=== PATIENT | female | born 1955 | race Caucasian/White ===

== ENCOUNTER 2016-10-22 23:03 | Emergency (ER) | payer MEDICAID ==
[2016-10-22 23:20] VITALS: BP 111/79
== END 2016-10-23 00:05 | disposition left against medical advice (07) ==
LOC: ER 23:03
DX: Z53.9 Procedure and treatment not carried out, unspecified reason (principal)

== ENCOUNTER 2016-10-28 09:38 | Emergency (ER) | payer MEDICAID ==
--- NOTE | 2016-10-28 09:54 | ER Document Report ---
ED General - General Stated Complaint: PSYCH EVALUATION Mode of Arrival: Ambulatory Information source: Patient Notes: 61-year-old female history of psychiatric issues who has been seen by our emergency department multiple times in the past was found in the waiting room noted to be waiting for her family members. Patient notes her brother is here with a stroke, and her son TRAVEL OUTSIDE OF THE [place] IN LAST 30 DAYS: No - HPI Onset: Just prior to arrival Onset/Duration: Sudden Quality of pain: No pain Severity: Mild Pain Level: Denies Associated symptoms: None Exacerbated by: Denies Relieved by: Denies Similar symptoms previously: Yes Recently seen / treated by doctor: Yes - Related Data Allergies/Adverse Reactions: No Known Allergies Allergy (Verified 08/25/16 03:08) Past Medical History - Social History Smoking Status: Never Smoker Cigarette use (# per day): No Chew tobacco use (# tins/day): No Smoking Education Provided: No Family History: Arthritis, CAD, DM, Hyperlipidemia, Hypertension, Thyroid Disfunction - Past Medical History Cardiac Medical History: Reports: Hx Hypertension - CONTROLLED/MEDICATED Denies: Hx Heart Attack Pulmonary Medical History: Denies: Hx Asthma Neurological Medical History: Denies: Hx Cerebrovascular Accident, Hx Seizures Endocrine Medical History: Reports: Hx Diabetes Mellitus Type 2 Renal/ Medical History: Denies: Hx Peritoneal Dialysis GI Medical History: Denies: Hx Hepatitis, Hx Hiatal Hernia, Hx Ulcer Psychiatric Medical History: Reports: Hx Anxiety, Hx Bipolar Disorder, Hx Depression, Hx Schizophrenia Infectious Medical History: Denies: Hx Hepatitis Past Surgical History: Reports: Hx Appendectomy, Hx Dilation and Curettage, Hx Gynecologic Surgery - D&C. Denies: Hx Mastectomy, Hx Open Heart Surgery, Hx Pacemaker - Immunizations Immunizations up to date: Yes Hx Diphtheria, Pertussis, Tetanus Vaccination: Yes Review of Systems - Review of Systems Notes: REVIEW OF SYSTEMS: CONSTITUTIONAL : Denies fever, chills, or sweats. Denies recent illness. EENT: Denies eye, ear, throat, or mouth pain or symptoms. Denies nasal or sinus congestion or discharge. Denies throat, tongue, or mouth swelling or difficulty swallowing. CARDIOVASCULAR: Denies chest pain. Denies palpitations or racing or irregular heart beat. Denies ankle edema. RESPIRATORY: Denies cough, cold, or chest congestion. Denies shortness of breath, difficulty breathing, or wheezing. GASTROINTESTINAL: Denies abdominal pain or distention. Denies nausea, vomiting , or diarrhea. Denies blood in vomitus, stools, or per rectum. Denies black, tarry stools. Denies constipation. GENITOURINARY: Denies difficulty urinating, painful urination, burning, frequency, blood in urine, or discharge. FEMALE GENITOURINARY: Denies vaginal bleeding, heavy or abnormal periods, irregular periods. Denies vaginal discharge or odor. MUSCULOSKELETAL: Denies back or neck pain or stiffness. Denies joint pain or swelling. SKIN: Denies rash, lesions or sores. HEMATOLOGIC : Denies easy bruising or bleeding. LYMPHATIC: Denies swollen, enlarged glands. NEUROLOGICAL: Denies confusion or altered mental status. Denies passing out or loss of consciousness. Denies dizziness or lightheadedness. Denies headache. Denies weakness or paralysis or loss of use of either side. Denies problems with gait or speech. Denies sensory loss, numbness, or tingling. Denies seizures. PSYCHIATRIC: Denies anxiety or stress. Denies depression, suicidal ideation, or homicidal ideation. ALL OTHER SYSTEMS REVIEWED AND NEGATIVE. Dictation was performed using [employer] voice recognition software PHYSICAL EXAMINATION: GENERAL: Well-appearing, well-nourished and in no acute distress. HEAD: Atraumatic, normocephalic. EYES: Pupils equal round and reactive to light, extraocular movements intact, conjunctiva are normal. ENT: Nares patent, oropharynx clear without exudates. Moist mucous membranes. NECK: Normal range of motion, supple without lymphadenopathy LUNGS: Breath sounds clear to auscultation bilaterally and equal. No wheezes rales or rhonchi. HEART: Regular rate and rhythm without murmurs ABDOMEN: Soft, nontender, nondistended abdomen. No guarding, no rebound. No masses appreciated. Female : deferred Musculoskeletal: Normal range of motion, no pitting or edema. No cyanosis. NEUROLOGICAL: Cranial nerves grossly intact. Normal speech, normal gait. Normal sensory, motor exams PSYCH: pt appears confused SKIN: Warm, Dry, normal turgor, no rashes or lesions noted. Physical Exam - Vital signs Vitals: Temp Pulse Resp BP Pulse Ox 97.7 F 96 18 106/70 98 10/28/16 10:05 10/28/16 10:05 10/28/16 10:05 10/28/16 10:05 10/28/16 10:05 Course - Re-evaluation Re-evalutation: 10/28/16 10:06 Given my concern for the patient's safety I will involuntarily hold her until family members are contacted to determine the validity of her story 10/28/16 10:08 10/28/16 13:13 Patient's lithium level is noted to be low, I believe this is the cause of her presentation today. She will be kept involuntarily Medically otherwise patient is stable - Vital Signs Vital signs: Temp Pulse Resp BP Pulse Ox 97.7 F 96 18 106/70 98 10/28/16 10:05 10/28/16 10:05 10/28/16 10:05 10/28/16 10:05 10/28/16 10:05 - Laboratory Result Diagrams: 10/28/16 10:20 10/28/16 10:20 Laboratory results interpreted by me: 10/28/16 10/28/16 10/28/16 10:20 10:20 10:20 RDW 14.9 H Sodium 145.9 H Glucose 147 H Calcium 10.6 H Urine Glucose (UA) Ur Leukocyte Esterase Salicylates < 1.0 L Acetaminophen < 10 L [place] < 0.2 L 10/28/16 10:50 RDW Sodium Glucose Calcium Urine Glucose (UA) >=500 H Ur Leukocyte Esterase SMALL H Salicylates Acetaminophen [place] - EKG Interpretation by Ks EKG shows normal: Sinus rhythm, [place], Intervals, QRS Complexes Discharge - Discharge Clinical Impression: History of medication noncompliance, Schizoaffective schizophrenia Condition: Stable Disposition: PSYCH HOSP/UNIT Additional Instructions: Please follow-up with the care plan provided to you by her mental health team or return immediately if there any other concerns
[2016-10-28 10:52] LABS: ABSOLUTE BASOPHILS # (AUTO) 0.1 10^3/uL (0.0-0.2); ABSOLUTE EOSINOPHILS # (AUTO) 0.1 10^3/uL (0.0-0.6); ABSOLUTE LYMPHOCYTES (AUTO) 1.8 10^3/uL (0.5-4.7); ABSOLUTE MONOCYTES (AUTO) 0.7 10^3/uL (0.1-1.4); ABSOLUTE NEUT (AUTO) 6.9 10^3/uL (1.7-8.2); BASOPHILS % (AUTO) 0.7 % (0-2); EOSINOPHILS % (AUTO) 0.9 % (0-6); HEMATOCRIT 41.7 % (36.0-47.0); HEMOGLOBIN 13.4 g/dL (12.0-15.5); HGB HCT DIFFERENCE -1.5; LYMPHOCYTES % (AUTO) 19.1 % (13-45); MEAN CORPUSCULAR HEMOGLOBIN 28.6 pg (27.0-33.4); MEAN CORPUSCULAR HGB CONC 32.2 g/dL (32.0-36.0); MEAN CORPUSCULAR VOLUME 89 fl (80-97); MONOCYTES % (AUTO) 6.9 % (3-13); RED BLOOD COUNT 4.69 10^6/uL (3.72-5.28); RED CELL DISTRIBUTION WIDTH 14.9 % (11.5-14.0); SEGMENTED NEUTROPHILS % (AUTO) 72.4 % (42-78); WHITE BLOOD COUNT 9.6 10^3/uL (4.0-10.5)
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
[2016-10-28 11:21] LABS: ALANINE AMINOTRANSFERASE 20 U/L (9-52); ALKALINE PHOSPHATASE 60 U/L (38-126); ANION GAP 16 (5-19); ASPARTATE AMINO TRANSFERASE 17 U/L (14-36); BILIRUBIN,TOTAL 0.8 mg/dL (0.2-1.3); BLOOD UREA NITROGEN 18 mg/dL (7-20); CALCIUM 10.6 mg/dL (8.4-10.2); CARBON DIOXIDE 23 mmol/L (22-30); CHLORIDE 107 mmol/L (98-107); CREATININE RESULT 0.63 mg/dL (0.52-1.25); GLUCOSE 147 mg/dL (75-110); POTASSIUM 4.5 mmol/L (3.6-5.0); SODIUM 145.9 mmol/L (137-145)
[2016-10-28 11:22] LABS: ALCOHOL < 10 mg/dL (NONE DETECTED)
[2016-10-28 11:33] LABS: APPEARANCE,URINE SLIGHTLY-CLOUDY; BILIRUBIN,URINE NEGATIVE (NEGATIVE); GLUCOSE, URINE >=500 mg/dL (NEGATIVE); KETONES,URINE NEGATIVE (NEGATIVE); LEUKOCYTE ESTERASE,URINE SMALL (NEGATIVE); NITRITE,URINE NEGATIVE (NEGATIVE); PROTEIN,URINE NEGATIVE (NEGATIVE); URINE SPECIFIC GRAVITY 1.025; UROBILINOGEN,URINE NEGATIVE mg/dL (<2.0)
[2016-10-28 11:48] LABS: URINE BARBITURATES SCREEN NEGATIVE; URINE METHADONE SCREEN NEGATIVE; URINE PHENCYCLIDINE SCREEN NEGATIVE
--- NOTE | 2016-10-28 19:03 | EKG REPORT ---
SEVERITY:- ABNORMAL ECG - SINUS TACHYCARDIA VENTRICULAR BIGEMINY LEFT ATRIAL ABNORMALITY LEFT ANTERIOR FASCICULAR BLOCK LEFT VENTRICULAR HYPERTROPHY : Confirmed by: Cricket Matthews MD 28-Oct-2016 19:02:19
[2016-10-29] MEDS ORDERED: QUETIAPINE FUMARATE 100 MG TABLET PO ONE (04:00)
[2016-10-29] MEDS ORDERED: LITHIUM CARBONATE 300 MG CAPSULE PO SCH (06:00)
[2016-10-29] MEDS: METFORMIN HCL 500 MG TABLET PO SCH ×2 (08:05→16:54)
--- NOTE | 2016-10-29 09:17 | ER Document Report ---
Doctor's Note Notes: 10/29/16 09:17 Patient seen this morning in mental health rounds. Has no complaints. Results and vital signs reviewed. Awaiting psychiatric disposition. 10/29/16 12:46 Rec'd recommendations from psychiatric team including medication changes and ordering of a CT head. Ordered and pending. 10/29/16 15:57 Per psychiatric team, f/u OP w [facility] and home w rx 5 days of meds. D/C home w daughter who is at bedside. Discharge - Discharge Clinical Impression: History of medication noncompliance, Schizo affective schizophrenia Condition: Good Disposition: HOME, SELF-CARE Additional Instructions: Please follow up with [facility]. You were provided with 5 days' worth of medication. Prescriptions: Benztropine Mesylate [Cogentin 1 mg Tablet] 1 tab PO QHS #5 tab Buspirone HCl [Buspar 10 mg Tablet] 10 mg PO QHS #5 tablet Divalproex Sodium [Depakote ER 500 mg Tab.sr] 500 mg PO Q12 #10 tab.sr.24h Risperidone [Risperdal 0.25 Mg Tablet] 0.25 mg PO BID #10 tablet Referrals: FELA WHALEY MD [Primary Care Provider] - Follow up as needed
[2016-10-29] MEDS ORDERED: CAPTOPRIL 25 MG TABLET PO SCH (10:00)
[2016-10-29] MEDS ORDERED: DIVALPROEX SODIUM 125 MG CAP.SPRINK PO SCH ×2 (10:00→12:42)
--- NOTE | 2016-10-29 11:10 | PSYCHOLOGICAL NOTE ---
Psych Note - Psych Note Psych Note: Clinician conducted check in with patient. Previous impression/plan from included recommendation for IVC; the patient is unable to ensure her safety because of poor insight judgment and impulse control. At this time, the patient 's psychosis does not put her or others in danger; however, the patient is in need of a caregiver because her insight, judgment, impulse control are historically poor. Additionally, the patient has a history of noncompliance with taking medications for both mental health and medical needs. The patient' s family has refused to assist in caring for the patient stating they're "fed up with it" and that they "can't watch her 24 hours a day." Clinician called APS and made report. Upon reevaluation patient states that she is "feeling well." Clinician notes patient still verbalizing delusions to staff. Patient also did not sleep the previous evening. Clinician spoke in person with assigned APS worker to discuss concerns reported in more depth. All patient is still demonstrating active delusions, these delusions do not put herself or others in danger. Patient does not meet IVC criteria in is recommended for rescind of IVC. Patient is psychiatrically cleared for discharge. Patient's family needs assistance in understanding proper care and assistance in enrolling in proper resources for patient; social service discharge planning is recommended. Dr. Lewis was consulted on this patient; Attending physician is in agreement with recommendations and disposition.
[2016-10-29] MEDS ORDERED: RISPERIDONE 0.25 MG TABLET PO SCH (15:00)
[2016-10-29 17:06] VITALS: BP 113/63
[2016-10-29] MEDS ORDERED: BENZTROPINE MESYLATE 1 MG TABLET PO SCH (22:00)
[2016-10-29] MEDS ORDERED: QUETIAPINE FUMARATE 100 MG TABLET PO SCH (22:00)
[2016-10-29] MEDS ORDERED: BUSPIRONE HCL 10 MG TABLET PO SCH (22:00)
[2016-10-30] MEDS ORDERED: RISPERIDONE 0.25 MG TABLET PO SCH (08:00)
== END 2016-10-29 16:45 | disposition home or self-care (01) ==
LOC: ER 09:38
DX: F20.9 Schizophrenia, unspecified (principal); F31.9 Bipolar disorder, unspecified
CPT/HCPCS: 93005; 99285; 36415; 80307 ×4; 80178; 85025; 80053; 81001; 70450; 93010; J3490 ×5

== ENCOUNTER → 2017-01-10 | Outpatient (CLI) | payer MEDICAID | LOC: RAD 13:41 | PROVIDERS: ATTEND Internal Medicine | DX: C50.411 Malignant neoplasm of upper-outer quadrant of right female breast (principal) | CPT/HCPCS: 78472; A9560; Q9969 ==

== ENCOUNTER → 2017-01-12 | Outpatient (CLI) | payer MEDICAID | LOC: RAD 07:27 | PROVIDERS: ATTEND Internal Medicine | DX: C50.411 Malignant neoplasm of upper-outer quadrant of right female breast (principal) | CPT/HCPCS: 71260; 74177; 82565 ==

== ENCOUNTER 2017-01-13 07:57 | Day surgery (SDC) | payer MEDICAID ==
[~2017-01-13 07:57] MED LIST: ACETAMINOPHEN 325 MG TABLET PO PRN; RINGERS SOLUTION,LACTATED 1,000 ML IV PRN
[2017-01-13 08:49] LABS: HEMATOCRIT 35.6 % (36.0-47.0); HGB HCT DIFFERENCE 0.4; MEAN CORPUSCULAR HEMOGLOBIN 28.9 pg (27.0-33.4); MEAN CORPUSCULAR HGB CONC 33.8 g/dL (32.0-36.0); MEAN CORPUSCULAR VOLUME 86 fl (80-97); RED BLOOD COUNT 4.16 10^6/uL (3.72-5.28); RED CELL DISTRIBUTION WIDTH 14.6 % (11.5-14.0)
[2017-01-13] MEDS ORDERED: BACITRACIN INJ 50,000 UNIT VIAL IR PRN (09:08)
[2017-01-13] MEDS ORDERED: MIDAZOLAM 2 MG/2 ML INJ ONE (09:21)
[2017-01-13] MEDS ORDERED: FENTANYL CITRATE INJ/PF 100 MCG/2 ML AMPUL ONE (09:21)
[2017-01-13] MEDS ORDERED: LIDOCAINE 0.5% INJ-PF (5 MG/ML) 50 ML SDV ONE (10:05)
[2017-01-13] MEDS ORDERED: CEFAZOLIN INJ 1 GM VIAL ONE (10:43)
[2017-01-13 13:22] VITALS: BP 162/82
--- NOTE | 2017-01-13 23:08 | OPERATIVE REPORT E ---
Operative Report NAME: RANDELL COURTNEY : 1955 AGE: 61Y DATE OF SURGERY: 01/13/2017 ROOM: PREOPERATIVE DIAGNOSIS: Locally advanced right breast carcinoma. POSTOPERATIVE DIAGNOSIS: Locally advanced right breast carcinoma. PROCEDURES PERFORMED: 1. Focused ultrasound of the left neck. 2. Ultrasound directed insertion of single-lumen Infusaport catheter with port in left subclavian position. 3. Interpretation of intraoperative fluoroscopy. 4. Interpretation of limited superior vena cavagram. SURGEON: KVNG LOWERY M.D. ANESTHESIA: Conscious sedation. COMPLICATIONS: None. ESTIMATED BLOOD LOSS: Scant. DRAINS: None. TISSUE REMOVED: None. SUMMARY OF PROCEDURE: The patient was taken from the ambulatory area to the cardiac catheterization lab where she was placed in the supine position. Arms tucked, left neck and chest prepped and draped in a sterile fashion. Surgical timeout were conducted. Ultrasound was used to scan the left neck. Left internal jugular vein patent. Skin was anesthetized with 1% lidocaine with epinephrine. Microneedle and wire threaded into the left internal jugular vein. Suitable site for placement of port established in the left subclavian position. Skin similarly anesthetized, a 2.5 cm incision was made with a #15 blade, and a subcutaneous pocket developed to accommodate the port. The catheter was trimmed to the appropriate length, tunneled between the 2 wounds, attached to the port chamber with a plastic retaining ring. The port was tucked into the pocket, then the Microwire switched over to a conventional wire using the Microintroducer catheter. The dilator introducer sheaths were then threaded over the conventional wire, wire and dilator removed, and catheter threaded into the left internal jugular vein and strip-away sheath removed, leaving catheter in good position. There was no kink of the catheter by fluoroscopic examination. There was excellent aspiration and blood flow through the lumen. We did shoot a quick venogram which suggested the catheter was in good position without leaking. Hemostasis was excellent. The wound was closed with 2-0 Vicryl, benzoin and Steri-Strips. The patient tolerated the procedure well and taken to recovery area in stable condition. DICTATING PHYSICIAN: KVNG LOWERY M.D. [id number] Y#: [id number] ID: [id number] JOB#: [id number] ACCT: [id number] cc:KVNG LOWERY M.D. >
== END 2017-01-13 13:15 | disposition home or self-care (01) ==
LOC: CCL 07:57
PROVIDERS: ATTEND Surgery
PROC: 05HN33Z Insertion of Infusion Device into Left Internal Jugular Vein, Percutaneous Approach (ICD-10-PCS; principal; 2017-01-13)
DX: C50.911 Malignant neoplasm of unspecified site of right female breast (principal); I10 Essential (primary) hypertension; E11.9 Type 2 diabetes mellitus without complications; E66.9 Obesity, unspecified; F32.9 Major depressive disorder, single episode, unspecified; Z79.899 Other long term (current) drug therapy; Z79.84 Long term (current) use of oral hypoglycemic drugs; Z68.33 Body mass index [BMI] 33.0-33.9, adult
CPT/HCPCS: 36415; 82962; 85027; 36561; 76937; 77001; C1788; C1752; Q9967; J2250; J3490 ×2; J0690; J3010; J1644

== ENCOUNTER → 2017-01-14 | Outpatient (CLI) | payer MEDICAID | LOC: RAD 08:35 | PROVIDERS: ATTEND Internal Medicine | DX: C50.411 Malignant neoplasm of upper-outer quadrant of right female breast (principal) | CPT/HCPCS: 78306; A9503; Q9969 ==

== ENCOUNTER 2017-01-23 12:50 | Emergency (ER) | payer MEDICAID ==
[2017-01-23] MEDS ORDERED: ONDANSETRON HCL INJ/PF 4 MG/2 ML SDV IV ONE (13:04)
[2017-01-23] MEDS ORDERED: LORAZEPAM INJ 2 MG/1 ML VIAL IV ONE (13:04)
--- NOTE | 2017-01-23 13:07 | ER Document Report ---
ED General - General Stated Complaint: WEAKNESS Mode of Arrival: Medic Information source: Patient Notes: 61-year-old female history of breast cancer who received chemotherapy on presents with complaints of one episode of vomiting after which she felt anxious and felt like she was gonna pass out and called EMS. Patient denies any fevers or chills TRAVEL OUTSIDE OF THE [place] IN LAST 30 DAYS: No - HPI Onset: Just prior to arrival Onset/Duration: Sudden Quality of pain: No pain Severity: Mild Pain Level: Denies Associated symptoms: Nausea, Vomiting Exacerbated by: Denies Relieved by: Denies Similar symptoms previously: No Recently seen / treated by doctor: No - Related Data Allergies/Adverse Reactions: No Known Allergies Allergy (Verified 01/13/17 08:49) Past Medical History - Social History Smoking Status: Never Smoker Cigarette use (# per day): No Chew tobacco use (# tins/day): No Smoking Education Provided: No Family History: Arthritis, CAD, DM, Hyperlipidemia, Hypertension, Thyroid Disfunction - Past Medical History Cardiac Medical History: Reports: Hx Hypertension - CONTROLLED/MEDICATED Denies: Hx Coronary Artery Disease, Hx Heart Attack Pulmonary Medical History: Reports: Hx Pneumonia - as child Denies: Hx Asthma, Hx Bronchitis, Hx COPD Neurological Medical History: Denies: Hx Cerebrovascular Accident, Hx Seizures Endocrine Medical History: Reports: Hx Diabetes Mellitus Type 2 Renal/ Medical History: Denies: Hx Peritoneal Dialysis GI Medical History: Denies: Hx Hepatitis, Hx Hiatal Hernia, Hx Ulcer Musculoskeltal Medical History: Reports Hx Arthritis Psychiatric Medical History: Reports: Hx Anxiety, Hx Bipolar Disorder, Hx Depression, Hx Schizophrenia Infectious Medical History: Denies: Hx Hepatitis Past Surgical History: Reports: Hx Appendectomy, Hx Dilation and Curettage, Hx Gynecologic Surgery - D&C. Denies: Hx Mastectomy, Hx Open Heart Surgery, Hx Pacemaker - Immunizations Immunizations up to date: Yes Hx Diphtheria, Pertussis, Tetanus Vaccination: Yes Review of Systems - Review of Systems Notes: REVIEW OF SYSTEMS: CONSTITUTIONAL : Denies fever, chills, or sweats. Denies recent illness. EENT: Denies eye, ear, throat, or mouth pain or symptoms. Denies nasal or sinus congestion or discharge. Denies throat, tongue, or mouth swelling or difficulty swallowing. CARDIOVASCULAR: Denies chest pain. Denies palpitations or racing or irregular heart beat. Denies ankle edema. RESPIRATORY: Denies cough, cold, or chest congestion. Denies shortness of breath, difficulty breathing, or wheezing. GASTROINTESTINAL: Vomited nauseous GENITOURINARY: Denies difficulty urinating, painful urination, burning, frequency, blood in urine, or discharge. FEMALE GENITOURINARY: Denies vaginal bleeding, heavy or abnormal periods, irregular periods. Denies vaginal discharge or odor. MUSCULOSKELETAL: Denies back or neck pain or stiffness. Denies joint pain or swelling. SKIN: Denies rash, lesions or sores. HEMATOLOGIC : Denies easy bruising or bleeding. LYMPHATIC: Denies swollen, enlarged glands. NEUROLOGICAL: Admits to feeling presyncopal PSYCHIATRIC: Admits to feeling anxious ALL OTHER SYSTEMS REVIEWED AND NEGATIVE. Dictation was performed using [employer] voice recognition software PHYSICAL EXAMINATION: GENERAL: Well-appearing, well-nourished and in no acute distress. HEAD: Atraumatic, normocephalic. EYES: Pupils equal round and reactive to light, extraocular movements intact, conjunctiva are normal. ENT: Nares patent, oropharynx clear without exudates. Moist mucous membranes. NECK: Normal range of motion, supple without lymphadenopathy LUNGS: Breath sounds clear to auscultation bilaterally and equal. No wheezes rales or rhonchi. HEART: Regular rate and rhythm without murmurs port noted ABDOMEN: Soft, nontender, nondistended abdomen. No guarding, no rebound. No masses appreciated. Female : deferred Musculoskeletal: Normal range of motion, no pitting or edema. No cyanosis. NEUROLOGICAL: Cranial nerves grossly intact. Normal speech, normal gait. Normal sensory, motor exams PSYCH: Normal mood, normal affect. SKIN: Warm, Dry, normal turgor, no rashes or lesions noted. Physical Exam - Vital signs Vitals: Pulse Ox 98 01/23/17 13:25 Course - Re-evaluation Re-evalutation: 01/23/17 13:07 Patient will be treated for her nausea vomiting, lab work are pending at this time 01/23/17 14:19 Laboratory does note elevated white count, however it appears she has a patch of Neulasta on her. I did speak with the patient's oncologist he agrees that patient looks well and is stable. I will discharge her home. I believe the majority of her issues are secondary to anxiety at this point patient will be given nausea control After performing a Medical Screening Examination, I estimate there is LOW risk for ACUTE CORONARY SYNDROME, RESPIRATORY FAILURE, SEPSIS OR MENINGITIS, thus I consider the discharge disposition reasonable. I have reevaluated this patient multiple times and no significant life threatening changes are noted. The patient and I have discussed the diagnosis and risks, and we agree with discharging home with close follow-up. We also discussed returning to the Emergency Department immediately if new or worsening symptoms occur. We have discussed the symptoms which are most concerning (e.g., changing or worsening pain, trouble swallowing or breathing, neck stiffness, fever) that necessitate immediate return. - Vital Signs Vital signs: Temp Pulse Resp BP Pulse Ox 98 01/23/17 13:25 - Laboratory Result Diagrams: 01/23/17 13:20 01/23/17 13:20 Laboratory results interpreted by me: 01/23/17 01/23/17 01/23/17 13:20 13:20 13:48 WBC 22.9 H Hgb 11.8 L Hct 34.4 L RDW 14.7 H Seg Neuts % (Manual) 87 H Band Neutrophils % 1 L Lymphocytes % (Manual) 10 L Monocytes % (Manual) 0 L Abs Neuts (Manual) 20.2 H Abs Monocytes (Manual) 0.0 L Glucose 232 H Urine Protein 30 H Urine Glucose (UA) >=500 H Urine Ketones TRACE H Ur Leukocyte Esterase TRACE H Discharge - Discharge Clinical Impression: Nausea & vomiting Qualifiers: Vomiting type: unspecified Vomiting Intractability: non-intractable Qualified Code(s): R11.2 - Nausea with vomiting, unspecified Condition: Stable Disposition: HOME, SELF-CARE Instructions: Vomiting ([facility]) Additional Instructions: Follow up with your physician tomorrow for further care or return to the ED IMMEDIATELY if symptoms worsen or new concerns occur. If you cannot afford to follow up with your primary care physician a list of low cost clinics have been provided at the end of your discharge papers as well. Prescriptions: Ondansetron [Zofran Odt 4 mg Tablet] 1 - 2 tab PO Q4H PRN #15 tab.rapdis PRN Reason: For Nausea/Vomiting Referrals: LALITO GUZMAN MD [ACTIVE STAFF] - Follow up tomorrow
[2017-01-23 13:35] LABS: HEMATOCRIT 34.4 % (36.0-47.0); HEMOGLOBIN 11.8 g/dL (12.0-15.5); MEAN CORPUSCULAR HEMOGLOBIN 29.5 pg (27.0-33.4); MEAN CORPUSCULAR HGB CONC 34.3 g/dL (32.0-36.0); MEAN CORPUSCULAR VOLUME 86 fl (80-97); RED BLOOD COUNT 3.99 10^6/uL (3.72-5.28); RED CELL DISTRIBUTION WIDTH 14.7 % (11.5-14.0); WHITE BLOOD COUNT 22.9 10^3/uL (4.0-10.5)
[2017-01-23 13:50] LABS: BAND NEUTROPHILS % (MANUAL) 1 % (3-5); BASOPHILS % (MANUAL) 0 % (0-2); EOSINOPHILS % (MANUAL) 2 % (0-6); LYMPHOCYTES % (MANUAL) 10 % (13-45); TOTAL CELLS COUNTED 100
[2017-01-23 13:51] LABS: RBC MORPHOLOGY COMMENT NORMO-CYTIC/CHROMIC
[2017-01-23 13:52] LABS: ALANINE AMINOTRANSFERASE 25 U/L (9-52); ALBUMIN 4.5 g/dL (3.5-5.0); ALKALINE PHOSPHATASE 126 U/L (38-126); ANION GAP 13 (5-19); ASPARTATE AMINO TRANSFERASE 16 U/L (14-36); BILIRUBIN,DIRECT 0.3 mg/dL (0.0-0.4); BILIRUBIN,TOTAL 0.9 mg/dL (0.2-1.3); BLOOD UREA NITROGEN 18 mg/dL (7-20); CALCIUM 10.1 mg/dL (8.4-10.2); CARBON DIOXIDE 27 mmol/L (22-30); CHLORIDE 100 mmol/L (98-107); CREATINE KINASE 40 U/L (30-135); CREATININE RESULT 0.54 mg/dL (0.52-1.25); GLUCOSE 232 mg/dL (75-110); POTASSIUM 4.6 mmol/L (3.6-5.0); SODIUM 140.2 mmol/L (137-145); TOTAL PROTEIN 7.2 g/dL (6.3-8.2)
[2017-01-23 14:02] LABS: CREATINE KINASE MB 0.54 ng/mL (<4.55)
[2017-01-23 14:04] LABS: APPEARANCE,URINE SLIGHTLY-CLOUDY; BILIRUBIN,URINE NEGATIVE (NEGATIVE); GLUCOSE, URINE >=500 mg/dL (NEGATIVE); KETONES,URINE TRACE mg/dL (NEGATIVE); LEUKOCYTE ESTERASE,URINE TRACE (NEGATIVE); NITRITE,URINE NEGATIVE (NEGATIVE); PROTEIN,URINE 30 mg/dL (NEGATIVE); URINE SPECIFIC GRAVITY 1.028; UROBILINOGEN,URINE NEGATIVE mg/dL (<2.0)
[2017-01-23 14:07] LABS: TROPONIN I < 0.012 ng/mL
[2017-01-23 16:34] VITALS: BP 146/87
--- NOTE | 2017-01-23 17:53 | EKG REPORT ---
SEVERITY:- ABNORMAL ECG - SINUS RHYTHM PROBABLE LEFT ATRIAL ABNORMALITY INCOMPLETE LEFT BUNDLE BRANCH BLOCK LEFT VENTRICULAR HYPERTROPHY : Confirmed by: Cricket Matthews MD 23-Jan-2017 17:53:13
== END 2017-01-23 16:29 | disposition home or self-care (01) ==
LOC: ER 12:50
DX: R11.2 Nausea with vomiting, unspecified (principal); F41.9 Anxiety disorder, unspecified; R55 Syncope and collapse; C50.919 Malignant neoplasm of unspecified site of unspecified female breast; I10 Essential (primary) hypertension; E11.9 Type 2 diabetes mellitus without complications; D72.829 Elevated white blood cell count, unspecified
CPT/HCPCS: 93005; 99285; 96374; 96375; 36415; 82553; 82550; 85025; 80053; 81001; 84484; 71010; 93010; J2060; J2405

== ENCOUNTER 2017-01-27 04:02 | Observation (INO) | payer MEDICAID ==
[2017-01-27 05:57] LABS: ALANINE AMINOTRANSFERASE 28 U/L (9-52); ALBUMIN 4.5 g/dL (3.5-5.0); ALKALINE PHOSPHATASE 102 U/L (38-126); ANION GAP 15 (5-19); ASPARTATE AMINO TRANSFERASE 20 U/L (14-36); BILIRUBIN,DIRECT 0.2 mg/dL (0.0-0.4); BILIRUBIN,TOTAL 0.6 mg/dL (0.2-1.3); BLOOD UREA NITROGEN 20 mg/dL (7-20); CALCIUM 9.7 mg/dL (8.4-10.2); CARBON DIOXIDE 23 mmol/L (22-30); CHLORIDE 102 mmol/L (98-107); CREATINE KINASE 34 U/L (30-135); CREATININE RESULT 0.63 mg/dL (0.52-1.25); GLUCOSE 161 mg/dL (75-110); LIPASE 93.9 U/L (23-300); POTASSIUM 4.4 mmol/L (3.6-5.0); SODIUM 139.8 mmol/L (137-145); TOTAL PROTEIN 7.2 g/dL (6.3-8.2)
[2017-01-27] MEDS ORDERED: ASPIRIN 325 MG TABLET PO ONE (06:08)
[2017-01-27 06:12] LABS: TROPONIN I < 0.012 ng/mL
[2017-01-27 06:19] LABS: HEMATOCRIT 32.8 % (36.0-47.0); HEMOGLOBIN 11.1 g/dL (12.0-15.5); HGB HCT DIFFERENCE 0.5; MEAN CORPUSCULAR HEMOGLOBIN 28.9 pg (27.0-33.4); MEAN CORPUSCULAR HGB CONC 33.7 g/dL (32.0-36.0); MEAN CORPUSCULAR VOLUME 86 fl (80-97); RED BLOOD COUNT 3.83 10^6/uL (3.72-5.28); RED CELL DISTRIBUTION WIDTH 14.8 % (11.5-14.0); WHITE BLOOD COUNT 7.7 10^3/uL (4.0-10.5)
[2017-01-27 06:23] LABS: BAND NEUTROPHILS % (MANUAL) 12 % (3-5); BASOPHILS % (MANUAL) 0 % (0-2); EOSINOPHILS % (MANUAL) 3 % (0-6); LYMPHOCYTES % (MANUAL) 31 % (13-45); TOTAL CELLS COUNTED 100
[2017-01-27 06:27] LABS: ANISOCYTOSIS SLIGHT; OVALOCYTES SLIGHT; TEAR DROP CELLS SLIGHT; TOXIC GRANULATION SLIGHT; TOXIC VACUOLATION PRESENT
[2017-01-27] MEDS ORDERED: NITROGLYCERIN 0.4 MG/TAB 25 TAB/BOTTLE SL PRN (06:53)
--- NOTE | 2017-01-27 06:56 | ER Document Report ---
ED General - General Chief Complaint: Chest Pain Stated Complaint: CHEST PAIN/BACK PAIN Mode of Arrival: Ambulatory Information source: Patient Notes: 61-year-old female history of hypertension hyperlipidemia diabetes presents with complaints of chest pressure sensation rating to her back. Patient denies any fevers or chills, denies any nausea vomiting, denies any shortness of breath. Patient denies any sharp pain, she denies any pain with inspiration or expiration. Patient notes pain resolved after being given one nitroglycerin by EMS She does not have a history of any stress test TRAVEL OUTSIDE OF THE [place] IN LAST 30 DAYS: No - HPI Onset: Yesterday Onset/Duration: Persistent Quality of pain: Pressure Severity: Mild Pain Level: 1 Associated symptoms: Chest pain Exacerbated by: Denies Relieved by: Other Similar symptoms previously: Yes - minor chest pain in the past never seen for Recently seen / treated by doctor: No - Related Data Allergies/Adverse Reactions: No Known Allergies Allergy (Verified 01/13/17 08:49) Past Medical History - Social History Smoking Status: Never Smoker Cigarette use (# per day): No Chew tobacco use (# tins/day): No Smoking Education Provided: No Frequency of alcohol use: None Drug Abuse: None Family History: Arthritis, CAD, DM, Hyperlipidemia, Hypertension, Thyroid Disfunction Patient has suicidal ideation: No Patient has homicidal ideation: No - Past Medical History Cardiac Medical History: Reports: Hx Hypertension - CONTROLLED/MEDICATED Denies: Hx Coronary Artery Disease, Hx Heart Attack Pulmonary Medical History: Reports: Hx Pneumonia - as child Denies: Hx Asthma, Hx Bronchitis, Hx COPD Neurological Medical History: Denies: Hx Cerebrovascular Accident, Hx Seizures Endocrine Medical History: Reports: Hx Diabetes Mellitus Type 2 Renal/ Medical History: Denies: Hx Peritoneal Dialysis GI Medical History: Denies: Hx Hepatitis, Hx Hiatal Hernia, Hx Ulcer Musculoskeltal Medical History: Reports Hx Arthritis Psychiatric Medical History: Reports: Hx Anxiety, Hx Bipolar Disorder, Hx Depression, Hx Schizophrenia Infectious Medical History: Denies: Hx Hepatitis Past Surgical History: Reports: Hx Appendectomy, Hx Dilation and Curettage, Hx Gynecologic Surgery - D&C. Denies: Hx Mastectomy, Hx Open Heart Surgery, Hx Pacemaker - Immunizations Immunizations up to date: Yes Hx Diphtheria, Pertussis, Tetanus Vaccination: Yes Review of Systems - Review of Systems Notes: REVIEW OF SYSTEMS: CONSTITUTIONAL : Denies fever, chills, or sweats. Denies recent illness. EENT: Denies eye, ear, throat, or mouth pain or symptoms. Denies nasal or sinus congestion or discharge. Denies throat, tongue, or mouth swelling or difficulty swallowing. CARDIOVASCULAR: Admits to chest pain RESPIRATORY: Denies cough, cold, or chest congestion. Denies shortness of breath, difficulty breathing, or wheezing. GASTROINTESTINAL: Denies abdominal pain or distention. Denies nausea, vomiting , or diarrhea. Denies blood in vomitus, stools, or per rectum. Denies black, tarry stools. Denies constipation. GENITOURINARY: Denies difficulty urinating, painful urination, burning, frequency, blood in urine, or discharge. FEMALE GENITOURINARY: Denies vaginal bleeding, heavy or abnormal periods, irregular periods. Denies vaginal discharge or odor. MUSCULOSKELETAL: Denies back or neck pain or stiffness. Denies joint pain or swelling. SKIN: Denies rash, lesions or sores. HEMATOLOGIC : Denies easy bruising or bleeding. LYMPHATIC: Denies swollen, enlarged glands. NEUROLOGICAL: Denies confusion or altered mental status. Denies passing out or loss of consciousness. Denies dizziness or lightheadedness. Denies headache. Denies weakness or paralysis or loss of use of either side. Denies problems with gait or speech. Denies sensory loss, numbness, or tingling. Denies seizures. PSYCHIATRIC: Denies anxiety or stress. Denies depression, suicidal ideation, or homicidal ideation. ALL OTHER SYSTEMS REVIEWED AND NEGATIVE. Dictation was performed using [employer] voice recognition software PHYSICAL EXAMINATION: GENERAL: Well-appearing, well-nourished and in no acute distress. HEAD: Atraumatic, normocephalic. EYES: Pupils equal round and reactive to light, extraocular movements intact, conjunctiva are normal. ENT: Nares patent, oropharynx clear without exudates. Moist mucous membranes. NECK: Normal range of motion, supple without lymphadenopathy LUNGS: Breath sounds clear to auscultation bilaterally and equal. No wheezes rales or rhonchi. HEART: Regular rate and rhythm without murmurs ABDOMEN: Soft, nontender, nondistended abdomen. No guarding, no rebound. No masses appreciated. Female : deferred Musculoskeletal: Normal range of motion, no pitting or edema. No cyanosis. NEUROLOGICAL: Cranial nerves grossly intact. Normal speech, normal gait. Normal sensory, motor exams PSYCH: Normal mood, normal affect. SKIN: Warm, Dry, normal turgor, no rashes or lesions noted. Physical Exam - Vital signs Vitals: BP 124/80 01/27/17 04:16 Course - Re-evaluation Re-evalutation: 01/27/17 06:55 Physical examination lab work and EKG noted no significant abnormality, given patient's risk factors and presentation I do believe a cardiac evaluation is appropriate. I will admit the patient to her primary care physician for ACS rule out - Vital Signs Vital signs: Temp Pulse Resp BP Pulse Ox 98.5 F 97 18 140/73 H 96 01/27/17 04:25 01/27/17 04:25 01/27/17 04:25 01/27/17 06:16 01/27/17 06:16 - Laboratory Result Diagrams: 01/27/17 05:30 01/27/17 05:30 Laboratory results interpreted by me: 01/27/17 01/27/17 05:30 05:30 Hgb 11.1 L Hct 32.8 L RDW 14.8 H Seg Neuts % (Manual) 38 L Band Neutrophils % 12 H Monocytes % (Manual) 16 H Glucose 161 H - Diagnostic Test Radiology reviewed: Image reviewed, Reports reviewed - EKG Interpretation by Me EKG shows normal: Sinus rhythm, [place], Intervals, QRS Complexes [place]/QRS: LAHB/LAFB Discharge - Discharge Clinical Impression: Chest pain Qualifiers: Chest pain type: unspecified Qualified Code(s): R07.9 - Chest pain, unspecified Condition: Stable Disposition: ADMITTED OBSERVATION Admitting Provider: [facility] Unit Admitted: Telemetry
[2017-01-27 09:45] LABS: PARTIAL THROMBOPLASTIN TIME 29.9 SEC (23.5-35.8); PROTHROMBIN TIME 12.9 SEC (11.4-15.4)
[2017-01-27 09:53] LABS: CREATINE KINASE MB 0.51 ng/mL (<4.55)
[2017-01-27 09:59] LABS: TROPONIN I < 0.012 ng/mL
[2017-01-27 15:31] LABS: CREATINE KINASE MB 0.56 ng/mL (<4.55)
[2017-01-27 15:37] LABS: TROPONIN I < 0.012 ng/mL
[2017-01-27 17:10] LABS: APPEARANCE,URINE SLIGHTLY-CLOUDY; BILIRUBIN,URINE NEGATIVE (NEGATIVE); GLUCOSE, URINE >=500 mg/dL (NEGATIVE); KETONES,URINE NEGATIVE (NEGATIVE); LEUKOCYTE ESTERASE,URINE NEGATIVE (NEGATIVE); NITRITE,URINE NEGATIVE (NEGATIVE); PROTEIN,URINE NEGATIVE (NEGATIVE); URINE SPECIFIC GRAVITY 1.016; UROBILINOGEN,URINE NEGATIVE mg/dL (<2.0)
[2017-01-27] MEDS: ASPIRIN 81 MG TABLET, ENT COATED PO SCH (18:34)
[2017-01-27] MEDS ORDERED: OXYCODONE-ACETAMINOPHEN 5-325 MG TABLET PO PRN (18:38)
[2017-01-27] MEDS ORDERED: NORMAL SALINE 1000 ML 1,000 ML IV PRN (18:39)
[2017-01-27] MEDS ORDERED: LISINOPRIL 10 MG TABLET PO ONE (19:00)
[2017-01-27] MEDS ORDERED: GLIPIZIDE XL 5 MG TAB.ER.24 PO ONE (19:30)
[2017-01-27] MEDS ORDERED: DIVALPROEX SODIUM 250 MG TAB.SR.24H PO ONE (20:00)
[2017-01-27 20:48] LABS: PATH REVIEW PATHOLOGIST REVIEWED
[2017-01-27 21:21] LABS: CREATINE KINASE MB 0.56 ng/mL (<4.55)
[2017-01-27 21:25] LABS: TROPONIN I < 0.012 ng/mL
[2017-01-27] MEDS ORDERED: (PENDING PHARMACY ID) (Quetiapine Fumarate [Seroquel Xr] 150 MG) PO SCH (22:00)
[2017-01-28 05:32] LABS: HEMATOCRIT 34.4 % (36.0-47.0); HEMOGLOBIN 11.6 g/dL (12.0-15.5); HGB HCT DIFFERENCE 0.4; MEAN CORPUSCULAR HEMOGLOBIN 28.8 pg (27.0-33.4); MEAN CORPUSCULAR HGB CONC 33.7 g/dL (32.0-36.0); MEAN CORPUSCULAR VOLUME 86 fl (80-97); RED BLOOD COUNT 4.03 10^6/uL (3.72-5.28); RED CELL DISTRIBUTION WIDTH 14.6 % (11.5-14.0); WHITE BLOOD COUNT 14.4 10^3/uL (4.0-10.5)
[2017-01-28 05:51] LABS: ANION GAP 18 (5-19); BLOOD UREA NITROGEN 17 mg/dL (7-20); CALCIUM 10.3 mg/dL (8.4-10.2); CARBON DIOXIDE 26 mmol/L (22-30); CHLORIDE 102 mmol/L (98-107); CHOLESTEROL 103.75 mg/dL (0-200); CREATININE RESULT 0.69 mg/dL (0.52-1.25); Direct HDL 47 mg/dL (>40); GLUCOSE 131 mg/dL (75-110); POTASSIUM 4.6 mmol/L (3.6-5.0); SODIUM 146.3 mmol/L (137-145); TRIGLYCERIDES 76 mg/dL (<150)
[2017-01-28 06:01] LABS: DIRECT LDL 37 mg/dL (<100)
[2017-01-28 06:09] LABS: BAND NEUTROPHILS % (MANUAL) 9 % (3-5); BASOPHILS % (MANUAL) 0 % (0-2); EOSINOPHILS % (MANUAL) 0 % (0-6); LYMPHOCYTES % (MANUAL) 22 % (13-45); TOTAL CELLS COUNTED 100
[2017-01-28 06:10] LABS: ANISOCYTOSIS SLIGHT; TOXIC VACUOLATION PRESENT
[2017-01-28] MEDS: DIVALPROEX SODIUM 250 MG TAB.SR.24H PO SCH ×2 (09:49→17:25)
[2017-01-28] MEDS: ASPIRIN 81 MG TABLET, ENT COATED PO SCH (09:50)
[2017-01-28] MEDS ORDERED: LISINOPRIL 10 MG TABLET PO SCH (10:00)
[2017-01-28] MEDS ORDERED: GLIPIZIDE XL 5 MG TAB.ER.24 PO SCH (10:00)
--- NOTE | 2017-01-28 18:29 | PDOC H&P ---
History of Present Illness Admission Date/PCP: 01/27/17 08:41 FELA WHALEY MD History of Present Illness: RANDELL COURTNEY is a 61 year old female, she recently diagnosed with right breast cancer, she came to emergency room with 3 days history of substernal chest pain, the chest pain is not provoked by activity or motion, she was seen in the emergency room and evaluated, a 12-lead E EKG was done, it was sinus rhythm there is no acute ST-T wave segment changes, because of her risk factors for ischemic heart disease which include diabetes mellitus, hospital admission was advised to rule out acute coronary syndrome.. 3 sets of cardiac enzymes were negative for acute CO, because of history of breast cancer and because she said the chest pain radiated to her back CTA chest was done and it was negative for pulmonary embolus. The chest pain is atypical in character it is probably GI related chest pain on further questioning it seems that the chest pain is mainly epigastric other than substernal chest pain. She denies any passage of black tarry stool, there is no hematochezia or vomiting blood. Past Medical History Cardiac Medical History: Reports: Hypertension - CONTROLLED/MEDICATED Pulmonary Medical History: Reports: Pneumonia - as child Endocrine Medical History: Reports: Diabetes Mellitus Type 2 Malignancy Medical History: Reports: Breast Cancer Musculoskeltal Medical History: Reports: Arthritis Psychiatric Medical History: Reports: Bipolar Disorder, Depression Hematology: Reports: Anemia Past Surgical History Past Surgical History: Reports: Appendectomy Social History Smoking Status: Never Smoker Drugs: None - Advance Directive Resuscitation Status: Full Code Family History Family History: Arthritis, CAD, DM, Hyperlipidemia, Hypertension, Thyroid Disfunction Parental Family History Reviewed: Yes Children Family History Reviewed: Yes Sibling(s) Family History Reviewed.: Yes Medication/Allergy Home Medications: Divalproex Sodium [Depakote ER 250 mg Tablet] 3 tab PO BID 01/27/17 Glipizide [Glipizide Xl] 10 mg PO DAILY 01/27/17 Lisinopril [Prinivil 10 mg Tablet] 10 mg PO DAILY 01/27/17 Metformin HCl [Glucophage] 1,000 mg PO BID 01/27/17 Ondansetron HCl [Zofran 8 mg Tablet] 8 mg PO Q8HP PRN 01/27/17 Oxycodone HCl/Acetaminophen [Percocet 5-325 mg Tablet] 1 tab PO Q6HP PRN Promethazine HCl [Phenergan 25 mg Tablet] 25 mg PO Q6HP PRN 01/27/17 Quetiapine Fumarate [Seroquel Xr] 150 mg PO QHS 01/27/17 Allergies/Adverse Reactions: No Known Allergies Allergy (Verified 01/13/17 08:49) Review of Systems Constitutional: ABSENT: chills, fever(s), headache(s), weight gain, weight loss Eyes: ABSENT: visual disturbances Ears: ABSENT: hearing changes Cardiovascular: PRESENT: chest pain Respiratory: ABSENT: cough, hemoptysis Gastrointestinal: ABSENT: abdominal pain, constipation, diarrhea, hematemesis, hematochezia, nausea, vomiting Genitourinary: ABSENT: dysuria, hematuria Musculoskeletal: ABSENT: joint swelling Integumentary: ABSENT: rash, wounds Neurological: ABSENT: abnormal gait, abnormal speech, confusion, dizziness, focal weakness, syncope Psychiatric: ABSENT: anxiety, depression, homidical ideation, suicidal ideation Endocrine: ABSENT: cold intolerance, heat intolerance, menstrual abnormalities, polydipsia, polyuria Hematologic/Lymphatic: ABSENT: easy bleeding, easy bruising, lymphadenopathy Physical Exam Vital Signs: Temp Pulse Resp BP Pulse Ox 97.6 F 87 18 124/64 99 01/28/17 15:14 01/28/17 15:14 01/28/17 15:14 01/28/17 15:14 01/28/17 15:14 Intake & Output 01/27/17 01/28/17 01/29/17 06:59 06:59 06:59 Intake Total 1025 450 Output Total 100 Balance 925 450 Weight 78.9 kg General appearance: PRESENT: no acute distress, well-developed, well-nourished Head exam: PRESENT: atraumatic, normocephalic Eye exam: PRESENT: conjunctiva pink, EOMI, PERRLA Ear exam: PRESENT: normal external ear exam Mouth exam: PRESENT: moist, tongue midline Neck exam: PRESENT: full ROM Respiratory exam: PRESENT: clear to auscultation [place] Cardiovascular exam: PRESENT: RRR, +S1, +S2 Pulses: PRESENT: normal dorsalis pedis pul, +2 pedal pulses bilateral Vascular exam: PRESENT: normal capillary refill GI/Abdominal exam: PRESENT: normal bowel sounds, soft Rectal exam: PRESENT: deferred Neurological exam: PRESENT: alert, awake, oriented to person, oriented to place , oriented to time, oriented to situation, CN II-XII grossly intact. ABSENT: motor sensory deficit Psychiatric exam: PRESENT: appropriate affect, normal mood Skin exam: PRESENT: dry, intact, warm Results Laboratory Results: 01/28/17 04:53 01/28/17 04:53 01/28/17 01/28/17 04:53 04:53 WBC 14.4 H RBC 4.03 Hgb 11.6 L Hct 34.4 L MCV 86 MCH 28.8 MCHC 33.7 RDW 14.6 H Plt Count 293 Seg Neutrophils % Not Reportable Lymphocytes % Not Reportable Monocytes % Not Reportable Eosinophils % Not Reportable Basophils % Not Reportable Absolute Neutrophils Not Reportable Absolute Lymphocytes Not Reportable Absolute Monocytes Not Reportable Absolute Eosinophils Not Reportable Absolute Basophils Not Reportable Sodium 146.3 H Potassium 4.6 Chloride 102 Carbon Dioxide 26 Anion Gap 18 BUN 17 Creatinine 0.69 Est GFR ( Amer) > 60 Est GFR (Non-Af Amer) > 60 Glucose 131 H Calcium 10.3 H Triglycerides 76 Cholesterol 103.75 LDL Cholesterol Direct 37 VLDL Cholesterol 15.0 HDL Cholesterol 47 01/27/17 01/27/17 01/27/17 09:03 14:45 20:45 CK-MB (CK-2) 0.51 0.56 0.56 Troponin I < 0.012 < 0.012 < 0.012 Impressions: Chest/Abdomen CTA 01/27/17 00:00 IMPRESSION: No acute findings. NO PULMONARY EMBOLI. Chest X-Ray 01/27/17 04:56 IMPRESSION: No acute cardiopulmonary findings. Assessment & Plan - Diagnosis (1) Chest pain Qualifiers: Chest pain type: unspecified Qualified Code(s): R07.9 - Chest pain, unspecified Is this a current diagnosis for this admission?: YesPlan: Patient is admitted to the hospital for observation and management of chest pain the chest pain is atypical in character it is not consistent with ischemic chest pain (2) Malignant neoplasm of right breast Qualifiers: Breast location: unspecified site of breast Patient sex: female Qualified Code(s): C50.911 - Malignant neoplasm of unspecified site of right female breast Is this a current diagnosis for this admission?: Yes (3) Type 2 diabetes mellitus Qualifiers: Diabetes mellitus complication status: with neurologic complications Diabetes mellitus complication detail: with polyneuropathy Diabetes mellitus nursing home insulin use: without rat 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 use Qualified Code(s): E11.42 - Type 2 diabetes mellitus with diabetic polyneuropathy Is this a current diagnosis for this admission?: Yes
--- NOTE | 2017-01-28 18:30 | PDOC DISCHARGE SUMMARY ---
General - Admit/Disc Date/PCP Admission Date/Primary Care Provider: 01/27/17 08:41 FELA WHALEY MD Discharge Date: 01/28/17 - Discharge Diagnosis (1) Chest pain Is this a current diagnosis for this admission?: Yes (2) Malignant neoplasm of right breast Is this a current diagnosis for this admission?: Yes (3) Type 2 diabetes mellitus Is this a current diagnosis for this admission?: Yes - Additional Information Resuscitation Status: Full Code Discharge Activity: Activity As Tolerated Home Medications: Divalproex Sodium [Depakote ER 250 mg Tablet] 3 tab PO BID 01/27/17 Glipizide [Glipizide Xl] 10 mg PO DAILY 01/27/17 Lisinopril [Prinivil 10 mg Tablet] 10 mg PO DAILY 01/27/17 Metformin HCl [Glucophage] 1,000 mg PO BID 01/27/17 Ondansetron HCl [Zofran 8 mg Tablet] 8 mg PO Q8HP PRN 01/27/17 Oxycodone HCl/Acetaminophen [Percocet 5-325 mg Tablet] 1 tab PO Q6HP PRN Promethazine HCl [Phenergan 25 mg Tablet] 25 mg PO Q6HP PRN 01/27/17 Quetiapine Fumarate [Seroquel Xr] 150 mg PO QHS 01/27/17 History of Present Illness History of Present Illness: RANDELL COURTNEY is a 61 year old female, she recently diagnosed with right breast cancer, she came to emergency room with 3 days history of substernal chest pain, the chest pain is not provoked by activity or motion, she was seen in the emergency room and evaluated, a 12-lead E EKG was done, it was sinus rhythm there is no acute ST-T wave segment changes, because of her risk factors for ischemic heart disease which include diabetes mellitus, hospital admission was advised to rule out acute coronary syndrome.. 3 sets of cardiac enzymes were negative for acute UT, because of history of breast cancer and because she said the chest pain radiated to her back CTA chest was done and it was negative for pulmonary embolus. The chest pain is atypical in character it is probably GI related chest pain on further questioning it seems that the chest pain is mainly epigastric other than substernal chest pain. She denies any passage of black tarry stool, there is no hematochezia or vomiting blood. Hospital Course Hospital Course: Patient was admitted for chest pain, acute coronary syndrome was ruled out, the chest pain is atypical in character, CTA chest was done because of concern for pulmonary embolism and this was negative for PE. Physical Exam Vital Signs: Temp Pulse Resp BP Pulse Ox 97.6 F 87 18 124/64 98 01/28/17 18:00 01/28/17 18:00 01/28/17 18:00 01/28/17 18:00 01/28/17 18:00 Intake & Output 01/27/17 01/28/17 01/29/17 06:59 06:59 06:59 Intake Total 1025 450 Output Total 100 Balance 925 450 Weight 78.9 kg General appearance: PRESENT: no acute distress, well-developed, well-nourished Head exam: PRESENT: atraumatic, normocephalic Eye exam: PRESENT: conjunctiva pink, EOMI, PERRLA. ABSENT: scleral icterus Ear exam: PRESENT: normal external ear exam Mouth exam: PRESENT: moist, tongue midline Neck exam: PRESENT: full ROM. ABSENT: carotid bruit, JVD, lymphadenopathy, thyromegaly Cardiovascular exam: PRESENT: RRR. ABSENT: diastolic murmur, rubs, systolic murmur Pulses: PRESENT: normal dorsalis pedis pul, +2 pedal pulses bilateral Vascular exam: PRESENT: normal capillary refill GI/Abdominal exam: PRESENT: normal bowel sounds, soft. ABSENT: distended, guarding, mass, organolmegaly, rebound, tenderness Rectal exam: PRESENT: deferred Neurological exam: PRESENT: alert, awake, oriented to person, oriented to place , oriented to time, oriented to situation, CN II-XII grossly intact. ABSENT: motor sensory deficit Psychiatric exam: PRESENT: appropriate affect, normal mood. ABSENT: homicidal ideation, suicidal ideation Skin exam: PRESENT: dry, intact, warm. ABSENT: cyanosis, rash Results Laboratory Results: 01/28/17 04:53 01/28/17 04:53 01/28/17 01/28/17 04:53 04:53 WBC 14.4 H RBC 4.03 Hgb 11.6 L Hct 34.4 L MCV 86 MCH 28.8 MCHC 33.7 RDW 14.6 H Plt Count 293 Seg Neutrophils % Not Reportable Lymphocytes % Not Reportable Monocytes % Not Reportable Eosinophils % Not Reportable Basophils % Not Reportable Absolute Neutrophils Not Reportable Absolute Lymphocytes Not Reportable Absolute Monocytes Not Reportable Absolute Eosinophils Not Reportable Absolute Basophils Not Reportable Sodium 146.3 H Potassium 4.6 Chloride 102 Carbon Dioxide 26 Anion Gap 18 BUN 17 Creatinine 0.69 Est GFR ( Amer) > 60 Est GFR (Non-Af Amer) > 60 Glucose 131 H Calcium 10.3 H Triglycerides 76 Cholesterol 103.75 LDL Cholesterol Direct 37 VLDL Cholesterol 15.0 HDL Cholesterol 47 01/27/17 01/27/17 01/27/17 09:03 14:45 20:45 CK-MB (CK-2) 0.51 0.56 0.56 Troponin I < 0.012 < 0.012 < 0.012 Impressions: Chest/Abdomen CTA 01/27/17 00:00 IMPRESSION: No acute findings. NO PULMONARY EMBOLI. Chest X-Ray 01/27/17 04:56 IMPRESSION: No acute cardiopulmonary findings.
[2017-01-28 19:09] VITALS: BP 115/58
== END 2017-01-28 20:30 | disposition home or self-care (01) ==
LOC: ER 04:02 → EH 07:18 → UNDOADMOB 07:18 → EH 08:41 → 4N 10:26
PROVIDERS: ADMIT Internal Medicine; ATTEND Internal Medicine
DX: R07.9 Chest pain, unspecified (principal); C50.911 Malignant neoplasm of unspecified site of right female breast; E11.42 Type 2 diabetes mellitus with diabetic polyneuropathy; I10 Essential (primary) hypertension; Z79.84 Long term (current) use of oral hypoglycemic drugs; Z79.899 Other long term (current) drug therapy; Z90.49 Acquired absence of other specified parts of digestive tract; Z82.49 Family history of ischemic heart disease and other diseases of the circulatory system
CPT/HCPCS: 99285; 36415 ×2; 82553; 82962 ×2; 82550; 83690; 84100; 85025 ×2; 85610; 85730; 80076; 80048 ×2; 81001; 84484; 80061; 83880; 71020; 71275; G0378 ×3; J3490 ×8; J7030

== ENCOUNTER 2017-04-20 09:39 | Emergency (ER) | payer MEDICAID, OTHER ==
--- NOTE | 2017-04-20 10:10 | ER Document Report ---
ED Medical Screen (RME) - General Chief Complaint: Psych Problem Stated Complaint: HALLUCINATIONS Time Seen by Provider: 04/20/17 09:55 Mode of Arrival: Ambulatory Information source: Patient, Friend, [facility] Records Cannot obtain history due to: Mentally challenged TRAVEL OUTSIDE OF THE [place] IN LAST 30 DAYS: No - HPI Patient complains to provider of: Schizophrenia Onset: Other Onset/Duration: Constant Quality of pain: No pain Associated Symptoms: None Exacerbated by: Denies Similar symptoms previously: Yes Notes: 04/20/17 10:07 Patient is a 61-year-old female who has history of schizophrenia. She is followed by [facility]. She has been noncompliant with her medications for some time. She is brought in this morning by her sister and mental health public service representative for worsening schizophrenia symptoms. She apparently was found on the front porch of another house actively hallucinating. Patient denies suicidal ideations. Patient is also been noncompliant with her medications for her diabetes. Patient also has history of breast cancer. - Related Data Allergies/Adverse Reactions: No Known Allergies Allergy (Verified 04/20/17 09:49) Past Medical History - General Information source: Patient, Relative, [facility] Records Cannot obtain history due to: Mentally challenged - Social History Frequency of alcohol use: None Drug Abuse: None - Past Medical History Cardiac Medical History: Reports: Hx Hypertension - CONTROLLED/MEDICATED Denies: Hx Coronary Artery Disease, Hx Heart Attack Pulmonary Medical History: Reports: Hx Pneumonia - as child Denies: Hx Asthma, Hx Bronchitis, Hx COPD Neurological Medical History: Denies: Hx Cerebrovascular Accident, Hx Seizures Endocrine Medical History: Reports: Hx Diabetes Mellitus Type 2 Renal/ Medical History: Denies: Hx Peritoneal Dialysis Malignancy Medical History: Reports: Hx Breast Cancer GI Medical History: Denies: Hx Hepatitis, Hx Hiatal Hernia, Hx Ulcer Musculoskeltal Medical History: Reports Hx Arthritis Psychiatric Medical History: Reports: Hx Anxiety, Hx Bipolar Disorder, Hx Depression, Hx Schizophrenia Infectious Medical History: Denies: Hx Hepatitis Past Surgical History: Reports: Hx Appendectomy, Hx Dilation and Curettage, Hx Gynecologic Surgery - D&C. Denies: Hx Mastectomy, Hx Open Heart Surgery, Hx Pacemaker - Immunizations Immunizations up to date: Yes Hx Diphtheria, Pertussis, Tetanus Vaccination: Yes Review of Systems - Review of Systems -: Yes ROS unobtainable due to patient's medical condition Physical Exam - Vital signs Vitals: Temp Pulse Resp BP Pulse Ox 98.3 F 110 H 24 H 135/75 H 96 04/20/17 09:50 04/20/17 09:50 04/20/17 09:50 04/20/17 09:50 04/20/17 09:50 Interpretation: Normal - General General appearance: Appears well, Alert - HEENT Head: Normocephalic, Atraumatic Eyes: Normal Pupils: PERRL - Respiratory Respiratory status: No respiratory distress Chest status: Nontender Breath sounds: Normal Chest palpation: Normal - Cardiovascular Rhythm: Regular Heart sounds: Normal auscultation Murmur: No - Abdominal Inspection: Normal Distension: No distension Bowel sounds: Normal Tenderness: Nontender Organomegaly: No organomegaly - Extremities General upper extremity: Normal inspection, Nontender, Normal color, Normal ROM , Normal temperature General lower extremity: Normal inspection, Nontender, Normal color, Normal ROM , Normal temperature, Normal weight bearing. No: Neftaly's sign - Neurological Neuro grossly intact: Yes Cognition: Normal Orientation: AAOx4 [place] Coma Scale Eye Opening: Spontaneous [place] Coma Scale Verbal: Oriented [place] Coma Scale Motor: Obeys Commands S[place]ha Coma Scale Total: 15 Speech: Normal Motor strength normal: LUE, RUE, LLE, RLE Sensory: Normal - Psychological Associated symptoms: Normal affect, Other - Patient is delusional regarding thinning of Prudencio is her father, patient is smiling and cooperative, she is rather confused however. Course - Re-evaluation Re-evalutation: 04/20/17 10:09 Patient will clearly need a mental health evaluation. Will get head CT to rule out any organic pathology due to history of breast cancer. Patient will be followed up by ED provider in the back treatment area. - Vital Signs Vital signs: Temp Pulse Resp BP Pulse Ox 98.3 F 110 H 24 H 135/75 H 96 04/20/17 09:50 04/20/17 09:50 04/20/17 09:50 04/20/17 09:50 04/20/17 09:50
[2017-04-20 10:46] LABS: ABSOLUTE BASOPHILS # (AUTO) 0.1 10^3/uL (0.0-0.2); ABSOLUTE EOSINOPHILS # (AUTO) 0.1 10^3/uL (0.0-0.6); ABSOLUTE LYMPHOCYTES (AUTO) 1.1 10^3/uL (0.5-4.7); ABSOLUTE MONOCYTES (AUTO) 0.6 10^3/uL (0.1-1.4); ABSOLUTE NEUT (AUTO) 5.8 10^3/uL (1.7-8.2); BASOPHILS % (AUTO) 0.7 % (0-2); EOSINOPHILS % (AUTO) 0.7 % (0-6); HEMATOCRIT 31.1 % (36.0-47.0); HEMOGLOBIN 10.4 g/dL (12.0-15.5); HGB HCT DIFFERENCE 0.1; LYMPHOCYTES % (AUTO) 14.5 % (13-45); MEAN CORPUSCULAR HEMOGLOBIN 31.3 pg (27.0-33.4); MEAN CORPUSCULAR HGB CONC 33.4 g/dL (32.0-36.0); MEAN CORPUSCULAR VOLUME 94 fl (80-97); MONOCYTES % (AUTO) 8.1 % (3-13); RED BLOOD COUNT 3.31 10^6/uL (3.72-5.28); RED CELL DISTRIBUTION WIDTH 16.6 % (11.5-14.0); WHITE BLOOD COUNT 7.7 10^3/uL (4.0-10.5)
--- NOTE | 2017-04-20 10:56 | ER Document Report ---
ED Psych Disorder / Suicide - General Chief Complaint: Psych Problem Stated Complaint: HALLUCINATIONS Time Seen by Provider: 04/20/17 09:55 Mode of Arrival: Ambulatory Notes: Patient with a known history of schizophrenia who is not acting normally this morning. She reportedly packed all of her bags and went to the next-door neighbor's porch and sat there with her bags and refused to move. She is here with her sister, who usually keeps her during the daytime hours, who says that she is confused and not answering questions appropriately. Sister called the authorities as well as a account service representative from [facility] where this patient receives mental health care. Patient has a large number of bottles of medicines, apparently enough for the last 4 months, that she has not consumed. She makes several references to the lowered into God when answering my questions. Patient says she is "happy" and has no complaints. Denies any pain anywhere, and the specific, patient has no chest pain, abdominal pain, headache, fever, etc. Her sister tells me that she is undergoing chemotherapy with IV medications every 3 weeks for breast cancer. TRAVEL OUTSIDE OF THE [place] IN LAST 30 DAYS: No - Related Data Allergies/Adverse Reactions: No Known Allergies Allergy (Verified 04/20/17 09:49) Past Medical History - General Information source: Patient, Relative, [facility] Records - Social History Smoking Status: Never Smoker Frequency of alcohol use: None Drug Abuse: None Family History: Arthritis, CAD, DM, Hyperlipidemia, Hypertension, Thyroid Disfunction Patient has suicidal ideation: No Patient has homicidal ideation: No - Past Medical History Cardiac Medical History: Reports: Hx Hypertension - CONTROLLED/MEDICATED Denies: Hx Coronary Artery Disease Pulmonary Medical History: Reports: Hx Pneumonia - as child Endocrine Medical History: Reports: Hx Diabetes Mellitus Type 2 Malignancy Medical History: Reports: Hx Breast Cancer Musculoskeltal Medical History: Reports Hx Arthritis Psychiatric Medical History: Reports: Hx Anxiety, Hx Bipolar Disorder, Hx Depression, Hx Schizophrenia Past Surgical History: Reports: Hx Appendectomy, Hx Dilation and Curettage, Hx Gynecologic Surgery - D&C - Immunizations Immunizations up to date: Yes Hx Diphtheria, Pertussis, Tetanus Vaccination: Yes Review of Systems - Review of Systems Notes: REVIEW OF SYSTEMS: CONSTITUTIONAL : Denies fever. Patient denies any complaints, in particular no pains. EENT: Denies eye, ear, nose or mouth or throat pain or other symptoms. CARDIOVASCULAR: Denies chest pain. RESPIRATORY: Denies cough, chest congestion, or shortness of breath. GASTROINTESTINAL: Denies abdominal pain or nausea, vomiting, or diarrhea. GENITOURINARY: Denies difficulty or painful urinating, urinary frequency, blood in urine. MUSCULOSKELETAL: Denies back or neck pain. Denies joint pain or swelling. SKIN: Denies rash or skin lesions. NEUROLOGICAL: Denies LOC or altered mental status. Denies headache. Denies sensory loss or motor deficits. Psychiatric: See HPI. ALL OTHER SYSTEMS REVIEWED AND NEGATIVE. Physical Exam - Vital signs Vitals: Temp Pulse Resp BP Pulse Ox 98.3 F 110 H 24 H 135/75 H 96 04/20/17 09:50 04/20/17 09:50 04/20/17 09:50 04/20/17 09:50 04/20/17 09:50 Interpretation: Normal, Tachycardic - , At bedside, heart rate 100 by my measuring apically. - Notes Notes: PHYSICAL EXAMINATION: GENERAL: Well-appearing, in no acute distress. Vital signs all essentially normal except for heart rate around 100, by me apically. HEAD: Atraumatic, normocephalic. EYES: Pupils equal round and reactive to light, extraocular movements intact. ENT: oropharynx clear without exudates. Moist mucous membranes. NECK: Normal range of motion, supple. LUNGS: Breath sounds clear and equal bilaterally. HEART: Regular rate and rhythm without murmurs. ABDOMEN: Soft, nontender. No guarding or rebound. BACK: No tenderness throughout entire back. EXTREMITIES: Normal range of motion without pain. NEUROLOGICAL: Normal speech, normal gait. Normal sensory, motor, and reflex exams. Awake, alert, and oriented x3. PSYCH: Confused, although she knows she is at [facility] emergency department. Answers most questions, but makes several references to the Lord and God. SKIN: Warm, dry, no rashes. Course - Re-evaluation Re-evalutation: 04/20/17 13:53 Patient was evaluated by mental health who believes that she needs to be an involuntary commitment. 04/20/17 19:41 Urinalysis looks like patient may have a UTI. She has been started on probenecid. Urine culture ordered. Patient was started on mental health medications at their recommendation. - Vital Signs Vital signs: Temp Pulse Resp BP Pulse Ox 98.5 F 102 H 12 136/88 H 98 04/20/17 16:44 04/20/17 16:44 04/20/17 16:44 04/20/17 16:44 04/20/17 16:44 - Laboratory Result Diagrams: 04/20/17 10:25 04/20/17 10:25 Laboratory results interpreted by me: 04/20/17 04/20/17 04/20/17 10:25 10:25 10:25 RBC 3.31 L Hgb 10.4 L Hct 31.1 L RDW 16.6 H Sodium 146.4 H Glucose 134 H Urine Protein Urine Glucose (UA) Urine Ketones Urine Blood Ur Leukocyte Esterase Salicylates < 1.0 L Acetaminophen < 10 L 04/20/17 10:25 RBC Hgb Hct RDW Sodium Glucose Urine Protein 30 H Urine Glucose (UA) >=500 H Urine Ketones 20 H Urine Blood SMALL H Ur Leukocyte Esterase LARGE H Salicylates Acetaminophen - EKG Interpretation by Me EKG shows normal: Sinus rhythm Rate: Normal Rhythm: NSR [place]/QRS: LAHB/LAFB - Plus LVH Discharge - Discharge Clinical Impression: Urinary tract infection Qualifiers: Urinary tract infection type: site unspecified Hematuria presence: without hematuria Qualified Code(s): N39.0 - Urinary tract infection, site not specified Schizophrenia Qualifiers: Schizophrenia type: unspecified Qualified Code(s): F20.9 - Schizophrenia, unspecified Condition: Stable Disposition: PSYCH HOSP/UNIT Referrals: FELA WHALEY MD [Primary Care Provider] - Follow up as needed
--- NOTE | 2017-04-20 10:57 | RADIOLOGY REPORT (SQ) ---
EXAM DESCRIPTION: CT HEAD WITHOUT COMPLETED DATE/TIME: 04/20/2017 10:42 am REASON FOR STUDY: Altered mental status, breast cancer hx COMPARISON: 10/29/2016 TECHNIQUE: Axial images acquired through the brain without intravenous contrast. Images reviewed wi th bone, brain and subdural windows. Images stored on PACS. All CT scanners at this facility use dose modulation, iterative reconstruction, and/or weight based d osing when appropriate to reduce radiation dose to as low as reasonably achievable (ALARA). [facility]: Dose Right [facility]: CareDose [facility]: Dose Right [facility]: Teradose 4D [facility]: [employer] RADIATION DOSE: Up-to-date CT equipment and radiation dose reduction techniques were employed. CTDIv ol: 64.6 mGy. DLP: 1292 mGy-cm. mGy. LIMITATIONS: None. FINDINGS: VENTRICLES: Normal size and contour. CEREBRUM: No masses. No hemorrhage. No midline shift. Normal cruz/white matter differentiation. N o evidence for acute infarction. CEREBELLUM: No masses. No hemorrhage. No alteration of density. No evidence for acute infarction. EXTRAAXIAL SPACES: No fluid collections. No masses. ORBITS AND GLOBE: No intra- or extraconal masses. Normal contour of globe without masses. CALVARIUM: No fracture. PARANASAL SINUSES: There appear to be some small mucous retention cysts versus polyps in the maxillar y sinuses. A couple of the ethmoid air cells are opacified. SOFT TISSUES: No mass or hematoma. OTHER: No other significant finding. IMPRESSION: Sinus disease as described. There is no acute intracranial pathology. TECHNICAL DOCUMENTATION: JOB ID: [id number] Quality ID # [id number]: Final reports with documentation of one or more dose reduction techniques (e.g., Au tomated exposure control, adjustment of the mA and/or kV according to patient size, use of iterative reconstruction technique) 2010 [employer]- All Rights Reserved
[2017-04-20 10:58] LABS: ALANINE AMINOTRANSFERASE 18 U/L (9-52); ALBUMIN 4.7 g/dL (3.5-5.0); ALKALINE PHOSPHATASE 73 U/L (38-126); ANION GAP 19 (5-19); ASPARTATE AMINO TRANSFERASE 15 U/L (14-36); BILIRUBIN,DIRECT 0.3 mg/dL (0.0-0.4); BILIRUBIN,TOTAL 0.9 mg/dL (0.2-1.3); BLOOD UREA NITROGEN 17 mg/dL (7-20); CALCIUM 9.8 mg/dL (8.4-10.2); CARBON DIOXIDE 22 mmol/L (22-30); CHLORIDE 105 mmol/L (98-107); CREATININE RESULT 0.75 mg/dL (0.52-1.25); GLUCOSE 134 mg/dL (75-110); POTASSIUM 4.4 mmol/L (3.6-5.0); SODIUM 146.4 mmol/L (137-145); TOTAL PROTEIN 7.8 g/dL (6.3-8.2)
[2017-04-20 11:07] LABS: VALPROIC ACID 73.5 ug/mL (50.0-120.0)
[2017-04-20 11:08] LABS: ALCOHOL < 10 mg/dL (NONE DETECTED)
[2017-04-20 11:17] LABS: APPEARANCE,URINE TURBID; BILIRUBIN,URINE NEGATIVE (NEGATIVE); GLUCOSE, URINE >=500 mg/dL (NEGATIVE); KETONES,URINE 20 mg/dL (NEGATIVE); LEUKOCYTE ESTERASE,URINE LARGE (NEGATIVE); NITRITE,URINE NEGATIVE (NEGATIVE); PROTEIN,URINE 30 mg/dL (NEGATIVE); URINE SPECIFIC GRAVITY 1.031; UROBILINOGEN,URINE NEGATIVE mg/dL (<2.0)
[2017-04-20 11:29] LABS: URINE BARBITURATES SCREEN NEGATIVE; URINE METHADONE SCREEN NEGATIVE; URINE OPIATES LOW NEGATIVE; URINE PHENCYCLIDINE SCREEN NEGATIVE
[2017-04-20] MEDS ORDERED: NITROFURANTOIN MONOHYD/M-CRYST 100 MG CAPSULE PO ONE (12:56)
--- NOTE | 2017-04-20 13:11 | EKG REPORT ---
SEVERITY:- ABNORMAL ECG - SINUS TACHYCARDIA PROBABLE LEFT ATRIAL ABNORMALITY LEFT ANTERIOR FASCICULAR BLOCK LEFT VENTRICULAR HYPERTROPHY : Confirmed by: Cricket Matthews MD 20-Apr-2017 13:11:10
[2017-04-20] MEDS ORDERED: HALOPERIDOL 5 MG TABLET PO PRN (15:58)
[2017-04-20] MEDS ORDERED: ZIPRASIDONE HCL 20 MG CAPSULE PO SCH (16:00)
[2017-04-20] MEDS: NITROFURANTOIN MONOHYD/M-CRYST 100 MG CAPSULE PO SCH (18:03)
[2017-04-20] MEDS: DIVALPROEX SODIUM 500 MG TAB.SR.24H PO SCH (18:04)
[2017-04-20] MEDS: BENZTROPINE MESYLATE 1 MG TABLET PO SCH (18:09)
[2017-04-20] MEDS ORDERED: BUSPIRONE HCL 10 MG TABLET PO SCH (22:00)
[2017-04-21] MEDS: NITROFURANTOIN MONOHYD/M-CRYST 100 MG CAPSULE PO SCH (10:00)
[2017-04-21] MEDS: BENZTROPINE MESYLATE 1 MG TABLET PO SCH (10:01)
[2017-04-21] MEDS: DIVALPROEX SODIUM 500 MG TAB.SR.24H PO SCH (10:01)
--- NOTE | 2017-04-21 11:00 | ER Document Report ---
Doctor's Note Notes: 04/21/17 10:58 Rounds: Chart reviewed and patient interviewed. I admitted this patient yesterday so I am very familiar with her history. Arrangements have been made for her to be transferred to [facility] for psychiatric admission. Vital signs have all been normal. Lab studies were all normal except for what looks like patient may have a UTI. A urine culture is pending. Patient has been treated with Macrobid 200 mg initially yesterday followed by 100 mg twice a day since then. Patient is medically stable for transfer or discharge. Bradley Camacho MD 04/21/17 12:18 Preliminary results for patient's urine culture shows mixed urogenital swapna so patient probably does not have a UTI due to a pathologic organism.
[2017-04-21 12:28] VITALS: BP 146/77
== END 2017-04-21 12:29 ==
LOC: ER 09:39
DX: F20.9 Schizophrenia, unspecified (principal); N39.0 Urinary tract infection, site not specified; E11.9 Type 2 diabetes mellitus without complications; I10 Essential (primary) hypertension; C50.919 Malignant neoplasm of unspecified site of unspecified female breast; Z79.899 Other long term (current) drug therapy
CPT/HCPCS: 93005; 99285; 36415; 87086; 80307 ×4; 85025; 80053; 81001; 80164; 70450; 93010; J3490 ×8; J8499

== ENCOUNTER 2017-07-19 00:31 | Inpatient (IN) | payer MEDICAID ==
[2017-07-19] MEDS ORDERED: NORMAL SALINE 1000 ML 1,000 ML IV ONE (00:51)
--- NOTE | 2017-07-19 00:52 | ER Document Report ---
ED Medical Screen (RME) - General Chief Complaint: Weakness Stated Complaint: WEAKNESS .CHEST PAIN Time Seen by Provider: 07/19/17 00:49 Notes: 61-year-old diabetic female with chief complaint of weakness, she states she feels like she cannot stand, she also reports pains in her back and accidentally urinating on herself. She denies headache, weakness on one side, she states she has been feeling worse for about 2 days. She did take Tylenol at home. She denies vomiting, she reports generalized pain in her abdomen. She states that when she gets up and tries to walk she feels pain in her chest. TRAVEL OUTSIDE OF THE [place] IN LAST 30 DAYS: No - Related Data Allergies/Adverse Reactions: No Known Allergies Allergy (Verified 07/19/17 00:41) Past Medical History - Past Medical History Cardiac Medical History: Reports: Hx Hypertension - CONTROLLED/MEDICATED Denies: Hx Coronary Artery Disease, Hx Heart Attack Pulmonary Medical History: Reports: Hx Pneumonia - as child Denies: Hx Asthma, Hx Bronchitis, Hx COPD Neurological Medical History: Denies: Hx Cerebrovascular Accident, Hx Seizures Endocrine Medical History: Reports: Hx Diabetes Mellitus Type 2 Renal/ Medical History: Denies: Hx Peritoneal Dialysis Malignancy Medical History: Reports: Hx Breast Cancer GI Medical History: Denies: Hx Hepatitis, Hx Hiatal Hernia, Hx Ulcer Musculoskeltal Medical History: Reports Hx Arthritis Psychiatric Medical History: Reports: Hx Anxiety, Hx Bipolar Disorder, Hx Depression, Hx Schizophrenia Infectious Medical History: Denies: Hx Hepatitis Past Surgical History: Reports: Hx Appendectomy, Hx Dilation and Curettage, Hx Gynecologic Surgery - D&C. Denies: Hx Mastectomy, Hx Open Heart Surgery, Hx Pacemaker - Immunizations Immunizations up to date: Yes Hx Diphtheria, Pertussis, Tetanus Vaccination: Yes Physical Exam - Vital signs Vitals: Temp Pulse Resp BP Pulse Ox 98.0 F 130 H 18 98/56 L 99 07/19/17 00:43 07/19/17 00:43 07/19/17 00:43 07/19/17 00:43 07/19/17 00:43 - Respiratory Respiratory status: No respiratory distress Breath sounds: Normal - Cardiovascular Rhythm: Regular, Tachycardia Heart sounds: Normal auscultation, S1 appreciated, S2 appreciated Course - Re-evaluation Re-evalutation: Patient with nonspecific complaints, she is pale, mildly hypotensive, she is tachycardic. Workup pending, upgraded to level 2, will place in room. - Vital Signs Vital signs: Temp Pulse Resp BP Pulse Ox 98.0 F 130 H 18 98/56 L 99 07/19/17 00:43 07/19/17 00:43 07/19/17 00:43 07/19/17 00:43 07/19/17 00:43
[2017-07-19 01:27] LABS: ABSOLUTE EOSINOPHILS # (AUTO) 0.2 10^3/uL (0.0-0.6); ABSOLUTE MONOCYTES (AUTO) 1.1 10^3/uL (0.1-1.4); BASOPHILS % (AUTO) 0.5 % (0-2); EOSINOPHILS % (AUTO) 1.8 % (0-6); HEMATOCRIT 29.7 % (36.0-47.0); HEMOGLOBIN 10.3 g/dL (12.0-15.5); HGB HCT DIFFERENCE 1.2; LYMPHOCYTES % (AUTO) 21.5 % (13-45); MEAN CORPUSCULAR HEMOGLOBIN 31.2 pg (27.0-33.4); MEAN CORPUSCULAR HGB CONC 34.8 g/dL (32.0-36.0); MEAN CORPUSCULAR VOLUME 90 fl (80-97); MONOCYTES % (AUTO) 11.9 % (3-13); RED CELL DISTRIBUTION WIDTH 15.1 % (11.5-14.0); SEGMENTED NEUTROPHILS % (AUTO) 64.3 % (42-78); VENOUS BLOOD BASE EXCESS -5.4 mmol/L; VENOUS BLOOD HCO3 19.2 mmol/L (20-32); VENOUS BLOOD PCO2 34.1 mmHg (35-63); VENOUS BLOOD PH 7.37 (7.30-7.42); WHITE BLOOD COUNT 9.3 10^3/uL (4.0-10.5)
[2017-07-19 01:35] LABS: PROTHROMBIN TIME 13.2 SEC (11.4-15.4)
[2017-07-19] MEDS ORDERED: NORMAL SALINE 1000 ML 1,000 ML IV PRN ×2 (01:38→18:30)
--- NOTE | 2017-07-19 01:38 | ER Document Report ---
ED General - General Chief Complaint: Weakness Stated Complaint: WEAKNESS .CHEST PAIN Time Seen by Provider: 07/19/17 00:49 Mode of Arrival: Wheelchair Information source: Patient Notes: This is a 61-year-old female with a history of diabetes, hypertension, breast CA (chemotherapy), schizophrenia with a recent hospitalization in [facility] for approximately 2 months (the patient has been home for 2 weeks). Patient presents to the emergency room because of increased weakness, incontinence of urine and stool because of the weakness. Patient denies any fever, chills, nausea or vomiting. She does report diarrhea. TRAVEL OUTSIDE OF THE [place] IN LAST 30 DAYS: No - HPI Onset: Last week Onset/Duration: Gradual Quality of pain: No pain Severity: None Pain Level: Denies Associated symptoms: Nausea, Weakness. denies: Chills, Fever, Shortness of breath Exacerbated by: Denies Relieved by: Denies Similar symptoms previously: Yes Recently seen / treated by doctor: Yes - Related Data Allergies/Adverse Reactions: No Known Allergies Allergy (Verified 07/19/17 00:41) Home Medications: Current Home Medications Benztropine Mesylate [Benztropine Mesylate 0.5 mg Tablet] 0.5 mg PO DAILY [History] Past Medical History - General Information source: Patient - Social History Smoking Status: Never Smoker Cigarette use (# per day): No Chew tobacco use (# tins/day): No Frequency of alcohol use: None Drug Abuse: None Lives with: Family Family History: Arthritis, CAD, DM, Hyperlipidemia, Hypertension, Thyroid Disfunction Patient has suicidal ideation: No Patient has homicidal ideation: No - Past Medical History Cardiac Medical History: Reports: Hx Hypertension - CONTROLLED/MEDICATED Denies: Hx Coronary Artery Disease, Hx Heart Attack Pulmonary Medical History: Reports: Hx Pneumonia - as child Denies: Hx Asthma, Hx Bronchitis, Hx COPD Neurological Medical History: Denies: Hx Cerebrovascular Accident, Hx Seizures Endocrine Medical History: Reports: Hx Diabetes Mellitus Type 2 Renal/ Medical History: Denies: Hx Peritoneal Dialysis Malignancy Medical History: Reports: Hx Breast Cancer GI Medical History: Denies: Hx Hepatitis, Hx Hiatal Hernia, Hx Ulcer Musculoskeltal Medical History: Reports Hx Arthritis Psychiatric Medical History: Reports: Hx Anxiety, Hx Bipolar Disorder, Hx Depression, Hx Schizophrenia Infectious Medical History: Denies: Hx Hepatitis Past Surgical History: Reports: Hx Appendectomy, Hx Dilation and Curettage, Hx Gynecologic Surgery - D&C. Denies: Hx Mastectomy, Hx Open Heart Surgery, Hx Pacemaker - Immunizations Immunizations up to date: Yes Hx Diphtheria, Pertussis, Tetanus Vaccination: Yes Review of Systems - Review of Systems Constitutional: Malaise, Weakness. denies: Chills, Fever EENT: No symptoms reported Cardiovascular: No symptoms reported Respiratory: No symptoms reported Gastrointestinal: No symptoms reported Genitourinary: See HPI Female Genitourinary: No symptoms reported Musculoskeletal: No symptoms reported Skin: No symptoms reported Hematologic/Lymphatic: No symptoms reported Neurological/Psychological: Weakness Physical Exam - Vital signs Vitals: Temp Pulse Resp BP Pulse Ox 98.0 F 130 H 18 98/56 L 99 07/19/17 00:43 07/19/17 00:43 07/19/17 00:43 07/19/17 00:43 07/19/17 00:43 Notes: Physical exam: GENERAL: This is a weak appearing 61-year-old female who is lethargic but answering questions appropriately and she is oriented. HEAD: Atraumatic, normocephalic. EYES: Pupils equal round and reactive to light, extraocular movements intact, sclera anicteric, conjunctiva are normal. ENT: TMs normal, nares patent, oropharynx clear without exudates. Moist mucous membranes. NECK: Normal range of motion, supple without obvious mass or JVD. LUNGS: Breath sounds clear to auscultation bilaterally and equal. No wheezes rales or rhonchi. HEART: Regular rate and rhythm without murmurs, rubs or gallops. ABDOMEN: Soft, normoactive bowel sounds. No tenderness to palpation. No guarding, no rebound. No masses appreciated. EXTREMITIES: Normal range of motion, no pitting or edema. No clubbing or cyanosis. NEUROLOGICAL: Cranial nerves II through XII grossly intact. Normal speech, moving all extremities. PSYCH: Normal mood, normal affect. SKIN: Warm, Dry, normal turgor, no rashes or lesions noted. Course - Vital Signs Vital signs: Temp Pulse Resp BP Pulse Ox 98.0 F 130 H 20 143/76 H 100 07/19/17 00:43 07/19/17 00:43 07/19/17 02:31 07/19/17 02:31 07/19/17 02:49 - Laboratory Result Diagrams: 07/19/17 00:58 07/19/17 00:58 Laboratory results interpreted by me: 07/19/17 07/19/17 07/19/17 00:58 00:58 00:58 RBC 3.30 L Hgb 10.3 L Hct 29.7 L RDW 15.1 H VBG pCO2 VBG HCO3 Carbon Dioxide 18 L Anion Gap 20 H BUN 22 H Glucose 252 H Lactic Acid 5.8 H AST 12 L Urine Protein Urine Glucose (UA) Urine Ketones Urine Blood Urine Urobilinogen Ur Leukocyte Esterase 07/19/17 07/19/17 00:58 01:54 RBC Hgb Hct RDW VBG pCO2 34.1 L VBG HCO3 19.2 L Carbon Dioxide Anion Gap BUN Glucose Lactic Acid AST Urine Protein 100 H Urine Glucose (UA) >=500 H Urine Ketones TRACE H Urine Blood SMALL H Urine Urobilinogen 2.0 H Ur Leukocyte Esterase LARGE H - Diagnostic Test Radiology reviewed: Image reviewed, Reports reviewed - CT of the head shows no acute stroke. Chest x-ray showed no infiltrates. - EKG Interpretation by Me Rate: Tachycardia Rhythm: NSR - EKG shows sinus tachycardia with a ventricular rate of 115, there are PACs. No acute ST-T wave changes, left anterior hemiblock. Critical Care Note - Critical Care Note Total time excluding time spent on procedures (mins): 60 Discharge - Discharge Clinical Impression: Dehydration, UTI, Lactic acidosis Clinical Impression: (Ruled Out): Lactic aci Condition: Stable Disposition: ADMITTED INPATIENT Admitting Provider: Noé Unit Admitted: Telemetry Referrals: FELA WHALEY MD [Primary Care Provider] - Follow up as needed
[2017-07-19 01:40] LABS: ALANINE AMINOTRANSFERASE 21 U/L (9-52); ALBUMIN 4.2 g/dL (3.5-5.0); ALKALINE PHOSPHATASE 73 U/L (38-126); ASPARTATE AMINO TRANSFERASE 12 U/L (14-36); BILIRUBIN,DIRECT 0.3 mg/dL (0.0-0.4); BILIRUBIN,TOTAL 0.4 mg/dL (0.2-1.3); BLOOD UREA NITROGEN 22 mg/dL (7-20); CALCIUM 9.5 mg/dL (8.4-10.2); CARBON DIOXIDE 18 mmol/L (22-30); CHLORIDE 106 mmol/L (98-107); CREATINE KINASE 49 U/L (30-135); CREATININE RESULT 0.91 mg/dL (0.52-1.25); GLUCOSE 252 mg/dL (75-110); POTASSIUM 4.1 mmol/L (3.6-5.0)
--- NOTE | 2017-07-19 01:45 | RADIOLOGY REPORT (SQ) ---
EXAM DESCRIPTION: CHEST SINGLE VIEW COMPLETED DATE/TIME: 07/19/2017 1:23 am REASON FOR STUDY: weakness, chest pain COMPARISON: 01/27/2017. EXAM PARAMETERS: NUMBER OF VIEWS: One view. TECHNIQUE: Single frontal radiographic view of the chest acquired. RADIATION DOSE: NA LIMITATIONS: None. FINDINGS: LUNGS AND PLEURA: No opacities, masses or pneumothorax. No pleural effusion. Prominent in terstitium. MEDIASTINUM AND HILAR STRUCTURES: No masses. Contour normal. HEART AND VASCULAR STRUCTURES: Heart normal in size. Normal vasculature. BONES: No acute findings. HARDWARE: Left mini port central line tip at the junction of the brachiocephalic vein and SVC. OTHER: No other significant finding. IMPRESSION: No acute cardiopulmonary findings. TECHNICAL DOCUMENTATION: JOB ID: [id number]
[2017-07-19 01:47] LABS: SODIUM 144.3 mmol/L (137-145)
[2017-07-19 01:51] LABS: ANION GAP 20 (5-19)
[2017-07-19 01:53] LABS: CREATINE KINASE MB 0.67 ng/mL (<4.55); TROPONIN I < 0.012 ng/mL
[2017-07-19 02:44] LABS: APPEARANCE,URINE TURBID; BILIRUBIN,URINE NEGATIVE (NEGATIVE); GLUCOSE, URINE >=500 mg/dL (NEGATIVE); KETONES,URINE TRACE mg/dL (NEGATIVE); LEUKOCYTE ESTERASE,URINE LARGE (NEGATIVE); NITRITE,URINE NEGATIVE (NEGATIVE); PROTEIN,URINE 100 mg/dL (NEGATIVE)
--- NOTE | 2017-07-19 03:09 | RADIOLOGY REPORT (SQ) ---
EXAM DESCRIPTION: CT HEAD WITHOUT COMPLETED DATE/TIME: 07/19/2017 2:50 am REASON FOR STUDY: altered mental status COMPARISON: None. TECHNIQUE: Axial images acquired through the brain without intravenous contrast. Images reviewed wi th bone, brain and subdural windows. Images stored on PACS. All CT scanners at this facility use dose modulation, iterative reconstruction, and/or weight based d osing when appropriate to reduce radiation dose to as low as reasonably achievable (ALARA). [facility]: Dose Right [facility]: CareDose [facility]: Dose Right [facility]: Teradose 4D [facility]: Smart [place] RADIATION DOSE: Up-to-date CT equipment and radiation dose reduction techniques were employed. CTDIv ol: 64.6 mGy. DLP: 1163 mGy-cm. mGy. LIMITATIONS: None. FINDINGS: VENTRICLES: Normal size and contour. CEREBRUM: No masses. No hemorrhage. No midline shift. No evidence for acute infarction. Normal gra y/white matter differentiation. No areas of low density in the white matter. CEREBELLUM: No masses. No hemorrhage. No alteration of density. No evidence for acute infarction. EXTRAAXIAL SPACES: No fluid collections. No masses. ORBITS AND GLOBE: No intra- or extraconal masses. Normal contour of globe without masses. CALVARIUM: No fracture. PARANASAL SINUSES: Small mucosal thickening measure up to 0.9 cm each, left more than right. Small m ucous -mucosal thickening of the ethmoid air cells and inferior left frontal sinus. SOFT TISSUES: No mass or hematoma. OTHER: No other significant finding. IMPRESSION: No acute findings. EVIDENCE OF ACUTE STROKE: NO. COMMENT: Quality ID # [id number]: Final reports with documentation of one or more dose reduction techniques (e.g., Automated exposure control, adjustment of the mA and/or kV according to patient size, use of iterative reconstruction technique) TECHNICAL DOCUMENTATION: JOB ID: [id number] [employer]- All Rights Reserved
[2017-07-19] MEDS ORDERED: CEFTRIAXONE 2 GM/D5W RTU 2 GM/50 ML RTUPB IV ONE (03:23)
[2017-07-19] MEDS: NORMAL SALINE 1000 ML 1,000 ML IV PRN ×3 (04:01→16:25)
--- NOTE | 2017-07-19 08:13 | EKG REPORT ---
SEVERITY:- ABNORMAL ECG - SINUS TACHYCARDIA MULTIPLE ATRIAL PREMATURE COMPLEXES LEFT ANTERIOR FASCICULAR BLOCK PROBABLE LVH WITH SECONDARY REPOL ABNRM : Confirmed by: Cricket Matthews MD 19-Jul-2017 08:13:12
[2017-07-19] MEDS ORDERED: (PENDING PHARMACY ID) (Quetiapine Fumarate [Seroquel Xr] 50 MG) PO SCH (08:45)
[2017-07-19] MEDS ORDERED: DIVALPROEX SODIUM 250 MG TAB.SR.24H PO SCH (10:00)
[2017-07-19] MEDS ORDERED: (PENDING PHARMACY ID) (Benztropine Mesylate [Benztropine Mesylate 0.5 Mg Tablet] 0.5 MG) PO SCH (10:00)
[2017-07-19] MEDS: CEFTRIAXONE 1 GM/D5W RTU 1 GM/50 ML RTUPB IV SCH (10:26)
[2017-07-19] MEDS: METFORMIN HCL 500 MG TABLET PO SCH ×2 (10:27→17:21)
[2017-07-19] MEDS: ENOXAPARIN SODIUM INJ 40 MG/0.4 ML DISP.SYRIN SUBCUT SCH (10:27)
[2017-07-19] MEDS: GLIPIZIDE XL 5 MG TAB.ER.24 PO SCH (10:27)
[2017-07-19] MEDS: BENZTROPINE MESYLATE 1 MG TABLET PO SCH ×2 (10:28→22:54)
[2017-07-19] MEDS: LISINOPRIL 10 MG TABLET PO SCH (10:28)
[2017-07-19] MEDS: DIVALPROEX SODIUM 500 MG TAB.SR.24H PO SCH ×2 (10:29→17:22)
[2017-07-19 10:56] LABS: PARTIAL THROMBOPLASTIN TIME 34.7 SEC (23.5-35.8); PROTHROMBIN TIME 13.5 SEC (11.4-15.4)
[2017-07-19 11:13] LABS: PHOSPHORUS 3.9 mg/dL (2.5-4.5)
[2017-07-19 11:20] LABS: MAGNESIUM 1.1 mg/dL (1.6-2.3)
[2017-07-19] MEDS ORDERED: INFLUENZA ADLT QUAD (36MOS+) 2017-18 VAC 0.5 ML SYR IM PRN (11:26)
[2017-07-19 11:27] LABS: TROPONIN I < 0.012 ng/mL
[2017-07-19 11:42] LABS: THYROID STIMULATING HORMONE 3.72 uIU/mL (0.47-4.68)
[2017-07-19 11:51] LABS: APPEARANCE,URINE CLOUDY; BILIRUBIN,URINE NEGATIVE (NEGATIVE); GLUCOSE, URINE 150 mg/dL (NEGATIVE); KETONES,URINE NEGATIVE (NEGATIVE); LEUKOCYTE ESTERASE,URINE LARGE (NEGATIVE); NITRITE,URINE NEGATIVE (NEGATIVE); PROTEIN,URINE 100 mg/dL (NEGATIVE); URINE SPECIFIC GRAVITY 1.006; UROBILINOGEN,URINE NEGATIVE mg/dL (<2.0)
[2017-07-19 11:56] LABS: URINE BARBITURATES SCREEN NEGATIVE; URINE METHADONE SCREEN NEGATIVE; URINE OPIATES LOW NEGATIVE; URINE PHENCYCLIDINE SCREEN NEGATIVE
[2017-07-19] MEDS: MAGNESIUM SULFATE 1 GM/D5W 100 ML IV SCH ×2 (14:22→16:25)
[2017-07-19 18:12] LABS: CREATINE KINASE MB 0.9 ng/mL (<4.55); TROPONIN I 0.016 ng/mL
[2017-07-19 18:12] LABS: ARTERIAL BLOOD BASE EXCESS -1.3 mmol/L; ARTERIAL BLOOD O2 SATURATION 97.1 % (94-98)
[2017-07-19] MEDS ORDERED: DEXTROSE 40% GEL 15 GM TUBE X 2 PO PRN (18:59)
[2017-07-19] MEDS ORDERED: DEXTROSE 50%-WATER SYRINGE 12.5 GM/25 ML DOSE IV PRN (18:59)
[2017-07-19] MEDS ORDERED: DEXTROSE 40% GEL 15 GM TUBE PO PRN (18:59)
[2017-07-19] MEDS ORDERED: DEXTROSE 50%-WATER SYRINGE 25 GM/50 ML DOSE IV PRN (18:59)
[2017-07-19] MEDS ORDERED: GLUCAGON,HUMAN RECOMB 1 MG INJ IM PRN (18:59)
[2017-07-19] MEDS ORDERED: LISINOPRIL 10 MG TABLET PO SCH (21:30)
[2017-07-19] MEDS ORDERED: QUETIAPINE FUMARATE 100 MG TABLET PO SCH (22:00)
[2017-07-19] MEDS ORDERED: GLIPIZIDE 10 MG TABLET PO ONE (22:00)
[2017-07-19] MEDS ORDERED: DIVALPROEX SODIUM 500 MG TAB.SR.24H PO SCH (22:00)
[2017-07-19] MEDS ORDERED: QUETIAPINE FUMARATE 150 MG PO SCH (22:00)
[2017-07-19 22:25] LABS: CREATINE KINASE MB 0.88 ng/mL (<4.55); TROPONIN I 0.016 ng/mL
[2017-07-19] MEDS: FLUCONAZOLE 100 MG TABLET PO SCH (22:54)
[2017-07-19] MEDS: METOPROLOL TARTRATE 25 MG TABLET PO SCH (22:54)
[2017-07-20 06:21] LABS: ABSOLUTE EOSINOPHILS # (AUTO) 0.2 10^3/uL (0.0-0.6); ABSOLUTE LYMPHOCYTES (AUTO) 1.7 10^3/uL (0.5-4.7); ABSOLUTE MONOCYTES (AUTO) 1.1 10^3/uL (0.1-1.4); ABSOLUTE NEUT (AUTO) 4.9 10^3/uL (1.7-8.2); BASOPHILS % (AUTO) 0.5 % (0-2); EOSINOPHILS % (AUTO) 2.5 % (0-6); HEMATOCRIT 25.2 % (36.0-47.0); HEMOGLOBIN 8.8 g/dL (12.0-15.5); HGB HCT DIFFERENCE 1.2; LYMPHOCYTES % (AUTO) 21.9 % (13-45); MEAN CORPUSCULAR HGB CONC 34.9 g/dL (32.0-36.0); MEAN CORPUSCULAR VOLUME 89 fl (80-97); MONOCYTES % (AUTO) 13.2 % (3-13); RED BLOOD COUNT 2.83 10^6/uL (3.72-5.28); RED CELL DISTRIBUTION WIDTH 14.7 % (11.5-14.0); SEGMENTED NEUTROPHILS % (AUTO) 61.9 % (42-78)
[2017-07-20 06:39] LABS: ALANINE AMINOTRANSFERASE 19 U/L (9-52); ALBUMIN 3.6 g/dL (3.5-5.0); ALKALINE PHOSPHATASE 61 U/L (38-126); ANION GAP 11 (5-19); ASPARTATE AMINO TRANSFERASE 9 U/L (14-36); BILIRUBIN,DIRECT 0.3 mg/dL (0.0-0.4); BILIRUBIN,TOTAL 0.4 mg/dL (0.2-1.3); BLOOD UREA NITROGEN 13 mg/dL (7-20); CALCIUM 9.3 mg/dL (8.4-10.2); CARBON DIOXIDE 27 mmol/L (22-30); CHLORIDE 105 mmol/L (98-107); CHOLESTEROL 169.96 mg/dL (0-200); CREATININE RESULT 0.58 mg/dL (0.52-1.25); Direct HDL 41 mg/dL (>40); GLUCOSE 141 mg/dL (75-110); POTASSIUM 3.9 mmol/L (3.6-5.0); SODIUM 143.2 mmol/L (137-145); TOTAL PROTEIN 6.3 g/dL (6.3-8.2); TRIGLYCERIDES 124 mg/dL (<150)
[2017-07-20 06:50] LABS: DIRECT LDL 108 mg/dL (<100)
[2017-07-20] MEDS ORDERED: METFORMIN HCL 500 MG TABLET PO SCH (08:00)
[2017-07-20] MEDS ORDERED: GLIPIZIDE 10 MG TABLET PO SCH (10:00)
[2017-07-20] MEDS: BENZTROPINE MESYLATE 1 MG TABLET PO SCH ×3 (10:18→22:16)
[2017-07-20] MEDS: DIVALPROEX SODIUM 500 MG TAB.SR.24H PO SCH ×2 (10:18→17:21)
[2017-07-20] MEDS: GLIPIZIDE XL 5 MG TAB.ER.24 PO SCH (10:19)
[2017-07-20] MEDS: LISINOPRIL 10 MG TABLET PO SCH (10:19)
[2017-07-20] MEDS: METOPROLOL TARTRATE 25 MG TABLET PO SCH ×2 (10:20→22:16)
[2017-07-20] MEDS: METFORMIN HCL 500 MG TABLET PO SCH ×2 (10:20→17:21)
[2017-07-20] MEDS: CEFTRIAXONE 1 GM/D5W RTU 1 GM/50 ML RTUPB IV SCH (10:22)
[2017-07-20] MEDS: ENOXAPARIN SODIUM INJ 40 MG/0.4 ML DISP.SYRIN SUBCUT SCH (10:24)
--- NOTE | 2017-07-20 15:47 | PDOC H&P ---
History of Present Illness Admission Date/PCP: 07/19/17 03:41 FELA WHALEY MD History of Present Illness: RANDELL COURTNEY is a 61 year old female, she has a history of schizophrenia recently hospitalized in a psychiatric hospital at [facility] for approximately 2 months. She came to the emergency room for evaluation of urinary incontinence, fatigue fever chills. In the emergency room she was evaluated the blood pressure recorded was 98/56, the pulse rate was 130 bpm, she has grossly abnormal urinalysis. She has breast cancer she was treated with chemotherapy ,she has missed many chemotherapy sessions. She also complained of diarrhea, she said the stool is loose but there is no blood or mucus in the stool. The arterial blood gas that was done, pH 7.4, PO2 88.4, PCO2 33.3 bicarbonate 22.2, FiO2 room air Past Medical History Cardiac Medical History: Reports: Hypertension - CONTROLLED/MEDICATED Pulmonary Medical History: Reports: Pneumonia - as child Endocrine Medical History: Reports: Diabetes Mellitus Type 2 Malignancy Medical History: Reports: Breast Cancer Musculoskeltal Medical History: Reports: Arthritis Psychiatric Medical History: Reports: Bipolar Disorder, Depression Hematology: Reports: Anemia Past Surgical History Past Surgical History: Reports: Appendectomy Social History Lives with: Family Smoking Status: Former Smoker Drugs: None Family History Family History: Arthritis, CAD, DM, Hyperlipidemia, Hypertension, Thyroid Disfunction Parental Family History Reviewed: Yes Children Family History Reviewed: Yes Sibling(s) Family History Reviewed.: Yes Medication/Allergy Home Medications: Benztropine Mesylate [Benztropine Mesylate 0.5 mg Tablet] 0.5 mg PO BID Divalproex Sodium [Divalproex Sodium ER] 500 mg PO BID 07/19/17 Fluconazole [Diflucan 100 mg Tablet] 100 mg PO DAILY 07/19/17 Glipizide [Glucotrol 10 mg Tablet] 10 mg PO DAILY 07/19/17 Haloperidol Decanoate [Haldol Decanoate 50] 50 mg IM [id number] 07/19/17 Lisinopril [Prinivil 10 mg Tablet] 10 mg PO DAILY 07/19/17 Metformin HCl [Glucophage] 1,000 mg PO BID 07/19/17 Quetiapine Fumarate [Seroquel] 150 mg PO QHS 07/19/17 Allergies/Adverse Reactions: No Known Allergies Allergy (Verified 07/19/17 00:41) Review of Systems Constitutional: PRESENT: chills, fatigue, weakness Eyes: ABSENT: visual disturbances Ears: ABSENT: hearing changes Cardiovascular: ABSENT: as per HPI, chest pain, dyspnea on exertion, edema, orthropnea, palpitations, other Respiratory: ABSENT: cough, hemoptysis Gastrointestinal: ABSENT: abdominal pain, constipation, diarrhea, hematemesis, hematochezia, nausea, vomiting Genitourinary: PRESENT: dysuria, nocturia, other - Polyuria Musculoskeletal: ABSENT: joint swelling Integumentary: ABSENT: rash, wounds Endocrine: PRESENT: polyuria. ABSENT: cold intolerance, heat intolerance, menstrual abnormalities, polydipsia Hematologic/Lymphatic: ABSENT: easy bleeding, easy bruising, lymphadenopathy Physical Exam Vital Signs: Temp Pulse Resp BP Pulse Ox 98.3 F 89 16 143/73 H 100 07/20/17 07:32 07/20/17 07:32 07/20/17 07:32 07/20/17 07:32 07/20/17 07:32 Intake & Output 07/19/17 07/20/17 07/21/17 06:59 06:59 06:59 Intake Total 3830 Output Total 1900 Balance 1930 Weight 88.4 kg General appearance: PRESENT: mild distress Head exam: PRESENT: normocephalic, other - Alopecia Eye exam: PRESENT: PERRLA Ear exam: PRESENT: normal external ear exam Mouth exam: PRESENT: dry mucosa Neck exam: PRESENT: full ROM Respiratory exam: PRESENT: clear to auscultation [place] Cardiovascular exam: PRESENT: +S1, +S2 Pulses: PRESENT: normal dorsalis pedis pul, +2 pedal pulses bilateral Vascular exam: PRESENT: normal capillary refill GI/Abdominal exam: PRESENT: soft Rectal exam: PRESENT: deferred Extremities exam: PRESENT: other - There is skin dryness Neurological exam: PRESENT: alert, awake, oriented to person, oriented to place , oriented to time, oriented to situation, CN II-XII grossly intact. ABSENT: motor sensory deficit Psychiatric exam: PRESENT: appropriate affect Skin exam: PRESENT: dry, intact, warm Results Laboratory Results: 07/20/17 06:00 07/20/17 06:00 07/19/17 07/20/17 07/20/17 17:55 06:00 06:00 WBC 8.0 RBC 2.83 L Hgb 8.8 L Hct 25.2 L MCV 89 MCH 31.0 MCHC 34.9 RDW 14.7 H Plt Count 222 Seg Neutrophils % 61.9 Lymphocytes % 21.9 Monocytes % 13.2 H Eosinophils % 2.5 Basophils % 0.5 Absolute Neutrophils 4.9 Absolute Lymphocytes 1.7 Absolute Monocytes 1.1 Absolute Eosinophils 0.2 Absolute Basophils 0.0 Carbonic Acid 1.00 L HCO3/H2CO3 Ratio 22:1 ABG pH 7.44 ABG pCO2 33.3 L ABG pO2 88.4 ABG HCO3 22.2 ABG O2 Saturation 97.1 ABG Base Excess -1.3 FiO2 ROOM AIR Sodium 143.2 Potassium 3.9 Chloride 105 Carbon Dioxide 27 Anion Gap 11 BUN 13 Creatinine 0.58 Est GFR ( Amer) > 60 Est GFR (Non-Af Amer) > 60 Glucose 141 H Calcium 9.3 Total Bilirubin 0.4 AST 9 L ALT 19 Alkaline Phosphatase 61 Total Protein 6.3 Albumin 3.6 Triglycerides 124 Cholesterol 169.96 LDL Cholesterol Direct 108 H VLDL Cholesterol 25.0 HDL Cholesterol 41 07/19/17 07/19/17 07/19/17 10:17 10:17 10:17 Creatine Kinase 46 CK-MB (CK-2) 1.00 Troponin I < 0.012 NT-Pro-B Natriuret Pep 235 07/19/17 07/19/17 07/19/17 17:36 17:36 21:50 Creatine Kinase 50 50 CK-MB (CK-2) 0.90 Troponin I 0.016 NT-Pro-B Natriuret Pep 07/19/17 21:50 Creatine Kinase CK-MB (CK-2) 0.88 Troponin I 0.016 NT-Pro-B Natriuret Pep Impressions: Chest X-Ray 07/19/17 00:50 IMPRESSION: No acute cardiopulmonary findings. Head CT 07/19/17 01:38 IMPRESSION: No acute findings. EVIDENCE OF ACUTE STROKE: NO. Assessment & Plan - Diagnosis (1) Hypotension Qualifiers: Hypotension type: unspecified hypotension type Qualified Code(s): I95.9 - Hypotension, unspecified Is this a current diagnosis for this admission?: Yes Plan: She is vigorously fluid resuscitated with normal saline (2) Urinary tract infection Qualifiers: Urinary tract infection type: site unspecified Hematuria presence: without hematuria Qualified Code(s): N39.0 - Urinary tract infection, site not specified Is this a current diagnosis for this admission?: Yes Plan: She is empirically started on IV antibiotic Rocephin for UTI, most likely gram- negative rods UTI (3) Sepsis Qualifiers: Sepsis type: sepsis due to unspecified organism Qualified Code(s): A41.9 - Sepsis, unspecified organism Is this a current diagnosis for this admission?: Yes Plan: She has lactic acidosis, hypotension, sinus tachycardia, or this suggest sepsis most likely UTI sepsis (4) Type 2 diabetes mellitus Qualifiers: Diabetes mellitus complication status: with neurologic complications Diabetes mellitus complication detail: with polyneuropathy Diabetes mellitus penitentiary insulin use: without marine oil terminal superintendent use Qualified Code(s): E11.42 - Type 2 diabetes mellitus with diabetic polyneuropathy Is this a current diagnosis for this admission?: Yes (5) Schizophrenia Qualifiers: Schizophrenia type: paranoid schizophrenia Qualified Code(s): F20.0 - Paranoid schizophrenia Is this a current diagnosis for this admission?: Yes (6) Malignant neoplasm of right breast Qualifiers: Breast location: unspecified site of breast Estrogen receptor status: unspecified Patient sex: female Qualified Code(s): C50.911 - Malignant neoplasm of unspecified site of right female breast Is this a current diagnosis for this admission?: Yes
[2017-07-20] MEDS: INSULIN LISPRO 100 UNIT/ML 3 ML VIAL SUBCUT PRN ×2 (16:58→22:16)
--- NOTE | 2017-07-20 17:59 | PDOC PROGRESS REPORT ---
Subjective Progress Note for:: 07/20/17 Subjective:: Patient was seen by the bedside the urine culture and blood culture is growing gram-negative rods, empirically on IV antibiotic. Blood pressure improved Physical Exam Vital Signs: Temp Pulse Resp BP Pulse Ox 98.3 F 89 16 143/73 H 100 07/20/17 07:32 07/20/17 07:32 07/20/17 07:32 07/20/17 07:32 07/20/17 07:32 General appearance: PRESENT: well-developed Head exam: PRESENT: atraumatic, normocephalic Eye exam: PRESENT: conjunctiva pink, EOMI, PERRLA Ear exam: PRESENT: normal external ear exam Mouth exam: PRESENT: moist, tongue midline Neck exam: PRESENT: full ROM Respiratory exam: PRESENT: clear to auscultation [place] Cardiovascular exam: PRESENT: RRR, +S1, +S2 GI/Abdominal exam: PRESENT: normal bowel sounds, soft Rectal exam: PRESENT: deferred Neurological exam: PRESENT: alert, CN II-XII grossly intact. ABSENT: motor sensory deficit Skin exam: PRESENT: dry, intact, warm. ABSENT: cyanosis, rash Results Impressions: Chest X-Ray 07/19/17 00:50 IMPRESSION: No acute cardiopulmonary findings. Head CT 07/19/17 01:38 IMPRESSION: No acute findings. EVIDENCE OF ACUTE STROKE: NO. Assessment & Plan - Diagnosis (1) Hypotension Qualifiers: Hypotension type: unspecified hypotension type Qualified Code(s): I95.9 - Hypotension, unspecified Is this a current diagnosis for this admission?: Yes (2) Urinary tract infection Qualifiers: Urinary tract infection type: site unspecified Hematuria presence: without hematuria Qualified Code(s): N39.0 - Urinary tract infection, site not specified Is this a current diagnosis for this admission?: Yes (3) Sepsis Qualifiers: Sepsis type: sepsis due to unspecified organism Qualified Code(s): A41.9 - Sepsis, unspecified organism Is this a current diagnosis for this admission?: Yes (4) Type 2 diabetes mellitus Qualifiers: Diabetes mellitus complication status: with neurologic complications Diabetes mellitus complication detail: with polyneuropathy Diabetes mellitus half-way insulin use: without half-way use Qualified Code(s): E11.42 - Type 2 diabetes mellitus with diabetic polyneuropathy Is this a current diagnosis for this admission?: Yes (5) Schizophrenia Qualifiers: Schizophrenia type: paranoid schizophrenia Qualified Code(s): F20.0 - Paranoid schizophrenia Is this a current diagnosis for this admission?: Yes (6) Malignant neoplasm of right breast Qualifiers: Breast location: unspecified site of breast Estrogen receptor status: unspecified Patient sex: female Qualified Code(s): C50.911 - Malignant neoplasm of unspecified site of right female breast Is this a current diagnosis for this admission?: Yes - Plan Summary Plan Summary: Continue IV antibiotic hydration with fluids and other treatment
[2017-07-20] MEDS: FLUCONAZOLE 100 MG TABLET PO SCH (22:16)
[2017-07-20] MEDS: QUETIAPINE FUMARATE 100 MG TABLET PO SCH (22:16)
[2017-07-21 06:27] LABS: ABSOLUTE EOSINOPHILS # (AUTO) 0.2 10^3/uL (0.0-0.6); ABSOLUTE LYMPHOCYTES (AUTO) 1.5 10^3/uL (0.5-4.7); ABSOLUTE MONOCYTES (AUTO) 1.2 10^3/uL (0.1-1.4); ABSOLUTE NEUT (AUTO) 4.4 10^3/uL (1.7-8.2); BASOPHILS % (AUTO) 0.6 % (0-2); EOSINOPHILS % (AUTO) 2.8 % (0-6); HEMATOCRIT 22.9 % (36.0-47.0); HEMOGLOBIN 8.1 g/dL (12.0-15.5); HGB HCT DIFFERENCE 1.4; LYMPHOCYTES % (AUTO) 20.9 % (13-45); MEAN CORPUSCULAR HEMOGLOBIN 30.9 pg (27.0-33.4); MEAN CORPUSCULAR HGB CONC 35.2 g/dL (32.0-36.0); MEAN CORPUSCULAR VOLUME 88 fl (80-97); MONOCYTES % (AUTO) 15.8 % (3-13); RED BLOOD COUNT 2.62 10^6/uL (3.72-5.28); RED CELL DISTRIBUTION WIDTH 14.5 % (11.5-14.0); SEGMENTED NEUTROPHILS % (AUTO) 59.9 % (42-78); WHITE BLOOD COUNT 7.3 10^3/uL (4.0-10.5)
[2017-07-21 06:39] LABS: ALANINE AMINOTRANSFERASE 16 U/L (9-52); ALBUMIN 3.3 g/dL (3.5-5.0); ALKALINE PHOSPHATASE 52 U/L (38-126); ANION GAP 11 (5-19); ASPARTATE AMINO TRANSFERASE 9 U/L (14-36); BILIRUBIN,DIRECT 0.3 mg/dL (0.0-0.4); BILIRUBIN,TOTAL 0.3 mg/dL (0.2-1.3); BLOOD UREA NITROGEN 13 mg/dL (7-20); CALCIUM 9.2 mg/dL (8.4-10.2); CARBON DIOXIDE 27 mmol/L (22-30); CHLORIDE 105 mmol/L (98-107); CREATININE RESULT 0.63 mg/dL (0.52-1.25); GLUCOSE 158 mg/dL (75-110); SODIUM 142.8 mmol/L (137-145); TOTAL PROTEIN 5.9 g/dL (6.3-8.2)
[2017-07-21] MEDS: ENOXAPARIN SODIUM INJ 40 MG/0.4 ML DISP.SYRIN SUBCUT SCH (10:35)
[2017-07-21] MEDS: CEFTRIAXONE 1 GM/D5W RTU 1 GM/50 ML RTUPB IV SCH (10:39)
[2017-07-21] MEDS: METFORMIN HCL 500 MG TABLET PO SCH ×2 (10:39→18:20)
[2017-07-21] MEDS: GLIPIZIDE XL 5 MG TAB.ER.24 PO SCH (10:40)
[2017-07-21] MEDS: BENZTROPINE MESYLATE 1 MG TABLET PO SCH ×2 (10:40→21:09)
[2017-07-21] MEDS: DIVALPROEX SODIUM 500 MG TAB.SR.24H PO SCH ×2 (10:41→18:20)
[2017-07-21] MEDS: LISINOPRIL 10 MG TABLET PO SCH (10:41)
[2017-07-21] MEDS: METOPROLOL TARTRATE 25 MG TABLET PO SCH ×2 (10:41→21:10)
[2017-07-21] MEDS: INSULIN LISPRO 100 UNIT/ML 3 ML VIAL SUBCUT PRN ×2 (11:37→21:10)
[2017-07-21] MEDS ORDERED: INFLUENZA ADLT QUAD (36MOS+) 2017-18 VAC 0.5 ML SYR IM PRN (13:30)
--- NOTE | 2017-07-21 15:51 | Physician Advisory Note ---
Physician Advisor ProgressNote .: Pursuant to the plan for Candace [facility], I have reviewed the medical record for this patient. Physician Advisor Statement: Really excellent documentation of sepsis on H&P with specification of supporting evidence - Dx also supported by a (+)BC, acute metabolic acidosis, & ED dr statement that pt "lethargic" in ED. Please consider: 1. "Acute metabolic acidosis, likely due to sepsis" 2. Please continue to document the likely source of the sepsis (UTI) in each note & DCSummary. Thanks so much! CK
--- NOTE | 2017-07-21 21:01 | PDOC PROGRESS REPORT ---
Subjective Progress Note for:: 07/21/17 Subjective:: Patient was admitted because of UTI and sepsis from UTI, the urine culture grew E. coli but the colonic count is only 30,000 suggesting not a true infection but colonization. The blood culture grew due to E. coli Acinetobacter specie. She is on IV Rocephin responding to treatment. Physical Exam Vital Signs: Temp Pulse Resp BP Pulse Ox 98.2 F 96 18 157/90 H 99 07/21/17 20:15 07/21/17 20:15 07/21/17 20:15 07/21/17 20:15 07/21/17 20:15 Intake & Output 07/20/17 07/21/17 07/22/17 06:59 06:59 06:59 Intake Total 4132 1010 Output Total 1200 2100 Balance 2932 -1090 Weight 89.2 kg General appearance: PRESENT: no acute distress Eye exam: PRESENT: PERRLA Respiratory exam: PRESENT: clear to auscultation [place] Cardiovascular exam: PRESENT: +S1, +S2 GI/Abdominal exam: PRESENT: soft Neurological exam: PRESENT: alert, CN II-XII grossly intact Results Laboratory Results: 07/21/17 05:55 07/21/17 05:55 07/21/17 07/21/17 05:55 05:55 WBC 7.3 RBC 2.62 L Hgb 8.1 L Hct 22.9 L MCV 88 MCH 30.9 MCHC 35.2 RDW 14.5 H Plt Count 223 Seg Neutrophils % 59.9 Lymphocytes % 20.9 Monocytes % 15.8 H Eosinophils % 2.8 Basophils % 0.6 Absolute Neutrophils 4.4 Absolute Lymphocytes 1.5 Absolute Monocytes 1.2 Absolute Eosinophils 0.2 Absolute Basophils 0.0 Sodium 142.8 Potassium 4.0 Chloride 105 Carbon Dioxide 27 Anion Gap 11 BUN 13 Creatinine 0.63 Est GFR ( Amer) > 60 Est GFR (Non-Af Amer) > 60 Glucose 158 H Calcium 9.2 Total Bilirubin 0.3 AST 9 L ALT 16 Alkaline Phosphatase 52 Total Protein 5.9 L Albumin 3.3 L Impressions: Chest X-Ray 07/19/17 00:50 IMPRESSION: No acute cardiopulmonary findings. Head CT 07/19/17 01:38 IMPRESSION: No acute findings. EVIDENCE OF ACUTE STROKE: NO. Assessment & Plan - Diagnosis (1) Hypotension Qualifiers: Hypotension type: unspecified hypotension type Qualified Code(s): I95.9 - Hypotension, unspecified Is this a current diagnosis for this admission?: Yes (2) Urinary tract infection Qualifiers: Urinary tract infection type: site unspecified Hematuria presence: without hematuria Qualified Code(s): N39.0 - Urinary tract infection, site not specified Is this a current diagnosis for this admission?: Yes (3) Sepsis Qualifiers: Sepsis type: sepsis due to unspecified organism Qualified Code(s): A41.9 - Sepsis, unspecified organism Is this a current diagnosis for this admission?: Yes (4) Type 2 diabetes mellitus Qualifiers: Diabetes mellitus complication status: with neurologic complications Diabetes mellitus complication detail: with polyneuropathy 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 insulin use: without detention use Qualified Code(s): E11.42 - Type 2 diabetes mellitus with diabetic polyneuropathy Is this a current diagnosis for this admission?: Yes (5) Schizophrenia Qualifiers: Schizophrenia type: paranoid schizophrenia Qualified Code(s): F20.0 - Paranoid schizophrenia Is this a current diagnosis for this admission?: Yes (6) Malignant neoplasm of right breast Qualifiers: Breast location: unspecified site of breast Estrogen receptor status: unspecified Patient sex: female Qualified Code(s): C50.911 - Malignant neoplasm of unspecified site of right female breast Is this a current diagnosis for this admission?: Yes (7) Septicemia due to Acinetobacter species Is this a current diagnosis for this admission?: Yes Plan: She will continue the IV Rocephin, the organism is pansensitive to all antibiotic.
[2017-07-21] MEDS: FLUCONAZOLE 100 MG TABLET PO SCH (21:10)
[2017-07-21] MEDS: QUETIAPINE FUMARATE 100 MG TABLET PO SCH (21:10)
[2017-07-22 06:45] LABS: ABSOLUTE BASOPHILS # (AUTO) 0.1 10^3/uL (0.0-0.2); ABSOLUTE EOSINOPHILS # (AUTO) 0.2 10^3/uL (0.0-0.6); ABSOLUTE LYMPHOCYTES (AUTO) 1.5 10^3/uL (0.5-4.7); ABSOLUTE MONOCYTES (AUTO) 0.8 10^3/uL (0.1-1.4); BASOPHILS % (AUTO) 1.1 % (0-2); EOSINOPHILS % (AUTO) 3.5 % (0-6); HEMATOCRIT 24.1 % (36.0-47.0); HEMOGLOBIN 8.5 g/dL (12.0-15.5); HGB HCT DIFFERENCE 1.4; LYMPHOCYTES % (AUTO) 26.8 % (13-45); MEAN CORPUSCULAR HEMOGLOBIN 31.3 pg (27.0-33.4); MEAN CORPUSCULAR HGB CONC 35.4 g/dL (32.0-36.0); MEAN CORPUSCULAR VOLUME 88 fl (80-97); MONOCYTES % (AUTO) 14.7 % (3-13); RED BLOOD COUNT 2.73 10^6/uL (3.72-5.28); RED CELL DISTRIBUTION WIDTH 14.6 % (11.5-14.0); SEGMENTED NEUTROPHILS % (AUTO) 53.9 % (42-78); WHITE BLOOD COUNT 5.7 10^3/uL (4.0-10.5)
[2017-07-22 07:00] LABS: ALANINE AMINOTRANSFERASE 24 U/L (9-52); ALBUMIN 3.6 g/dL (3.5-5.0); ALKALINE PHOSPHATASE 50 U/L (38-126); ANION GAP 15 (5-19); ASPARTATE AMINO TRANSFERASE 11 U/L (14-36); BILIRUBIN,DIRECT 0.3 mg/dL (0.0-0.4); BILIRUBIN,TOTAL 0.3 mg/dL (0.2-1.3); BLOOD UREA NITROGEN 21 mg/dL (7-20); CALCIUM 9.8 mg/dL (8.4-10.2); CARBON DIOXIDE 25 mmol/L (22-30); CHLORIDE 104 mmol/L (98-107); CREATININE RESULT 0.62 mg/dL (0.52-1.25); GLUCOSE 147 mg/dL (75-110); POTASSIUM 4.1 mmol/L (3.6-5.0); TOTAL PROTEIN 6.2 g/dL (6.3-8.2)
[2017-07-22] MEDS: INSULIN LISPRO 100 UNIT/ML 3 ML VIAL SUBCUT PRN ×2 (08:28→12:23)
[2017-07-22] MEDS: GLIPIZIDE XL 5 MG TAB.ER.24 PO SCH (09:37)
[2017-07-22] MEDS: ENOXAPARIN SODIUM INJ 40 MG/0.4 ML DISP.SYRIN SUBCUT SCH (09:37)
[2017-07-22] MEDS: DIVALPROEX SODIUM 500 MG TAB.SR.24H PO SCH ×2 (09:37→18:28)
[2017-07-22] MEDS: LISINOPRIL 10 MG TABLET PO SCH (09:38)
[2017-07-22] MEDS: BENZTROPINE MESYLATE 1 MG TABLET PO SCH ×2 (09:38→23:18)
[2017-07-22] MEDS: METFORMIN HCL 500 MG TABLET PO SCH ×2 (09:39→18:27)
[2017-07-22] MEDS: METOPROLOL TARTRATE 25 MG TABLET PO SCH ×2 (09:39→23:17)
[2017-07-22] MEDS: CEFTRIAXONE 1 GM/D5W RTU 1 GM/50 ML RTUPB IV SCH (09:40)
[2017-07-22] MEDS: QUETIAPINE FUMARATE 100 MG TABLET PO SCH (23:17)
[2017-07-22] MEDS: FLUCONAZOLE 100 MG TABLET PO SCH (23:17)
[2017-07-23] MEDS: METOPROLOL TARTRATE 25 MG TABLET PO SCH ×2 (09:36→21:11)
[2017-07-23] MEDS: GLIPIZIDE XL 5 MG TAB.ER.24 PO SCH (09:37)
[2017-07-23] MEDS: BENZTROPINE MESYLATE 1 MG TABLET PO SCH ×2 (09:37→21:11)
[2017-07-23] MEDS: LISINOPRIL 10 MG TABLET PO SCH (09:37)
[2017-07-23] MEDS: DIVALPROEX SODIUM 500 MG TAB.SR.24H PO SCH ×2 (09:37→17:29)
[2017-07-23] MEDS: METFORMIN HCL 500 MG TABLET PO SCH ×2 (09:38→17:29)
[2017-07-23] MEDS: CEFTRIAXONE 1 GM/D5W RTU 1 GM/50 ML RTUPB IV SCH (09:38)
[2017-07-23] MEDS: ENOXAPARIN SODIUM INJ 40 MG/0.4 ML DISP.SYRIN SUBCUT SCH (09:39)
--- NOTE | 2017-07-23 10:05 | PDOC PROGRESS REPORT ---
Subjective Progress Note for:: 07/22/17 Subjective:: Patient was admitted because of UTI and sepsis from UTI, the urine culture grew E. coli but the colonic count is only 30,000 suggesting not a true infection but colonization. The blood culture grew due to E. coli Acinetobacter specie. She is on IV Rocephin responding to treatment. Physical Exam Vital Signs: Temp Pulse Resp BP Pulse Ox 98.4 F 88 16 140/65 H 98 07/23/17 07:33 07/23/17 07:33 07/23/17 07:33 07/23/17 07:33 07/23/17 07:33 Intake & Output 07/22/17 07/23/17 07/24/17 06:59 06:59 06:59 Intake Total 1490 2540 Output Total 3600 1700 Balance -2110 840 Weight 90.2 kg 88.9 kg General appearance: PRESENT: no acute distress, well-developed, well-nourished Head exam: PRESENT: atraumatic, normocephalic Eye exam: PRESENT: conjunctiva pink, EOMI, PERRLA Ear exam: PRESENT: normal external ear exam Mouth exam: PRESENT: moist, tongue midline Neck exam: PRESENT: full ROM Cardiovascular exam: PRESENT: RRR, +S1, +S2 Vascular exam: PRESENT: normal capillary refill GI/Abdominal exam: PRESENT: normal bowel sounds, soft Rectal exam: PRESENT: deferred Neurological exam: PRESENT: alert, awake, oriented to person, oriented to place , oriented to time, oriented to situation, CN II-XII grossly intact Psychiatric exam: PRESENT: appropriate affect, normal mood Skin exam: PRESENT: dry, intact, warm Results Laboratory Results: 07/22/17 06:25 07/22/17 06:25 Impressions: Chest X-Ray 07/19/17 00:50 IMPRESSION: No acute cardiopulmonary findings. Head CT 07/19/17 01:38 IMPRESSION: No acute findings. EVIDENCE OF ACUTE STROKE: NO. Assessment & Plan - Diagnosis (1) Hypotension Qualifiers: Hypotension type: unspecified hypotension type Qualified Code(s): I95.9 - Hypotension, unspecified Is this a current diagnosis for this admission?: Yes (2) Urinary tract infection Qualifiers: Urinary tract infection type: site unspecified Hematuria presence: without hematuria Qualified Code(s): N39.0 - Urinary tract infection, site not specified Is this a current diagnosis for this admission?: Yes (3) Sepsis Qualifiers: Sepsis type: sepsis due to unspecified organism Qualified Code(s): A41.9 - Sepsis, unspecified organism Is this a current diagnosis for this admission?: Yes (4) Type 2 diabetes mellitus Qualifiers: Diabetes mellitus complication status: with neurologic complications Diabetes mellitus complication detail: with polyneuropathy Diabetes mellitus adobe ball mixer insulin use: without group home use Qualified Code(s): E11.42 - Type 2 diabetes mellitus with diabetic polyneuropathy Is this a current diagnosis for this admission?: Yes (5) Schizophrenia Qualifiers: Schizophrenia type: paranoid schizophrenia Qualified Code(s): F20.0 - Paranoid schizophrenia Is this a current diagnosis for this admission?: Yes (6) Malignant neoplasm of right breast Qualifiers: Breast location: unspecified site of breast Estrogen receptor status: unspecified Patient sex: female Qualified Code(s): C50.911 - Malignant neoplasm of unspecified site of right female breast Is this a current diagnosis for this admission?: Yes (7) Septicemia due to Acinetobacter species Is this a current diagnosis for this admission?: Yes Plan: She will continue the antibiotic
[2017-07-23] MEDS: INSULIN LISPRO 100 UNIT/ML 3 ML VIAL SUBCUT PRN ×3 (12:23→21:11)
--- NOTE | 2017-07-23 15:26 | PDOC PROGRESS REPORT ---
Subjective Progress Note for:: 07/23/17 Subjective:: She was seen by the bedside, the blood culture grew Acinetobacter, she is on IV antibiotic, the bacteria is pansensitive to all antibiotic. Physical Exam Vital Signs: Temp Pulse Resp BP Pulse Ox 98.3 F 98 16 134/72 H 99 07/23/17 11:41 07/23/17 14:00 07/23/17 11:41 07/23/17 11:41 07/23/17 11:41 Intake & Output 07/22/17 07/23/17 07/24/17 06:59 06:59 06:59 Intake Total 1490 2540 Output Total 3600 1700 Balance -2110 840 Weight 90.2 kg 88.9 kg General appearance: PRESENT: no acute distress, well-developed, well-nourished Head exam: PRESENT: atraumatic, normocephalic Eye exam: PRESENT: conjunctiva pink, EOMI, PERRLA Ear exam: PRESENT: normal external ear exam Mouth exam: PRESENT: moist, tongue midline Neck exam: PRESENT: full ROM Respiratory exam: PRESENT: clear to auscultation [place] Cardiovascular exam: PRESENT: RRR, +S1, +S2 Pulses: PRESENT: normal dorsalis pedis pul, +2 pedal pulses bilateral Vascular exam: PRESENT: normal capillary refill GI/Abdominal exam: PRESENT: normal bowel sounds, soft Rectal exam: PRESENT: deferred Neurological exam: PRESENT: alert, awake, oriented to person, oriented to place , oriented to time, oriented to situation, CN II-XII grossly intact Psychiatric exam: PRESENT: appropriate affect, normal mood Skin exam: PRESENT: dry, intact, warm Results Laboratory Results: 07/22/17 06:25 07/22/17 06:25 Impressions: Chest X-Ray 07/19/17 00:50 IMPRESSION: No acute cardiopulmonary findings. Head CT 07/19/17 01:38 IMPRESSION: No acute findings. EVIDENCE OF ACUTE STROKE: NO. Assessment & Plan - Diagnosis (1) Hypotension Qualifiers: Hypotension type: unspecified hypotension type Qualified Code(s): I95.9 - Hypotension, unspecified Is this a current diagnosis for this admission?: Yes (2) Urinary tract infection Qualifiers: Urinary tract infection type: site unspecified Hematuria presence: without hematuria Qualified Code(s): N39.0 - Urinary tract infection, site not specified Is this a current diagnosis for this admission?: Yes (3) Sepsis Qualifiers: Sepsis type: sepsis due to unspecified organism Qualified Code(s): A41.9 - Sepsis, unspecified organism Is this a current diagnosis for this admission?: Yes (4) Type 2 diabetes mellitus Qualifiers: Diabetes mellitus complication status: with neurologic complications Diabetes mellitus complication detail: with polyneuropathy Diabetes mellitus 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 insulin use: without long 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 use Qualified Code(s): E11.42 - Type 2 diabetes mellitus with diabetic polyneuropathy Is this a current diagnosis for this admission?: Yes (5) Schizophrenia Qualifiers: Schizophrenia type: paranoid schizophrenia Qualified Code(s): F20.0 - Paranoid schizophrenia Is this a current diagnosis for this admission?: Yes (6) Malignant neoplasm of right breast Qualifiers: Breast location: unspecified site of breast Estrogen receptor status: unspecified Patient sex: female Qualified Code(s): C50.911 - Malignant neoplasm of unspecified site of right female breast Is this a current diagnosis for this admission?: Yes (7) Septicemia due to Acinetobacter species Is this a current diagnosis for this admission?: Yes - Plan Summary Plan Summary: She has septicemia she will continue IV antibiotic for a total of 7 days after which she will be transitioned to p.o. antibiotic and discharge her home
[2017-07-23] MEDS: FLUCONAZOLE 100 MG TABLET PO SCH (21:11)
[2017-07-23] MEDS: QUETIAPINE FUMARATE 100 MG TABLET PO SCH (21:12)
[2017-07-24] MEDS: ENOXAPARIN SODIUM INJ 40 MG/0.4 ML DISP.SYRIN SUBCUT SCH (09:52)
[2017-07-24] MEDS: CEFTRIAXONE 1 GM/D5W RTU 1 GM/50 ML RTUPB IV SCH (09:52)
[2017-07-24] MEDS: METOPROLOL TARTRATE 25 MG TABLET PO SCH ×2 (09:53→21:46)
[2017-07-24] MEDS: GLIPIZIDE XL 5 MG TAB.ER.24 PO SCH (09:54)
[2017-07-24] MEDS: LISINOPRIL 10 MG TABLET PO SCH (09:54)
[2017-07-24] MEDS: DIVALPROEX SODIUM 500 MG TAB.SR.24H PO SCH ×2 (09:54→17:05)
[2017-07-24] MEDS: BENZTROPINE MESYLATE 1 MG TABLET PO SCH ×2 (09:54→21:46)
[2017-07-24] MEDS: METFORMIN HCL 500 MG TABLET PO SCH ×2 (09:54→17:05)
[2017-07-24] MEDS: INSULIN LISPRO 100 UNIT/ML 3 ML VIAL SUBCUT PRN ×3 (12:11→21:50)
[2017-07-24 18:05] LABS: HEMATOCRIT 27.2 % (36.0-47.0); HEMOGLOBIN 9.4 g/dL (12.0-15.5); MEAN CORPUSCULAR HEMOGLOBIN 30.9 pg (27.0-33.4); MEAN CORPUSCULAR HGB CONC 34.6 g/dL (32.0-36.0); MEAN CORPUSCULAR VOLUME 89 fl (80-97); RED BLOOD COUNT 3.05 10^6/uL (3.72-5.28); RED CELL DISTRIBUTION WIDTH 14.6 % (11.5-14.0); WHITE BLOOD COUNT 7.1 10^3/uL (4.0-10.5)
[2017-07-24 18:19] LABS: ALANINE AMINOTRANSFERASE 25 U/L (9-52); ALBUMIN 4.3 g/dL (3.5-5.0); ALKALINE PHOSPHATASE 62 U/L (38-126); ANION GAP 15 (5-19); ASPARTATE AMINO TRANSFERASE 15 U/L (14-36); BILIRUBIN,DIRECT 0.3 mg/dL (0.0-0.4); BILIRUBIN,TOTAL 0.3 mg/dL (0.2-1.3); BLOOD UREA NITROGEN 19 mg/dL (7-20); CARBON DIOXIDE 24 mmol/L (22-30); CHLORIDE 102 mmol/L (98-107); CREATININE RESULT 0.72 mg/dL (0.52-1.25); GLUCOSE 302 mg/dL (75-110); POTASSIUM 5.4 mmol/L (3.6-5.0); TOTAL PROTEIN 7.3 g/dL (6.3-8.2)
[2017-07-24 18:30] LABS: BAND NEUTROPHILS % (MANUAL) 4 % (3-5); BASOPHILS % (MANUAL) 1 % (0-2); EOSINOPHILS % (MANUAL) 3 % (0-6); LYMPHOCYTES % (MANUAL) 28 % (13-45); TOTAL CELLS COUNTED 100
[2017-07-24 18:31] LABS: RBC MORPHOLOGY COMMENT NORMO-CYTIC/CHROMIC
[2017-07-24] MEDS ORDERED: DIPHENHYDRAMINE HCL 25 MG CAPSULE PO ONE (21:00)
[2017-07-24] MEDS: FLUCONAZOLE 100 MG TABLET PO SCH (21:45)
[2017-07-24] MEDS: QUETIAPINE FUMARATE 100 MG TABLET PO SCH (21:46)
--- NOTE | 2017-07-24 22:11 | PDOC PROGRESS REPORT ---
Subjective Progress Note for:: 07/24/17 Subjective:: She was seen by the bedside, she was admitted for the management of UTI, blood sepsis, she is responded to antibiotic Physical Exam Vital Signs: Temp Pulse Resp BP Pulse Ox 97.9 F 101 H 16 158/81 H 97 07/24/17 20:00 07/24/17 20:00 07/24/17 20:00 07/24/17 20:00 07/24/17 20:00 Intake & Output 07/23/17 07/24/17 07/25/17 06:59 06:59 06:59 Intake Total 2540 855 1160 Output Total 1700 1300 900 Balance 840 -445 260 Weight 88.9 kg 88.9 kg General appearance: PRESENT: no acute distress Ear exam: PRESENT: normal external ear exam Mouth exam: PRESENT: moist, tongue midline Neck exam: PRESENT: full ROM Respiratory exam: PRESENT: clear to auscultation [place] Cardiovascular exam: PRESENT: RRR, +S1, +S2 Vascular exam: PRESENT: normal capillary refill GI/Abdominal exam: PRESENT: normal bowel sounds, soft Rectal exam: PRESENT: deferred Neurological exam: PRESENT: alert, CN II-XII grossly intact. ABSENT: motor sensory deficit Psychiatric exam: PRESENT: appropriate affect, normal mood Skin exam: PRESENT: dry, intact, warm. ABSENT: cyanosis, rash Results Laboratory Results: 07/24/17 17:44 07/24/17 17:44 07/24/17 07/24/17 17:44 17:44 WBC 7.1 RBC 3.05 L Hgb 9.4 L Hct 27.2 L MCV 89 MCH 30.9 MCHC 34.6 RDW 14.6 H Plt Count 343 Seg Neutrophils % Not Reportable Lymphocytes % Not Reportable Monocytes % Not Reportable Eosinophils % Not Reportable Basophils % Not Reportable Absolute Neutrophils Not Reportable Absolute Lymphocytes Not Reportable Absolute Monocytes Not Reportable Absolute Eosinophils Not Reportable Absolute Basophils Not Reportable Sodium 141.0 Potassium 5.4 H Chloride 102 Carbon Dioxide 24 Anion Gap 15 BUN 19 Creatinine 0.72 Est GFR ( Amer) > 60 Est GFR (Non-Af Amer) > 60 Glucose 302 H Calcium 10.0 Total Bilirubin 0.3 AST 15 ALT 25 Alkaline Phosphatase 62 Total Protein 7.3 Albumin 4.3 Impressions: Chest X-Ray 07/19/17 00:50 IMPRESSION: No acute cardiopulmonary findings. Head CT 07/19/17 01:38 IMPRESSION: No acute findings. EVIDENCE OF ACUTE STROKE: NO. Assessment & Plan - Diagnosis (1) Hypotension Qualifiers: Hypotension type: unspecified hypotension type Qualified Code(s): I95.9 - Hypotension, unspecified Is this a current diagnosis for this admission?: Yes (2) Urinary tract infection Qualifiers: Urinary tract infection type: site unspecified Hematuria presence: without hematuria Qualified Code(s): N39.0 - Urinary tract infection, site not specified Is this a current diagnosis for this admission?: Yes (3) Sepsis Qualifiers: Sepsis type: sepsis due to unspecified organism Qualified Code(s): A41.9 - Sepsis, unspecified organism Is this a current diagnosis for this admission?: Yes (4) Type 2 diabetes mellitus Qualifiers: Diabetes mellitus complication status: with neurologic complications Diabetes mellitus complication detail: with polyneuropathy Diabetes mellitus 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 helper insulin use: without 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 helper use Qualified Code(s): E11.42 - Type 2 diabetes mellitus with diabetic polyneuropathy Is this a current diagnosis for this admission?: Yes (5) Schizophrenia Qualifiers: Schizophrenia type: paranoid schizophrenia Qualified Code(s): F20.0 - Paranoid schizophrenia Is this a current diagnosis for this admission?: Yes (6) Malignant neoplasm of right breast Qualifiers: Breast location: unspecified site of breast Estrogen receptor status: unspecified Patient sex: female Qualified Code(s): C50.911 - Malignant neoplasm of unspecified site of right female breast Is this a current diagnosis for this admission?: Yes (7) Septicemia due to Acinetobacter species Is this a current diagnosis for this admission?: Yes
[2017-07-25] MEDS: ENOXAPARIN SODIUM INJ 40 MG/0.4 ML DISP.SYRIN SUBCUT SCH (10:17)
[2017-07-25] MEDS: LISINOPRIL 10 MG TABLET PO SCH (10:17)
[2017-07-25] MEDS: BENZTROPINE MESYLATE 1 MG TABLET PO SCH ×2 (10:17→22:18)
[2017-07-25] MEDS: METOPROLOL TARTRATE 25 MG TABLET PO SCH ×2 (10:17→22:18)
[2017-07-25] MEDS: GLIPIZIDE XL 5 MG TAB.ER.24 PO SCH (10:17)
[2017-07-25] MEDS: METFORMIN HCL 500 MG TABLET PO SCH ×2 (10:17→17:48)
[2017-07-25] MEDS: CEFTRIAXONE 1 GM/D5W RTU 1 GM/50 ML RTUPB IV SCH (10:17)
[2017-07-25] MEDS: DIVALPROEX SODIUM 500 MG TAB.SR.24H PO SCH ×2 (10:17→17:48)
[2017-07-25] MEDS: INSULIN LISPRO 100 UNIT/ML 3 ML VIAL SUBCUT PRN ×3 (12:46→22:18)
--- NOTE | 2017-07-25 21:30 | PDOC PROGRESS REPORT ---
Subjective Progress Note for:: 07/25/17 Subjective:: Patient was seen by the bedside, she complained of nausea Physical Exam Vital Signs: Temp Pulse Resp BP Pulse Ox 98.3 F 95 18 143/70 H 100 07/25/17 16:00 07/25/17 16:00 07/25/17 16:00 07/25/17 16:00 07/25/17 16:00 Intake & Output 07/24/17 07/25/17 07/26/17 06:59 06:59 06:59 Intake Total 855 1760 790 Output Total 1300 900 Balance -445 860 790 Weight 88.9 kg 90 kg Head exam: PRESENT: atraumatic, normocephalic Eye exam: PRESENT: conjunctiva pink, EOMI, PERRLA Ear exam: PRESENT: normal external ear exam Mouth exam: PRESENT: moist, tongue midline Neck exam: PRESENT: full ROM Respiratory exam: PRESENT: clear to auscultation [place] Cardiovascular exam: PRESENT: +S1, +S2 Pulses: PRESENT: normal dorsalis pedis pul, +2 pedal pulses bilateral Vascular exam: PRESENT: normal capillary refill GI/Abdominal exam: PRESENT: normal bowel sounds, soft. ABSENT: distended, guarding, mass, organolmegaly, rebound, tenderness Rectal exam: PRESENT: deferred Neurological exam: PRESENT: alert, awake, oriented to person, oriented to place , oriented to time, oriented to situation, CN II-XII grossly intact Psychiatric exam: PRESENT: appropriate affect, normal mood Skin exam: PRESENT: dry, intact, warm Results Laboratory Results: 07/24/17 17:44 07/24/17 17:44 Impressions: Chest X-Ray 07/19/17 00:50 IMPRESSION: No acute cardiopulmonary findings. Head CT 07/19/17 01:38 IMPRESSION: No acute findings. EVIDENCE OF ACUTE STROKE: NO. Assessment & Plan - Diagnosis (1) Hypotension Qualifiers: Hypotension type: unspecified hypotension type Qualified Code(s): I95.9 - Hypotension, unspecified Is this a current diagnosis for this admission?: Yes (2) Urinary tract infection Qualifiers: Urinary tract infection type: site unspecified Hematuria presence: without hematuria Qualified Code(s): N39.0 - Urinary tract infection, site not specified Is this a current diagnosis for this admission?: Yes (3) Sepsis Qualifiers: Sepsis type: sepsis due to unspecified organism Qualified Code(s): A41.9 - Sepsis, unspecified organism Is this a current diagnosis for this admission?: Yes (4) Type 2 diabetes mellitus Qualifiers: Diabetes mellitus complication status: with neurologic complications Diabetes mellitus complication detail: with polyneuropathy 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 use: without intermodal owner operator truck driver use Qualified Code(s): E11.42 - Type 2 diabetes mellitus with diabetic polyneuropathy Is this a current diagnosis for this admission?: Yes (5) Schizophrenia Qualifiers: Schizophrenia type: paranoid schizophrenia Qualified Code(s): F20.0 - Paranoid schizophrenia Is this a current diagnosis for this admission?: Yes (6) Malignant neoplasm of right breast Qualifiers: Breast location: unspecified site of breast Estrogen receptor status: unspecified Patient sex: female Qualified Code(s): C50.911 - Malignant neoplasm of unspecified site of right female breast Is this a current diagnosis for this admission?: Yes (7) Septicemia due to Acinetobacter species Is this a current diagnosis for this admission?: Yes
[2017-07-25] MEDS: QUETIAPINE FUMARATE 100 MG TABLET PO SCH (22:18)
[2017-07-25] MEDS: FLUCONAZOLE 100 MG TABLET PO SCH (22:18)
[2017-07-26] MEDS: DIVALPROEX SODIUM 500 MG TAB.SR.24H PO SCH ×2 (10:17→17:37)
[2017-07-26] MEDS: BENZTROPINE MESYLATE 1 MG TABLET PO SCH ×2 (10:17→22:06)
[2017-07-26] MEDS: LISINOPRIL 10 MG TABLET PO SCH (10:17)
[2017-07-26] MEDS: GLIPIZIDE XL 5 MG TAB.ER.24 PO SCH (10:17)
[2017-07-26] MEDS: ENOXAPARIN SODIUM INJ 40 MG/0.4 ML DISP.SYRIN SUBCUT SCH (10:17)
[2017-07-26] MEDS: METOPROLOL TARTRATE 25 MG TABLET PO SCH ×2 (10:18→22:06)
[2017-07-26] MEDS: METFORMIN HCL 500 MG TABLET PO SCH ×2 (10:18→17:37)
[2017-07-26] MEDS: INSULIN LISPRO 100 UNIT/ML 3 ML VIAL SUBCUT PRN ×2 (17:54→22:19)
[2017-07-26] MEDS ORDERED: CEFTRIAXONE 1 GM/D5W RTU 1 GM/50 ML RTUPB IV SCH (19:00)
[2017-07-26 19:21] LABS: HEMATOCRIT 27.5 % (36.0-47.0); HEMOGLOBIN 9.6 g/dL (12.0-15.5); HGB HCT DIFFERENCE 1.3; MEAN CORPUSCULAR HGB CONC 34.7 g/dL (32.0-36.0); MEAN CORPUSCULAR VOLUME 89 fl (80-97); RED BLOOD COUNT 3.09 10^6/uL (3.72-5.28); RED CELL DISTRIBUTION WIDTH 15.4 % (11.5-14.0); WHITE BLOOD COUNT 7.8 10^3/uL (4.0-10.5)
[2017-07-26 19:39] LABS: BAND NEUTROPHILS % (MANUAL) 2 % (3-5); BASOPHILS % (MANUAL) 0 % (0-2); EOSINOPHILS % (MANUAL) 2 % (0-6); LYMPHOCYTES % (MANUAL) 23 % (13-45); TOTAL CELLS COUNTED 100
[2017-07-26 19:42] LABS: ALANINE AMINOTRANSFERASE 30 U/L (9-52); ALBUMIN 4.4 g/dL (3.5-5.0); ALKALINE PHOSPHATASE 66 U/L (38-126); ANION GAP 15 (5-19); ANISOCYTOSIS SLIGHT; ASPARTATE AMINO TRANSFERASE 15 U/L (14-36); BILIRUBIN,DIRECT 0.3 mg/dL (0.0-0.4); BILIRUBIN,TOTAL 0.3 mg/dL (0.2-1.3); BLOOD UREA NITROGEN 23 mg/dL (7-20); CALCIUM 9.9 mg/dL (8.4-10.2); CARBON DIOXIDE 26 mmol/L (22-30); CHLORIDE 101 mmol/L (98-107); CREATININE RESULT 0.84 mg/dL (0.52-1.25); GLUCOSE 265 mg/dL (75-110); POIKILOCYTOSIS SLIGHT; POTASSIUM 5.1 mmol/L (3.6-5.0); SODIUM 141.5 mmol/L (137-145); TOTAL PROTEIN 7.2 g/dL (6.3-8.2); TOXIC GRANULATION SLIGHT
--- NOTE | 2017-07-26 21:13 | PDOC PROGRESS REPORT ---
Subjective Progress Note for:: 07/26/17 Subjective:: Patient was seen by the bedside, she is responding very well to treatment Physical Exam Vital Signs: Temp Pulse Resp BP Pulse Ox 97.7 F 89 16 134/81 H 100 07/26/17 12:21 07/26/17 14:00 07/26/17 12:21 07/26/17 12:21 07/26/17 12:21 Intake & Output 07/25/17 07/26/17 07/27/17 06:59 06:59 06:59 Intake Total 1760 1690 1640 Output Total 900 Balance 860 1690 1640 Weight 90 kg 89.6 kg General appearance: PRESENT: no acute distress, well-developed, well-nourished Head exam: PRESENT: atraumatic, normocephalic Eye exam: PRESENT: conjunctiva pink, EOMI, PERRLA Ear exam: PRESENT: normal external ear exam Mouth exam: PRESENT: moist, tongue midline Neck exam: PRESENT: full ROM Respiratory exam: PRESENT: clear to auscultation [place] Cardiovascular exam: PRESENT: RRR, +S1, +S2 Pulses: PRESENT: normal dorsalis pedis pul, +2 pedal pulses bilateral Vascular exam: PRESENT: normal capillary refill GI/Abdominal exam: PRESENT: normal bowel sounds, soft Rectal exam: PRESENT: deferred Neurological exam: PRESENT: alert, awake, oriented to person, oriented to place , oriented to time, oriented to situation, CN II-XII grossly intact Psychiatric exam: PRESENT: appropriate affect, normal mood Skin exam: PRESENT: dry, intact, warm Results Laboratory Results: 07/26/17 18:55 07/26/17 18:55 07/26/17 07/26/17 18:55 18:55 WBC 7.8 RBC 3.09 L Hgb 9.6 L Hct 27.5 L MCV 89 MCH 31.0 MCHC 34.7 RDW 15.4 H Plt Count 373 Seg Neutrophils % Not Reportable Lymphocytes % Not Reportable Monocytes % Not Reportable Eosinophils % Not Reportable Basophils % Not Reportable Absolute Neutrophils Not Reportable Absolute Lymphocytes Not Reportable Absolute Monocytes Not Reportable Absolute Eosinophils Not Reportable Absolute Basophils Not Reportable Sodium 141.5 Potassium 5.1 H Chloride 101 Carbon Dioxide 26 Anion Gap 15 BUN 23 H Creatinine 0.84 Est GFR ( Amer) > 60 Est GFR (Non-Af Amer) > 60 Glucose 265 H Calcium 9.9 Total Bilirubin 0.3 AST 15 ALT 30 Alkaline Phosphatase 66 Total Protein 7.2 Albumin 4.4 Impressions: Chest X-Ray 07/19/17 00:50 IMPRESSION: No acute cardiopulmonary findings. Head CT 07/19/17 01:38 IMPRESSION: No acute findings. EVIDENCE OF ACUTE STROKE: NO. Assessment & Plan - Diagnosis (1) Hypotension Qualifiers: Hypotension type: unspecified hypotension type Qualified Code(s): I95.9 - Hypotension, unspecified Is this a current diagnosis for this admission?: Yes (2) Urinary tract infection Qualifiers: Urinary tract infection type: site unspecified Hematuria presence: without hematuria Qualified Code(s): N39.0 - Urinary tract infection, site not specified Is this a current diagnosis for this admission?: Yes (3) Sepsis Qualifiers: Sepsis type: sepsis due to unspecified organism Qualified Code(s): A41.9 - Sepsis, unspecified organism Is this a current diagnosis for this admission?: Yes (4) Type 2 diabetes mellitus Qualifiers: Diabetes mellitus complication status: with neurologic complications Diabetes mellitus complication detail: with polyneuropathy 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 insulin use: without termite technician use Qualified Code(s): E11.42 - Type 2 diabetes mellitus with diabetic polyneuropathy Is this a current diagnosis for this admission?: Yes (5) Schizophrenia Qualifiers: Schizophrenia type: paranoid schizophrenia Qualified Code(s): F20.0 - Paranoid schizophrenia Is this a current diagnosis for this admission?: Yes (6) Malignant neoplasm of right breast Qualifiers: Breast location: unspecified site of breast Estrogen receptor status: unspecified Patient sex: female Qualified Code(s): C50.911 - Malignant neoplasm of unspecified site of right female breast Is this a current diagnosis for this admission?: Yes (7) Septicemia due to Acinetobacter species Is this a current diagnosis for this admission?: Yes
[2017-07-26] MEDS: QUETIAPINE FUMARATE 100 MG TABLET PO SCH (22:06)
[2017-07-27] MEDS: DIVALPROEX SODIUM 500 MG TAB.SR.24H PO SCH (10:39)
[2017-07-27] MEDS: LISINOPRIL 10 MG TABLET PO SCH (10:40)
[2017-07-27] MEDS: METOPROLOL TARTRATE 25 MG TABLET PO SCH (10:40)
[2017-07-27] MEDS: METFORMIN HCL 500 MG TABLET PO SCH (10:40)
[2017-07-27] MEDS: GLIPIZIDE XL 5 MG TAB.ER.24 PO SCH (10:40)
[2017-07-27] MEDS: BENZTROPINE MESYLATE 1 MG TABLET PO SCH (10:41)
[2017-07-27] MEDS: ENOXAPARIN SODIUM INJ 40 MG/0.4 ML DISP.SYRIN SUBCUT SCH (10:41)
[2017-07-27 14:37] VITALS: BP 160/91
--- NOTE | 2017-07-27 14:58 | PDOC DISCHARGE SUMMARY ---
General - Admit/Disc Date/PCP Admission Date/Primary Care Provider: 07/20/17 15:50 FELA WHALEY MD Discharge Date: 07/27/17 - Discharge Diagnosis (1) Hypotension Is this a current diagnosis for this admission?: Yes (2) Urinary tract infection Is this a current diagnosis for this admission?: Yes (3) Sepsis Is this a current diagnosis for this admission?: Yes (4) Type 2 diabetes mellitus Is this a current diagnosis for this admission?: Yes (5) Schizophrenia Is this a current diagnosis for this admission?: Yes (6) Malignant neoplasm of right breast Is this a current diagnosis for this admission?: Yes (7) Septicemia due to Acinetobacter species Is this a current diagnosis for this admission?: Yes - Additional Information Discharge Diet: Diabetic Discharge Activity: Activity As Tolerated Home Medications: Benztropine Mesylate [Benztropine Mesylate 0.5 mg Tablet] 0.5 mg PO BID Divalproex Sodium [Divalproex Sodium ER] 500 mg PO BID 07/19/17 Glipizide [Glucotrol 10 mg Tablet] 10 mg PO DAILY 07/19/17 Haloperidol Decanoate [Haldol Decanoate 50] 50 mg IM [id number] 07/19/17 Lisinopril [Prinivil 10 mg Tablet] 10 mg PO DAILY 07/19/17 Metformin HCl [Glucophage] 1,000 mg PO BID 07/19/17 Quetiapine Fumarate [Seroquel] 150 mg PO QHS 07/19/17 History of Present Illness History of Present Illness: RANDELL COURTNEY is a 61 year old female, she has a history of schizophrenia recently hospitalized in a psychiatric hospital at [facility] for approximately 2 months. She came to the emergency room for evaluation of urinary incontinence, fatigue fever chills. In the emergency room she was evaluated the blood pressure recorded was 98/56, the pulse rate was 130 bpm, she has grossly abnormal urinalysis. She has breast cancer she was treated with chemotherapy ,she has missed many chemotherapy sessions. She also complained of diarrhea, she said the stool is loose but there is no blood or mucus in the stool. The arterial blood gas that was done, pH 7.4, PO2 88.4, PCO2 33.3 bicarbonate 22.2, FiO2 room air Hospital Course Hospital Course: She was admitted for sepsis, urinary tract infection, she was treated with IV antibiotic, Rocephin, the blood culture grew Acinetobacter sensitive to Rocephin. The urine culture grew E. coli, there was associated low blood pressure that was responsive to fluid therapy. She has a history of breast cancer, type 2 diabetes mellitus and schizoaffective disorder. She was continued on a regular diabetes., IV fluid Physical Exam Vital Signs: Temp Pulse Resp BP Pulse Ox 97.5 F 87 18 160/91 H 99 07/27/17 14:36 07/27/17 14:36 07/27/17 14:36 07/27/17 14:36 07/27/17 14:36 Intake & Output 07/26/17 07/27/17 07/28/17 06:59 06:59 06:59 Intake Total 1690 2900 Balance 1690 2900 Weight 89.6 kg 90.2 kg General appearance: PRESENT: no acute distress, well-developed, well-nourished Head exam: PRESENT: atraumatic, normocephalic Eye exam: PRESENT: conjunctiva pink, EOMI, PERRLA Ear exam: PRESENT: normal external ear exam Mouth exam: PRESENT: moist, tongue midline Neck exam: PRESENT: full ROM Respiratory exam: PRESENT: clear to auscultation [place] Cardiovascular exam: PRESENT: RRR, +S1, +S2 Vascular exam: PRESENT: normal capillary refill GI/Abdominal exam: PRESENT: normal bowel sounds, soft Rectal exam: PRESENT: deferred Neurological exam: PRESENT: alert, CN II-XII grossly intact Psychiatric exam: PRESENT: appropriate affect, normal mood Skin exam: PRESENT: dry, intact, warm Results Laboratory Results: 07/26/17 18:55 07/26/17 18:55 07/26/17 07/26/17 18:55 18:55 WBC 7.8 RBC 3.09 L Hgb 9.6 L Hct 27.5 L MCV 89 MCH 31.0 MCHC 34.7 RDW 15.4 H Plt Count 373 Seg Neutrophils % Not Reportable Lymphocytes % Not Reportable Monocytes % Not Reportable Eosinophils % Not Reportable Basophils % Not Reportable Absolute Neutrophils Not Reportable Absolute Lymphocytes Not Reportable Absolute Monocytes Not Reportable Absolute Eosinophils Not Reportable Absolute Basophils Not Reportable Sodium 141.5 Potassium 5.1 H Chloride 101 Carbon Dioxide 26 Anion Gap 15 BUN 23 H Creatinine 0.84 Est GFR ( Amer) > 60 Est GFR (Non-Af Amer) > 60 Glucose 265 H Calcium 9.9 Total Bilirubin 0.3 AST 15 ALT 30 Alkaline Phosphatase 66 Total Protein 7.2 Albumin 4.4 Impressions: Chest X-Ray 07/19/17 00:50 IMPRESSION: No acute cardiopulmonary findings. Head CT 07/19/17 01:38 IMPRESSION: No acute findings. EVIDENCE OF ACUTE STROKE: NO.
[2017-07-28] MEDS ORDERED: HALOPERIDOL DECANOATE INJ 100 MG/1 ML VIAL IM SCH (10:00)
== END 2017-07-27 15:15 | disposition home or self-care (01) | DRG 872 ==
LOC: ER 00:31 → EH 03:41 → INTOOBSV 03:41 → 4W 08:50 → OBSVTOIN 07-20 15:50 → 4N 07-24 18:28
PROVIDERS: ADMIT Internal Medicine; ATTEND Internal Medicine
PROC: 3E0234Z Introduction of Serum, Toxoid and Vaccine into Muscle, Percutaneous Approach (ICD-10-PCS; principal; 2017-07-27)
DX: A41.89 Other specified sepsis (principal); N39.0 Urinary tract infection, site not specified; F20.0 Paranoid schizophrenia; C50.911 Malignant neoplasm of unspecified site of right female breast; B96.20 Unspecified Escherichia coli [E. coli] as the cause of diseases classified elsewhere; I10 Essential (primary) hypertension; E11.42 Type 2 diabetes mellitus with diabetic polyneuropathy; Z92.21 Personal history of antineoplastic chemotherapy; Z23 Encounter for immunization
CPT/HCPCS: 36415; 36600; 70450; 71010; 80048; 80053; 80061; 80076; 80307; 81001; 82140; 82150; 82550; 82553; 82803; 82962; 83036; 83605; 83690; 83735; 83880; 84100; 84439; 84443; 84484; 85025; 85610; 85730; 87040; 87077; 87086; 87088; 87186; 90686; 93005; 93010; 99291; G0378; J0696; J1650; J1815; J3475; J7030

== ENCOUNTER → 2017-08-01 | Outpatient (CLI) | payer MEDICAID ==
--- NOTE | 2017-08-01 09:47 | RADIOLOGY REPORT (SQ) ---
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 Images reviewed with lung, soft tissue and bone windows. Reconstructed coronal a nd sagittal MPR images reviewed. All images stored on PACS. CT scan of the abdomen and pelvis performed with intravenous and without oral contrastusing helical s garry technique with dynamic intravenous contrast injection. Images reviewed with lung, soft tissu e and bone windows. Reconstructed coronal and sagittal MPR images reviewed. Delayed images for eval uation of the urinary system also acquired and evaluated. All images stored on PACS. All CT scanners at this facility use dose modulation, iterative reconstruction, and/or weight based d osing when appropriate to reduce radiation dose to as low as reasonably achievable (ALARA). [facility]: Dose Right [facility]: CareDose [facility]: Dose Right [facility]: Teradose 4D [facility]: [employer] Technologies RADIATION DOSE: Up-to-date CT equipment and radiation dose reduction techniques were employed. CTDIv ol: 14.4 - 17.8 mGy. DLP: 2448 mGy-cm. . LIMITATIONS: None. FINDINGS: CHEST: LUNGS AND PLEURA: No opacities, nodules, masses. No pneumothorax. No effusions. HILAR AND MEDIASTINAL STRUCTURES: No identified masses or abnormal nodes. HEART AND VASCULAR STRUCTURES: No aneurysm or dissection. No central pulmonary emboli. No pericardi al effusion. HARDWARE: Left-sided permanent central line tip superior vena cava. THYROID AND OTHER SOFT TISSUES: Thyroid unremarkable. 3.2 cm mass right lateral breast axial image 5 . BONES: There is a new subcentimeter focus of sclerosis in the T10 vertebral body, question metastatic disease. OTHER: No other significant finding. ABDOMEN AND PELVIS: LIVER: Normal size. No masses. No dilated ducts. SPLEEN: Normal size. No focal lesions. PANCREAS: No masses. No significant calcifications. No adjacent inflammation or peripancreatic fluid collections. Pancreatic duct not dilated. GALLBLADDER: No identified stones by CT criteria. No inflammatory changes to suggest cholecystitis. ADRENAL GLANDS: No significant masses or asymmetry. RIGHT KIDNEY AND URETER: No solid masses. No significant calcification. No hydronephrosis or hydroure ter. LEFT KIDNEY AND URETER: No solid masses. No significant calcification. No hydronephrosis or hydrouret er. AORTA AND VESSELS: No aneurysm. No dissection. Renal arteries, SMA, celiac without stenosis. RETROPERITONEUM: No retroperitoneal adenopathy, hemorrhage or masses. BOWEL AND PERITONEAL CAVITY: No masses or inflammatory changes. No free fluid or peritoneal masses. APPENDIX: Surgically absent ABDOMINAL WALL: No masses. No hernias. BONES: There are new tiny sclerotic lesions in the bilateral innominate bones worrisome for metastati c disease PELVIS: Normal size female pelvic organs. No adenopathy. No free fluid. IMPRESSION: New sclerotic bony lesions in T9 and the bilateral innominate bones worrisome for metast atic disease Persistent 3.2 cm mass right lateral breast TECHNICAL DOCUMENTATION: JOB ID: [id number] Quality ID # 436: Final reports with documentation of one or more dose reduction techniques (e.g., Au tomated exposure control, adjustment of the mA and/or kV according to patient size, use of iterative reconstruction technique) 2010 [employer]- All Rights Reserved
--- NOTE | 2017-08-01 13:31 | RADIOLOGY REPORT (SQ) ---
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 The route of agent administration: Intravenous. ADDITIONAL DRUGS AND DOSES: None. TECHNIQUE: Routine delayed images at 3 hours post radionuclide injection acquired of the bony skelet on including anterior and posterior whole-body projections and additional focused images as needed. LIMITATIONS: None. FINDINGS: BONES: Evidence of trauma to the chest, with a transverse fracture paralleling the vertebr al body upper endplate on the right side at T10. Patient has thoracic ankylosis elsewhere on the CT. There are also healing right posterior 3rd and 4th rib fractures which have mild uptake at bone sca n today. There are anterior left 6th 7th and 8th healing rib fractures with mild increased uptake on today's study. Today's CT exam demonstrates new small sclerotic lesions in the bilateral innominate bones near the S I joints. These are evident S faint foci of increased uptake over the SI joints bilaterally right gr eater than left. KIDNEYS: Symmetric excretion without obstruction. OTHER: No other significant finding. IMPRESSION: Evidence of a fall with trauma, with a nondisplaced transverse fracture paralleling the vertebral body upper endplate at T10, and bilateral healing rib fractures. Findings worrisome for metastatic disease in the innominate bones on CT correlate with subtle increas ed uptake on bone scan today. COMMENT: Quality measure 147: Current bone scan is compared with any available plain radiographs, p rior bone scans, and CT/MRI. TECHNICAL DOCUMENTATION: JOB ID: [id number]- All Rights Reserved
== END ==
LOC: RAD 07:19
PROVIDERS: ATTEND Internal Medicine
DX: C50.411 Malignant neoplasm of upper-outer quadrant of right female breast (principal); C79.51 Secondary malignant neoplasm of bone
CPT/HCPCS: 78306; 71260; 74177; A9561; Q9969

== ENCOUNTER → 2017-11-28 | Outpatient (CLI) | payer MEDICAID ==
--- NOTE | 2017-11-28 10:51 | RADIOLOGY REPORT (SQ) ---
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 Images reviewed with lung, soft tissue and bone windows. Reconstructed coronal a nd sagittal MPR images reviewed. All images stored on PACS. CT scan of the abdomen and pelvis performed with intravenous and without oral contrastusing helical s garry technique with dynamic intravenous contrast injection. Images reviewed with lung, soft tissu e and bone windows. Reconstructed coronal and sagittal MPR images reviewed. Delayed images for eval uation of the urinary system also acquired and evaluated. All images stored on PACS. All CT scanners at this facility use dose modulation, iterative reconstruction, and/or weight based d osing when appropriate to reduce radiation dose to as low as reasonably achievable (ALARA). [facility]: Dose Right [facility]: CareDose [facility]: Dose Right [facility]: Teradose 4D [facility]: [employer] RADIATION DOSE: CT Rad equipment meets quality standard of care and radiation dose reduction techniq ues were employed. CTDIvol: 8.5 - 13.2 mGy. DLP: 2432 mGy-cm. . LIMITATIONS: None. FINDINGS: CHEST: LUNGS AND PLEURA: No opacities, nodules, masses. No pneumothorax. No effusions. HILAR AND MEDIASTINAL STRUCTURES: No identified masses or abnormal nodes. HEART AND VASCULAR STRUCTURES: No aneurysm or dissection. No central pulmonary emboli. No pericardi al effusion. HARDWARE: None. THYROID AND OTHER SOFT TISSUES: Thyroid is unremarkable. Stable previously biopsied right lateral br east mass with biopsy clip, 3 x 2 cm on axial image 28. BONES: Multiple small bony metastatic lesions are present in the thoracic spine, stable. OTHER: No other significant finding. ABDOMEN AND PELVIS: LIVER: Normal size. No masses. No dilated ducts. SPLEEN: Normal size. No focal lesions. PANCREAS: No masses. No significant calcifications. No adjacent inflammation or peripancreatic fluid collections. Pancreatic duct not dilated. GALLBLADDER: No identified stones by CT criteria. No inflammatory changes to suggest cholecystitis. ADRENAL GLANDS: No significant masses or asymmetry. RIGHT KIDNEY AND URETER: No solid masses. No significant calcification. No hydronephrosis or hydroure ter. LEFT KIDNEY AND URETER: No solid masses. No significant calcification. No hydronephrosis or hydrouret er. AORTA AND VESSELS: No aneurysm. No dissection. Renal arteries, SMA, celiac without stenosis. RETROPERITONEUM: No retroperitoneal adenopathy, hemorrhage or masses. BOWEL AND PERITONEAL CAVITY: No masses or inflammatory changes. No free fluid or peritoneal masses. APPENDIX: Surgically absent ABDOMINAL WALL: No masses. No hernias. PELVIS: No mass or free fluid. Normal bladder. BONES: Multiple sclerotic small metastatic lesions in the lumbar vertebral body, bony pelvis and sacr um, stable. OTHER: No other significant finding. IMPRESSION: Bony metastatic disease, stable Stable right lateral breast nodule previously biopsied Post appendectomy. TECHNICAL DOCUMENTATION: JOB ID: [id number] Quality ID # 436: Final reports with documentation of one or more dose reduction techniques (e.g., Au tomated exposure control, adjustment of the mA and/or kV according to patient size, use of iterative reconstruction technique) 2010 [employer]- All Rights Reserved
--- NOTE | 2017-11-28 16:38 | RADIOLOGY REPORT (SQ) ---
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 The route of agent administration: Intravenous. ADDITIONAL DRUGS AND DOSES: None. TECHNIQUE: Routine delayed images at 3 hours post radionuclide injection acquired of the bony skelet on including anterior and posterior whole-body projections and additional focused images as needed. LIMITATIONS: None. FINDINGS: BONES: CT exam today 11/28/2017 demonstrates multiple small sclerotic foci worrisome for br east cancer metastatic lesions in the thoracic and lumbar spine and bony pelvis. These are not appar ent by bone scan. There is increased uptake along the anterior left 6th 7th and 8th ribs along healing fractures. Incr eased uptake at the greater trochanters bilaterally from hyperostosis and bone spurring. Increased uptake left patella likely from osteoarthritis. Increased uptake both shoulders from osteo arthritis. KIDNEYS: Symmetric excretion without obstruction. OTHER: No other significant finding. IMPRESSION: Multiple tiny vertebral body sclerotic metastatic lesions are evident by CT, and not by bone scan. COMMENT: Quality measure 147: Current bone scan is compared with any available plain radiographs, p rior bone scans, and CT/MRI. TECHNICAL DOCUMENTATION: JOB ID: [id number] [employer]- All Rights Reserved
== END ==
LOC: RAD 08:05
PROVIDERS: ATTEND Internal Medicine
DX: C50.411 Malignant neoplasm of upper-outer quadrant of right female breast (principal)
CPT/HCPCS: 78306; 71260; 74177; A9561; Q9969

== ENCOUNTER 2018-02-10 12:11 | Emergency (ER) | payer MEDICAID ==
[2018-02-10] MEDS ORDERED: ACETAMINOPHEN 325 MG TABLET PO ONE (12:41)
[2018-02-10 12:52] LABS: ABSOLUTE LYMPHOCYTES (AUTO) 0.9 10^3/uL (0.5-4.7); ABSOLUTE MONOCYTES (AUTO) 0.3 10^3/uL (0.1-1.4); ABSOLUTE NEUT (AUTO) 2.5 10^3/uL (1.7-8.2); BASOPHILS % (AUTO) 1.3 % (0-2); EOSINOPHILS % (AUTO) 0.5 % (0-6); HEMATOCRIT 29.3 % (36.0-47.0); HEMOGLOBIN 10.4 g/dL (12.0-15.5); LYMPHOCYTES % (AUTO) 23.2 % (13-45); MEAN CORPUSCULAR HEMOGLOBIN 35.1 pg (27.0-33.4); MEAN CORPUSCULAR HGB CONC 35.4 g/dL (32.0-36.0); MEAN CORPUSCULAR VOLUME 99 fl (80-97); MONOCYTES % (AUTO) 9.1 % (3-13); PLATELET COUNT 215 10^3/uL (150-450); RED BLOOD COUNT 2.95 10^6/uL (3.72-5.28); RED CELL DISTRIBUTION WIDTH 16.8 % (11.5-14.0); SEGMENTED NEUTROPHILS % (AUTO) 65.9 % (42-78); TOTAL CELLS COUNTED % (AUTO) 100 %; WHITE BLOOD COUNT 3.7 10^3/uL (4.0-10.5)
[2018-02-10 13:13] LABS: ALANINE AMINOTRANSFERASE 11 U/L (9-52); ALBUMIN 4.7 g/dL (3.5-5.0); ALKALINE PHOSPHATASE 46 U/L (38-126); ASPARTATE AMINO TRANSFERASE 22 U/L (14-36); BILIRUBIN,DIRECT 0.3 mg/dL (0.0-0.4); BILIRUBIN,TOTAL 0.4 mg/dL (0.2-1.3); BLOOD UREA NITROGEN 21 mg/dL (7-20); CALCIUM 10.2 mg/dL (8.4-10.2); CARBON DIOXIDE 23 mmol/L (22-30); CHLORIDE 103 mmol/L (98-107); GLUCOSE 226 mg/dL (75-110); POTASSIUM 3.8 mmol/L (3.6-5.0); TOTAL PROTEIN 7.7 g/dL (6.3-8.2)
[2018-02-10 13:14] LABS: ACETAMINOPHEN < 10 ug/mL (10-30); ALCOHOL < 10 mg/dL (NONE DETECTED); SALICYLATE < 1.0 mg/dL (2.0-20.0)
[2018-02-10 13:18] LABS: ANION GAP 22 (5-19); SODIUM 147.6 mmol/L (137-145)
[2018-02-10 13:19] LABS: APPEARANCE,URINE CLEAR; BILIRUBIN,URINE NEGATIVE (NEGATIVE); COLOR,URINE YELLOW; GLUCOSE, URINE >=500 mg/dL (NEGATIVE); KETONES,URINE TRACE mg/dL (NEGATIVE); LEUKOCYTE ESTERASE,URINE NEGATIVE (NEGATIVE); NITRITE,URINE NEGATIVE (NEGATIVE); PROTEIN,URINE 30 mg/dL (NEGATIVE); URINE SPECIFIC GRAVITY 1.023; UROBILINOGEN,URINE NEGATIVE mg/dL (<2.0)
--- NOTE | 2018-02-10 13:27 | ER Document Report ---
ED General - General Chief Complaint: Psych Problem Stated Complaint: PSYCH EVAL Time Seen by Provider: 02/10/18 12:21 Mode of Arrival: Wheelchair Information source: Patient Notes: Patient presents emergency department with reports of change in behavior and demeanor per administrator social welfare. Apparently patient lives at the [facility] with his her son and his girlfriend. 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 Patient is answering all questions appropriately alert and oriented. Reports she is just really tired. Nurse reports patient recently had a change of medications Seroquel and Haldol increased. Patient denies symptoms such as fever vomiting, but reports diarrhea three days ago, none since. Denies pain with void but does complain of right flank pain. Patient is very calm smiles easily no distress. Patient did arrive via EMS and her accucheck at that time was 238. No obvious neuro deficits. TRAVEL OUTSIDE OF THE [place] IN LAST 30 DAYS: No - HPI Onset: This morning Onset/Duration: Sudden Quality of pain: No pain Pain Level: Denies Associated symptoms: None Exacerbated by: Denies Relieved by: Denies Similar symptoms previously: No Recently seen / treated by doctor: No - Related Data Allergies/Adverse Reactions: No Known Allergies Allergy (Verified 07/19/17 00:41) Past Medical History - General Information source: Patient - Social History Smoking Status: Never Smoker Chew tobacco use (# tins/day): No Frequency of alcohol use: None Drug Abuse: None Lives with: Family Family History: Arthritis, CAD, DM, Hyperlipidemia, Hypertension, Thyroid Disfunction Patient has suicidal ideation: No Patient has homicidal ideation: No - Past Medical History Cardiac Medical History: Reports: Hx Hypertension - CONTROLLED/MEDICATED Denies: Hx Coronary Artery Disease, Hx Heart Attack Pulmonary Medical History: Reports: Hx Pneumonia - as child Denies: Hx Asthma, Hx Bronchitis, Hx COPD Neurological Medical History: Denies: Hx Cerebrovascular Accident, Hx Seizures Endocrine Medical History: Reports: Hx Diabetes Mellitus Type 2 Renal/ Medical History: Denies: Hx Peritoneal Dialysis Malignancy Medical History: Reports: Hx Breast Cancer GI Medical History: Denies: Hx Hepatitis, Hx Hiatal Hernia, Hx Ulcer Musculoskeltal Medical History: Reports Hx Arthritis Psychiatric Medical History: Reports: Hx Anxiety, Hx Bipolar Disorder, Hx Depression, Hx Schizophrenia Infectious Medical History: Denies: Hx Hepatitis Past Surgical History: Reports: Hx Appendectomy, Hx Dilation and Curettage, Hx Gynecologic Surgery - D&C. Denies: Hx Mastectomy, Hx Open Heart Surgery, Hx Pacemaker - Immunizations Immunizations up to date: Yes Hx Diphtheria, Pertussis, Tetanus Vaccination: Yes Review of Systems - Review of Systems Notes: Review HPI for review of systems., All other systems negative Physical Exam - Vital signs Vitals: Temp Pulse Resp BP Pulse Ox 98.4 F 104 H 20 112/64 96 02/10/18 12:58 02/10/18 12:58 02/10/18 12:58 02/10/18 12:58 02/10/18 12:58 - Notes Notes: PHYSICAL EXAMINATION: GENERAL: Well-appearing and in no acute distress HEAD: Atraumatic, normocephalic. EYES: Pupils equal round and reactive to light, extraocular movements intact, sclera anicteric, conjunctiva are normal. ENT: nares patent, oropharynx clear without exudates. Moist mucous membranes. NECK: Normal range of motion, supple without lymphadenopathy LUNGS: CTAB and equal. No wheezes rales or rhonchi. HEART: Regular rate and rhythm without murmurs ABDOMEN: Soft, no tenderness. No guarding, no rebound BACK: RIGHT CVA ttp EXTREMITIES: Normal range of motion, no pitting edema. No cyanosis. NEUROLOGICAL: Cranial nerves grossly intact. Normal sensory/motor exams. PSYCH: Normal mood, normal affect. 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 Patient seems to be alert and oriented answers all questions appropriately will evaluate for possible UTI due to right CVA tenderness. 02/10/18 15:29 anion gap 22, fluids ordered, sq insulin, pt calm, responds appropriately, a&o, DR yoder consulted regarding plan of care , fluids repeat labs, discharge if anion gap WNL 02/10/18 anion gap 16, patient drinking po fluids, alert/oriented. Pt is answering questions appropriately, reviewed results with dr yoder, he agrees with plan to discharge home. Son contacted by RN Cat. He will come clam picker mother. - Vital Signs Vital signs: Temp Pulse Resp BP Pulse Ox 98.7 F 95 18 124/71 96 02/10/18 16:30 02/10/18 16:30 02/10/18 16:30 02/10/18 16:30 02/10/18 16:30 - Laboratory Result Diagrams: 02/10/18 12:30 02/10/18 15:40 Laboratory results interpreted by me: 02/10/18 02/10/18 02/10/18 12:30 12:30 12:50 WBC 3.7 L RBC 2.95 L Hgb 10.4 L Hct 29.3 L MCV 99 H MCH 35.1 H RDW 16.8 H VBG pH Sodium 147.6 H Anion Gap 22 H BUN 21 H Est GFR (Non-Af Amer) 51 L Glucose 226 H POC Glucose Urine Protein 30 H Urine Glucose (UA) >=500 H Urine Ketones TRACE H Salicylates < 1.0 L Acetaminophen < 10 L 02/10/18 02/10/18 02/10/18 14:40 15:37 15:40 WBC RBC Hgb Hct MCV MCH RDW VBG pH 7.45 H Sodium 148.5 H Anion Gap BUN 22 H Est GFR (Non-Af Amer) 54 L Glucose 114 H POC Glucose 113 H Urine Protein Urine Glucose (UA) Urine Ketones Salicylates Acetaminophen Discharge - Discharge Clinical Impression: Dehydration Type 2 diabetes mellitus Qualifiers: Diabetes mellitus terminal operator insulin use: without terminal operator use Diabetes mellitus complication status: without complication Qualified Code(s): E11.9 - Type 2 diabetes mellitus without complications Altered mental state Qualifiers: Altered mental status type: unspecified Qualified Code(s): R41.82 - Altered mental status, unspecified Condition: Stable Disposition: HOME, SELF-CARE Instructions: Dehydration ([facility]) Additional Instructions: *You have been evaluated for altered mental status, dehydration, history of diabetes *Take your medication as prescribed, monitor your glucose *Increase your fluids to keep you well hydrated. *Follow up with a primary care provider within one week *Return to ED for worsening condition, changes, needs *Return to ED if not better in 24 hours Referrals: FELA WHALEY MD [Primary Care Provider] - Follow up in 3-5 days
[2018-02-10 13:35] LABS: URINE AMPHETAMINES SCREEN NEGATIVE; URINE BARBITURATES SCREEN NEGATIVE; URINE BENZODIAZEPINES SCREEN NEGATIVE; URINE COCAINE SCREEN NEGATIVE; URINE MARIJUANA (THC) SCREEN NEGATIVE; URINE METHADONE SCREEN NEGATIVE; URINE PHENCYCLIDINE SCREEN NEGATIVE
[2018-02-10] MEDS ORDERED: NORMAL SALINE 1000 ML 1,000 ML IV ONE (14:20)
[2018-02-10] MEDS ORDERED: INSULIN REG, HUMAN 100 UNIT/ML 3 ML VIAL (PYX) SUBCUT ONE (14:21)
[2018-02-10 15:01] LABS: VENOUS BLOOD BASE EXCESS 1.7 mmol/L; VENOUS BLOOD HCO3 25.7 mmol/L (20-32); VENOUS BLOOD PCO2 38.2 mmHg (35-63); VENOUS BLOOD PH 7.45 (7.30-7.42)
[2018-02-10 16:13] LABS: ANION GAP 16 (5-19); BLOOD UREA NITROGEN 22 mg/dL (7-20); CALCIUM 9.1 mg/dL (8.4-10.2); CARBON DIOXIDE 26 mmol/L (22-30); CHLORIDE 107 mmol/L (98-107); GLUCOSE 114 mg/dL (75-110); POTASSIUM 3.7 mmol/L (3.6-5.0); SODIUM 148.5 mmol/L (137-145)
[2018-02-10 17:08] VITALS: BP 124/71
--- NOTE | 2018-02-10 21:38 | EKG REPORT ---
SEVERITY:- ABNORMAL ECG - SINUS TACHYCARDIA PROBABLE LEFT ATRIAL ABNORMALITY LVH WITH IVCD, LAD AND SECONDARY REPOL ABNRM : Confirmed by: Jonathan Hedrick 10-Feb-2018 21:37:54
--- NOTE | 2018-02-11 15:44 | PSYCHOLOGICAL NOTE ---
Psych Note - Psych Note Psych Note: Reason for consult: confusion Pt presents to the ED via EMS. Pt was reported to reside at the [facility] and was brought to the ED by request of her rn social services. Pt was reported to have her Seroquel increased in the last week and had an appointment with her psychiatrist and PCP. Pt claims to be tired and has pain to her right lower back. Pt denies any injury and or any other complication. Pt was ambulatory at the scene but claims to have weakness with movement. Behavioral health team contacted [facility] to identify the rn social services that was with the patient and requested her to come to [facility] ED. Clinician attempted to contact Kisha Quiles with [employer]; left message Patient disclosed she came to [facility] ED because the rn social services wanted her to come. She reports that she still needs to product picker her Seroquel because it was just increased from 200-300. She continued disclosed that she now gets a Haldol shot monthly and takes Haldol twice a day in addition to blood pressure and diabetes medication. She disclosed no concerns for suicidal or homicidal ideation. She reports that she still lives with her son and his fiance. She discloses that she has been doing really well and [place] Patient is alert and orientated to person, place, time and circumstance. Mood is euthymic with congruent affect. Patient's physical presentation is greatly improved, patient has gained some weight and color to her face. Patient denies suicidal homicidal ideation. Delusions are absent and behaviors congruent with an intact reality based presentation i.e. organized and linear thought processes. Conversational speech was within normal rate, tone and prosody. Clinician notes patient's attention and concentration were poor which required the patient to apologize and asked for questions to be repeated. Eye contact was well-maintained. Intellectual abilities appear to be within the average range. Attention and concentration are poor. Insight, judgment, impulse control are currently good. No medication recommendations at this time 296.44 (F31.2) Bipolar I Disorder with psychotic features Impression/plan: Patient is cleared from acute psychiatric services. This patient is known to this clinician and department. Patient is currently presenting greatly improved from previous visits. Patient is organized and linear in her thought processes and is able to have meaningful conversations. Patient was able to disclosed the type of medication she is currently taking, in addition to a recent increase of her medication Seroquel from 200 mg to 300 mg. Patient does display some difficulties in concentration; however, she is aware of these laps of attention and will apologized and asked clinician to repeat a question. Patient is not demonstrating any behaviours indicating psychosis. It is currently unclear why the patient's rn social services Kisha comer requested the patient to come to [facility] ED as her presentation is greatly improved from any other previous visit however clinician notes that patient was indicating some pain in her right lower back. Patient's rn social services did not return phone calls to behavioral health team. Dr. Lewis was consulted and the care and management of this patient; attending physician is in agreement with recommendations and disposition.
== END 2018-02-10 18:06 | disposition home or self-care (01) ==
LOC: ER 12:11
DX: R41.82 Altered mental status, unspecified (principal); E86.0 Dehydration; F20.9 Schizophrenia, unspecified; F31.9 Bipolar disorder, unspecified; Z79.899 Other long term (current) drug therapy; R53.83 Other fatigue; R10.9 Unspecified abdominal pain; I10 Essential (primary) hypertension; E11.9 Type 2 diabetes mellitus without complications; Z85.3 Personal history of malignant neoplasm of breast; Z90.49 Acquired absence of other specified parts of digestive tract
CPT/HCPCS: 93005; 99285; 96360; 36415; 82962; 80307 ×4; 85025; 80048; 80053; 81001; 82803; 93010; J3490; J1815; J7030

== ENCOUNTER → 2018-02-22 | Outpatient (CLI) | payer MEDICAID ==
--- NOTE | 2018-02-22 09:58 | RADIOLOGY REPORT (SQ) ---
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 RENAL FUNCTION: Creatinine 1.0 TECHNIQUE: CT scan of the chest performed using helical scanning technique with dynamic intravenous contrast injection. Images reviewed with lung, soft tissue and bone windows. Reconstructed coronal a nd sagittal MPR images reviewed. All images stored on PACS. CT scan of the abdomen and pelvis performed with intravenous and without oral contrastusing helical s garry technique with dynamic intravenous contrast injection. Images reviewed with lung, soft tissu e and bone windows. Reconstructed coronal and sagittal MPR images reviewed. Delayed images for eval uation of the urinary system also acquired and evaluated. All images stored on PACS. All CT scanners at this facility use dose modulation, iterative reconstruction, and/or weight based d osing when appropriate to reduce radiation dose to as low as reasonably achievable (ALARA). [facility]: Dose Right [facility]: CareDose [facility]: Dose Right [facility]: Teradose 4D [facility]: [employer] RADIATION DOSE: 30 mGy . LIMITATIONS: None. FINDINGS: CHEST: LUNGS AND PLEURA: No opacities, nodules, masses. No pneumothorax. No effusions. HILAR AND MEDIASTINAL STRUCTURES: No identified masses or abnormal nodes. HEART AND VASCULAR STRUCTURES: No aneurysm or dissection. No central pulmonary emboli. No pericardi al effusion. HARDWARE: None. THYROID AND OTHER SOFT TISSUES: Previously biopsied right breast mass measures about 2 x 2 cm on toda y's study, slightly smaller than in November 2017. BONES: Stable sclerotic metastatic lesions in the thoracic spine and ribs. No pathologic fracture in the thoracic spine OTHER: No other significant finding. ABDOMEN AND PELVIS: LIVER: Normal size. No masses. No dilated ducts. SPLEEN: Normal size. No focal lesions. PANCREAS: No masses. No significant calcifications. No adjacent inflammation or peripancreatic fluid collections. Pancreatic duct not dilated. GALLBLADDER: No identified stones by CT criteria. No inflammatory changes to suggest cholecystitis. ADRENAL GLANDS: No significant masses or asymmetry. RIGHT KIDNEY AND URETER: No solid masses. No significant calcification. No hydronephrosis or hydroure ter. LEFT KIDNEY AND URETER: No solid masses. No significant calcification. No hydronephrosis or hydrouret er. AORTA AND VESSELS: No aneurysm. No dissection. Renal arteries, SMA, celiac without stenosis. RETROPERITONEUM: No retroperitoneal adenopathy, hemorrhage or masses. BOWEL AND PERITONEAL CAVITY: No masses or inflammatory changes. No free fluid or peritoneal masses. APPENDIX: Not visualized. No right lower quadrant inflammatory change ABDOMINAL WALL: No masses. No hernias. PELVIS: No mass or free fluid. Normal bladder. BONES: Stable sclerotic bony metastatic lesions throughout the lumbar spine and bony pelvis. No path ologic compression fracture of the lumbar spine OTHER: No other significant finding. IMPRESSION: Stable bony metastatic disease over the chest abdomen and pelvis Slight decrease in size of right breast mass compared to CT from November TECHNICAL DOCUMENTATION: JOB ID: [id number] Quality ID # 436: Final reports with documentation of one or more dose reduction techniques (e.g., Au tomated exposure control, adjustment of the mA and/or kV according to patient size, use of iterative reconstruction technique) 2010 [employer]- All Rights Reserved Reading location - IP/workstation name: [email or web address]
--- NOTE | 2018-02-22 13:29 | RADIOLOGY REPORT (SQ) ---
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 CT chest, abdomen and pelvis from today. RADIONUCLIDE AND DOSE: 20 millicuries Tc99m MDP. The route of agent administration: Intravenous. ADDITIONAL DRUGS AND DOSES: None. TECHNIQUE: Routine delayed images at 3 hour post radionuclide injection acquired of the bony skeleto n including anterior and posterior whole-body projections and additional focused images as needed. LIMITATIONS: None. FINDINGS: BONES: Normal visualization without areas of photopenia or increased bony uptake of radiop harmaceutical. KIDNEYS: Symmetric excretion without obstruction. OTHER: No other significant finding. IMPRESSION: No abnormal bone scan uptake. Stable exam. Please see CT studies performed today which show persistent sclerotic lesions. COMMENT: Quality measure 147: Current bone scan is compared with any available plain radiographs, p rior bone scans, and CT/MRI. TECHNICAL DOCUMENTATION: JOB ID: [id number] [employer]- All Rights Reserved Reading location - IP/workstation name: [email or web address]
== END ==
LOC: RAD 07:54
PROVIDERS: ATTEND Physician Assistant Medical
DX: C50.411 Malignant neoplasm of upper-outer quadrant of right female breast (principal); C79.51 Secondary malignant neoplasm of bone
CPT/HCPCS: 78306; 71260; 74177; A9561; Q9969

== ENCOUNTER → 2018-03-09 | Outpatient (CLI) | payer MEDICAID ==
--- NOTE | 2018-03-09 17:21 | RADIOLOGY REPORT (SQ) ---
EXAM DESCRIPTION: MRI THORACIC SPINE COMBO COMPLETED DATE/TIME: 03/09/2018 10:58 am REASON FOR STUDY: MAL JORDY OF UPPER OUTER QUADRANT OF R FEMALE BREAST C50.411 MALIG NEOPLM OF UPPER- OUTER QUADRANT OF RIGHT FEMALE COMPARISON: None. TECHNIQUE: Sagittal and Axial imaging includes T1, T2, STIR and gradient echo sequences. T1 post ga dolinium sequences. CONTRAST TYPE AND DOSE: 15 mL Multihance. RENAL FUNCTION: GFR > 60. LIMITATIONS: None. FINDINGS: LOCALIZER: No worrisome findings. ALIGNMENT: Normal. VERTEBRAE: No evidence of acute osteoporotic or pathologic fracture. BONE MARROW: Low T1 and low T2 signal lesions in multiple vertebral bodies consistent with sclerotic metastasis. HARDWARE: None in the spine. CORD: Normal in size and signal intensity. SOFT TISSUES: No soft tissue masses. THORACIC DISCS T1-T12: No significant spinal stenosis or exit foraminal stenosis. LOWER CERVICAL: Incompletely imaged. No significant spinal stenosis or exit foraminal stenosis. UPPER LUMBAR: Incompletely imaged. No significant spinal stenosis or exit foraminal stenosis. ENHANCEMENT: No abnormal enhancement. OTHER: No other significant finding. IMPRESSION: Sclerotic bone metastasis. No evidence of spinal cord or paraspinal soft tissue metasta sis. TECHNICAL DOCUMENTATION: JOB ID: [id number] [employer]- All Rights Reserved Reading location - IP/workstation name: [email or web address]
== END ==
LOC: RAD 09:51
PROVIDERS: ATTEND Internal Medicine
DX: C50.411 Malignant neoplasm of upper-outer quadrant of right female breast (principal); C79.51 Secondary malignant neoplasm of bone
CPT/HCPCS: 72157; A9577

== ENCOUNTER 2018-04-13 11:30 | Emergency (ER) | payer MEDICAID ==
[2018-04-13] MEDS ORDERED: NORMAL SALINE 1000 ML 1,000 ML IV ONE (12:38)
[2018-04-13 12:58] LABS: ABSOLUTE LYMPHOCYTES (AUTO) 0.9 10^3/uL (0.5-4.7); ABSOLUTE MONOCYTES (AUTO) 0.3 10^3/uL (0.1-1.4); ABSOLUTE NEUT (AUTO) 2.2 10^3/uL (1.7-8.2); BASOPHILS % (AUTO) 0.9 % (0-2); EOSINOPHILS % (AUTO) 0.5 % (0-6); HEMOGLOBIN 9.9 g/dL (12.0-15.5); LYMPHOCYTES % (AUTO) 26.5 % (13-45); MEAN CORPUSCULAR HEMOGLOBIN 36.1 pg (27.0-33.4); MEAN CORPUSCULAR HGB CONC 35.4 g/dL (32.0-36.0); MEAN CORPUSCULAR VOLUME 102 fl (80-97); MONOCYTES % (AUTO) 8.7 % (3-13); PLATELET COUNT 141 10^3/uL (150-450); RED BLOOD COUNT 2.75 10^6/uL (3.72-5.28); RED CELL DISTRIBUTION WIDTH 15.7 % (11.5-14.0); SEGMENTED NEUTROPHILS % (AUTO) 63.4 % (42-78); TOTAL CELLS COUNTED % (AUTO) 100 %; WHITE BLOOD COUNT 3.4 10^3/uL (4.0-10.5)
[2018-04-13 13:12] LABS: ALANINE AMINOTRANSFERASE 20 U/L (9-52); ALBUMIN 4.5 g/dL (3.5-5.0); ALKALINE PHOSPHATASE 50 U/L (38-126); ANION GAP 17 (5-19); ASPARTATE AMINO TRANSFERASE 22 U/L (14-36); BILIRUBIN,DIRECT 0.4 mg/dL (0.0-0.4); BILIRUBIN,TOTAL 0.4 mg/dL (0.2-1.3); BLOOD UREA NITROGEN 21 mg/dL (7-20); CALCIUM 8.9 mg/dL (8.4-10.2); CARBON DIOXIDE 25 mmol/L (22-30); CHLORIDE 104 mmol/L (98-107); GLUCOSE 246 mg/dL (75-110); SODIUM 146.1 mmol/L (137-145); TOTAL PROTEIN 7.3 g/dL (6.3-8.2)
--- NOTE | 2018-04-13 13:29 | ER Document Report ---
ED GI/ - General Chief Complaint: Diarrhea Stated Complaint: DIARRHEA Time Seen by Provider: 04/13/18 13:12 Mode of Arrival: Ambulatory Information source: Patient Notes: Patient is a 62-year-old female with a history of breast cancer on a new "pill for it" who presents to the ER today for diarrhea 2 days. Patient admits to some nausea but denies any abdominal pain or vomiting, fevers or chills. Patient states that she did call her oncologist who stated that the new pill could be causing her diarrhea. Patient states that she just "wanted to get checked out." She denies any lightheadedness, dizziness, syncope, foul smell to the diarrhea that is out of the ordinary, recent antibiotics. TRAVEL OUTSIDE OF THE [place] IN LAST 30 DAYS: No - Related Data Allergies/Adverse Reactions: No Known Allergies Allergy (Verified 07/19/17 00:41) Past Medical History - General Information source: Patient - Social History Smoking Status: Never Smoker Chew tobacco use (# tins/day): No Frequency of alcohol use: None Drug Abuse: None Family History: Arthritis, CAD, DM, Hyperlipidemia, Hypertension, Thyroid Disfunction Patient has suicidal ideation: No Patient has homicidal ideation: No - Past Medical History Cardiac Medical History: Reports: Hx Hypercholesterolemia, Hx Hypertension - CONTROLLED/MEDICATED Denies: Hx Coronary Artery Disease, Hx Heart Attack Pulmonary Medical History: Reports: Hx Pneumonia - as child Denies: Hx Asthma, Hx Bronchitis, Hx COPD Neurological Medical History: Denies: Hx Cerebrovascular Accident, Hx Seizures Endocrine Medical History: Reports: Hx Diabetes Mellitus Type 2 Renal/ Medical History: Denies: Hx Peritoneal Dialysis Malignancy Medical History: Reports: Hx Breast Cancer GI Medical History: Denies: Hx Hepatitis, Hx Hiatal Hernia, Hx Ulcer Musculoskeltal Medical History: Reports Hx Arthritis Psychiatric Medical History: Reports: Hx Anxiety, Hx Bipolar Disorder, Hx Depression, Hx Schizophrenia Infectious Medical History: Denies: Hx Hepatitis Past Surgical History: Reports: Hx Appendectomy, Hx Dilation and Curettage, Hx Gynecologic Surgery - D&C. Denies: Hx Mastectomy, Hx Open Heart Surgery, Hx Pacemaker - Immunizations Immunizations up to date: Yes Hx Diphtheria, Pertussis, Tetanus Vaccination: Yes Review of Systems - Review of Systems Constitutional: No symptoms reported EENT: No symptoms reported Cardiovascular: No symptoms reported Respiratory: No symptoms reported Gastrointestinal: See HPI Genitourinary: No symptoms reported Female Genitourinary: No symptoms reported Musculoskeletal: No symptoms reported Skin: No symptoms reported Hematologic/Lymphatic: No symptoms reported Neurological/Psychological: No symptoms reported Physical Exam - Vital signs Vitals: Temp Pulse Resp BP Pulse Ox 97.4 F 92 16 140/64 H 100 04/13/18 11:45 04/13/18 11:45 04/13/18 11:45 04/13/18 11:45 04/13/18 11:45 - Notes Notes: PHYSICAL EXAMINATION: GENERAL: Chronically ill-appearing, but in no acute distress. HEAD: Atraumatic, normocephalic. EYES: Pupils equal round and reactive to light, extraocular movements intact, sclera anicteric, conjunctiva are normal. NECK: Normal range of motion, supple without lymphadenopathy LUNGS: CTAB and equal. No wheezes rales or rhonchi. HEART: Regular rate and rhythm without murmurs ABDOMEN: Soft, no tenderness. No guarding, no rebound BACK: no vertebral tenderness, normal ROM GI/: no CVA tenderness EXTREMITIES: Normal range of motion, no pitting edema. No cyanosis. NEUROLOGICAL: Cranial nerves grossly intact. Normal sensory/motor exams. PSYCH: Normal mood, normal affect. SKIN: Warm, Dry, normal turgor, no rashes or lesions noted Course - Re-evaluation Re-evalutation: 04/13/18 15:58 Lab work reveals a urinary tract infection on urinalysis today, elevated glucose at 246, patient has not had her metformin yet today. Patient could not give us a stool sample the entire time here in the emergency department which spanned over 4 hours. Patient was given IV fluids and did feel better. Patient started on antibiotics for a urinary tract infection. Patient given nausea medication but had no vomiting today. Normal vital signs. - Vital Signs Vital signs: Temp Pulse Resp BP Pulse Ox 97.3 F 92 15 187/101 H 100 04/13/18 16:55 04/13/18 11:45 04/13/18 16:01 04/13/18 16:01 04/13/18 16:01 - Laboratory Result Diagrams: 04/13/18 12:34 04/13/18 12:34 Laboratory results interpreted by me: 04/13/18 04/13/18 04/13/18 12:34 12:34 12:48 WBC 3.4 L RBC 2.75 L Hgb 9.9 L Hct 28.0 L MCV 102 H MCH 36.1 H RDW 15.7 H Plt Count 141 L Sodium 146.1 H BUN 21 H Glucose 246 H Urine Glucose (UA) >=500 H Ur Leukocyte Esterase TRACE H Discharge - Discharge Clinical Impression: Urinary tract infection Qualifiers: Urinary tract infection type: site unspecified Hematuria presence: without hematuria Qualified Code(s): N39.0 - Urinary tract infection, site not specified Diarrhea Qualifiers: Diarrhea type: unspecified type Qualified Code(s): R19.7 - Diarrhea, unspecified Condition: Stable Disposition: HOME, SELF-CARE Instructions: Cephalexin ([facility]), Urinary Tract Infection ([facility]) Additional Instructions: Return immediately for any new or worsening symptoms. Follow up with primary care provider, call tomorrow to make followup appointment. Drink plenty of fluids. Prescriptions: Cephalexin Monohydrate [Keflex 500 mg Capsule] 500 mg PO BID 7 Days #14 capsule Ondansetron [Zofran Odt 4 mg Tablet] 1 - 2 tab PO Q4H PRN #15 tab.rapdis PRN Reason: For Nausea/Vomiting Referrals: LALITO GUZMAN MD [Primary Care Provider] - Follow up as needed
[2018-04-13 13:33] LABS: APPEARANCE,URINE CLEAR; BILIRUBIN,URINE NEGATIVE (NEGATIVE); COLOR,URINE YELLOW; GLUCOSE, URINE >=500 mg/dL (NEGATIVE); KETONES,URINE NEGATIVE (NEGATIVE); LEUKOCYTE ESTERASE,URINE TRACE (NEGATIVE); NITRITE,URINE NEGATIVE (NEGATIVE); PROTEIN,URINE NEGATIVE (NEGATIVE); URINE SPECIFIC GRAVITY 1.031; UROBILINOGEN,URINE NEGATIVE mg/dL (<2.0)
[2018-04-13] MEDS ORDERED: METOCLOPRAMIDE HCL INJ/PF 10 MG/2 ML SDV IV ONE (13:39)
[2018-04-13] MEDS ORDERED: CEFTRIAXONE INJ 1000 MG VIAL IV ONE (15:03)
[2018-04-13 16:51] VITALS: BP 187/101
== END 2018-04-13 16:55 | disposition home or self-care (01) ==
LOC: ER 11:30
DX: N39.0 Urinary tract infection, site not specified (principal); R19.7 Diarrhea, unspecified; Z85.3 Personal history of malignant neoplasm of breast; I10 Essential (primary) hypertension; E11.65 Type 2 diabetes mellitus with hyperglycemia
CPT/HCPCS: 99284; 96361; 96375; 96365; 36415; 87086; 85025; 80053; 81001; J2765; J0696; J7030

== ENCOUNTER → 2018-05-24 | Outpatient (CLI) | payer MEDICAID ==
--- NOTE | 2018-05-24 09:17 | RADIOLOGY REPORT (SQ) ---
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 11/28/2017. CONTRAST TYPE AND DOSE: contrast/concentration: Isovue 300.00 mg/ml; Total Contrast Delivered: 50.0 ml; Total Saline Delivered: 70.0 ml RENAL FUNCTION: Creatinine 1.8 TECHNIQUE: CT scan of the chest performed using helical scanning technique with dynamic intravenous contrast injection. Images reviewed with lung, soft tissue and bone windows. Reconstructed coronal a nd sagittal MPR images reviewed. All images stored on PACS. CT scan of the abdomen and pelvis performed with intravenous and with oral contrastusing helical scan walter technique with dynamic intravenous contrast injection. Images reviewed with lung, soft tissue a nd bone windows. Reconstructed coronal and sagittal MPR images reviewed. Delayed images for evaluat ion of the urinary system also acquired and evaluated. All images stored on PACS. All CT scanners at this facility use dose modulation, iterative reconstruction, and/or weight based d osing when appropriate to reduce radiation dose to as low as reasonably achievable (ALARA). [facility]: Dose Right [facility]: CareDose [facility]: Dose Right [facility]: Teradose 4D [facility]: [employer] RADIATION DOSE: CT Rad equipment meets quality standard of care and radiation dose reduction techniq ues were employed. CTDIvol: 10.5 - 12.7 mGy. DLP: 2512 mGy-cm. . LIMITATIONS: None. FINDINGS: CHEST: LUNGS AND PLEURA: Motion artifact, areas of subsegmental atelectasis and bilateral trace pleural effu sions. No nodules or masses. No areas of consolidating pneumonia. HILAR AND MEDIASTINAL STRUCTURES: No identified masses or abnormal nodes. HEART AND VASCULAR STRUCTURES: Cardiomegaly. No pericardial effusion. No aortic aneurysm or dissect ion or gross central pulmonary embolus. HARDWARE: Left port. THYROID AND OTHER SOFT TISSUES: Thyroid unremarkable. No adenopathy. Heterogeneous breast tissue wi th a mass on the right which is probably unchanged. BONES: Several vertebral sclerotic foci, stable. OTHER: No other significant finding. ABDOMEN AND PELVIS: LIVER: Normal size. No masses. No dilated ducts. SPLEEN: Normal size. No focal lesions. PANCREAS: No masses. No significant calcifications. No adjacent inflammation or peripancreatic fluid collections. Pancreatic duct not dilated. GALLBLADDER: No identified stones by CT criteria. No inflammatory changes to suggest cholecystitis. ADRENAL GLANDS: No significant masses or asymmetry. RIGHT KIDNEY AND URETER: No solid masses. No significant calcification. No hydronephrosis or hydroure ter. LEFT KIDNEY AND URETER: No solid masses. No significant calcification. No hydronephrosis or hydrouret er. AORTA AND VESSELS: No aneurysm. No dissection. Renal arteries, SMA, celiac without stenosis. RETROPERITONEUM: No retroperitoneal adenopathy, hemorrhage or masses. BOWEL AND PERITONEAL CAVITY: No masses or inflammatory changes. No free fluid or peritoneal masses. APPENDIX: Surgically absent. ABDOMINAL WALL: No masses. No hernias. PELVIS: No mass or free fluid. Normal bladder. BONES: Scattered sclerotic foci in the spine and pelvis, relatively similar. OTHER: No other significant finding. IMPRESSION: 1. Osseous metastatic disease. Similar appearance to prior. 2. Trace pleural effusion s have developed but no pulmonary nodules or masses. 3. Otherwise unremarkable CT chest, abdomen an d pelvis. NORMAL CT OF THE ABDOMEN AND PELVIS WITH ORAL AND INTRAVENOUS CONTRAST. TECHNICAL DOCUMENTATION: JOB ID: [id number] Quality ID # [id number]: Final reports with documentation of one or more dose reduction techniques (e.g., Au tomated exposure control, adjustment of the mA and/or kV according to patient size, use of iterative reconstruction technique) 2010 [employer]- All Rights Reserved Reading location - IP/workstation name: [email or web address]
--- NOTE | 2018-05-24 13:15 | RADIOLOGY REPORT (SQ) ---
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 The route of agent administration: Intravenous. ADDITIONAL DRUGS AND DOSES: None. TECHNIQUE: Routine delayed images at 3 hour post radionuclide injection acquired of the bony skeleto n including anterior and posterior whole-body projections and additional focused images as needed. LIMITATIONS: None. FINDINGS: BONES: The small metastatic lesions in the bony pelvis lumbar spine and thoracic spine see n on CT exam 05/24/2018 are difficult to identify by bone scan. This is likely due to a combination o f small signs of the lesions and patient large body habitus with scatter artifact. There are areas of increased uptake in characteristic locations of osteoarthritis along the shoulders , spine, knees, and ankles. KIDNEYS: Symmetric excretion without obstruction. OTHER: No other significant finding. IMPRESSION: Small sclerotic bony metastatic lesions seen in the spine and bony pelvis 05/24/2018 CT e xam are difficult to identify by bone scan COMMENT: Quality measure 147: Current bone scan is compared with any available plain radiographs, p rior bone scans, and CT/MRI. TECHNICAL DOCUMENTATION: JOB ID: [id number] [employer]- All Rights Reserved Reading location - IP/workstation name: [email or web address]
== END ==
LOC: RAD 07:49
PROVIDERS: ATTEND Physician Assistant Medical
DX: C50.411 Malignant neoplasm of upper-outer quadrant of right female breast (principal)
CPT/HCPCS: 82565; 78306; 71260; 74177; A9561; Q9969

== ENCOUNTER → 2018-05-25 | Outpatient (CLI) | payer MEDICAID ==
--- NOTE | 2018-05-25 17:08 | RADIOLOGY REPORT (SQ) ---
EXAM DESCRIPTION: RIBS LEFT W/PA CHEST COMPLETED DATE/TIME: 05/25/2018 4:42 pm REASON FOR STUDY: INTERCOSTAL PAIN R07.82 INTERCOSTAL PAIN COMPARISON: None. TECHNIQUE: Frontal view of the chest and additional views of the left ribs acquired. NUMBER OF VIEWS: Three views LIMITATIONS: None. FINDINGS: FRONTAL CXR: No pneumothorax. No pleural effusion. No atelectasis or infiltrates. RIBS: There are fractures of the anterior left 4th and 5th ribs. Cannot exclude fracture of the 3rd rib. OTHER: No other significant finding. IMPRESSION: Fractures of the left anterior 4th and 5th ribs. Possible 3rd rib fracture. These are best seen on the oblique images. COMMENT: SITE OF TRAUMA/COMPLAINT MARKED/STAMP COMPLETED: Yes TECHNICAL DOCUMENTATION: JOB ID: [id number] [employer]- All Rights Reserved Reading location - IP/workstation name: [email or web address]
== END ==
LOC: RAD 16:13
PROVIDERS: ATTEND Internal Medicine
DX: R07.82 Intercostal pain (principal)

== ENCOUNTER → 2018-09-04 | Outpatient (CLI) | payer MEDICAID ==
--- NOTE | 2018-09-04 09:40 | RADIOLOGY REPORT (SQ) ---
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 Images reviewed with lung, soft tissue and bone windows. Reconstructed coronal a nd sagittal MPR images reviewed. All images stored on PACS. All CT scanners at this facility use dose modulation, iterative reconstruction, and/or weight based d osing when appropriate to reduce radiation dose to as low as reasonably achievable (ALARA). [facility]: Dose Right [facility]: CareDose [facility]: Dose Right [facility]: Teradose 4D [facility]: [employer] RADIATION DOSE: CT Rad equipment meets quality standard of care and radiation dose reduction techniq ues were employed. CTDIvol: 10.4 - 11.6 mGy. DLP: 1587 mGy-cm.. LIMITATIONS: None. FINDINGS: AXILLAE: No adenopathy. CHEST WALL: Previously biopsied 2 cm right breast nodule with clip in lateral right breast. This is similar compared to previous studies LUNGS: No nodules or masses. No pneumothorax. No infiltrates. PLEURA: No effusions. No calcifications. THYROID: No masses or significant asymmetry. HILAR AND MEDIASTINAL STRUCTURES: No identified masses or abnormal nodes. AORTA AND GREAT VESSELS: No aneurysm. No dissection. PULMONARY ARTERIES: No identified pulmonary emboli. Study not optimized for the pulmonary arteries. HEART: No pericardial effusion. HARDWARE AND LIFELINES: Left-sided permanent central line tip superior vena cava BONES: Multiple small sclerotic bony lesions in the thoracic spine, stable. Old healed left anterior 2nd 3rd and 4th rib fractures. OTHER: No other significant finding. IMPRESSION: NORMAL CT OF THE CHEST WITH IV CONTRAST. COMPARISON: None. RADIATION DOSE: CT Rad equipment meets quality standard of care and radiation dose reduction techniq ues were employed. CTDIvol: 10.4 - 11.6 mGy. DLP: 1587 mGy-cm.mGy. TECHNIQUE: CT scan of the abdomen and pelvis performed with intravenous and oral contrast using noe cris scanning technique with dynamic intravenous contrast injection. Images reviewed with lung, soft tissue and bone windows. Reconstructed coronal and sagittal MPR images reviewed. Delayed images for evaluation of the urinary system also acquired and evaluated. All images stored on PACS. All CT scanners at this facility use dose modulation, iterative reconstruction, and/or weight based d osing when appropriate to reduce radiation dose to as low as reasonably achievable (ALARA). [facility]: Dose Right [facility]: [employer] [facility]: Dose Right [facility]: Teradose 4D [facility]: [employer] FINDINGS: LIVER: Normal size. No masses. No dilated ducts. SPLEEN: Normal size. No focal lesions. PANCREAS: No masses. No significant calcifications. No adjacent inflammation or peripancreatic flui d collections. Pancreatic duct not dilated. GALLBLADDER: No identified stones by CT criteria. No inflammatory changes to suggest cholecystitis. ADRENAL GLANDS: No significant masses or asymmetry. RIGHT KIDNEY AND URETER: No solid masses. No significant calcification. No hydronephrosis or hydroure ter. LEFT KIDNEY AND URETER: No solid masses. No significant calcification. No hydronephrosis or hydrouret er. AORTA AND VESSELS: No aneurysm. No dissection. Renal arteries, SMA, celiac without stenosis. RETROPERITONEUM: No retroperitoneal adenopathy, hemorrhage or masses. LARGE AND SMALL BOWEL: No dilatation. No masses. No wall thickening. APPENDIX: Normal. ABDOMINAL WALL: No hernia or masses. PERITONEAL CAVITY: No free air. No free fluid. No peritoneal implants or masses. PELVIS: No mass or free fluid. Normal bladder. Normal size female pelvic organs BONES: Spotty sclerotic metastatic lesions over the lumbar spine bony pelvis and bilateral proximal f emurs, stable compared to previous exams. OTHER: No other significant finding. IMPRESSION: Stable right breast nodule with biopsy clip, stable bony metastatic disease over the rib s, spine, and pelvis TECHNICAL DOCUMENTATION: JOB ID: [id number] Quality ID # 436: Final reports with documentation of one or more dose reduction techniques (e.g., Au tomated exposure control, adjustment of the mA and/or kV according to patient size, use of iterative reconstruction technique) 2010 [employer]- All Rights Reserved Reading location - IP/workstation name: [email or web address]
--- NOTE | 2018-09-04 09:40 | RADIOLOGY REPORT (SQ) ---
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 Images reviewed with lung, soft tissue and bone windows. Reconstructed coronal a nd sagittal MPR images reviewed. All images stored on PACS. All CT scanners at this facility use dose modulation, iterative reconstruction, and/or weight based d osing when appropriate to reduce radiation dose to as low as reasonably achievable (ALARA). [facility]: Dose Right [facility]: CareDose [facility]: Dose Right [facility]: Teradose 4D [facility]: Needbox AS RADIATION DOSE: CT Rad equipment meets quality standard of care and radiation dose reduction techniq ues were employed. CTDIvol: 10.4 - 11.6 mGy. DLP: 1587 mGy-cm.. LIMITATIONS: None. FINDINGS: AXILLAE: No adenopathy. CHEST WALL: Previously biopsied 2 cm right breast nodule with clip in lateral right breast. This is similar compared to previous studies LUNGS: No nodules or masses. No pneumothorax. No infiltrates. PLEURA: No effusions. No calcifications. THYROID: No masses or significant asymmetry. HILAR AND MEDIASTINAL STRUCTURES: No identified masses or abnormal nodes. AORTA AND GREAT VESSELS: No aneurysm. No dissection. PULMONARY ARTERIES: No identified pulmonary emboli. Study not optimized for the pulmonary arteries. HEART: No pericardial effusion. HARDWARE AND LIFELINES: Left-sided permanent central line tip superior vena cava BONES: Multiple small sclerotic bony lesions in the thoracic spine, stable. Old healed left anterior 2nd 3rd and 4th rib fractures. OTHER: No other significant finding. IMPRESSION: NORMAL CT OF THE CHEST WITH IV CONTRAST. COMPARISON: None. RADIATION DOSE: CT Rad equipment meets quality standard of care and radiation dose reduction techniq ues were employed. CTDIvol: 10.4 - 11.6 mGy. DLP: 1587 mGy-cm.mGy. TECHNIQUE: CT scan of the abdomen and pelvis performed with intravenous and oral contrast using noe cris scanning technique with dynamic intravenous contrast injection. Images reviewed with lung, soft tissue and bone windows. Reconstructed coronal and sagittal MPR images reviewed. Delayed images for evaluation of the urinary system also acquired and evaluated. All images stored on PACS. All CT scanners at this facility use dose modulation, iterative reconstruction, and/or weight based d osing when appropriate to reduce radiation dose to as low as reasonably achievable (ALARA). [facility]: Dose Right [facility]: SureCare [facility]: Dose Right [facility]: Teradose 4D [facility]: Needbox AS FINDINGS: LIVER: Normal size. No masses. No dilated ducts. SPLEEN: Normal size. No focal lesions. PANCREAS: No masses. No significant calcifications. No adjacent inflammation or peripancreatic flui d collections. Pancreatic duct not dilated. GALLBLADDER: No identified stones by CT criteria. No inflammatory changes to suggest cholecystitis. ADRENAL GLANDS: No significant masses or asymmetry. RIGHT KIDNEY AND URETER: No solid masses. No significant calcification. No hydronephrosis or hydroure ter. LEFT KIDNEY AND URETER: No solid masses. No significant calcification. No hydronephrosis or hydrouret er. AORTA AND VESSELS: No aneurysm. No dissection. Renal arteries, SMA, celiac without stenosis. RETROPERITONEUM: No retroperitoneal adenopathy, hemorrhage or masses. LARGE AND SMALL BOWEL: No dilatation. No masses. No wall thickening. APPENDIX: Normal. ABDOMINAL WALL: No hernia or masses. PERITONEAL CAVITY: No free air. No free fluid. No peritoneal implants or masses. PELVIS: No mass or free fluid. Normal bladder. Normal size female pelvic organs BONES: Spotty sclerotic metastatic lesions over the lumbar spine bony pelvis and bilateral proximal f emurs, stable compared to previous exams. OTHER: No other significant finding. IMPRESSION: Stable right breast nodule with biopsy clip, stable bony metastatic disease over the rib s, spine, and pelvis TECHNICAL DOCUMENTATION: JOB ID: [id number] Quality ID # [id number]: Final reports with documentation of one or more dose reduction techniques (e.g., Au tomated exposure control, adjustment of the mA and/or kV according to patient size, use of iterative reconstruction technique) 2010 [employer]- All Rights Reserved Reading location - IP/workstation name: [email or web address]
--- NOTE | 2018-09-04 12:47 | RADIOLOGY REPORT (SQ) ---
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 Rib x-rays dated 05/25/2018. CT chest, abdomen, and pelvis d ated 09/04/2018. RADIONUCLIDE AND DOSE: 20.5 millicuries Tc99m HDP. The route of agent administration: Intravenous. ADDITIONAL DRUGS AND DOSES: None. TECHNIQUE: Routine delayed images at 3 hour post radionuclide injection acquired of the bony skeleto n including anterior and posterior whole-body projections and additional focused images as needed. LIMITATIONS: None. FINDINGS: BONES: Focal areas of increased activity in the anterior left upper ribs. Focally increas ed activity in the mid sacrum on the right. KIDNEYS: Symmetric excretion without obstruction. OTHER: No other significant finding. IMPRESSION: 1. INCREASED ACTIVITY IN THE ANTERIOR LEFT UPPER RIBS SECONDARY TO RECENT RIB FRACTURES DEMONSTRATED ON X-RAY FROM 05/25/2018. 2. FOCAL AREA OF INCREASED ACTIVITY IN THE MID SACRUM ON THE RIGHT CORRESPONDING TO A SCLEROTIC LESIO N SEEN ON CT DONE EARLIER IN THE DAY. OTHER SCLEROTIC LESIONS SEEN ON THE CT ARE NOT CLEARLY IDENTIF IED ON BONE SCAN. COMMENT: Quality measure 147: Current bone scan is compared with any available plain radiographs, p rior bone scans, and CT/MRI. TECHNICAL DOCUMENTATION: JOB ID: [id number] [employer]- All Rights Reserved Reading location - IP/workstation name: [email or web address]
== END ==
LOC: RAD 08:07
PROVIDERS: ATTEND Internal Medicine
DX: C50.411 Malignant neoplasm of upper-outer quadrant of right female breast (principal); C79.51 Secondary malignant neoplasm of bone
CPT/HCPCS: 78306; 71260; 74177; A9561; Q9969

== ENCOUNTER 2018-11-18 14:36 | Emergency (ER) | payer MEDICAID ==
[2018-11-18 15:26] LABS: ABSOLUTE LYMPHOCYTES (AUTO) 0.7 10^3/uL (0.5-4.7); ABSOLUTE MONOCYTES (AUTO) 0.6 10^3/uL (0.1-1.4); ABSOLUTE NEUT (AUTO) 2.8 10^3/uL (1.7-8.2); EOSINOPHILS % (AUTO) 0.5 % (0-6); HEMATOCRIT 30.5 % (36.0-47.0); HEMOGLOBIN 10.7 g/dL (12.0-15.5); LYMPHOCYTES % (AUTO) 16.4 % (13-45); MEAN CORPUSCULAR HEMOGLOBIN 35.1 pg (27.0-33.4); MEAN CORPUSCULAR VOLUME 100 fl (80-97); MONOCYTES % (AUTO) 13.5 % (3-13); PLATELET COUNT 259 10^3/uL (150-450); RED BLOOD COUNT 3.04 10^6/uL (3.72-5.28); RED CELL DISTRIBUTION WIDTH 17.4 % (11.5-14.0); SEGMENTED NEUTROPHILS % (AUTO) 68.6 % (42-78); TOTAL CELLS COUNTED % (AUTO) 100 %; WHITE BLOOD COUNT 4.1 10^3/uL (4.0-10.5)
[2018-11-18 15:36] VITALS: BP 169/97
[2018-11-18 15:49] LABS: ALANINE AMINOTRANSFERASE 26 U/L (9-52); ALBUMIN 4.7 g/dL (3.5-5.0); ALKALINE PHOSPHATASE 62 U/L (38-126); ANION GAP 13 (5-19); ASPARTATE AMINO TRANSFERASE 18 U/L (14-36); BILIRUBIN,DIRECT 0.3 mg/dL (0.0-0.4); BILIRUBIN,TOTAL 0.6 mg/dL (0.2-1.3); BLOOD UREA NITROGEN 16 mg/dL (7-20); CALCIUM 9.8 mg/dL (8.4-10.2); CARBON DIOXIDE 28 mmol/L (22-30); CHLORIDE 102 mmol/L (98-107); GLUCOSE 130 mg/dL (75-110); POTASSIUM 4.6 mmol/L (3.6-5.0); SODIUM 142.9 mmol/L (137-145); TOTAL PROTEIN 7.5 g/dL (6.3-8.2)
[2018-11-18 15:50] LABS: ACETAMINOPHEN < 10 ug/mL (10-30); ALCOHOL < 10 mg/dL (NONE DETECTED); SALICYLATE < 1.0 mg/dL (2.0-20.0)
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
[2018-11-18 16:27] LABS: APPEARANCE,URINE CLEAR; BILIRUBIN,URINE NEGATIVE (NEGATIVE); COLOR,URINE STRAW; GLUCOSE, URINE >=500 mg/dL (NEGATIVE); KETONES,URINE 20 mg/dL (NEGATIVE); LEUKOCYTE ESTERASE,URINE NEGATIVE (NEGATIVE); NITRITE,URINE NEGATIVE (NEGATIVE); PROTEIN,URINE NEGATIVE (NEGATIVE); URINE SPECIFIC GRAVITY 1.018; UROBILINOGEN,URINE NEGATIVE mg/dL (<2.0)
[2018-11-18 16:42] LABS: URINE AMPHETAMINES SCREEN NEGATIVE; URINE BARBITURATES SCREEN NEGATIVE; URINE BENZODIAZEPINES SCREEN NEGATIVE; URINE COCAINE SCREEN NEGATIVE; URINE MARIJUANA (THC) SCREEN NEGATIVE; URINE METHADONE SCREEN NEGATIVE; URINE PHENCYCLIDINE SCREEN NEGATIVE
--- NOTE | 2018-11-18 20:11 | EKG REPORT ---
SEVERITY:- ABNORMAL ECG - SINUS TACHYCARDIA LAD, CONSIDER LEFT ANTERIOR FASCICULAR BLOCK LEFT VENTRICULAR HYPERTROPHY : Confirmed by: Jonathan Hedrick 18-Nov-2018 20:10:48
== END 2018-11-18 16:27 | disposition home or self-care (01) ==
LOC: ER 14:36
DX: F20.9 Schizophrenia, unspecified (principal); F22 Delusional disorders; I10 Essential (primary) hypertension; E11.9 Type 2 diabetes mellitus without complications
CPT/HCPCS: 36415; 80053; 80307; 81001; 85025; 93005; 93010; 99285

== ENCOUNTER → 2018-11-27 | Outpatient (CLI) | payer MEDICAID ==
--- NOTE | 2018-11-27 13:04 | RADIOLOGY REPORT (SQ) ---
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 Images reviewed with lung, soft tissue and bone windows. Reconstructed coronal and sagittal MPR and MIP images reviewed. All images stored on PACS. All CT scanners at this facility use dose modulation, iterative reconstruction, and/or weight based d osing when appropriate to reduce radiation dose to as low as reasonably achievable (ALARA). [facility]: Dose Right [facility]: CareDose [facility]: Dose Right [facility]: Teradose 4D [facility]: inDplay CONTRAST TYPE AND DOSE: 89 mL Omnipaque 350- low osmolar. RENAL FUNCTION: BUN 16 creatinine 0.6 RADIATION DOSE: . LIMITATIONS: None. FINDINGS: LUNGS AND PLEURA: No opacities, nodules, masses. No pneumothorax. No effusions. HILAR AND MEDIASTINAL STRUCTURES: No identified masses or abnormal nodes. HEART AND VASCULAR STRUCTURES: No aneurysm or dissection. No central pulmonary emboli. No pericardi al effusion. HARDWARE: None in the chest. UPPER ABDOMEN: See separate report of the CT of the abdomen. THYROID AND OTHER SOFT TISSUES: No masses. No adenopathy. BONES: There are some small stable sclerotic lesions in the thoracic spine. OTHER: No other significant finding. IMPRESSION: There is no evidence of thoracic metastases. There are some small stable sclerotic lesi ons in the spine. TECHNICAL DOCUMENTATION: JOB ID: [id number] Quality ID # 436: Final reports with documentation of one or more dose reduction techniques (e.g., Au tomated exposure control, adjustment of the mA and/or kV according to patient size, use of iterative reconstruction technique) 2010 [employer]- All Rights Reserved Reading location - IP/workstation name: [email or web address]
--- NOTE | 2018-11-27 13:13 | RADIOLOGY REPORT (SQ) ---
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 No oral contrast. Images reviewed with lung, soft tissue, and bone windows. Reconstructed coronal and sagittal MPR images reviewed. Delayed images for evaluation of the urinary system also acquired. All images stored on PACS. All CT scanners at this facility use dose modulation, iterative reconstruction, and/or weight based d osing when appropriate to reduce radiation dose to as low as reasonably achievable (ALARA). [facility]: Dose Right [facility]: CareDose [facility]: Dose Right [facility]: Teradose 4D [facility]: [employer] CONTRAST TYPE AND DOSE: contrast/concentration: Isovue 350.00 mg/ml; Total Contrast Delivered: 89.0 ml; Total Saline Delivered: 70.0 ml RENAL FUNCTION: BUN 16 creatinine 0.6 RADIATION DOSE: CT Rad equipment meets quality standard of care and radiation dose reduction techniq ues were employed. CTDIvol: 12.3 - 17.6 mGy. DLP: 3371 mGy-cm.. LIMITATIONS: None. FINDINGS: LOWER CHEST: See separate report of the CT of the chest. LIVER: Normal size. No masses. No dilated ducts. SPLEEN: Normal size. No focal lesions. PANCREAS: No masses. No significant calcifications. No adjacent inflammation or peripancreatic fluid collections. Pancreatic duct not dilated. GALLBLADDER: No identified stones by CT criteria. No inflammatory changes to suggest cholecystitis. ADRENAL GLANDS: No significant masses or asymmetry. RIGHT KIDNEY AND URETER: No solid masses. No significant calcifications. No hydronephrosis or hyd roureter. LEFT KIDNEY AND URETER: No solid masses. No significant calcifications. No hydronephrosis or hydr oureter. AORTA AND VESSELS: No aneurysm. No dissection. Renal arteries, SMA, celiac without stenosis. RETROPERITONEUM: No retroperitoneal adenopathy, hemorrhage or masses. BOWEL AND PERITONEAL CAVITY: No masses or inflammatory changes. No free fluid or peritoneal masses. APPENDIX: Surgically absent. PELVIS: No mass. No free fluid. Normal bladder. ABDOMINAL WALL: No masses. No hernias. BONES: There are some small sclerotic lesions in the spine and pelvis. These appear stable. OTHER: No other significant finding. IMPRESSION: Stable small sclerotic lesions in the spine and pelvis. No acute findings in the abdome n or pelvis. No evidence of abdominal or pelvic metastases. TECHNICAL DOCUMENTATION: JOB ID: [id number] Quality ID # 436: Final reports with documentation of one or more dose reduction techniques (e.g., Au tomated exposure control, adjustment of the mA and/or kV according to patient size, use of iterative reconstruction technique) 2010 [employer]- All Rights Reserved Reading location - IP/workstation name: [email or web address]
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
== END ==
LOC: RAD 09:06
PROVIDERS: ATTEND Internal Medicine
DX: C50.411 Malignant neoplasm of upper-outer quadrant of right female breast (principal)
CPT/HCPCS: 78306; 71260; 74177; A9561; Q9969

== ENCOUNTER 2019-03-04 21:43 | Emergency (ER) | payer MEDICARE, MEDICAID ==
[2019-03-04] MEDS ORDERED: CLINDAMYCIN HCL 150 MG CAPSULE PO ONE (23:15)
--- NOTE | 2019-03-04 23:17 | ER Document Report ---
ED General - General Chief Complaint: Facial Swelling Stated Complaint: FACIAL SWELLING Time Seen by Provider: 03/04/19 23:02 Primary Care Provider: LALITO GUZMAN MD [ACTIVE STAFF] - 03/06/19 Notes: Patient is 63-year-old female presents with complaint of some swelling to the left side of face that started today. No facial droop. No weakness into her extremities that would be new. She has chronic pain into her extremities that she says is from cancer that is in her bones that I think is primarily from the breasts. She denies any fevers. No difficulty breathing or swallowing. She does have what she believes is infected tooth in the left upper jaw that she thinks could be contributing. Her cancer doctor is Dr. Guzman. She has no other complaints at this time. She denies ever having the swelling in her face before. TRAVEL OUTSIDE OF THE [place] IN LAST 30 DAYS: No - Related Data Allergies/Adverse Reactions: No Known Allergies Allergy (Verified 07/19/17 00:41) Past Medical History - Social History Smoking Status: Unknown if Ever Smoked Frequency of alcohol use: None Drug Abuse: None Family History: Arthritis, CAD, DM, Hyperlipidemia, Hypertension, Thyroid Disfunction - Past Medical History Cardiac Medical History: Reports: Hx Hypercholesterolemia, Hx Hypertension - CONTROLLED/MEDICATED Denies: Hx Coronary Artery Disease, Hx Heart Attack Pulmonary Medical History: Reports: Hx Pneumonia - as child Denies: Hx Asthma, Hx Bronchitis, Hx COPD Neurological Medical History: Denies: Hx Cerebrovascular Accident, Hx Seizures Endocrine Medical History: Reports: Hx Diabetes Mellitus Type 2 Renal/ Medical History: Denies: Hx Peritoneal Dialysis Malignancy Medical History: Reports: Hx Breast Cancer GI Medical History: Denies: Hx Hepatitis, Hx Hiatal Hernia, Hx Ulcer Musculoskeletal Medical History: Reports Hx Arthritis Psychiatric Medical History: Reports: Hx Anxiety, Hx Bipolar Disorder, Hx Depression, Hx Schizophrenia Infectious Medical History: Denies: Hx Hepatitis Past Surgical History: Reports: Hx Appendectomy, Hx Dilation and Curettage, Hx Gynecologic Surgery - D&C. Denies: Hx Mastectomy, Hx Open Heart Surgery, Hx Pacemaker - Immunizations Immunizations up to date: Yes Hx Diphtheria, Pertussis, Tetanus Vaccination: Yes Review of Systems - Review of Systems Notes: My Normal Review Basic REVIEW OF SYSTEMS: CONSTITUTIONAL : Denies fever, chills, or sweats. Denies recent illness. EENT: Facial swelling. Dental pain CARDIOVASCULAR: Denies chest pain. RESPIRATORY: Denies cough, cold, or chest congestion. Denies shortness of breath, difficulty breathing, or wheezing. GASTROINTESTINAL: Denies abdominal pain. Denies nausea, vomiting, or diarrhea. SKIN: Denies rash or skin lesions. NEUROLOGICAL: Denies altered mental status or loss of consciousness. Denies headache. Denies weakness or paralysis or loss of use of either side. Denies problems with gait or speech. Denies sensory or motor loss. ALL OTHER SYSTEMS REVIEWED AND NEGATIVE. Physical Exam - Vital signs Vitals: Temp Pulse Resp BP Pulse Ox 98.2 F 101 H 20 90/64 L 96 03/04/19 22:12 03/04/19 22:12 03/04/19 22:12 03/04/19 22:12 03/04/19 22:12 - Notes Notes: General Appearance: Well nourished, alert, cooperative, no acute distress, no obvious discomfort. Well-appearing. Vitals: reviewed, See vital signs table. Head: Very mild swelling from just inferior to the left maxillary arch to just below the left eye. There is just faint redness. No pain to palpation over her face. Symmetric movement of facial muscles. Good sensation to palpation of the face. Eyes: PERRL, EOMI, Conjuctiva clear Mouth: Multiple dental caries and fractured teeth. No gingival inflammation. Throat: No tonsillar inflammation, No airway obstruction, No lymphadenopathy Neck: Supple, no neck tenderness, No thyromegaly Lungs: No wheezing, No rales, No rhonci, No accessory muscle use, good air exchange bilaterally. Heart: Normal rate, Regular rythm, No murmur, no rub Extremities: strength 5/5 in all extremities, good pulses in all extremities, no swelling or tenderness in the extremities, no edema. Skin: warm, dry, appropriate color, no rash Neuro: speech clear, oriented x 3, normal affect, responds appropriately to questions. Cranial nerves II through XII are intact. Good strength in all extremities. Patient is able to stand her under her own power. Course - Re-evaluation Re-evalutation: 03/04/19 23:46 Patient has very faint swelling and redness to left side of face. She does have multiple dental caries over her left upper jaw. This could indicate that the swelling is from a dental infection. She may also does have early signs of a facial cellulitis. I do not suspect stroke as patient has true swelling and she does not have any paralysis of the facial muscles or weakness of the facial muscles. I will place her on clindamycin. I encouraged her follow-up closely with her doctor this week. I encouraged her return to ER if she has worsening swelling, spreading redness, fevers, or if she feels unwell. Patient agrees with plan will be discharged home. Dictation of this chart was performed using voice recognition software; therefore, there may be some unintended grammatical errors. - Vital Signs Vital signs: Temp Pulse Resp BP Pulse Ox 98.3 F 101 H 18 122/79 97 03/04/19 23:30 03/04/19 22:12 03/04/19 23:37 03/04/19 23:38 03/04/19 23:37 Discharge - Discharge Clinical Impression: Facial swelling Condition: Good Disposition: HOME, SELF-CARE Additional Instructions: I suspect the swelling to the left side your face is either related to a infection in the skin of the face or related to infection of your teeth. Treatment for both of these is with antibiotics. I will start you on an antibiotic called clindamycin. Please follow-up with Dr. Guzman on Tuesday for reevaluation. Please have a low threshold to return to the ER if you have worsening swelling, fevers, difficulty breathing or swallowing, or if you feel unwell in any way. Prescriptions: Clindamycin HCl [Cleocin 150 mg Capsule] 300 mg PO Q6 #56 capsule Referrals: LALITO GUZMAN MD [ACTIVE STAFF] - 03/06/19
[2019-03-04 23:42] VITALS: BP 122/79
== END 2019-03-04 23:42 | disposition home or self-care (01) ==
LOC: ER 21:43
DX: R22.0 Localized swelling, mass and lump, head (principal); E78.00 Pure hypercholesterolemia, unspecified; I10 Essential (primary) hypertension; E11.9 Type 2 diabetes mellitus without complications
CPT/HCPCS: 99283; A9270

== ENCOUNTER → 2019-04-03 | Outpatient (CLI) | payer MEDICARE, MEDICAID ==
[2019-04-03 09:08] LABS: ABSOLUTE LYMPHOCYTES (AUTO) 1.6 10^3/uL (0.5-4.7); ABSOLUTE MONOCYTES (AUTO) 0.3 10^3/uL (0.1-1.4); ABSOLUTE NEUT (AUTO) 1.5 10^3/uL (1.7-8.2); BASOPHILS % (AUTO) 1.3 % (0-2); EOSINOPHILS % (AUTO) 1.1 % (0-6); HEMATOCRIT 28.6 % (36.0-47.0); HEMOGLOBIN 10.2 g/dL (12.0-15.5); LYMPHOCYTES % (AUTO) 44.2 % (13-45); MEAN CORPUSCULAR HEMOGLOBIN 37.2 pg (27.0-33.4); MEAN CORPUSCULAR HGB CONC 35.5 g/dL (32.0-36.0); MEAN CORPUSCULAR VOLUME 105 fl (80-97); MONOCYTES % (AUTO) 9.5 % (3-13); PLATELET COUNT 163 10^3/uL (150-450); RED BLOOD COUNT 2.73 10^6/uL (3.72-5.28); SEGMENTED NEUTROPHILS % (AUTO) 43.9 % (42-78); TOTAL CELLS COUNTED % (AUTO) 100 %; WHITE BLOOD COUNT 3.5 10^3/uL (4.0-10.5)
[2019-04-03 09:30] LABS: ALANINE AMINOTRANSFERASE 18 U/L (9-52); ALKALINE PHOSPHATASE 43 U/L (38-126); ANION GAP 10 (5-19); ASPARTATE AMINO TRANSFERASE 17 U/L (14-36); BILIRUBIN,DIRECT 0.3 mg/dL (0.0-0.4); BILIRUBIN,TOTAL 0.4 mg/dL (0.2-1.3); BLOOD UREA NITROGEN 25 mg/dL (7-20); CALCIUM 9.1 mg/dL (8.4-10.2); CARBON DIOXIDE 27 mmol/L (22-30); CHLORIDE 103 mmol/L (98-107); CHOLESTEROL 91.74 mg/dL (0-200); GLUCOSE 107 mg/dL (75-110); POTASSIUM 3.9 mmol/L (3.6-5.0); SODIUM 140.2 mmol/L (137-145); TOTAL PROTEIN 6.7 g/dL (6.3-8.2); TRIGLYCERIDES 122 mg/dL (<150)
[2019-04-03 09:41] LABS: DIRECT LDL 41 mg/dL (<100)
--- NOTE | 2019-04-03 10:08 | RADIOLOGY REPORT (SQ) ---
EXAM DESCRIPTION: CT CHEST WITH; CT ABD/PELVIS WITH IV ONLY COMPLETED DATE/TIME: 04/03/2019 8:55 am REASON FOR STUDY: BREAST CA (C50.411) C50.411 MALIG NEOPLM OF UPPER-OUTER QUADRANT OF RIGHT FEMALE COMPARISON: PET-CT 08/14/2017 CT chest abdomen pelvis 11/27/2018, 09/04/2018, 05/24/2018, 11/28/2017 CONTRAST TYPE AND DOSE: contrast/concentration: Isovue 350.00 mg/ml; Total Contrast Delivered: 88.0 ml; Total Saline Delivered: 70.0 ml RENAL FUNCTION: Creatinine 0.8 TECHNIQUE: CT scan of the chest performed using helical scanning technique with dynamic intravenous contrast injection. Images reviewed with lung, soft tissue and bone windows. Reconstructed coronal a nd sagittal MPR images reviewed. All images stored on PACS. CT scan of the abdomen and pelvis performed with intravenous and without oral contrastusing helical s garry technique with dynamic intravenous contrast injection. Images reviewed with lung, soft tissu e and bone windows. Reconstructed coronal and sagittal MPR images reviewed. Delayed images for eval uation of the urinary system also acquired and evaluated. All images stored on PACS. All CT scanners at this facility use dose modulation, iterative reconstruction, and/or weight based d osing when appropriate to reduce radiation dose to as low as reasonably achievable (ALARA). [facility]: Dose Right [facility]: CareDose [facility]: Dose Right [facility]: Teradose 4D [facility]: [employer] RADIATION DOSE: CT Rad equipment meets quality standard of care and radiation dose reduction techniq ues were employed. CTDIvol: 7.4 - 8.2 mGy. DLP: 1212 mGy-cm. . LIMITATIONS: None. FINDINGS: CHEST: LUNGS AND PLEURA: No opacities, nodules, masses. No pneumothorax. No effusions. HILAR AND MEDIASTINAL STRUCTURES: No identified masses or abnormal nodes. HEART AND VASCULAR STRUCTURES: No aneurysm or dissection. No central pulmonary emboli. No pericardi al effusion. HARDWARE: Unchanged left-sided permanent central line. UPPER ABDOMEN: No significant findings. Limited exam. THYROID AND OTHER SOFT TISSUES: No masses. No adenopathy. BONES: Stable scattered sclerotic bony metastatic lesions in the thoracic spine and ribs. Old healed bilateral rib fractures ABDOMEN AND PELVIS: LIVER: Normal size. No masses. No dilated ducts. SPLEEN: Normal size. No focal lesions. PANCREAS: No masses. No significant calcifications. No adjacent inflammation or peripancreatic fluid collections. Pancreatic duct not dilated. GALLBLADDER: No identified stones by CT criteria. No inflammatory changes to suggest cholecystitis. ADRENAL GLANDS: No significant masses or asymmetry. RIGHT KIDNEY AND URETER: No solid masses. No significant calcification. No hydronephrosis or hydroure ter. LEFT KIDNEY AND URETER: No solid masses. No significant calcification. No hydronephrosis or hydrouret er. AORTA AND VESSELS: No aneurysm. No dissection. Renal arteries, SMA, celiac without stenosis. RETROPERITONEUM: No retroperitoneal adenopathy, hemorrhage or masses. BOWEL AND PERITONEAL CAVITY: No masses or inflammatory changes. No free fluid or peritoneal masses. APPENDIX: Normal. ABDOMINAL WALL: No masses. No hernias. PELVIS: No mass or free fluid. Normal bladder. BONES: Stable small sclerotic bony metastatic lesions over the lumbar spine and bony pelvis OTHER: No other significant finding. IMPRESSION: Stable sclerotic bony metastatic lesions over the spine, ribs, and pelvis Otherwise unremarkable CT scan of the chest abdomen pelvis TECHNICAL DOCUMENTATION: JOB ID: [id number] Quality ID # [id number]: Final reports with documentation of one or more dose reduction techniques (e.g., Au tomated exposure control, adjustment of the mA and/or kV according to patient size, use of iterative reconstruction technique) 2010 [employer]- All Rights Reserved Reading location - IP/workstation name: [email or web address]
--- NOTE | 2019-04-03 12:16 | RADIOLOGY REPORT (SQ) ---
EXAM DESCRIPTION: NM WHOLE BODY BONE SCAN COMPLETED DATE/TIME: 04/03/2019 11:50 am REASON FOR STUDY: BREAST CA (C50.411) C50.411 MALIG NEOPLM OF UPPER-OUTER QUADRANT OF RIGHT FEMALE F25.0 SCHIZOAFFECTIVE DISORDER, BIPOLAR TYPE Z79.899 OTHER [employer] (CURRENT) DRUG THERAPY COMPARISON: CT chest abdomen pelvis same date Bone scan 11/27/2018, 09/04/2018, 08/01/2017 RADIONUCLIDE AND DOSE: 21 millicuries Tc99m MDP. The route of agent administration: Intravenous. ADDITIONAL DRUGS AND DOSES: None. TECHNIQUE: Routine delayed images at 3 hours post radionuclide injection acquired of the bony skelet on including anterior and posterior whole-body projections and additional focused images as needed. LIMITATIONS: None. FINDINGS: BONES: The tiny sclerotic metastatic lesions seen over the spine pelvis and ribs on CT are not apparent by bone scan. Today's bone scan demonstrates healing fractures of the posterior bilateral 10th ribs. There is mild soft tissue uptake around the left greater trochanter region, question trochanteric bur sitis. KIDNEYS: Symmetric excretion without obstruction. OTHER: No other significant finding. IMPRESSION: Tiny sclerotic metastatic lesions seen over the spine pelvis and ribs on CT today are no t apparent by bone scan. Bilateral healing 10th rib fractures posteriorly. COMMENT: Quality measure 147: Current bone scan is compared with any available plain radiographs, p rior bone scans, and CT/MRI. TECHNICAL DOCUMENTATION: JOB ID: [id number] [employer]- All Rights Reserved Reading location - IP/workstation name: [email or web address]
== END ==
LOC: RAD 08:15
PROVIDERS: ATTEND Internal Medicine
DX: C50.411 Malignant neoplasm of upper-outer quadrant of right female breast (principal); F25.0 Schizoaffective disorder, bipolar type; Z79.899 Other long term (current) drug therapy; S22.31XD Fracture of one rib, right side, subsequent encounter for fracture with routine healing; X58.XXXD Exposure to other specified factors, subsequent encounter
CPT/HCPCS: 36415; 85025; 80053; 80164; 83036; 82565; 80061; 78306; 71260; 74177; A9561; Q9969

== ENCOUNTER 2019-06-13 13:06 | Emergency (ER) | payer MEDICARE, MEDICAID ==
[2019-06-13] MEDS ORDERED: RINGERS SOLUTION,LACTATED 1,000 ML IV ONE (13:51)
[2019-06-13] MEDS ORDERED: ACETAMINOPHEN 325 MG TABLET PO ONE (13:51)
--- NOTE | 2019-06-13 13:55 | ER Document Report ---
ED Medical Screen (RME) - General Chief Complaint: Fall Injury Stated Complaint: FALL/HEADACHE Time Seen by Provider: 06/13/19 13:46 Primary Care Provider: FELA WHALEY MD [Primary Care Provider] - Follow up as needed Mode of Arrival: Medic Information source: Patient Notes: 63-year-old female presented to ED for complaint of fall on the way [place]. She states she was getting out of the car she stepped out of the car and then tried to step over the curb and fell. She states she hit her head on the cement and her right back and side is painful. Call was made from Dr. García oncology requesting she be evaluated for infection that she had a smelly urine he requested CT of the head and look for any type of infection. He he stated she had stated she has been vomiting. She is being treated for stage IV breast cancer with bone mets. I spoke with Dr. stern and who stated that yes she needed the CT abdomen pelvis with IV contrast. I have greeted and performed a rapid initial assessment of this patient. A comprehensive ED assessment and evaluation of the patient, analysis of test results and completion of medical decision making process will be conducted by an additional ED providers. TRAVEL OUTSIDE OF THE [place] IN LAST 30 DAYS: No - Related Data Allergies/Adverse Reactions: No Known Allergies Allergy (Verified 07/19/17 00:41) Past Medical History - Social History Chew tobacco use (# tins/day): No Frequency of alcohol use: None Drug Abuse: None - Past Medical History Cardiac Medical History: Reports: Hx Hypercholesterolemia, Hx Hypertension - CONTROLLED/MEDICATED Denies: Hx Coronary Artery Disease, Hx Heart Attack Pulmonary Medical History: Reports: Hx Pneumonia - as child Denies: Hx Asthma, Hx Bronchitis, Hx COPD Neurological Medical History: Denies: Hx Cerebrovascular Accident, Hx Seizures Endocrine Medical History: Reports: Hx Diabetes Mellitus Type 2 Renal/ Medical History: Denies: Hx Peritoneal Dialysis Malignancy Medical History: Reports: Hx Breast Cancer GI Medical History: Denies: Hx Hepatitis, Hx Hiatal Hernia, Hx Ulcer Musculoskeltal Medical History: Reports Hx Arthritis Psychiatric Medical History: Reports: Hx Anxiety, Hx Bipolar Disorder, Hx Depression, Hx Schizophrenia Infectious Medical History: Denies: Hx Hepatitis Past Surgical History: Reports: Hx Appendectomy, Hx Dilation and Curettage, Hx Gynecologic Surgery - D&C. Denies: Hx Mastectomy, Hx Open Heart Surgery, Hx Pacemaker - Immunizations Immunizations up to date: Yes Hx Diphtheria, Pertussis, Tetanus Vaccination: Yes History of Influenza Vaccine for 07/2017 - 12/2017 Season: No Physical Exam - Vital signs Vitals: Temp Pulse Resp BP Pulse Ox 97.4 F 102 H 15 137/78 H 96 06/13/19 13:13 06/13/19 13:13 06/13/19 13:13 06/13/19 13:13 06/13/19 13:13 Course - Vital Signs Vital signs: Temp Pulse Resp BP Pulse Ox 97.4 F 102 H 15 137/78 H 96 06/13/19 13:13 06/13/19 13:13 06/13/19 13:13 06/13/19 13:13 06/13/19 13:13 Doctor's Discharge - Discharge Referrals: FELA WHALEY MD [Primary Care Provider] - Follow up as needed
--- NOTE | 2019-06-13 14:02 | ER Document Report ---
Entered by RAJAT MCDANIEL SCRIBE 06/13/19 1357 Acting as scribe for:VIPUL CATES MD ED Fall - General Chief Complaint: Fall Injury Stated Complaint: FALL/HEADACHE Time Seen by Provider: 06/13/19 13:46 Primary Care Provider: FELA WHALEY MD [Primary Care Provider] - Follow up as needed Mode of Arrival: Medic Information source: Patient Notes: Patient is a 63-year-old female who presents to the emergency department today after a fall that occurred just prior to arrival. Patient states she was at the bank and trying to step up onto the curb and she fell. Patient states she fell on her right side and her back. Patient complains of right upper extremity pain and back pain. Patient states she hit her head but denies any neck pain or head pain. History I got from Dr. García is that the patient was brought to the office in a wheelchair by the daughter. The patient fell yesterday. She has reportedly suffered several falls in the past few weeks. She has been a no-show in the office for the past 2 months. She had some nausea and vomiting in the office. She is also had some weight loss. Her port was accessed, she got her chemo, and was sent to the emergency room for further evaluation. She does have a history of breast cancer with bone metastases. She does suffer from bipolar and schizoaffective disorder, so she is an unreliable historian. TRAVEL OUTSIDE OF THE [place] IN LAST 30 DAYS: No - Related data Allergies/Adverse Reactions: No Known Allergies Allergy (Verified 07/19/17 00:41) Past Medical History - General Information source: Patient, [facility] Records - Social History Smoking Status: Never Smoker Cigarette use (# per day): No Chew tobacco use (# tins/day): No Smoking Education Provided: No Frequency of alcohol use: None Drug Abuse: None Lives with: Family Family History: Arthritis, CAD, DM, Hyperlipidemia, Hypertension, Thyroid Disfunction Patient has suicidal ideation: No Patient has homicidal ideation: No - Past Medical History Cardiac Medical History: Reports: Hx Hypercholesterolemia, Hx Hypertension - CONTROLLED/MEDICATED Pulmonary Medical History: Reports: Hx Pneumonia - as child Endocrine Medical History: Reports: Hx Diabetes Mellitus Type 2 Malignancy Medical History: Reports: Hx Breast Cancer - With bone metastases Musculoskeletal Medical History: Reports Hx Arthritis Psychiatric Medical History: Reports: Hx Anxiety, Hx Bipolar Disorder, Hx Depression, Hx Schizoaffective Disorder Past Surgical History: Reports: Hx Appendectomy, Hx Dilation and Curettage - Immunizations Immunizations up to date: Yes Hx Diphtheria, Pertussis, Tetanus Vaccination: Yes Review of Systems - Review of Systems Constitutional: See HPI, Other - fall EENT: No symptoms reported Cardiovascular: No symptoms reported Respiratory: No symptoms reported Gastrointestinal: No symptoms reported Genitourinary: No symptoms reported Female Genitourinary: No symptoms reported Musculoskeletal: See HPI Skin: No symptoms reported Hematologic/Lymphatic: No symptoms reported Neurological/Psychological: Other - Frequent falls -: Yes All other systems reviewed and negative Physical Exam - Vital signs Vitals: Temp Pulse Resp BP Pulse Ox 97.4 F 102 H 15 137/78 H 96 06/13/19 13:13 06/13/19 13:13 06/13/19 13:13 06/13/19 13:13 06/13/19 13:13 - Notes Notes: Physical Exam: General: Alert, at baseline. HEENT: Normocephalic. Atraumatic. PERRL. Extraocular movements intact. Orophary nx clear. Neck: Supple. Non-tender. Respiratory: No respiratory distress. Clear and equal breath sounds bilaterally. Cardiovascular: Regular rate and rhythm. Abdominal: Normal Inspection. Non-tender. No distension. Normal Bowel Sounds. Back: Mid to lower thoracic spinous processes are tender with palpation. Extremities: Moves all four extremities. Upper extremities: Normal inspection. Normal ROM. No RUE tenderness with palpation. Lower extremities: Normal inspection. No edema. Normal ROM. Neurological: Normal cognition. AAOx4. Normal speech. Psychological: Flat affect consistent with mental health diagnosis. Skin: Warm. Dry. Normal color. Course - Vital Signs Vital signs: Temp Pulse Resp BP Pulse Ox 97.4 F 102 H 14 159/94 H 97 06/13/19 13:13 06/13/19 13:13 06/13/19 15:06 06/13/19 15:06 06/13/19 15:06 - Laboratory Laboratory results interpreted by me: 06/13/19 06/13/19 14:48 15:00 POC Glucose 190 H Urine Glucose (UA) >=500 H Urine Ketones 20 H - Diagnostic Test Radiology reviewed: Image reviewed, Reports reviewed - CT scan of the head shows sinus disease without acute changes. Thoracic spine shows stable scattered sclerotic metastases. Lumbar spine shows multiple osseous metastases in the spine and pelvis. - EKG Interpretation by Me EKG shows normal: Sinus rhythm, [place], QRS Complexes, ST-T Waves. abnormal: Intervals - Line prolonged QT interval Rate: Normal - 98 Rhythm: NSR [place]/QRS: LAHB/LAFB Voltage: Consistant with LVH When compared to previous EKG there are: No significant change Discharge - Discharge Clinical Impression: Frequent falls, Hyperglycemia Fall Qualifiers: Encounter type: initial encounter Qualified Code(s): W19.XXXA - Unspecified fall, initial encounter Breast cancer metastasized to bone Qualifiers: Laterality: unspecified laterality Qualified Code(s): C50.919 - Malignant neoplasm of unspecified site of unspecified female breast Condition: Stable Disposition: HOME, SELF-CARE Additional Instructions: Hyperglycemia (High Blood Sugar): You have an abnormally high blood sugar. Not all high blood sugar requires long-term treatment. High blood sugar can be due to medications, , or the stress of illness. (These cases are "borderline diabetes.") If the doctor feels your high blood sugar might resolve with time, you may not require treatment now. You will be scheduled for further evaluation. It's very important that you follow through, to see if the blood sugar returns to normal levels. Uncontrolled high blood sugar leads to early heart disease, strokes, nerve damage, eye damage, and kidney damage. Call the physician if there is faintness, excess sleepiness, or very rapid breathing. Follow-up with Dr. Whaley in the office next week to recheck your blood sugars and to evaluate your falling spells. Follow-up with Dr. García as scheduled. RETURN TO THE EMERGENCY ROOM IF ANY NEW OR WORSENING SYMPTOMS. Referrals: FELA WHALEY MD [Primary Care Provider] - Follow up in 1 week Scribe Attestation: 06/13/19 14:50 I personally performed the services described in the documentation, reviewed and edited the documentation which was dictated to the scribe in my presence, and it accurately records my words and actions. I personally performed the services described in the documentation, reviewed and edited the documentation which was dictated to the scribe in my presence, and it accurately records my words and actions.
--- NOTE | 2019-06-13 15:04 | RADIOLOGY REPORT (SQ) ---
EXAM DESCRIPTION: CT LUMBAR SPINE WITHOUT COMPLETED DATE/TIME: 06/13/2019 2:50 pm REASON FOR STUDY: Fall, thoracolumbar spinous process pain breast cancer. COMPARISON: None. TECHNIQUE: Axial images acquired through the lumbar spine without intravenous contrast. Images revi ewed with lung, soft tissue and bone windows. Reconstructed coronal and sagittal MPR images reviewed . All images stored on PACS. All CT scanners at this facility use dose modulation, iterative reconstruction, and/or weight based d osing when appropriate to reduce radiation dose to as low as reasonably achievable (ALARA). [facility]: Dose Right [facility]: CareDose [facility]: Dose Right [facility]: Teradose 4D [facility]: [employer] RADIATION DOSE: mGy. LIMITATIONS: None. FINDINGS: SEGMENTATION: Normal. No transitional anatomy. ALIGNMENT: Normal. VERTEBRAL BODIES: There are multiple sclerotic lesions in the vertebral bodies and in the sacrum and abbey. DISCS: There is concentric disc bulging at L2-3, L3-4, L4-5, and L5-S1. There is no significant cent ral canal or foraminal stenoses. PEDICLES, TRANSVERSE PROCESSES: No fractures. No dislocation. No acute findings. FACETS, POSTERIOR ELEMENTS: No fractures. No dislocation. No spinal stenosis. HARDWARE: None in the spine. VISUALIZED RIBS: No fractures. SOFT TISSUES: No significant or acute finding in adjacent soft tissues. OTHER: No other significant finding. IMPRESSION: Osseous metastases. Multilevel degenerative disc disease and spondylosis. TECHNICAL DOCUMENTATION: JOB ID: [id number] Quality ID # [id number]: Final reports with documentation of one or more dose reduction techniques (e.g., Au tomated exposure control, adjustment of the mA and/or kV according to patient size, use of iterative reconstruction technique) 2010 [employer]- All Rights Reserved Reading location - IP/workstation name: [email or web address]
--- NOTE | 2019-06-13 15:05 | RADIOLOGY REPORT (SQ) ---
EXAM DESCRIPTION: CT HEAD WITHOUT COMPLETED DATE/TIME: 06/13/2019 2:50 pm REASON FOR STUDY: fall oncology patient on chemo COMPARISON: None. TECHNIQUE: Axial images acquired through the brain without intravenous contrast. Images reviewed wi th bone, brain and subdural windows. Additional sagittal and coronal reconstructions were generated. Images stored on PACS. All CT scanners at this facility use dose modulation, iterative reconstruction, and/or weight based d osing when appropriate to reduce radiation dose to as low as reasonably achievable (ALARA). [facility]: Dose Right [facility]: CareDose [facility]: Dose Right [facility]: Teradose 4D [facility]: [employer] RADIATION DOSE: CT Rad equipment meets quality standard of care and radiation dose reduction techniq ues were employed. CTDIvol: 53.2 mGy. DLP: 1017 mGy-cm. mGy. LIMITATIONS: None. FINDINGS: VENTRICLES: Normal size and contour. CEREBRUM: No masses. No hemorrhage. No midline shift. No evidence for acute infarction. Normal gra y/white matter differentiation. No areas of low density in the white matter. CEREBELLUM: No masses. No hemorrhage. No alteration of density. No evidence for acute infarction. EXTRAAXIAL SPACES: No fluid collections. No masses. ORBITS AND GLOBE: No intra- or extraconal masses. Normal contour of globe without masses. CALVARIUM: No fracture. PARANASAL SINUSES: There is left frontal and ethmoid sinusitis. There are small retention cyst or po lyps in the maxillary sinuses. SOFT TISSUES: No mass or hematoma. OTHER: No other significant finding. IMPRESSION: No acute intracranial event. Sinus disease. EVIDENCE OF ACUTE STROKE: NO. COMMENT: Quality ID # 436: Final reports with documentation of one or more dose reduction techniques (e.g., Automated exposure control, adjustment of the mA and/or kV according to patient size, use of iterative reconstruction technique) TECHNICAL DOCUMENTATION: JOB ID: [id number] [employer]- All Rights Reserved Reading location - IP/workstation name: [email or web address]
--- NOTE | 2019-06-13 15:08 | RADIOLOGY REPORT (SQ) ---
EXAM DESCRIPTION: CT THORACIC SPINE WITHOUT COMPLETED DATE/TIME: 06/13/2019 2:50 pm REASON FOR STUDY: Fall, thoracolumbar spinous process pain COMPARISON: CT chest abdomen pelvis dated 04/03/2019 TECHNIQUE: Axial images acquired through the thoracic spine without intravenous contrast. Images re viewed with lung, soft tissue and bone windows. Reconstructed coronal and sagittal MPR images review ed. Images stored on PACS. All CT scanners at this facility use dose modulation, iterative reconstruction, and/or weight based d osing when appropriate to reduce radiation dose to as low as reasonably achievable (ALARA). [facility]: Dose Right [facility]: CareDose [facility]: Dose Right [facility]: Teradose 4D [facility]: [employer] RADIATION DOSE: CT Rad equipment meets quality standard of care and radiation dose reduction techniq ues were employed. CTDIvol: 93.2 mGy. DLP: 4635 mGy-cm. mGy. LIMITATIONS: None. FINDINGS: VISUALIZED LUNGS: No acute opacities. No pneumothorax. SOFT TISSUES: No soft tissue swelling. No masses. VERTEBRAL BODIES: Multiple sclerotic lesions consistent with known metastases. No fractures. DISCS: Mild multilevel spondylosis. Prominent anterior and lateral osteophytes throughout the dorsal spine. ALIGNMENT: Normal. TRANSVERSE PROCESSES, POSTERIOR ELEMENTS: No fractures. No dislocation. No acute findings. HARDWARE: None in the spine. VISUALIZED RIBS: No fractures. OTHER: No other significant finding. IMPRESSION: Scattered sclerotic metastases grossly stable from March of this year. No acute fracture or dislocation. No focal spinous process lesions. TECHNICAL DOCUMENTATION: JOB ID: [id number] Quality ID # 436: Final reports with documentation of one or more dose reduction techniques (e.g., Au tomated exposure control, adjustment of the mA and/or kV according to patient size, use of iterative reconstruction technique) 2010 [employer]- All Rights Reserved Reading location - IP/workstation name: [email or web address]
[2019-06-13 15:16] LABS: APPEARANCE,URINE CLEAR; BILIRUBIN,URINE NEGATIVE (NEGATIVE); COLOR,URINE YELLOW; GLUCOSE, URINE >=500 mg/dL (NEGATIVE); KETONES,URINE 20 mg/dL (NEGATIVE); LEUKOCYTE ESTERASE,URINE NEGATIVE (NEGATIVE); NITRITE,URINE NEGATIVE (NEGATIVE); PROTEIN,URINE NEGATIVE (NEGATIVE); URINE SPECIFIC GRAVITY 1.029; UROBILINOGEN,URINE NEGATIVE mg/dL (<2.0)
[2019-06-13 16:04] VITALS: BP 158/90
--- NOTE | 2019-06-14 14:23 | EKG REPORT ---
SEVERITY:- ABNORMAL ECG - SINUS RHYTHM LEFT ANTERIOR FASCICULAR BLOCK PROBABLE LEFT VENTRICULAR HYPERTROPHY BORDERLINE PROLONGED QT INTERVAL : Confirmed by: Jonathan Hedrick 14-Jun-2019 14:21:36
== END 2019-06-13 17:28 | disposition home or self-care (01) ==
LOC: ER 13:06
DX: M79.601 Pain in right arm (principal); M54.9 Dorsalgia, unspecified; W10.1XXA Fall (on)(from) sidewalk curb, initial encounter; Y93.89 Activity, other specified; Y92.510 Bank as the place of occurrence of the external cause; C50.919 Malignant neoplasm of unspecified site of unspecified female breast; C79.51 Secondary malignant neoplasm of bone; Z79.899 Other long term (current) drug therapy; E11.65 Type 2 diabetes mellitus with hyperglycemia; R29.6 Repeated falls; J32.9 Chronic sinusitis, unspecified; F31.9 Bipolar disorder, unspecified; F25.9 Schizoaffective disorder, unspecified; I10 Essential (primary) hypertension; I44.4 Left anterior fascicular block
CPT/HCPCS: 93005; 36591; 99284; 36415; 82962; 85025; 80053; 81001; 80164; 83036; 70450; 72128; 72131; 93010; J1642

== ENCOUNTER → 2019-06-13 | Outpatient (CLI) | payer MEDICARE, MEDICAID ==
[2019-06-13 11:35] LABS: ABSOLUTE BASOPHILS # (AUTO) 0.1 10^3/uL (0.0-0.2); ABSOLUTE LYMPHOCYTES (AUTO) 1.2 10^3/uL (0.5-4.7); ABSOLUTE MONOCYTES (AUTO) 0.6 10^3/uL (0.1-1.4); ABSOLUTE NEUT (AUTO) 2.5 10^3/uL (1.7-8.2); BASOPHILS % (AUTO) 1.2 % (0-2); EOSINOPHILS % (AUTO) 0.6 % (0-6); HEMATOCRIT 30.4 % (36.0-47.0); HEMOGLOBIN 10.7 g/dL (12.0-15.5); LYMPHOCYTES % (AUTO) 27.3 % (13-45); MEAN CORPUSCULAR HEMOGLOBIN 36.8 pg (27.0-33.4); MEAN CORPUSCULAR HGB CONC 35.2 g/dL (32.0-36.0); MEAN CORPUSCULAR VOLUME 105 fl (80-97); MONOCYTES % (AUTO) 13.4 % (3-13); PLATELET COUNT 207 10^3/uL (150-450); RED BLOOD COUNT 2.91 10^6/uL (3.72-5.28); RED CELL DISTRIBUTION WIDTH 15.6 % (11.5-14.0); SEGMENTED NEUTROPHILS % (AUTO) 57.5 % (42-78); TOTAL CELLS COUNTED % (AUTO) 100 %; WHITE BLOOD COUNT 4.4 10^3/uL (4.0-10.5)
[2019-06-13 12:03] LABS: ALBUMIN 4.4 g/dL (3.5-5.0); ALKALINE PHOSPHATASE 55 U/L (38-126); ANION GAP 15 (5-19); ASPARTATE AMINO TRANSFERASE 18 U/L (14-36); BILIRUBIN,DIRECT 0.3 mg/dL (0.0-0.4); BILIRUBIN,TOTAL 0.4 mg/dL (0.2-1.3); BLOOD UREA NITROGEN 15 mg/dL (7-20); CALCIUM 9.2 mg/dL (8.4-10.2); CARBON DIOXIDE 25 mmol/L (22-30); CHLORIDE 103 mmol/L (98-107); GLUCOSE 150 mg/dL (75-110); TOTAL PROTEIN 7.5 g/dL (6.3-8.2)
== END ==
LOC: OD 11:02
PROVIDERS: ATTEND Physician Assistant
DX: F25.0 Schizoaffective disorder, bipolar type (principal)
CPT/HCPCS: 36415; 80053; 80164; 85025

== ENCOUNTER → 2019-08-29 | Outpatient (CLI) | payer MEDICARE, MEDICAID ==
--- NOTE | 2019-08-29 12:26 | RADIOLOGY REPORT (SQ) ---
EXAM DESCRIPTION: CT ABD/PELVIS WITH IV ONLY COMPLETED DATE/TIME: 08/29/2019 8:28 am REASON FOR STUDY: BREAST CA (C50.411) C50.411 MALIG NEOPLM OF UPPER-OUTER QUADRANT OF RIGHT FEMALE COMPARISON: 04/03/2019 TECHNIQUE: CT scan of the abdomen and pelvis performed using helical scanning technique with dynamic intravenous contrast injection. No oral contrast. Images reviewed with lung, soft tissue, and bone windows. Reconstructed coronal and sagittal MPR images reviewed. Delayed images for evaluation of the urinary system also acquired. All images stored on PACS. All CT scanners at this facility use dose modulation, iterative reconstruction, and/or weight based d osing when appropriate to reduce radiation dose to as low as reasonably achievable (ALARA). [facility]: Dose Right [facility]: CareDose [facility]: Dose Right [facility]: Teradose 4D [facility]: [employer] CONTRAST TYPE AND DOSE: contrast/concentration: Isovue 350.00 mg/ml; Total Contrast Delivered: 81.0 ml; Total Saline Delivered: 68.0 ml RENAL FUNCTION: BUN 17 creatinine 0.7 RADIATION DOSE: . LIMITATIONS: None. FINDINGS: LOWER CHEST: See separate report of the CT of the chest. LIVER: Normal size. No masses. No dilated ducts. SPLEEN: Normal size. No focal lesions. PANCREAS: No masses. No significant calcifications. No adjacent inflammation or peripancreatic fluid collections. Pancreatic duct not dilated. GALLBLADDER: Contracted. No stones. ADRENAL GLANDS: No significant masses or asymmetry. RIGHT KIDNEY AND URETER: No solid masses. No significant calcifications. No hydronephrosis or hyd roureter. LEFT KIDNEY AND URETER: No solid masses. No significant calcifications. No hydronephrosis or hydr oureter. AORTA AND VESSELS: No aneurysm. No dissection. Renal arteries, SMA, celiac without stenosis. RETROPERITONEUM: No retroperitoneal adenopathy, hemorrhage or masses. BOWEL AND PERITONEAL CAVITY: Retained stool. No obvious bowel mass. No inflammation. APPENDIX: Surgically absent. PELVIS: No mass. No free fluid. Normal bladder. ABDOMINAL WALL: No masses. No hernias. BONES: Sclerotic metastatic lesions are present. These appear to be relatively stable. OTHER: No other significant finding. IMPRESSION: Stable osseous metastases. No acute finding in the abdomen or pelvis. TECHNICAL DOCUMENTATION: JOB ID: [id number] Quality ID # 436: Final reports with documentation of one or more dose reduction techniques (e.g., Au tomated exposure control, adjustment of the mA and/or kV according to patient size, use of iterative reconstruction technique) 2010 [employer]- All Rights Reserved Reading location - IP/workstation name: [email or web address]
--- NOTE | 2019-08-29 12:27 | RADIOLOGY REPORT (SQ) ---
EXAM DESCRIPTION: CT CHEST WITH COMPLETED DATE/TIME: 08/29/2019 8:26 am REASON FOR STUDY: BREAST CA (C50.411) C50.411 MALIG NEOPLM OF UPPER-OUTER QUADRANT OF RIGHT FEMALE COMPARISON: CT of the chest from 04/03/2019. TECHNIQUE: CT scan of the chest performed using helical scanning technique with dynamic intravenous contrast injection. Images reviewed with lung, soft tissue and bone windows. Reconstructed coronal and sagittal MPR and MIP images reviewed. All images stored on PACS. All CT scanners at this facility use dose modulation, iterative reconstruction, and/or weight based d osing when appropriate to reduce radiation dose to as low as reasonably achievable (ALARA). [facility]: Dose Right [facility]: CareDose [facility]: Dose Right [facility]: Teradose 4D [facility]: [employer] CONTRAST TYPE AND DOSE: 81 mL Omnipaque 350- low osmolar. RENAL FUNCTION: GFR > 60. RADIATION DOSE: CT Rad equipment meets quality standard of care and radiation dose reduction techniq ues were employed. CTDIvol: 7.0 - 9.3 mGy. DLP: 1618 mGy-cm. . LIMITATIONS: None. FINDINGS: LUNGS AND PLEURA: The trachea and main bronchi are patent. There is no bronchiectasis. T here are atelectatic opacities in the left lower lobe. There is no consolidation, pleural effusion o r nodule/mass. HILAR AND MEDIASTINAL STRUCTURES: No mediastinal or hilar adenopathy. HEART AND VASCULAR STRUCTURES: No cardiomegaly or pericardial effusion. HARDWARE: The tip of the left IJ single-lumen port terminates within the SVC. UPPER ABDOMEN: See separate report of the CT of the abdomen. THYROID AND OTHER SOFT TISSUES: The left lobe of the thyroid gland is heterogeneous. There is no enl arged supraclavicular or axillary adenopathy. BONES: Unchanged sclerotic osseous metastases and chronic bilateral rib fractures. There are no acut e osseous findings. OTHER: No other finding. IMPRESSION: Stable sclerotic thoracic metastases. No acute cardiopulmonary process. TECHNICAL DOCUMENTATION: JOB ID: [id number] Quality ID # 436: Final reports with documentation of one or more dose reduction techniques (e.g., Au tomated exposure control, adjustment of the mA and/or kV according to patient size, use of iterative reconstruction technique) 2010 [employer]- All Rights Reserved Reading location - IP/workstation name: [email or web address]
--- NOTE | 2019-08-29 16:08 | RADIOLOGY REPORT (SQ) ---
EXAM DESCRIPTION: NM WHOLE BODY BONE SCAN COMPLETED DATE/TIME: 08/29/2019 1:44 pm REASON FOR STUDY: BREAST CA (C50.411) C50.411 MALIG NEOPLM OF UPPER-OUTER QUADRANT OF RIGHT FEMALE COMPARISON: Bone scan 04/03/2019, 11/27/2018 CT chest 09/06/2019 RADIONUCLIDE AND DOSE: 21.3 millicuries Tc99m MDP. The route of agent administration: Intravenous. ADDITIONAL DRUGS AND DOSES: None. TECHNIQUE: Routine delayed images at 3 hours post radionuclide injection acquired of the bony skelet on including anterior and posterior whole-body projections and additional focused images as needed. LIMITATIONS: None. FINDINGS: BONES: Since the prior exams, patient has developed a punctate focus of increased uptake a t the left 10th costovertebral joint. This correlates with bony sclerosis on CT chest 08/29/2019 and probably represents a healing fracture. There are multiple other old stable bilateral rib fractures with mild increased uptake, similar over the series of exams. No other abnormal increased uptake over the skeleton is identified. KIDNEYS: Symmetric excretion without obstruction. OTHER: No other significant finding. IMPRESSION: Multiple old rib fractures. COMMENT: Quality measure 147: Current bone scan is compared with any available plain radiographs, p rior bone scans, and CT/MRI. TECHNICAL DOCUMENTATION: JOB ID: [id number] [employer]- All Rights Reserved Reading location - IP/workstation name: [email or web address]
== END ==
LOC: RAD 07:47
PROVIDERS: ATTEND Physician Assistant Medical
DX: C50.411 Malignant neoplasm of upper-outer quadrant of right female breast (principal)
CPT/HCPCS: 78306; 71260; 74177; A9561; Q9969

== ENCOUNTER → 2020-01-21 | Outpatient (CLI) | payer MEDICARE, MEDICAID ==
--- NOTE | 2020-01-21 09:49 | RADIOLOGY REPORT (SQ) ---
EXAM DESCRIPTION: CT CHEST WITH; CT ABD/PELVIS WITH IV ONLY IMAGES COMPLETED DATE/TIME: 01/21/2020 9:20 am; 01/21/2020 9:18 am REASON FOR STUDY: BREAST CA (C50.411) C50.411 MALIG NEOPLM OF UPPER-OUTER QUADRANT OF RIGHT FEMALE COMPARISON: 08/29/2019. Bone scan 08/29/2019. CONTRAST TYPE AND DOSE: contrast/concentration: Isovue 350.00 mg/ml; Total Contrast Delivered: 78.0 ml; Total Saline Delivered: 67.0 ml RENAL FUNCTION: GFR > 60. TECHNIQUE: CT scan of the chest performed using helical scanning technique with dynamic intravenous contrast injection. Images reviewed with lung, soft tissue and bone windows. Reconstructed coronal a nd sagittal MPR images reviewed. All images stored on PACS. CT scan of the abdomen and pelvis performed with intravenous and with oral contrastusing helical scan walter technique with dynamic intravenous contrast injection. Images reviewed with lung, soft tissue a nd bone windows. Reconstructed coronal and sagittal MPR images reviewed. Delayed images for evaluat ion of the urinary system also acquired and evaluated. All images stored on PACS. All CT scanners at this facility use dose modulation, iterative reconstruction, and/or weight based d osing when appropriate to reduce radiation dose to as low as reasonably achievable (ALARA). [facility]: Dose Right [facility]: CareDose [facility]: Dose Right [facility]: Teradose 4D [facility]: [employer] RADIATION DOSE: CT Rad equipment meets quality standard of care and radiation dose reduction techniq ues were employed. CTDIvol: 6.6 - 9.2 mGy. DLP: 1271 mGy-cm. . LIMITATIONS: None. FINDINGS: CHEST: LUNGS AND PLEURA: Motion artifact. Mild areas of subsegmental atelectasis and scarring. No developi ng infiltrates or nodules suggested. No significant pleural fluid. HILAR AND MEDIASTINAL STRUCTURES: No identified masses or abnormal nodes. HEART AND VASCULAR STRUCTURES: Minimally progressive pericardial thickening. Relatively low density, suggestive of small simple pericardial effusion. No aortic aneurysm or dissection or gross central pulmonary embolus. Mild coronary calcification. HARDWARE: Left port. THYROID AND OTHER SOFT TISSUES: No masses. No adenopathy. BONES: No suggestion of progressive disease. Mild sclerosis in the left scapula. Lower thoracic genny tebral body sclerotic lesions and healing multiple rib fractures. OTHER: No other significant finding. ABDOMEN AND PELVIS: LIVER: Normal size. No masses. No dilated ducts. SPLEEN: Normal size. No focal lesions. PANCREAS: No masses. No significant calcifications. No adjacent inflammation or peripancreatic fluid collections. Pancreatic duct not dilated. GALLBLADDER: No identified stones by CT criteria. No inflammatory changes to suggest cholecystitis. ADRENAL GLANDS: No significant masses or asymmetry. RIGHT KIDNEY AND URETER: No solid masses. No significant calcification. No hydronephrosis or hydroure ter. LEFT KIDNEY AND URETER: No solid masses. No significant calcification. No hydronephrosis or hydrouret er. AORTA AND VESSELS: Atherosclerotic aorta without aneurysm or dissection. Patent major arterial branc hes. No venous clot detected. RETROPERITONEUM: No retroperitoneal adenopathy, hemorrhage or masses. BOWEL AND PERITONEAL CAVITY: Moderate stool. No developing bowel obstruction. No active inflammator y changes. APPENDIX: Not seen, likely absent. ABDOMINAL WALL: No masses. No hernias. PELVIS: Bladder distended. No pelvic mass or fluid. BONES: Multiple scattered sclerotic spine and pelvic lesions. Similar to prior. OTHER: No other significant finding. IMPRESSION: 1. No developing lung lesions. 2. Small pericardial effusion has developed. 3. Grossly stable sclerotic bone lesions without progression since last year. Correlate with bone sc an which is scheduled to be performed subsequent to this CT study. TECHNICAL DOCUMENTATION: JOB ID: [id number] Quality ID # 436: Final reports with documentation of one or more dose reduction techniques (e.g., Au tomated exposure control, adjustment of the mA and/or kV according to patient size, use of iterative reconstruction technique) 2010 [employer]- All Rights Reserved Reading location - IP/workstation name: [email or web address]
--- NOTE | 2020-01-21 14:25 | RADIOLOGY REPORT (SQ) ---
EXAM DESCRIPTION: NM WHOLE BODY BONE SCAN IMAGES COMPLETED DATE/TIME: 01/21/2020 1:22 pm REASON FOR STUDY: BREAST CA (C50.411) C50.411 MALIG NEOPLM OF UPPER-OUTER QUADRANT OF RIGHT FEMALE COMPARISON: 08/29/2019. CT chest, abdomen and pelvis from today. RADIONUCLIDE AND DOSE: 21.8 millicuries Tc99m HDP. The route of agent administration: Intravenous. ADDITIONAL DRUGS AND DOSES: None. TECHNIQUE: Routine delayed images at 3 hour post radionuclide injection acquired of the bony skeleto n including anterior and posterior whole-body projections and additional focused images as needed. LIMITATIONS: Bladder is relatively full. This obscures a portion of the pelvis. FINDINGS: BONES: Bilateral T10 posterior rib fractures, slightly less conspicuous compared to prior. Bilateral anterior rib fractures. Left look chronic. Right are multiple and look new. No develop ing or abnormal spine, pelvis or lower extremity activity. KIDNEYS: Symmetric excretion without obstruction. OTHER: No other significant finding. IMPRESSION: 1. Allowing for new multiple anterior right rib fractures, stable exam. No developing spine or visua lized pelvic lesions. COMMENT: Quality measure 147: Current bone scan is compared with any available plain radiographs, p rior bone scans, and CT/MRI. TECHNICAL DOCUMENTATION: JOB ID: [id number] 2010 [employer]- All Rights Reserved Reading location - IP/workstation name: [email or web address]
== END ==
LOC: RAD 08:42
PROVIDERS: ATTEND Internal Medicine
DX: C50.411 Malignant neoplasm of upper-outer quadrant of right female breast (principal); I31.3 Pericardial effusion (noninflammatory); S22.43XD Multiple fractures of ribs, bilateral, subsequent encounter for fracture with routine healing; X58.XXXD Exposure to other specified factors, subsequent encounter
CPT/HCPCS: 82565; 78306; 71260; 74177; A9561; Q9969

== ENCOUNTER 2020-07-26 01:44 | Inpatient (IN) | payer MEDICARE, MEDICAID ==
[2020-07-26] MEDS ORDERED: DEXTROSE 50%-WATER 25 GM/50 ML DISP.SYRIN IV ONE ×2 (01:57→02:00)
[2020-07-26 02:15] LABS: ABSOLUTE LYMPHOCYTES (AUTO) 0.7 10^3/uL (0.5-4.7); ABSOLUTE MONOCYTES (AUTO) 0.3 10^3/uL (0.1-1.4); ABSOLUTE NEUT (AUTO) 3.2 10^3/uL (1.7-8.2); BASOPHILS % (AUTO) 0.2 % (0-2); EOSINOPHILS % (AUTO) 0.5 % (0-6); HEMATOCRIT 28.4 % (36.0-47.0); HEMOGLOBIN 9.9 g/dL (12.0-15.5); LYMPHOCYTES % (AUTO) 16.8 % (13-45); MEAN CORPUSCULAR HEMOGLOBIN 36.5 pg (27.0-33.4); MEAN CORPUSCULAR HGB CONC 34.8 g/dL (32.0-36.0); MEAN CORPUSCULAR VOLUME 105 fl (80-97); PLATELET COUNT 139 10^3/uL (150-450); RED BLOOD COUNT 2.71 10^6/uL (3.72-5.28); RED CELL DISTRIBUTION WIDTH 17.5 % (11.5-14.0); SEGMENTED NEUTROPHILS % (AUTO) 74.5 % (42-78); TOTAL CELLS COUNTED % (AUTO) 100 %; WHITE BLOOD COUNT 4.3 10^3/uL (4.0-10.5)
[2020-07-26] MEDS ORDERED: NALOXONE HCL INJ/PF 0.4 MG/1 ML SDV IV ONE (02:16)
[2020-07-26 02:27] LABS: INTERNATIONAL RATION (INR) 1.07; PROTHROMBIN TIME 14.1 SEC (11.4-15.4)
[2020-07-26 02:31] LABS: ALBUMIN 3.2 g/dL (3.5-5.0); ALKALINE PHOSPHATASE 49 U/L (38-126); ANION GAP 13 (5-19); ASPARTATE AMINO TRANSFERASE 30 U/L (14-36); BILIRUBIN,DIRECT 0.5 mg/dL (0.0-0.4); BILIRUBIN,TOTAL 0.5 mg/dL (0.2-1.3); BLOOD UREA NITROGEN 40 mg/dL (7-20); CALCIUM 9.1 mg/dL (8.4-10.2); CARBON DIOXIDE 25 mmol/L (22-30); CHLORIDE 99 mmol/L (98-107); POTASSIUM 4.3 mmol/L (3.6-5.0)
[2020-07-26 02:32] LABS: GLUCOSE 60 mg/dL (75-110)
--- NOTE | 2020-07-26 02:47 | RADIOLOGY REPORT (SQ) ---
CT CERVICAL SPINE: 07/26/2020 1:44 AM CDT TECHNIQUE: Axial contiguous images were obtained through the cervical spine without intravenous contrast. Sagittal and coronal reconstructions were also reviewed. This exam was performed according to our departmental dose-optimization program, which includes automated exposure control, adjustment of the mA and/or KV according to the patient's size and/or use of iterative reconstruction technique. COMPARISON: None available INDICATION: 64-year old patient with neck pain, trauma. FINDINGS: Multilevel anterior osteophytes are seen at the cervical spine. The vertebral bodies appear well aligned. The vertebral body heights appear well maintained. No significant pre-vertebral soft tissue swelling is noted. No definite fracture or subluxation is noted. Moderate multilevel intervertebral disc space narrowing is seen. Multilevel disc ossify to also present. The visualized brain parenchyma appears unremarkable. The craniocervical junction is unremarkable. Multilevel facet hypertrophy is seen. Carotid calcifications are seen. IMPRESSION: There are no findings to suggest an acute fracture or subluxation within the cervical spine.
--- NOTE | 2020-07-26 02:50 | RADIOLOGY REPORT (SQ) ---
CT of the head: 07/26/2020 1:47 AM CDT HISTORY: 64-year-old patient with head injury. COMPARISON: CT the head from 06/13/2019 TECHNIQUE: Multiple axial contiguous images were obtained through the head without intravenous contrast administered. This exam was performed according to our departmental dose-optimization program, which includes automated exposure control, adjustment of the mA and/or KV according to the patient's size and/or use of iterative reconstruction technique. FINDINGS: The ventricles and cerebral sulci demonstrate mild prominence, consistent with cerebral atrophy. There are mild periventricular hypodensities, suggestive of periventricular white matter changes. The cruz-white matter differentiation is within normal limits. Both orbits appear unremarkable. The mastoid air cells appear clear. There is mild mucoperiosteal thickening of the ethmoid and maxillary sinuses. The calvarium is intact. No extra-axial fluid collection is seen. No midline shift or mass effect is apparent. There are no findings to suggest acute intracranial hemorrhage. IMPRESSION: 1. No acute intracranial hemorrhage is seen. 2. Mild cerebral atrophy and periventricular white matter changes are seen.
[2020-07-26 02:51] LABS: APPEARANCE,URINE CLEAR; BILIRUBIN,URINE NEGATIVE (NEGATIVE); COLOR,URINE YELLOW; GLUCOSE, URINE >=500 mg/dL (NEGATIVE); KETONES,URINE 20 mg/dL (NEGATIVE); LEUKOCYTE ESTERASE,URINE NEGATIVE (NEGATIVE); NITRITE,URINE NEGATIVE (NEGATIVE); PROTEIN,URINE NEGATIVE (NEGATIVE); URINE SPECIFIC GRAVITY 1.023; UROBILINOGEN,URINE NEGATIVE mg/dL (<2.0)
--- NOTE | 2020-07-26 02:52 | RADIOLOGY REPORT (SQ) ---
AP Portable chest: 07/26/2020 1:50 AM CDT History: 64-year old patient with altered mental status, concern for head injury. Comparison: CT the chest from 08/29/2019; chest radiograph from 06/13/2019 Findings: The cardiomediastinal silhouette is enlarged. No pneumothorax is seen. No acute airspace opacities are seen. No discrete pleural effusion is apparent. A left internal jugular [id number] catheter tip projects at the mid SVC. There is elevation of the right hemidiaphragm. Multilevel degenerative changes are seen within the thoracic spine. There is a density over the left upper chest which may represent a costochondral calcification. Impression: No acute airspace opacities are seen. The cardiomediastinal silhouette is enlarged.
[2020-07-26 03:02] LABS: URINE AMPHETAMINES SCREEN NEGATIVE; URINE BARBITURATES SCREEN NEGATIVE; URINE BENZODIAZEPINES SCREEN NEGATIVE; URINE COCAINE SCREEN NEGATIVE; URINE MARIJUANA (THC) SCREEN UNCONFIRMED POSITIVE; URINE METHADONE SCREEN NEGATIVE; URINE PHENCYCLIDINE SCREEN NEGATIVE
--- NOTE | 2020-07-26 03:20 | ER Document Report ---
ED General - General Chief Complaint: Altered Mental Status Stated Complaint: ALTERED MENTAL STATUS Time Seen by Provider: 07/26/20 02:15 Primary Care Provider: MORIAH MADISON PA-C [Primary Care Provider] - Follow up as needed TRAVEL OUTSIDE OF THE [place] IN LAST 30 DAYS: No - HPI Context: This is a 64-year-old female who presents to the emergency department for evaluation of altered mental status. Patient has a past medical history significant for diabetes, sulfonylurea use and breast cancer with bony metastases. Patient lives with her son and her son's girlfriend. He relates the patient's history. Son states that the patient has basically laid in her bed for the past 2 days which is unusual for her. Usually the patient gets up and does her usual ADLs. However the patient is not been eating or drinking or getting out of bed. Son denies knowledge of the patient complaining of fever, chills, chest pain, shortness of breath, abdominal pain, nausea, vomiting. Son denies patient having history of COVID-19, or known exposure to Covid 19+ persons or persons under investigation for COVID-19. Patient son denies any exacerbating factors or alleviating factors. Patient was noted to be responsive to painful stimuli applied by EMS and her initial vitals first as follows: Heart rate 110 O2 sats 90% on 2 L by nasal cannula, blood pressure 107/73 and rectal temp is 98. Patient's fingerstick was noted to be 68 patient was given 12.5 mg of glucose here in the ED a temp Sigala was placed and patient went for CT. Recheck of the patient's blood sugar revealed a level of 140. According to the son and the patient takes Percocet, however there does not appear to be any prescription bottles of Percocet in the patient's belonging bag or medication bag. Associated symptoms: Other - See HPI Exacerbated by: Other - See HPI Relieved by: Other - See HPI - Related Data Allergies/Adverse Reactions: No Known Allergies Allergy (Verified 07/19/17 00:41) Past Medical History - General Information source: Patient, Relative, Emergency Med Personnel - Social History Smoking Status: Never Smoker Frequency of alcohol use: None Drug Abuse: None Family History: Reviewed & Not Pertinent, Arthritis, CAD, DM, Hyperlipidemia, Hypertension, Thyroid Disfunction - Past Medical History Cardiac Medical History: Reports: Hx Hypercholesterolemia, Hx Hypertension - CONTROLLED/MEDICATED Denies: Hx Coronary Artery Disease, Hx Heart Attack Pulmonary Medical History: Reports: Hx Pneumonia - as child Denies: Hx Asthma, Hx Bronchitis, Hx COPD Neurological Medical History: Denies: Hx Cerebrovascular Accident, Hx Seizures Endocrine Medical History: Reports: Hx Diabetes Mellitus Type 2 Renal/ Medical History: Denies: Hx Peritoneal Dialysis Malignancy Medical History: Reports: Hx Breast Cancer - With bone metastases GI Medical History: Denies: Hx Hepatitis, Hx Hiatal Hernia, Hx Ulcer Musculoskeletal Medical History: Reports Hx Arthritis Psychiatric Medical History: Reports: Hx Anxiety, Hx Bipolar Disorder, Hx Depression, Hx Schizoaffective Disorder, Hx Schizophrenia Infectious Medical History: Denies: Hx Hepatitis Past Surgical History: Reports: Hx Appendectomy, Hx Dilation and Curettage, Hx Gynecologic Surgery - D&C. Denies: Hx Mastectomy, Hx Open Heart Surgery, Hx Pac emaker - Immunizations Immunizations up to date: Yes Hx Diphtheria, Pertussis, Tetanus Vaccination: Yes Review of Systems - Review of Systems Constitutional: Weakness EENT: No symptoms reported Cardiovascular: No symptoms reported Respiratory: No symptoms reported Gastrointestinal: No symptoms reported Genitourinary: No symptoms reported Female Genitourinary: No symptoms reported Musculoskeletal: No symptoms reported Skin: No symptoms reported Hematologic/Lymphatic: No symptoms reported Neurological/Psychological: Other - Somnolence -: Yes All other systems reviewed and negative Physical Exam - Vital signs Vitals: Temp 98 F 07/26/20 01:46 - Notes Notes: CONSTITUTIONAL Patient is somnolent. She does respond to verbal commands and will open her eyes. Patient's speech is nonsensical and she does not know where she is at this time. HEAD [Atraumatic, Normocephalic.] EYES [Eyes are normal to inspection, No discharge from eyes, Extraocular muscles intact, Sclera are normal, Conjunctiva are normal.] NECK [Normal ROM, No jugular venous distention, No meningeal signs, no carotid bruit.] RESPIRATORY CHEST [Chest is nontender, Breath sounds normal, No respiratory distress.] CARDIOVASCULAR [RRR, No murmurs, Normal S1 S2, No rub, No gallop.] ABDOMEN [Abdomen is nontender, No pulsatile masses, No other masses, Bowel sounds normal, No distension, No peritoneal signs, No hernias.] BACK [There is no CVA Tenderness, There is no tenderness to palpation, Normal inspection.] UPPER EXTREMITY [Inspection normal, No cyanosis, No clubbing, No edema, 2+ radial pulses.] LOWER EXTREMITY [Inspection normal, No cyanosis, No clubbing, No edema, No calf tenderness, 2+ femoral pulses.] NEURO There is no facial droop or unilateral weakness noted. Speech is garbled SKIN [Skin is warm, Skin is dry, Skin is normal color.] LYMPHATIC [No adenopathy in neck.] PSYCHIATRIC [Normal affect. ] Course - Vital Signs Vital signs: Temp Pulse Resp BP Pulse Ox 98 F 95 10 L 122/72 100 07/26/20 01:50 07/26/20 04:50 07/26/20 04:50 07/26/20 04:50 07/26/20 04:50 - Laboratory Result Diagrams: 07/26/20 01:55 07/26/20 01:55 Laboratory results interpreted by me: 07/26/20 07/26/20 07/26/20 01:53 01:55 01:55 RBC 2.71 L Hgb 9.9 L Hct 28.4 L MCV 105 H MCH 36.5 H RDW 17.5 H Plt Count 139 L BUN 40 H Creatinine 1.29 H Est GFR ( Amer) 50 L Est GFR (MDRD) Non-Af 42 L Glucose 60 L POC Glucose 66 L Direct Bilirubin 0.5 H Total Protein 6.0 L Albumin 3.2 L Urine Glucose (UA) Urine Ketones 07/26/20 07/26/20 02:17 02:18 RBC Hgb Hct MCV MCH RDW Plt Count BUN Creatinine Est GFR ( Amer) Est GFR (MDRD) Non-Af Glucose POC Glucose 140 H Direct Bilirubin Total Protein Albumin Urine Glucose (UA) >=500 H Urine Ketones 20 H - Consults Dr. Benavides Time consulted: 04:24 - Dr. Benavides accepted patient for admission on behalf of Dr. Umanzor Reason for consultation: 07/26/20 04:24 Patient is diabetic, on a sulfonylurea and has persistent repeated drops and her blood glucose and altered mental status Critical Care Note - Critical Care Note Total time excluding time spent on procedures (mins): 90 - persistent hypoglycemia, on sulfonylurea Discharge - Discharge Clinical Impression: Hypoglycemia Altered mental status Qualifiers: Altered mental status type: unspecified Qualified Code(s): R41.82 - Altered mental status, unspecified Hypoglycemia secondary to sulfonylurea Qualifiers: Encounter type: initial encounter Injury intent: accidental or unintentional Qualified Code(s): T38.3X1A - Poisoning by insulin and oral hypoglycemic [an tidiabetic] drugs, accidental (unintentional), initial encounter Condition: Stable Disposition: ADMITTED OBSERVATION Admitting Provider[facility] Unit Admitted: [facility] Referrals: MORIAH MADISON PA-C [Primary Care Provider] - Follow up as needed
[2020-07-26] MEDS ORDERED: NALOXONE HCL INJ 2 MG/2 ML DISP.SYRIN ONE (03:36)
[2020-07-26] MEDS ORDERED: DEXTROSE 5%-1/2 NORMAL SALINE 1,000 ML IV ONE (04:13)
[2020-07-26] MEDS ORDERED: DEXTROSE 5%-1/2 NORMAL SALINE 1,000 ML IV PRN (05:07)
[2020-07-26] MEDS ORDERED: ONDANSETRON HCL INJ/PF 4 MG/2 ML SDV IV PRN (05:07)
[2020-07-26] MEDS ORDERED: DEXTROSE 40% GEL 15 GM TUBE PO PRN ×2 (05:11)
[2020-07-26] MEDS ORDERED: GLUCAGON,HUMAN RECOMB 1 MG INJ IM PRN (05:11)
[2020-07-26] MEDS ORDERED: DEXTROSE 50%-WATER 25 GM/50 ML DISP.SYRIN IV PRN ×2 (05:11)
[2020-07-26 08:07] LABS: ANION GAP 10 (5-19); BLOOD UREA NITROGEN 43 mg/dL (7-20); CARBON DIOXIDE 28 mmol/L (22-30); CHLORIDE 97 mmol/L (98-107); GLUCOSE 85 mg/dL (75-110)
[2020-07-26] MEDS: FAMOTIDINE INJ/PF 20 MG/2 ML SDV IV SCH ×2 (09:17→21:00)
--- NOTE | 2020-07-26 09:56 | EKG REPORT ---
SEVERITY:- ABNORMAL ECG - SINUS TACHYCARDIA INCOMPLETE LEFT BUNDLE BRANCH BLOCK LEFT VENTRICULAR HYPERTROPHY : Confirmed by: Jonathan Hedrick 26-Jul-2020 09:54:54
[2020-07-26] MEDS ORDERED: CEFTRIAXONE 1 GM/D5W RTU 1 GM/50 ML RTUPB IV SCH (10:00)
[2020-07-26] MEDS ORDERED: DIVALPROEX SODIUM 250 MG TAB.SR.24H PO SCH (10:00)
[2020-07-26] MEDS ORDERED: BENZTROPINE MESYLATE 1 MG TABLET PO SCH (10:00)
[2020-07-26 10:24] LABS: ARTERIAL BLOOD BASE EXCESS 2.3 mmol/L; ARTERIAL BLOOD FIO2 2L; ARTERIAL BLOOD H2CO3 1.34 mmol/L (1.05-1.35); ARTERIAL BLOOD HCO3 27.3 mmol/L (20-24); ARTERIAL BLOOD O2 SATURATION 98.8 % (94-98); ARTERIAL BLOOD PCO2 44.6 mmHg (35-45); ARTERIAL BLOOD PH 7.41 (7.35-7.45); ARTERIAL BLOOD PO2 138.5 mmHg (80-100); ARTERIAL BLOOD TOTAL CO2 28.7 mmol/L (21-25)
[2020-07-26 11:32] LABS: ABSOLUTE LYMPHOCYTES (AUTO) 0.6 10^3/uL (0.5-4.7); ABSOLUTE MONOCYTES (AUTO) 0.2 10^3/uL (0.1-1.4); ABSOLUTE NEUT (AUTO) 2.9 10^3/uL (1.7-8.2); BASOPHILS % (AUTO) 0.3 % (0-2); EOSINOPHILS % (AUTO) 0.9 % (0-6); HEMATOCRIT 26.1 % (36.0-47.0); HEMOGLOBIN 9.1 g/dL (12.0-15.5); LYMPHOCYTES % (AUTO) 15.1 % (13-45); MEAN CORPUSCULAR HEMOGLOBIN 36.3 pg (27.0-33.4); MEAN CORPUSCULAR HGB CONC 34.9 g/dL (32.0-36.0); MEAN CORPUSCULAR VOLUME 104 fl (80-97); MONOCYTES % (AUTO) 5.8 % (3-13); PLATELET COUNT 131 10^3/uL (150-450); RED BLOOD COUNT 2.51 10^6/uL (3.72-5.28); RED CELL DISTRIBUTION WIDTH 17.5 % (11.5-14.0); SEGMENTED NEUTROPHILS % (AUTO) 77.9 % (42-78); TOTAL CELLS COUNTED % (AUTO) 100 %; WHITE BLOOD COUNT 3.7 10^3/uL (4.0-10.5)
--- NOTE | 2020-07-26 11:32 | PDOC H&P ---
History of Present Illness Admission Date/PCP: 07/26/20 05:10 MORIAH BYRNE PA-C Patient complains of: Altered mental status and hypoglycemia History of Present Illness: RANDELL COURTNEY is a 64 year old female This is a 64-year-old female is with a history of the stage IV breast cancer with bone mets with a history of the schizophrenia and a history of the chronic pain in the type 2 diabetes on oral sulfonylurea brought to the emergency department by the son because patient altered mental status patient's blood sugar was in the 60 range patient is received the D5 in the ER Patient initial CT of the head and a CT of the C-spine was negative Also found dehydrated ER physicians call for the admissions for the hypoglycemia and altered mental status When I saw the patient's patients was not responding very well only responds to painful stimuli His blood sugars on the bedside was 92 Patient is also giving the D50 1 ampoule As per discussed with the patient's oncology was also on the bedside order the MRI of the brain with contrast to rule out any brain mets According to the oncology patients have progression of the disease and the try some different chemotherapy Patient is also urine drug screen is negative for any opioid Review the medications patient is taking the several psych medications and also pain medications At this point try to contact the patient's family member including the son and the daughter several times unable to contact We will order the MRI MRA of the brain Also order the Depakote level urine culture blood culture and start the patient on IV antibiotic Patient is currently not responding very well Past Medical History Cardiac Medical History: Reports: Hyperlipidema, Hypertension - CONTROLLED/MEDICATED Denies: Coronary Artery Disease, Myocardial Infarction Pulmonary Medical History: Reports: Pneumonia - as child Denies: Asthma, Bronchitis, Chronic Obstructive Pulmonary Disease (COPD) Neurological Medical History: Denies: Seizures Endocrine Medical History: Reports: Diabetes Mellitus Type 2 Malignancy Medical History: Reports: Breast Cancer - With bone metastases GI Medical History: Denies: Hepatitis, Hiatal Hernia Musculoskeltal Medical History: Reports: Arthritis Psychiatric Medical History: Reports: Bipolar Disorder, Depression, Schizoaffective Disorder Hematology: Reports: Anemia Past Surgical History Past Surgical History: Reports: Appendectomy Denies: Mastectomy, Pacemaker Social History Information Source: [facility] Records Smoking Status: Unknown if Ever Smoked Electronic Cigarette use?: No Drugs: None Family History Family History: Reviewed & Not Pertinent, Arthritis, CAD, DM, Hyperlipidemia, Hypertension, Thyroid Disfunction Parental Family History Reviewed: Yes Children Family History Reviewed: Unknown Sibling(s) Family History Reviewed.: Unknown Medication/Allergy Home Medications: Aripiprazole [Abilify 5 mg Tablet] 5 mg PO QHS 07/26/20 Aspirin [Aspirin 81 mg Chewable Tablet] 81 mg PO DAILY 07/26/20 Atorvastatin Calcium [Lipitor 80 mg Tablet] 80 mg PO QHS 07/26/20 Benztropine Mesylate [Cogentin 1 mg Tablet] 0.5 mg PO Q12 07/26/20 Dapagliflozin Propanediol [Farxiga] 10 mg PO DAILY 07/26/20 Divalproex Sodium [Depakote ER 500 mg Tab.sr] 500 mg PO Q12 07/26/20 Divalproex Sodium [Depakote Er 250 Mg Tablet] 250 mg PO Q12 07/26/20 Doxepin HCl [Silenor] 3 mg PO QHS 07/26/20 Glipizide [Glipizide Xl] 10 mg PO [id number] 07/26/20 Haloperidol Decanoate [Haldol Decanoate Inj 100 Mg/Ml Vial] 100 mg IM .QMONTHLY 07/26/20 Lisinopril [Prinivil 10 mg Tablet] 10 mg PO DAILY 07/26/20 Metformin HCl [Glucophage 500 mg Tablet] 1,000 mg PO BIDBS 07/26/20 Oxycodone HCl 20 mg PO Q6 07/26/20 Quetiapine Fumarate [Quetiapine Fumarate ER] 600 mg PO QHS 07/26/20 Allergies/Adverse Reactions: No Known Allergies Allergy (Verified 07/19/17 00:41) Review of Systems ROS unobtainable: Due to mental status All systems: reviewed and no additional remarkable complaints except as stated Physical Exam Vital Signs: Temp Pulse Resp BP Pulse Ox 97.5 F 97 20 139/79 H 100 07/26/20 08:00 07/26/20 08:00 07/26/20 08:00 07/26/20 08:00 07/26/20 08:00 Intake & Output 07/25/20 07/26/20 07/27/20 06:59 06:59 06:59 Intake Total 233 Output Total 1100 Balance -867 Weight 66 kg Physical Exam: Only responsive to painful stimuli General appearance: PRESENT: no acute distress Eye exam: PRESENT: PERRLA Mouth exam: PRESENT: neck supple Respiratory exam: PRESENT: clear to auscultation [place] Cardiovascular exam: PRESENT: +S1, +S2, tachycardia GI/Abdominal exam: PRESENT: normal bowel sounds, soft Neurological exam: PRESENT: altered Skin exam: PRESENT: dry Results Laboratory Results: 07/26/20 07/26/20 07/26/20 01:55 01:55 02:18 WBC 4.3 RBC 2.71 L Hgb 9.9 L Hct 28.4 L MCV 105 H MCH 36.5 H MCHC 34.8 RDW 17.5 H Plt Count 139 L Seg Neutrophils % 74.5 Carbonic Acid HCO3/H2CO3 Ratio ABG pH ABG pCO2 ABG pO2 ABG HCO3 ABG O2 Saturation ABG Base Excess FiO2 Sodium 137.1 Potassium 4.3 Chloride 99 Carbon Dioxide 25 Anion Gap 13 BUN 40 H Creatinine 1.29 H Est GFR ( Amer) 50 L Glucose 60 L Calcium 9.1 Total Bilirubin 0.5 AST 30 Alkaline Phosphatase 49 Total Protein 6.0 L Albumin 3.2 L Urine Color YELLOW Urine Appearance CLEAR Urine pH 5.0 Ur Specific [place] 1.023 Urine Protein NEGATIVE Urine Glucose (UA) >=500 H Urine Ketones 20 H Urine Blood NEGATIVE Urine Nitrite NEGATIVE Ur Leukocyte Esterase NEGATIVE Urine WBC (Auto) 0 Urine RBC (Auto) 0 07/26/20 07/26/20 06:49 09:50 WBC RBC Hgb Hct MCV MCH MCHC RDW Plt Count Seg Neutrophils % Carbonic Acid 1.34 HCO3/H2CO3 Ratio 20:1 ABG pH 7.41 ABG pCO2 44.6 ABG pO2 138.5 H ABG HCO3 27.3 H ABG O2 Saturation 98.8 H ABG Base Excess 2.3 FiO2 2L Sodium 134.9 L Potassium 4.0 Chloride 97 L Carbon Dioxide 28 Anion Gap 10 BUN 43 H Creatinine 1.14 Est GFR ( Amer) 58 L Glucose 85 Calcium 9.0 Total Bilirubin AST Alkaline Phosphatase Total Protein Albumin Urine Color Urine Appearance Urine pH Ur Specific [place] Urine Protein Urine Glucose (UA) Urine Ketones Urine Blood Urine Nitrite Ur Leukocyte Esterase Urine WBC (Auto) Urine RBC (Auto) 07/26/20 01:55 Troponin I 0.012 Impressions: Cervical Spine CT 07/26/20 00:00 IMPRESSION: There are no findings to suggest an acute fracture or subluxation within the cervical spine. Head CT 07/26/20 00:00 IMPRESSION: 1. No acute intracranial hemorrhage is seen. 2. Mild cerebral atrophy and periventricular white matter changes are seen. Assessment & Plan - Diagnosis (1) Acute encephalopathy Is this a current diagnosis for this admission?: Yes Plan: Multiple etiology including the metabolic encephalopathy and hypoglycemia possible sepsis due to the recent chemotherapy possible brain mets We will start the patient on IV antibiotic IV fluid Consult the oncology Order the MRI of the head Order the Depakote level and ammonia level (2) Altered mental status Qualifiers: Altered mental status type: unspecified Qualified Code(s): R41.82 - Altered mental status, unspecified Is this a current diagnosis for this admission?: Yes Plan: Due to the above conditions with the multiple etiology (3) Hypoglycemia Is this a current diagnosis for this admission?: Yes Plan: We will start the patient on a D10 Continues to monitor (4) Malignant neoplasm of right breast Qualifiers: Estrogen receptor status: unspecified Patient sex: female Is this a current diagnosis for this admission?: Yes Plan: Order the MRI of the brain to rule out any brain mets Follow-up with oncology (5) Schizophrenia Qualifiers: Schizophrenia type: unspecified Qualified Code(s): F20.9 - Schizophrenia, unspecified Is this a current diagnosis for this admission?: Yes Plan: Currently hold all the medications due to the altered mental status (6) Sepsis Qualifiers: Sepsis type: sepsis due to unspecified organism Severe sepsis shock status: without septic shock Is this a current diagnosis for this admission?: Yes Plan: We will get the blood culture urine culture CT of the chest Patient have a no sign of any Covid exposure Continues to monitor Continues to IV fluid IV antibiotic - Time Time Spent: 50 to 70 Minutes Critical Time spent with patient: 25-34 minutes Medications reviewed and adjusted accordingly: Yes Anticipated Discharge Disposition: Home with Home Health Anticipated Discharge Timeframe: within 72 hours - Inpatient Certification Based on my medical assessment, after consideration of the patient's comorbidities, presenting symptoms, or acuity I expect that the services needed warrant INPATIENT care.: Yes I certify that my determination is in accordance with my understanding of Medicare's requirements for reasonable and necessary INPATIENT services [42 CFR 412.3e].: Yes Medical Necessity: Failure to Improve With Outpatient Therapy, Significant Comorbidiites Make Outpatient Treatment Too Risky, Need Close Monitoring Due to Risk of Patient Decompensation, Need For IV Fluids, Need For Continuous Telemetry Monitoring, Need for IV Antibiotics Post Hospital Care: D/C [employer] Documentation - Plan Summary Plan Summary: See the MD orders as above Overall prognosis is very poor due to the multiple comorbidity including the stage IV breast cancers with possible mets Follow with oncology Try to contact the family member unable to reach it
[2020-07-26 11:50] LABS: ANION GAP 8 (5-19); BLOOD UREA NITROGEN 39 mg/dL (7-20); CALCIUM 8.8 mg/dL (8.4-10.2); CARBON DIOXIDE 28 mmol/L (22-30); CHLORIDE 99 mmol/L (98-107); GLUCOSE 167 mg/dL (75-110); POTASSIUM 3.9 mmol/L (3.6-5.0)
--- NOTE | 2020-07-26 12:11 | PDOC CONSULTATION ---
Consultation Consult Date: 07/26/20 Provider Consulted: SORAYA HUNT Consult reason:: Hematology/Oncology consultation was requested for patient with known metastatic ER+ breast cancer on systemic therapy. She was admitted for mental status changes and hypoglycemia. History of Present Illness Admission Date/PCP: 07/26/20 05:10 MORIAH BYRNE PA-C History of Present Illness: RANDELL COURTNEY is a 64 year old female who was diagnosed with metastatic cancer (to the bones) several years ago. Most recently, she has been treated with Xgeva (for bone mets), Ibrance (oral chemo) and Faslodex (antiestrogen). The faslodex was just started earlier this month instead of Femara, due to progre ssion of disease. She was also evaluated at an outside hospital in Jun for a fall. She also has a history of psychosis and has been on depakote and abilify for this. She was brought to the ED difficult to arouse. Her urine drug screen was negatvie for opiods. She was found to have hypoglycemia and given IV Glu. She also has a bruise over her right eye and CT brain was negative for pathologi c cause of her symptoms. Currently, she is still responsive only to pain. Past Medical History Cardiac Medical History: Reports: Hyperlipidema, Hypertension - CONTROLLED/MEDICATED Denies: Coronary Artery Disease, Myocardial Infarction Pulmonary Medical History: Reports: Pneumonia - as child Denies: Asthma, Bronchitis, Chronic Obstructive Pulmonary Disease (COPD) Neurological Medical History: Denies: Seizures Endocrine Medical History: Reports: Diabetes Mellitus Type 2 Malignancy Medical History: Reports: Breast Cancer - With bone metastases GI Medical History: Denies: Hepatitis, Hiatal Hernia Musculoskeltal Medical History: Reports: Arthritis Psychiatric Medical History: Reports: Bipolar Disorder, Depression, Schizoaffective Disorder Hematology: Reports: Anemia Past Surgical History Past Surgical History: Reports: Appendectomy Denies: Mastectomy, Pacemaker Social History Smoking Status: Unknown if Ever Smoked Electronic Cigarette use?: No Drugs: None Family History Family History: Reviewed & Not Pertinent, Arthritis, CAD, DM, Hyperlipidemia, Hypertension, Thyroid Disfunction Family History: I was not able to confirm her family history, but this was per records. Parental Family History Reviewed: No Children Family History Reviewed: No Sibling(s) Family History Reviewed.: No Medication/Allergy Home Medications: Aripiprazole [Abilify 5 mg Tablet] 5 mg PO QHS 07/26/20 Atorvastatin Calcium [Lipitor 80 mg Tablet] 80 mg PO QHS 07/26/20 Benztropine Mesylate [Cogentin 1 mg Tablet] 0.5 mg PO Q12 07/26/20 Calcium Carbonate [Calcium] 600 mg PO DAILY 07/26/20 Dapagliflozin Propanediol [Farxiga] 10 mg PO DAILY 07/26/20 Divalproex Sodium [Depakote ER 500 mg Tab.sr] 500 mg PO Q12 07/26/20 Divalproex Sodium [Depakote Er 250 Mg Tablet] 250 mg PO Q12 07/26/20 Doxepin HCl [Silenor] 3 mg PO QHS 07/26/20 Glipizide [Glipizide Xl] 10 mg PO [id number] 07/26/20 Lisinopril [Prinivil 10 mg Tablet] 10 mg PO DAILY 07/26/20 Metformin HCl [Glucophage 500 mg Tablet] 1,000 mg PO BIDBS 07/26/20 Oxycodone HCl 20 mg PO Q6HP PRN 07/26/20 Palbociclib [Ibrance] 125 mg PO ASDIR PRN 07/26/20 Quetiapine Fumarate [Quetiapine Fumarate ER] 600 mg PO QHS 07/26/20 Allergies/Adverse Reactions: No Known Allergies Allergy (Verified 07/19/17 00:41) Review of Systems ROS unobtainable: Due to mental status Physical Exam Vital Signs: Temp Pulse Resp BP Pulse Ox 97.5 F 97 20 139/79 H 100 07/26/20 08:00 07/26/20 08:00 07/26/20 08:00 07/26/20 08:00 07/26/20 08:00 Intake & Output 07/25/20 07/26/20 07/27/20 06:59 06:59 06:59 Intake Total 233 Output Total 1100 Balance -867 Weight 66 kg General appearance: PRESENT: no acute distress, well-developed, well-nourished Exam: 64 year old female. Head exam: PRESENT: other - echymoses right upper eyelid Eye exam: PRESENT: periorbital swelling Mouth exam: PRESENT: dry mucosa Neck exam: ABSENT: lymphadenopathy Respiratory exam: PRESENT: unlabored, other - Upper airway noise throughout. Cardiovascular exam: PRESENT: RRR GI/Abdominal exam: PRESENT: normal bowel sounds, soft Extremities exam: ABSENT: pedal edema Neurological exam: PRESENT: altered, other - plantar reflexes normal. Only responds to painful stimuli. Skin exam: PRESENT: normal color Results Laboratory Results: 07/26/20 10:55 07/26/20 10:55 07/26/20 07/26/20 07/26/20 01:55 01:55 02:18 WBC 4.3 RBC 2.71 L Hgb 9.9 L Hct 28.4 L MCV 105 H MCH 36.5 H MCHC 34.8 RDW 17.5 H Plt Count 139 L Seg Neutrophils % 74.5 Carbonic Acid HCO3/H2CO3 Ratio ABG pH ABG pCO2 ABG pO2 ABG HCO3 ABG O2 Saturation ABG Base Excess FiO2 Sodium 137.1 Potassium 4.3 Chloride 99 Carbon Dioxide 25 Anion Gap 13 BUN 40 H Creatinine 1.29 H Est GFR ( Amer) 50 L Glucose 60 L Lactic Acid Calcium 9.1 Total Bilirubin 0.5 AST 30 Alkaline Phosphatase 49 Ammonia Total Protein 6.0 L Albumin 3.2 L Urine Color YELLOW Urine Appearance CLEAR Urine pH 5.0 Ur Specific [place] 1.023 Urine Protein NEGATIVE Urine Glucose (UA) >=500 H Urine Ketones 20 H Urine Blood NEGATIVE Urine Nitrite NEGATIVE Ur Leukocyte Esterase NEGATIVE Urine WBC (Auto) 0 Urine RBC (Auto) 0 07/26/20 07/26/20 07/26/20 06:49 09:50 10:55 WBC RBC Hgb Hct MCV MCH MCHC RDW Plt Count Seg Neutrophils % Carbonic Acid 1.34 HCO3/H2CO3 Ratio 20:1 ABG pH 7.41 ABG pCO2 44.6 ABG pO2 138.5 H ABG HCO3 27.3 H ABG O2 Saturation 98.8 H ABG Base Excess 2.3 FiO2 2L Sodium 134.9 L Potassium 4.0 Chloride 97 L Carbon Dioxide 28 Anion Gap 10 BUN 43 H Creatinine 1.14 Est GFR ( Amer) 58 L Glucose 85 Lactic Acid 1.1 Calcium 9.0 Total Bilirubin AST Alkaline Phosphatase Ammonia Total Protein Albumin Urine Color Urine Appearance Urine pH Ur Specific [place] Urine Protein Urine Glucose (UA) Urine Ketones Urine Blood Urine Nitrite Ur Leukocyte Esterase Urine WBC (Auto) Urine RBC (Auto) 07/26/20 07/26/20 07/26/20 10:55 10:55 10:55 WBC 3.7 L RBC 2.51 L Hgb 9.1 L Hct 26.1 L MCV 104 H MCH 36.3 H MCHC 34.9 RDW 17.5 H Plt Count 131 L Seg Neutrophils % 77.9 Carbonic Acid HCO3/H2CO3 Ratio ABG pH ABG pCO2 ABG pO2 ABG HCO3 ABG O2 Saturation ABG Base Excess FiO2 Sodium 135.0 L Potassium 3.9 Chloride 99 Carbon Dioxide 28 Anion Gap 8 BUN 39 H Creatinine 1.02 Est GFR ( Amer) > 60 Glucose 167 H Lactic Acid Calcium 8.8 Total Bilirubin AST Alkaline Phosphatase Ammonia < 8.7 L Total Protein Albumin Urine Color Urine Appearance Urine pH Ur Specific [place] Urine Protein Urine Glucose (UA) Urine Ketones Urine Blood Urine Nitrite Ur Leukocyte Esterase Urine WBC (Auto) Urine RBC (Auto) 07/26/20 01:55 Troponin I 0.012 Impressions: Cervical Spine CT 07/26/20 00:00 IMPRESSION: There are no findings to suggest an acute fracture or subluxation within the cervical spine. Head CT 07/26/20 00:00 IMPRESSION: 1. No acute intracranial hemorrhage is seen. 2. Mild cerebral atrophy and periventricular white matter changes are seen. Status: Image reviewed by me Assessment & Plan - Diagnosis (1) Acute encephalopathy Is this a current diagnosis for this admission?: Yes Plan: MRI brain with contrast would be best test for possible mets to the brain which are highly possible with her current diagnosis. This was discussed with Dr. Benavides and has been ordered. I agree with checking ammonia, etc. (2) Malignant neoplasm of right breast Qualifiers: Estrogen receptor status: unspecified Patient sex: female Is this a current diagnosis for this admission?: Yes Plan: HOLD all treatment for now. Calcium is normal. Watch Na level. (3) Schizophrenia Qualifiers: Schizophrenia type: unspecified Qualified Code(s): F20.9 - Schizophrenia, unspecified Is this a current diagnosis for this admission?: Yes Plan: unsure if Depakote levels may explain her currently condition. Otherwise, continue current meds. - Plan Summary Plan Summary: Patient was discussed at length with Dr. Benavides. Will continue to follow with you.
[2020-07-26] MEDS: CEFEPIME 1 GM/D5W RTU 1 GM/50 ML RTUPB IV SCH ×2 (12:15→21:00)
[2020-07-26] MEDS: DEXTROSE 10%-WATER 1,000 ML with SODIUM CHLORIDE 77 MEQ IV PRN ×4 (15:06→23:15)
--- NOTE | 2020-07-26 15:49 | RADIOLOGY REPORT (SQ) ---
EXAM DESCRIPTION: MRI HEAD COMBO; MRA HEAD WITHOUT IMAGES COMPLETED DATE/TIME: 07/26/2020 1:59 pm REASON FOR STUDY: ams; ams/breast cancer COMPARISON: CT brain 07/26/2020 TECHNIQUE: Multiplanar imaging includes noncontrasted T1, T2, FLAIR, diffusion with ADC map and post gadolinium contrast T1 sequences. MRA exam [place] was performed with 3D [id number] acquisition. Source data maximum inte nsity projected images were reviewed. Images stored on PACS. CONTRAST TYPE AND DOSE: 10 mL Prohance. RENAL FUNCTION: Not indicated. ACR Type II contrast agent associated with few, if any, unconfounded cases of NSF LIMITATIONS: None. FINDINGS: ANATOMY: No anomalies. Normal vascular flow voids. Pituitary fossa normal. CSF SPACES: Normal in size and contour. No hemorrhage. There is hyperostosis along the inner table o f the calvarium, as well as along dura along the tentorial reflections near the internal auditory can als bilaterally. This is seen as spotty dural increased T1 signal on precontrast images 7 through 11 . CEREBRUM: Sulci and gyri normal in size and contour. Normal white matter signal on FLAIR imaging. No evidence of hemorrhage, mass, or extraaxial fluid collection. No abnormal enhancement post contrast. POSTERIOR FOSSA: No signal alteration. No hemorrhage. No edema, masses, or mass effect. Internal shi tory canals, cerebellopontine angles, mastoids normal. No enhancing lesions. No abnormal enhancement post contrast. DIFFUSION IMAGING: Negative for acute or subacute infarction. ORBITS: No masses. Globes normal. PARANASAL SINUSES: Mucous membrane thickening bilateral ethmoid air cells and maxillary sinuses. Flu id left frontal sinus. [place] MRA: No [place] stenosis, vascular malformation, or aneurysm. IMPRESSION: No MR evidence of acute infarct. No MR findings worrisome for intracranial metastatic Left frontal and bilateral ethmoid sinusitis Unremarkable [place] MRA EVIDENCE OF ACUTE STROKE: NO. TECHNICAL DOCUMENTATION: JOB ID: [id number] [employer]- All Rights Reserved Reading location - IP/workstation name: [id number]
--- NOTE | 2020-07-26 15:49 | RADIOLOGY REPORT (SQ) ---
EXAM DESCRIPTION: MRI HEAD COMBO; MRA HEAD WITHOUT IMAGES COMPLETED DATE/TIME: 07/26/2020 1:59 pm REASON FOR STUDY: ams; ams/breast cancer COMPARISON: CT brain 07/26/2020 TECHNIQUE: Multiplanar imaging includes noncontrasted T1, T2, FLAIR, diffusion with ADC map and post gadolinium contrast T1 sequences. MRA exam [place] was performed with 3D [id number] acquisition. Source data maximum inte nsity projected images were reviewed. Images stored on PACS. CONTRAST TYPE AND DOSE: 10 mL Prohance. RENAL FUNCTION: Not indicated. ACR Type II contrast agent associated with few, if any, unconfounded cases of NSF LIMITATIONS: None. FINDINGS: ANATOMY: No anomalies. Normal vascular flow voids. Pituitary fossa normal. CSF SPACES: Normal in size and contour. No hemorrhage. There is hyperostosis along the inner table o f the calvarium, as well as along dura along the tentorial reflections near the internal auditory can als bilaterally. This is seen as spotty dural increased T1 signal on precontrast images 7 through 11 . CEREBRUM: Sulci and gyri normal in size and contour. Normal white matter signal on FLAIR imaging. No evidence of hemorrhage, mass, or extraaxial fluid collection. No abnormal enhancement post contrast. POSTERIOR FOSSA: No signal alteration. No hemorrhage. No edema, masses, or mass effect. Internal shi tory canals, cerebellopontine angles, mastoids normal. No enhancing lesions. No abnormal enhancement post contrast. DIFFUSION IMAGING: Negative for acute or subacute infarction. ORBITS: No masses. Globes normal. PARANASAL SINUSES: Mucous membrane thickening bilateral ethmoid air cells and maxillary sinuses. Flu id left frontal sinus. [place] MRA: No [place] stenosis, vascular malformation, or aneurysm. IMPRESSION: No MR evidence of acute infarct. No MR findings worrisome for intracranial metastatic Left frontal and bilateral ethmoid sinusitis Unremarkable [place] MRA EVIDENCE OF ACUTE STROKE: NO. TECHNICAL DOCUMENTATION: JOB ID: [id number] [employer]- All Rights Reserved Reading location - IP/workstation name: [email or web address]
[2020-07-26] MEDS: ATORVASTATIN CALCIUM 80 MG TABLET PO SCH (21:01)
[2020-07-26] MEDS ORDERED: ARIPIPRAZOLE 5 MG TABLET PO SCH (22:00)
--- NOTE | 2020-07-26 23:25 | RADIOLOGY REPORT (SQ) ---
CT CHEST WITHOUT INTRAVENOUS CONTRAST: 07/26/2020 10:19 PM CDT HISTORY: 64-year old patient with concern for pulmonary nodule. COMPARISON: CT the chest from 09/04/2018 TECHNIQUE: Serial 3 mm axial images were obtained from above the thoracic inlet to the upper abdomen without intravenous contrast administered. Sagittal and coronal reconstructions were also obtained and reviewed. This exam was performed according to our departmental dose-optimization program, which includes automated exposure control, adjustment of the mA and/or KV according to the patient's size and/or use of iterative reconstruction technique. FINDINGS: Both lobes of the thyroid appear homogenous with no suspicious nodules identified. The thoracic aorta is normal in size. The main pulmonary artery is within normal limits. The heart is enlarged. There is no evidence of a pericardial effusion. Coronary artery calcifications are seen. A left internal jugular Neojrf-n-Fcei catheter tip projects near the mid SVC. There are bibasilar airspace opacities, right greater than left. There are trace bilateral pleural effusions present. There is no evidence of a pneumothorax. The central tracheobronchial tree is patent. No suspicious lung nodules are identified. No significant supraclavicular, axillary, or mediastinal lymphadenopathy is identified. Evaluation of the upper abdomen is limited by the lack of intravenous contrast. No gross abnormality seen at the upper abdomen. There are several remote left-sided rib fractures. There are several remote left-sided rib fractures present anteriorly and laterally. There are also several remote right-sided rib fractures present. Degenerative changes are seen at the shoulder joint and the thoracic spine. There acute posterior lateral right fourth through sixth rib fractures present. There are sclerotic and lytic changes within the visualized ribs. There are sclerotic areas level the vertebral bodies including the seventh through 12th ribs. IMPRESSION: There are trace pleural effusions with overlying airspace opacities which may reflect edema or contusion. There are several sclerotic/lucent areas within the ribs and vertebral bodies. This can be seen with malignancy. There several bilateral remote and recent right-sided rib fractures present.
[2020-07-27 05:51] LABS: ABSOLUTE LYMPHOCYTES (AUTO) 0.5 10^3/uL (0.5-4.7); ABSOLUTE MONOCYTES (AUTO) 0.3 10^3/uL (0.1-1.4); ABSOLUTE NEUT (AUTO) 3.2 10^3/uL (1.7-8.2); BASOPHILS % (AUTO) 0.3 % (0-2); HEMATOCRIT 25.9 % (36.0-47.0); LYMPHOCYTES % (AUTO) 13.2 % (13-45); MEAN CORPUSCULAR HEMOGLOBIN 36.1 pg (27.0-33.4); MEAN CORPUSCULAR VOLUME 103 fl (80-97); MONOCYTES % (AUTO) 7.4 % (3-13); PLATELET COUNT 127 10^3/uL (150-450); RED CELL DISTRIBUTION WIDTH 17.9 % (11.5-14.0); SEGMENTED NEUTROPHILS % (AUTO) 78.1 % (42-78); TOTAL CELLS COUNTED % (AUTO) 100 %; WHITE BLOOD COUNT 4.1 10^3/uL (4.0-10.5)
[2020-07-27 06:53] LABS: ANION GAP 7 (5-19); BLOOD UREA NITROGEN 23 mg/dL (7-20); CALCIUM 8.3 mg/dL (8.4-10.2); CARBON DIOXIDE 27 mmol/L (22-30); CHLORIDE 101 mmol/L (98-107); GLUCOSE 191 mg/dL (75-110); POTASSIUM 3.8 mmol/L (3.6-5.0)
[2020-07-27] MEDS ORDERED: INFLUENZA QUAD (6MOS+) 2020-21 VAC 0.5 ML SYR IM ONE (08:00)
[2020-07-27] MEDS: FAMOTIDINE INJ/PF 20 MG/2 ML SDV IV SCH ×2 (09:33→21:03)
[2020-07-27] MEDS: CEFEPIME 1 GM/D5W RTU 1 GM/50 ML RTUPB IV SCH ×2 (09:33→21:03)
--- NOTE | 2020-07-27 10:17 | PDOC PROGRESS REPORT ---
Subjective Progress Note for:: 07/27/20 Subjective:: Patient is feeling much better Patient is alert awake oriented x3 today Patient's blood sugar is much better Patient MRI and MRA of the head was negative for any acute finding Patient blood culture is positive Patient is currently on IV cefepime Denied any chest pain no short of breath Reason For Visit: HYPOGLYCEMIA Physical Exam Vital Signs: Temp Pulse Resp BP Pulse Ox 98.4 F 108 H 12 146/89 H 97 07/27/20 08:00 07/27/20 07:07 07/27/20 07:07 07/27/20 07:07 07/27/20 07:07 Intake & Output 07/26/20 07/27/20 07/28/20 06:59 06:59 06:59 Intake Total 233 1640 Output Total 1100 2950 Balance -867 -1310 Weight 66 kg 71.6 kg General appearance: PRESENT: no acute distress, well-developed, well-nourished Head exam: PRESENT: atraumatic, normocephalic Eye exam: PRESENT: conjunctiva pink, EOMI, PERRLA. ABSENT: scleral icterus Ear exam: PRESENT: normal external ear exam Mouth exam: PRESENT: moist, tongue midline Neck exam: PRESENT: full ROM. ABSENT: carotid bruit, JVD, lymphadenopathy, thyromegaly Respiratory exam: PRESENT: clear to auscultation [place] Cardiovascular exam: PRESENT: RRR. ABSENT: diastolic murmur, rubs, systolic murmur Vascular exam: PRESENT: normal capillary refill GI/Abdominal exam: PRESENT: normal bowel sounds, soft. ABSENT: distended, guarding, mass, organolmegaly, rebound, tenderness Rectal exam: PRESENT: deferred Neurological exam: PRESENT: alert, awake, oriented to person, oriented to place, oriented to time, oriented to situation, CN II-XII grossly intact. ABSENT: motor sensory deficit Psychiatric exam: PRESENT: appropriate affect, normal mood. ABSENT: homicidal ideation, suicidal ideation Skin exam: PRESENT: dry, intact, warm. ABSENT: cyanosis, rash Results Laboratory Results: 07/27/20 05:05 07/27/20 05:05 07/26/20 07/26/20 07/26/20 09:50 10:55 10:55 WBC 3.7 L RBC 2.51 L Hgb 9.1 L Hct 26.1 L MCV 104 H MCH 36.3 H MCHC 34.9 RDW 17.5 H Plt Count 131 L Seg Neutrophils % 77.9 Carbonic Acid 1.34 HCO3/H2CO3 Ratio 20:1 ABG pH 7.41 ABG pCO2 44.6 ABG pO2 138.5 H ABG HCO3 27.3 H ABG O2 Saturation 98.8 H ABG Base Excess 2.3 FiO2 2L Sodium Potassium Chloride Carbon Dioxide Anion Gap BUN Creatinine Est GFR ( Amer) Glucose Lactic Acid 1.1 Calcium Ammonia 07/26/20 07/26/20 07/27/20 10:55 10:55 05:05 WBC 4.1 RBC 2.50 L Hgb 9.0 L Hct 25.9 L MCV 103 H MCH 36.1 H MCHC 35.0 RDW 17.9 H Plt Count 127 L Seg Neutrophils % 78.1 H Carbonic Acid HCO3/H2CO3 Ratio ABG pH ABG pCO2 ABG pO2 ABG HCO3 ABG O2 Saturation ABG Base Excess FiO2 Sodium 135.0 L Potassium 3.9 Chloride 99 Carbon Dioxide 28 Anion Gap 8 BUN 39 H Creatinine 1.02 Est GFR ( Amer) > 60 Glucose 167 H Lactic Acid Calcium 8.8 Ammonia < 8.7 L 07/27/20 05:05 WBC RBC Hgb Hct MCV MCH MCHC RDW Plt Count Seg Neutrophils % Carbonic Acid HCO3/H2CO3 Ratio ABG pH ABG pCO2 ABG pO2 ABG HCO3 ABG O2 Saturation ABG Base Excess FiO2 Sodium 134.5 L Potassium 3.8 Chloride 101 Carbon Dioxide 27 Anion Gap 7 BUN 23 H Creatinine 0.71 Est GFR ( Amer) > 60 Glucose 191 H Lactic Acid Calcium 8.3 L Ammonia 07/26/20 05:23 Blood Blood Culture (PCR) - Final Staphylococcus Species 07/26/20 01:55 Troponin I 0.012 Impressions: Brain MRI with MRA 07/26/20 00:00 IMPRESSION: No MR evidence of acute infarct. No MR findings worrisome for intracranial metastatic Left frontal and bilateral ethmoid sinusitis Unremarkable [place] MRA EVIDENCE OF ACUTE STROKE: NO. Cervical Spine CT 07/26/20 00:00 IMPRESSION: There are no findings to suggest an acute fracture or subluxation within the cervical spine. Chest CT 07/26/20 00:00 IMPRESSION: There are trace pleural effusions with overlying airspace opacities which may reflect edema or contusion. There are several sclerotic/lucent areas within the ribs and vertebral bodies. This can be seen with malignancy. There several bilateral remote and recent right-sided rib fractures present. Head CT 07/26/20 00:00 IMPRESSION: 1. No acute intracranial hemorrhage is seen. 2. Mild cerebral atrophy and periventricular white matter changes are seen. Head MRI 07/26/20 00:00 IMPRESSION: No MR evidence of acute infarct. No MR findings worrisome for intracranial metastatic Left frontal and bilateral ethmoid sinusitis Unremarkable [place] MRA EVIDENCE OF ACUTE STROKE: NO. Assessment & Plan - Diagnosis (1) Acute encephalopathy Is this a current diagnosis for this admission?: Yes (2) Altered mental status Qualifiers: Altered mental status type: unspecified Qualified Code(s): R41.82 - Altered mental status, unspecified Is this a current diagnosis for this admission?: Yes (3) Hypoglycemia Is this a current diagnosis for this admission?: Yes (4) Malignant neoplasm of right breast Qualifiers: Estrogen receptor status: unspecified Patient sex: female Is this a current diagnosis for this admission?: Yes (5) Schizophrenia Qualifiers: Schizophrenia type: unspecified Qualified Code(s): F20.9 - Schizophrenia, unspecified Is this a current diagnosis for this admission?: Yes (6) Sepsis Qualifiers: Sepsis type: sepsis due to unspecified organism Severe sepsis shock status: without septic shock Is this a current diagnosis for this admission?: Yes (7) Pneumonia Qualifiers: Pneumonia type: due to unspecified organism Lung location: unspecified part of lung Is this a current diagnosis for this admission?: Yes - Time Time Spent with patient: 25-34 minutes Level of Care: IMCU Medications reviewed and adjusted accordingly: Yes Anticipated discharge: Home with Homehealth Anticipated DC Timeframe: within 48 hours - Plan Summary Plan Summary: Continues to IV antibiotic Continues to D5 one half normal saline Continues to monitor The patient is to remain alert awake oriented x3 like this resume the psych medications from tomorrow
[2020-07-27] MEDS: DEXTROSE 5%-1/2 NORMAL SALINE 1,000 ML IV PRN ×2 (10:34→20:42)
[2020-07-27] MEDS: DOCUSATE SODIUM 100 MG CAPSULE PO SCH (14:10)
[2020-07-27] MEDS: ATORVASTATIN CALCIUM 80 MG TABLET PO SCH (21:03)
[2020-07-28 06:04] LABS: ABSOLUTE LYMPHOCYTES (AUTO) 0.6 10^3/uL (0.5-4.7); ABSOLUTE MONOCYTES (AUTO) 0.3 10^3/uL (0.1-1.4); ABSOLUTE NEUT (AUTO) 2.2 10^3/uL (1.7-8.2); BASOPHILS % (AUTO) 0.8 % (0-2); EOSINOPHILS % (AUTO) 1.3 % (0-6); HEMATOCRIT 25.1 % (36.0-47.0); HEMOGLOBIN 8.8 g/dL (12.0-15.5); LYMPHOCYTES % (AUTO) 18.3 % (13-45); MEAN CORPUSCULAR HEMOGLOBIN 36.3 pg (27.0-33.4); MEAN CORPUSCULAR HGB CONC 35.1 g/dL (32.0-36.0); MEAN CORPUSCULAR VOLUME 103 fl (80-97); MONOCYTES % (AUTO) 10.5 % (3-13); PLATELET COUNT 118 10^3/uL (150-450); RED BLOOD COUNT 2.43 10^6/uL (3.72-5.28); RED CELL DISTRIBUTION WIDTH 17.3 % (11.5-14.0); SEGMENTED NEUTROPHILS % (AUTO) 69.1 % (42-78); TOTAL CELLS COUNTED % (AUTO) 100 %; WHITE BLOOD COUNT 3.1 10^3/uL (4.0-10.5)
[2020-07-28] MEDS: DEXTROSE 5%-1/2 NORMAL SALINE 1,000 ML IV PRN ×2 (06:14→21:25)
[2020-07-28 06:35] LABS: ANION GAP 7 (5-19); BLOOD UREA NITROGEN 11 mg/dL (7-20); CARBON DIOXIDE 29 mmol/L (22-30); CHLORIDE 102 mmol/L (98-107); GLUCOSE 140 mg/dL (75-110); POTASSIUM 3.5 mmol/L (3.6-5.0)
--- NOTE | 2020-07-28 07:57 | PDOC PROGRESS REPORT ---
Subjective Progress Note for:: 07/28/20 Subjective:: Patient now awake. She will answer Y/N questions appropriately, but does not have much more to say. Nurses report psychosis and hallucinations last night. They are also concerned about her care at home. It appears she is at home alone most of the time while son is working. She was still taking Glucophage for several days without eating. She also has staph bacteremia and antibiotics have been continued. Unclear at this time if this is a contaminant or not. Reason For Visit: HYPOGLYCEMIA Physical Exam Vital Signs: Temp Pulse Resp BP Pulse Ox 97.5 F 91 18 156/70 H 99 07/28/20 03:49 07/28/20 03:49 07/28/20 03:49 07/28/20 03:49 07/28/20 00:12 Intake & Output 07/27/20 07/28/20 07/29/20 06:59 06:59 06:59 Intake Total 1640 2673 Output Total 2950 3950 Balance -1310 -1277 Weight 71.6 kg 72.7 kg General appearance: PRESENT: no acute distress Head exam: PRESENT: normocephalic Eye exam: PRESENT: EOMI Mouth exam: PRESENT: moist Respiratory exam: PRESENT: unlabored Extremities exam: ABSENT: pedal edema Neurological exam: PRESENT: alert, awake. ABSENT: oriented to person, oriented to place, oriented to time, oriented to situation Psychiatric exam: PRESENT: flat affect Skin exam: PRESENT: normal color Results Laboratory Results: 07/28/20 05:05 07/28/20 05:05 07/28/20 07/28/20 05:05 05:05 WBC 3.1 L RBC 2.43 L Hgb 8.8 L Hct 25.1 L MCV 103 H MCH 36.3 H MCHC 35.1 RDW 17.3 H Plt Count 118 L Seg Neutrophils % 69.1 Sodium 137.5 Potassium 3.5 L Chloride 102 Carbon Dioxide 29 Anion Gap 7 BUN 11 Creatinine 0.61 Est GFR ( Amer) > 60 Glucose 140 H Calcium 8.0 L 07/26/20 05:23 Blood Blood Culture (PCR) - Final Staphylococcus Species 07/26/20 01:55 Troponin I 0.012 Impressions: Brain MRI with MRA 07/26/20 00:00 IMPRESSION: No MR evidence of acute infarct. No MR findings worrisome for intracranial metastatic Left frontal and bilateral ethmoid sinusitis Unremarkable [place] MRA EVIDENCE OF ACUTE STROKE: NO. Cervical Spine CT 07/26/20 00:00 IMPRESSION: There are no findings to suggest an acute fracture or subluxation within the cervical spine. Chest CT 07/26/20 00:00 IMPRESSION: There are trace pleural effusions with overlying airspace opacities which may reflect edema or contusion. There are several sclerotic/lucent areas within the ribs and vertebral bodies. This can be seen with malignancy. There several bilateral remote and recent right-sided rib fractures present. Head CT 07/26/20 00:00 IMPRESSION: 1. No acute intracranial hemorrhage is seen. 2. Mild cerebral atrophy and periventricular white matter changes are seen. Head MRI 07/26/20 00:00 IMPRESSION: No MR evidence of acute infarct. No MR findings worrisome for intracranial metastatic Left frontal and bilateral ethmoid sinusitis Unremarkable [place] MRA EVIDENCE OF ACUTE STROKE: NO. Assessment & Plan - Diagnosis (1) Acute encephalopathy Is this a current diagnosis for this admission?: Yes Plan: Now resolving. May be medication related. Hypoglycemia on admission. (2) Malignant neoplasm of right breast Qualifiers: Estrogen receptor status: unspecified Patient sex: female Is this a current diagnosis for this admission?: Yes Plan: Progressive, but MRI brain was negative for mets. All treatment for the breast cancer is currently on hold. Further discussions with Dr. García as outpatient as to if these should be resumed. (3) Schizophrenia Qualifiers: Schizophrenia type: unspecified Qualified Code(s): F20.9 - Schizophrenia, unspecified Is this a current diagnosis for this admission?: Yes Plan: On medications. - Time Time Spent with patient: 15-24 minutes
[2020-07-28] MEDS: CEFEPIME 1 GM/D5W RTU 1 GM/50 ML RTUPB IV SCH ×2 (09:14→21:23)
[2020-07-28] MEDS: FAMOTIDINE INJ/PF 20 MG/2 ML SDV IV SCH ×2 (09:14→21:23)
[2020-07-28] MEDS: DOCUSATE SODIUM 100 MG CAPSULE PO SCH (09:14)
[2020-07-28] MEDS: ATORVASTATIN CALCIUM 80 MG TABLET PO SCH (21:23)
[2020-07-28] MEDS ORDERED: DEXTROSE 40% GEL 15 GM TUBE PO PRN ×2 (21:42)
[2020-07-28] MEDS ORDERED: GLUCAGON,HUMAN RECOMB 1 MG INJ IM PRN (21:42)
[2020-07-28] MEDS ORDERED: DEXTROSE 50%-WATER 25 GM/50 ML DISP.SYRIN IV PRN ×2 (21:42)
--- NOTE | 2020-07-28 21:50 | PDOC PROGRESS REPORT ---
Subjective Progress Note for:: 07/28/20 Subjective:: Patient seen by bedside, she was admitted about a week and when she presented with altered mental status, metabolic encephalopathy, due to combination of hypoglycemia and marijuana use. MRI brain was obtained which was negative for any acute pathology. Patient seen by the bedside she is alert engaging, she is presently on IV antibiotic, 5% dextrose, this to be discontinued, there is no evidence of infection Reason For Visit: HYPOGLYCEMIA Physical Exam Vital Signs: Temp Pulse Resp BP Pulse Ox 98.4 F 100 20 172/89 H 100 07/28/20 19:44 07/28/20 19:44 07/28/20 19:44 07/28/20 19:44 07/28/20 18:13 Intake & Output 07/27/20 07/28/20 07/29/20 06:59 06:59 06:59 Intake Total 1640 2673 1750 Output Total 2950 3950 1200 Balance -1310 -1277 550 Weight 71.6 kg 72.7 kg General appearance: PRESENT: no acute distress Eye exam: PRESENT: PERRLA Respiratory exam: PRESENT: clear to auscultation [place] Cardiovascular exam: PRESENT: +S1, +S2 GI/Abdominal exam: PRESENT: soft Neurological exam: PRESENT: alert Results Laboratory Results: 07/28/20 05:05 07/28/20 05:05 07/28/20 07/28/20 05:05 05:05 WBC 3.1 L RBC 2.43 L Hgb 8.8 L Hct 25.1 L MCV 103 H MCH 36.3 H MCHC 35.1 RDW 17.3 H Plt Count 118 L Seg Neutrophils % 69.1 Sodium 137.5 Potassium 3.5 L Chloride 102 Carbon Dioxide 29 Anion Gap 7 BUN 11 Creatinine 0.61 Est GFR ( Amer) > 60 Glucose 140 H Calcium 8.0 L 07/26/20 05:23 Blood Blood Culture (PCR) - Final Staphylococcus Species 07/26/20 02:18 Sigala Catheter Urine Culture - Final NO GROWTH 2 DAYS 07/26/20 01:55 Troponin I 0.012 Impressions: Brain MRI with MRA 07/26/20 00:00 IMPRESSION: No MR evidence of acute infarct. No MR findings worrisome for intracranial metastatic Left frontal and bilateral ethmoid sinusitis Unremarkable [place] MRA EVIDENCE OF ACUTE STROKE: NO. Cervical Spine CT 07/26/20 00:00 IMPRESSION: There are no findings to suggest an acute fracture or subluxation within the cervical spine. Chest CT 07/26/20 00:00 IMPRESSION: There are trace pleural effusions with overlying airspace opacities which may reflect edema or contusion. There are several sclerotic/lucent areas within the ribs and vertebral bodies. This can be seen with malignancy. There several bilateral remote and recent right-sided rib fractures present. Head CT 07/26/20 00:00 IMPRESSION: 1. No acute intracranial hemorrhage is seen. 2. Mild cerebral atrophy and periventricular white matter changes are seen. Head MRI 07/26/20 00:00 IMPRESSION: No MR evidence of acute infarct. No MR findings worrisome for intracranial metastatic Left frontal and bilateral ethmoid sinusitis Unremarkable [place] MRA EVIDENCE OF ACUTE STROKE: NO. Assessment & Plan - Diagnosis (1) Metabolic encephalopathy Is this a current diagnosis for this admission?: Yes Plan: This most likely from the combination of hypoglycemia, marijuana use and medication (2) Hypoglycemic encephalopathy Is this a current diagnosis for this admission?: Yes Plan: Patient was on glipizide, the potential cause of hypoglycemia, patient no longer hypoglycemic, discontinue IV dextrose (3) Malignant neoplasm of right breast Qualifiers: Estrogen receptor status: unspecified Patient sex: female Is this a current diagnosis for this admission?: Yes Plan: Per Oncology (4) Schizophrenia Qualifiers: Schizophrenia type: unspecified Qualified Code(s): F20.9 - Schizophrenia, unspecified Is this a current diagnosis for this admission?: Yes - Time Time Spent with patient: 25-34 minutes Level of Care: IMCU Medications reviewed and adjusted accordingly: Yes Anticipated discharge: Home Anticipated DC Timeframe: within 72 hours
[2020-07-28] MEDS: INSULIN LISPRO 100 UNIT/ML 3 ML VIAL SUBCUT SCH (22:17)
[2020-07-29 06:06] LABS: ABSOLUTE LYMPHOCYTES (AUTO) 0.6 10^3/uL (0.5-4.7); ABSOLUTE MONOCYTES (AUTO) 0.4 10^3/uL (0.1-1.4); BASOPHILS % (AUTO) 0.9 % (0-2); EOSINOPHILS % (AUTO) 0.6 % (0-6); HEMATOCRIT 27.1 % (36.0-47.0); HEMOGLOBIN 9.5 g/dL (12.0-15.5); LYMPHOCYTES % (AUTO) 19.3 % (13-45); MEAN CORPUSCULAR HEMOGLOBIN 35.9 pg (27.0-33.4); MEAN CORPUSCULAR HGB CONC 35.2 g/dL (32.0-36.0); MEAN CORPUSCULAR VOLUME 102 fl (80-97); MONOCYTES % (AUTO) 14.3 % (3-13); PLATELET COUNT 115 10^3/uL (150-450); RED BLOOD COUNT 2.65 10^6/uL (3.72-5.28); RED CELL DISTRIBUTION WIDTH 16.9 % (11.5-14.0); SEGMENTED NEUTROPHILS % (AUTO) 64.9 % (42-78); TOTAL CELLS COUNTED % (AUTO) 100 %; WHITE BLOOD COUNT 3.1 10^3/uL (4.0-10.5)
[2020-07-29 06:21] LABS: ANION GAP 7 (5-19); BLOOD UREA NITROGEN 10 mg/dL (7-20); CALCIUM 7.9 mg/dL (8.4-10.2); CARBON DIOXIDE 28 mmol/L (22-30); CHLORIDE 101 mmol/L (98-107); GLUCOSE 142 mg/dL (75-110); POTASSIUM 3.6 mmol/L (3.6-5.0)
--- NOTE | 2020-07-29 08:07 | PDOC PROGRESS REPORT ---
Subjective Progress Note for:: 07/29/20 Subjective:: She seems still confused this morning, not very responsive to me but does open her eyes and follow some minimal commands. I spoke with her [id number] who has been her primary caregiver, she spoke with her last night and felt like she was doing better. It seems that primary team is considering placement in a rehab facility, this may be best for her but daughter feels that patient may be able to come home. I have asked lavjyenj-[id number] to sit with the patient this afternoon and have nursing get her up to see if she could appropriately at least toilet herself. Reason For Visit: HYPOGLYCEMIA Physical Exam Vital Signs: Temp Pulse Resp BP Pulse Ox 98.6 F 89 18 151/90 H 97 07/29/20 04:59 07/29/20 07:00 07/29/20 04:59 07/29/20 04:59 07/29/20 04:59 Intake & Output 07/28/20 07/29/20 07/30/20 06:59 06:59 06:59 Intake Total 2673 1930 Output Total 3950 2300 Balance -1277 -370 Weight 72.7 kg 69 kg General appearance: PRESENT: no acute distress, well-developed, well-nourished Head exam: PRESENT: atraumatic, normocephalic Eye exam: PRESENT: conjunctiva pink, EOMI, PERRLA. ABSENT: scleral icterus Ear exam: PRESENT: normal external ear exam Mouth exam: PRESENT: moist, tongue midline Neck exam: ABSENT: carotid bruit, JVD, lymphadenopathy, thyromegaly Respiratory exam: PRESENT: clear to auscultation [place]. ABSENT: rales, rhonchi, wheezes Cardiovascular exam: PRESENT: RRR. ABSENT: diastolic murmur, rubs, systolic [place] Pulses: PRESENT: normal dorsalis pedis pul Vascular exam: PRESENT: normal capillary refill GI/Abdominal exam: PRESENT: normal bowel sounds, soft. ABSENT: distended, guarding, mass, organolmegaly, rebound, tenderness Rectal exam: PRESENT: deferred Extremities exam: PRESENT: full ROM. ABSENT: calf tenderness, clubbing, pedal edema Neurological exam: PRESENT: alert, awake, oriented to person, oriented to place, oriented to time, oriented to situation, CN II-XII grossly intact. ABSENT: motor sensory deficit Psychiatric exam: PRESENT: appropriate affect, normal mood. ABSENT: homicidal ideation, suicidal ideation Skin exam: PRESENT: dry, intact, warm. ABSENT: cyanosis, rash Results Laboratory Results: 07/29/20 05:34 07/29/20 05:34 07/29/20 07/29/20 05:34 05:34 WBC 3.1 L RBC 2.65 L Hgb 9.5 L Hct 27.1 L MCV 102 H MCH 35.9 H MCHC 35.2 RDW 16.9 H Plt Count 115 L Seg Neutrophils % 64.9 Sodium 136.1 L Potassium 3.6 Chloride 101 Carbon Dioxide 28 Anion Gap 7 BUN 10 Creatinine 0.52 Est GFR ( Amer) > 60 Glucose 142 H Calcium 7.9 L 07/26/20 05:23 Blood Blood Culture (PCR) - Final Staphylococcus Species 07/26/20 02:18 Sigala Catheter Urine Culture - Final NO GROWTH 2 DAYS 07/26/20 01:55 Troponin I 0.012 Impressions: Brain MRI with MRA 07/26/20 00:00 IMPRESSION: No MR evidence of acute infarct. No MR findings worrisome for intracranial metastatic Left frontal and bilateral ethmoid sinusitis Unremarkable [place] of [place] MRA EVIDENCE OF ACUTE STROKE: NO. Cervical Spine CT 07/26/20 00:00 IMPRESSION: There are no findings to suggest an acute fracture or subluxation within the cervical spine. Chest CT 07/26/20 00:00 IMPRESSION: There are trace pleural effusions with overlying airspace opacities which may reflect edema or contusion. There are several sclerotic/lucent areas within the ribs and vertebral bodies. This can be seen with malignancy. There several bilateral remote and recent right-sided rib fractures present. Head CT 07/26/20 00:00 IMPRESSION: 1. No acute intracranial hemorrhage is seen. 2. Mild cerebral atrophy and periventricular white matter changes are seen. Head MRI 07/26/20 00:00 IMPRESSION: No MR evidence of acute infarct. No MR findings worrisome for intracranial metastatic Left frontal and bilateral ethmoid sinusitis Unremarkable [place] of [place] MRA EVIDENCE OF ACUTE STROKE: NO. Assessment & Plan - Diagnosis (1) Altered mental status Qualifiers: Altered mental status type: delirium Qualified Code(s): R41.0 - Disorientation, unspecified Is this a current diagnosis for this admission?: Yes Plan: Probably multifactorial, patient does have level of dementia. Some part is poor p.o. intake and hypoglycemia. Continue current management per primary team. (2) Malignant neoplasm of right breast Qualifiers: Breast location: upper outer quadrant of breast Estrogen receptor status: positive Patient sex: female Qualified Code(s): C50.411 - Malignant neoplasm of upper-outer quadrant of right female breast; Z17.0 - Estrogen receptor positive status [ER+] Is this a current diagnosis for this admission?: Yes Plan: Stage IV breast cancer with recent progressive disease with new bone metastasis. We recently started her on Faslodex and she received that shot last week. Unsure if that had anything to do with the presentation but unlikely. - Time Time Spent with patient: 35 or more minutes - Inpatient Certification Based on my medical assessment, after consideration of the patient's comorbidities, presenting symptoms, or acuity I expect that the services needed warrant INPATIENT care.: Yes I certify that my determination is in accordance with my understanding of Medicare's requirements for reasonable and necessary INPATIENT services [42 CFR 412.3e].: Yes Medical Necessity: Risk of Complication if Not Cared For in Hospital
[2020-07-29] MEDS: INSULIN LISPRO 100 UNIT/ML 3 ML VIAL SUBCUT SCH ×4 (08:58→21:33)
[2020-07-29] MEDS: FAMOTIDINE INJ/PF 20 MG/2 ML SDV IV SCH ×2 (09:00→21:34)
[2020-07-29] MEDS: DOCUSATE SODIUM 100 MG CAPSULE PO SCH (09:03)
[2020-07-29] MEDS: ACETAMINOPHEN 325 MG TABLET PO PRN ×3 (12:17→22:24)
[2020-07-29] MEDS: DIVALPROEX SODIUM 500 MG TAB.SR.24H PO SCH (17:31)
[2020-07-29] MEDS: DIVALPROEX SODIUM 250 MG TAB.SR.24H PO SCH (17:32)
--- NOTE | 2020-07-29 20:25 | PDOC PROGRESS REPORT ---
Subjective Progress Note for:: 07/29/20 Subjective:: Patient is alert somewhat confused, discharge planning making arrangement for placement Reason For Visit: HYPOGLYCEMIA Physical Exam Vital Signs: Temp Pulse Resp BP Pulse Ox 98.1 F 102 H 18 162/79 H 98 07/29/20 15:25 07/29/20 19:00 07/29/20 15:25 07/29/20 15:25 07/29/20 15:25 Intake & Output 07/28/20 07/29/20 07/30/20 06:59 06:59 06:59 Intake Total 2673 1930 594 Output Total 3950 2300 069 Balance -1821 -370 -277 Weight 72.7 kg 69 kg General appearance: PRESENT: no acute distress Eye exam: PRESENT: PERRLA Respiratory exam: PRESENT: clear to auscultation [place] Cardiovascular exam: PRESENT: +S1, +S2 GI/Abdominal exam: PRESENT: soft Neurological exam: PRESENT: alert Results Laboratory Results: 07/29/20 05:34 07/29/20 05:34 07/29/20 07/29/20 05:34 05:34 WBC 3.1 L RBC 2.65 L Hgb 9.5 L Hct 27.1 L MCV 102 H MCH 35.9 H MCHC 35.2 RDW 16.9 H Plt Count 115 L Seg Neutrophils % 64.9 Sodium 136.1 L Potassium 3.6 Chloride 101 Carbon Dioxide 28 Anion Gap 7 BUN 10 Creatinine 0.52 Est GFR ( Amer) > 60 Glucose 142 H Calcium 7.9 L 07/26/20 05:23 Blood Blood Culture (PCR) - Final Staphylococcus Species 07/26/20 05:23 Blood Blood Culture - Final Staphylococcus Hominis 07/26/20 01:55 Troponin I 0.012 Impressions: Brain MRI with MRA 07/26/20 00:00 IMPRESSION: No MR evidence of acute infarct. No MR findings worrisome for intracranial metastatic Left frontal and bilateral ethmoid sinusitis Unremarkable [place] of [place] MRA EVIDENCE OF ACUTE STROKE: NO. Cervical Spine CT 07/26/20 00:00 IMPRESSION: There are no findings to suggest an acute fracture or subluxation within the cervical spine. Chest CT 07/26/20 00:00 IMPRESSION: There are trace pleural effusions with overlying airspace opacities which may reflect edema or contusion. There are several sclerotic/lucent areas within the ribs and vertebral bodies. This can be seen with malignancy. There several bilateral remote and recent right-sided rib fractures present. Head CT 07/26/20 00:00 IMPRESSION: 1. No acute intracranial hemorrhage is seen. 2. Mild cerebral atrophy and periventricular white matter changes are seen. Head MRI 07/26/20 00:00 IMPRESSION: No MR evidence of acute infarct. No MR findings worrisome for intracranial metastatic Left frontal and bilateral ethmoid sinusitis Unremarkable [place] MRA EVIDENCE OF ACUTE STROKE: NO. Assessment & Plan - Diagnosis (1) Metabolic encephalopathy Is this a current diagnosis for this admission?: Yes (2) Hypoglycemic encephalopathy Is this a current diagnosis for this admission?: Yes (3) Malignant neoplasm of right breast Qualifiers: Breast location: upper outer quadrant of breast Estrogen receptor status: positive Patient sex: female Qualified Code(s): C50.411 - Malignant neoplasm of upper-outer quadrant of right female breast; Z17.0 - Estrogen receptor positive status [ER+] Is this a current diagnosis for this admission?: Yes (4) Schizophrenia Qualifiers: Schizophrenia type: unspecified Qualified Code(s): F20.9 - Schizophrenia, unspecified Is this a current diagnosis for this admission?: Yes - Time Time Spent with patient: 25-34 minutes Level of Care: IMCU Medications reviewed and adjusted accordingly: Yes Anticipated discharge: SNF Anticipated DC Timeframe: when bed available
[2020-07-29] MEDS: ATORVASTATIN CALCIUM 80 MG TABLET PO SCH (21:33)
[2020-07-29] MEDS: BENZTROPINE MESYLATE 1 MG TABLET PO SCH (21:33)
[2020-07-29] MEDS: ARIPIPRAZOLE 5 MG TABLET PO SCH (21:33)
--- NOTE | 2020-07-30 08:08 | PDOC PROGRESS REPORT ---
Subjective Progress Note for:: 07/30/20 Subjective:: Had a long discussion with nurse. Patient is more awake/alert this morning. She does not feel comfortable going home, feels like a rehab stay would be better for her. The patient's biologic daughter spoke with nursing and was concerned about her home arrangement. I have been talking with her son's girlfriend who has been her primary airdox fitter. Interestingly, her urine drug screen only showed marijuana, I have asked nursing to check with our office to see if we had placed her on Marinol in the past, to explain this. But of greater concern, is that it did not show the presence of opiates, we have been prescribing opiates now for her for about the last 3 years. And she has been regularly taking them as her son's girlfriend has been picking up the medication that we have been electronically prescribed. We have not allowed early fills on it. So I will need to talk to the son's girlfriend about that. But I do agree that rehab placement would be best for her. Reason For Visit: HYPOGLYCEMIA Physical Exam Vital Signs: Temp Pulse Resp BP Pulse Ox 98.1 F 93 17 152/91 H 98 07/30/20 07:54 07/30/20 07:00 07/30/20 03:15 07/30/20 03:15 07/30/20 03:15 Intake & Output 07/29/20 07/30/20 07/31/20 06:59 06:59 06:59 Intake Total 1930 1114 Output Total 2300 2050 Balance -370 -936 Weight 69 kg 67.3 kg General appearance: PRESENT: no acute distress, well-developed, well-nourished Head exam: PRESENT: atraumatic, normocephalic Eye exam: PRESENT: conjunctiva pink, EOMI, PERRLA. ABSENT: scleral icterus Ear exam: PRESENT: normal external ear exam Mouth exam: PRESENT: moist, tongue midline Neck exam: ABSENT: carotid bruit, JVD, lymphadenopathy, thyromegaly Respiratory exam: PRESENT: clear to auscultation [place]. ABSENT: rales, rhonchi, wheezes Cardiovascular exam: PRESENT: RRR. ABSENT: diastolic murmur, rubs, systolic murmur Pulses: PRESENT: normal dorsalis pedis pul Vascular exam: PRESENT: normal capillary refill GI/Abdominal exam: PRESENT: normal bowel sounds, soft. ABSENT: distended, guarding, mass, organolmegaly, rebound, tenderness Rectal exam: PRESENT: deferred Extremities exam: PRESENT: full ROM. ABSENT: calf tenderness, clubbing, pedal edema Neurological exam: PRESENT: alert, awake, oriented to person, oriented to place, oriented to time, oriented to situation, CN II-XII grossly intact. ABSENT: motor sensory deficit Psychiatric exam: PRESENT: appropriate affect, normal mood. ABSENT: homicidal ideation, suicidal ideation Skin exam: PRESENT: dry, intact, warm. ABSENT: cyanosis, rash Results Laboratory Results: 07/29/20 05:34 07/29/20 05:34 07/26/20 05:23 Blood Blood Culture (PCR) - Final Staphylococcus Species 07/26/20 05:23 Blood Blood Culture - Final Staphylococcus Hominis 07/26/20 01:55 Troponin I 0.012 Impressions: Brain MRI with MRA 07/26/20 00:00 IMPRESSION: No MR evidence of acute infarct. No MR findings worrisome for intracranial metastatic Left frontal and bilateral ethmoid sinusitis Unremarkable [place] of [place] MRA EVIDENCE OF ACUTE STROKE: NO. Cervical Spine CT 07/26/20 00:00 IMPRESSION: There are no findings to suggest an acute fracture or subluxation within the cervical spine. Chest CT 07/26/20 00:00 IMPRESSION: There are trace pleural effusions with overlying airspace opacities which may reflect edema or contusion. There are several sclerotic/lucent areas within the ribs and vertebral bodies. This can be seen with malignancy. There several bilateral remote and recent right-sided rib fractures present. Head CT 07/26/20 00:00 IMPRESSION: 1. No acute intracranial hemorrhage is seen. 2. Mild cerebral atrophy and periventricular white matter changes are seen. Head MRI 07/26/20 00:00 IMPRESSION: No MR evidence of acute infarct. No MR findings worrisome for intracranial metastatic Left frontal and bilateral ethmoid sinusitis Unremarkable [place] of [place] MRA EVIDENCE OF ACUTE STROKE: NO. Assessment & Plan - Diagnosis (1) Altered mental status Qualifiers: Altered mental status type: delirium Qualified Code(s): R41.0 - Disorientation, unspecified Is this a current diagnosis for this admission?: Yes Plan: Improved, combination of multiple issues, patient does have some element of dementia (2) Malignant neoplasm of right breast Qualifiers: Breast location: upper outer quadrant of breast Estrogen receptor status: positive Patient sex: female Qualified Code(s): C50.411 - Malignant neoplasm of upper-outer quadrant of right female breast; Z17.0 - Estrogen receptor positive status [ER+] Is this a current diagnosis for this admission?: Yes Plan: Currently on therapy but if patient does go to rehab, it would be safe to hold therapy, until patient is strong enough for discharge from rehab facility. - Time Time Spent with patient: 35 or more minutes
[2020-07-30] MEDS: BENZTROPINE MESYLATE 1 MG TABLET PO SCH ×2 (09:14→21:44)
[2020-07-30] MEDS: DOCUSATE SODIUM 100 MG CAPSULE PO SCH (09:15)
[2020-07-30] MEDS: DIVALPROEX SODIUM 500 MG TAB.SR.24H PO SCH ×2 (09:15→17:06)
[2020-07-30] MEDS: FAMOTIDINE INJ/PF 20 MG/2 ML SDV IV SCH ×2 (09:15→21:43)
[2020-07-30] MEDS: DIVALPROEX SODIUM 250 MG TAB.SR.24H PO SCH ×2 (09:15→17:06)
[2020-07-30] MEDS: INSULIN LISPRO 100 UNIT/ML 3 ML VIAL SUBCUT SCH ×4 (09:26→21:44)
[2020-07-30] MEDS: ACETAMINOPHEN 325 MG TABLET PO PRN (11:59)
--- NOTE | 2020-07-30 16:48 | PDOC PROGRESS REPORT ---
Subjective Progress Note for:: 07/30/20 Subjective:: Patient seen by the bedside, she is more coherent today, discharge planning working on placement Reason For Visit: HYPOGLYCEMIA Physical Exam Vital Signs: Temp Pulse Resp BP Pulse Ox 98.0 F 97 16 196/109 H 99 07/30/20 12:23 07/30/20 14:00 07/30/20 12:23 07/30/20 12:23 07/30/20 12:23 Intake & Output 07/29/20 07/30/20 07/31/20 06:59 06:59 06:59 Intake Total 1930 1114 1222 Output Total 2300 2050 620 Balance -370 -936 602 Weight 69 kg 67.3 kg General appearance: PRESENT: no acute distress Eye exam: PRESENT: PERRLA Respiratory exam: PRESENT: clear to auscultation [place] Cardiovascular exam: PRESENT: +S1, +S2 GI/Abdominal exam: PRESENT: soft Neurological exam: PRESENT: alert, CN II-XII grossly intact Results Laboratory Results: 07/29/20 05:34 07/29/20 05:34 07/26/20 01:55 Troponin I 0.012 Impressions: Brain MRI with MRA 07/26/20 00:00 IMPRESSION: No MR evidence of acute infarct. No MR findings worrisome for intracranial metastatic Left frontal and bilateral ethmoid sinusitis Unremarkable [place] of [place] MRA EVIDENCE OF ACUTE STROKE: NO. Cervical Spine CT 07/26/20 00:00 IMPRESSION: There are no findings to suggest an acute fracture or subluxation within the cervical spine. Chest CT 07/26/20 00:00 IMPRESSION: There are trace pleural effusions with overlying airspace opacities which may reflect edema or contusion. There are several sclerotic/lucent areas within the ribs and vertebral bodies. This can be seen with malignancy. There several bilateral remote and recent right-sided rib fractures present. Head CT 07/26/20 00:00 IMPRESSION: 1. No acute intracranial hemorrhage is seen. 2. Mild cerebral atrophy and periventricular white matter changes are seen. Head MRI 07/26/20 00:00 IMPRESSION: No MR evidence of acute infarct. No MR findings worrisome for intracranial metastatic Left frontal and bilateral ethmoid sinusitis Unremarkable [place] of [place] MRA EVIDENCE OF ACUTE STROKE: NO. Assessment & Plan - Diagnosis (1) Metabolic encephalopathy Is this a current diagnosis for this admission?: Yes Plan: Resolved (2) Hypoglycemic encephalopathy Is this a current diagnosis for this admission?: Yes Plan: Improved (3) Malignant neoplasm of right breast Qualifiers: Breast location: upper outer quadrant of breast Estrogen receptor status: positive Patient sex: female Qualified Code(s): C50.411 - Malignant neoplasm of upper-outer quadrant of right female breast; Z17.0 - Estrogen receptor positive status [ER+] Is this a current diagnosis for this admission?: Yes Plan: Currently on therapy but if patient does go to rehab, it would be safe to hold therapy, until patient is strong enough for discharge from rehab facility. (4) Schizophrenia Qualifiers: Schizophrenia type: unspecified Qualified Code(s): F20.9 - Schizophrenia, unspecified Is this a current diagnosis for this admission?: Yes - Time Time Spent with patient: 25-34 minutes Level of Care: IMCU Medications reviewed and adjusted accordingly: Yes Anticipated discharge: Home Anticipated DC Timeframe: within 48 hours
[2020-07-30] MEDS: ATORVASTATIN CALCIUM 80 MG TABLET PO SCH (21:43)
[2020-07-30] MEDS: ARIPIPRAZOLE 5 MG TABLET PO SCH (21:44)
--- NOTE | 2020-07-31 07:41 | PDOC PROGRESS REPORT ---
Subjective Progress Note for:: 07/31/20 Subjective:: No acute events overnight. Had long conversation w/ son's girlfriend who is primary caregiver. Told her that placement is best course. Until she is d/c'd from rehab, she will not receive any medication for her cancer as they maybe contributing to her issues. In addition, Dr. Alexander will be prescribing any needed pain meds while in rehab/NH setting. We will see her next as outpt once d'c'd from rehab/NH setting. Family and Dr. Swain will let need to let us know when she comes home. Reason For Visit: HYPOGLYCEMIA Physical Exam Vital Signs: Temp Pulse Resp BP Pulse Ox 97.9 F 93 16 184/96 H 98 07/31/20 04:02 07/31/20 04:02 07/31/20 04:02 07/31/20 04:02 07/31/20 04:02 Intake & Output 07/30/20 07/31/20 08/01/20 06:59 06:59 06:59 Intake Total 1114 1777 Output Total 2050 2220 Balance -936 -443 Weight 67.3 kg 68.4 kg General appearance: PRESENT: no acute distress, well-developed, well-nourished Head exam: PRESENT: atraumatic, normocephalic Eye exam: PRESENT: conjunctiva pink, EOMI, PERRLA. ABSENT: scleral icterus Ear exam: PRESENT: normal external ear exam Mouth exam: PRESENT: moist, tongue midline Neck exam: ABSENT: carotid bruit, JVD, lymphadenopathy, thyromegaly Respiratory exam: PRESENT: clear to auscultation [place]. ABSENT: rales, rhonchi, wheezes Cardiovascular exam: PRESENT: RRR. ABSENT: diastolic murmur, rubs, systolic murmur Pulses: PRESENT: normal dorsalis pedis pul Vascular exam: PRESENT: normal capillary refill GI/Abdominal exam: PRESENT: normal bowel sounds, soft. ABSENT: distended, guarding, mass, organolmegaly, rebound, tenderness Rectal exam: PRESENT: deferred Extremities exam: PRESENT: full ROM. ABSENT: calf tenderness, clubbing, pedal edema Neurological exam: PRESENT: alert, awake, oriented to person, oriented to place, oriented to time, oriented to situation, CN II-XII grossly intact. ABSENT: motor sensory deficit Psychiatric exam: PRESENT: appropriate affect, normal mood. ABSENT: homicidal ideation, suicidal ideation Skin exam: PRESENT: dry, intact, warm. ABSENT: cyanosis, rash Results Laboratory Results: 07/29/20 05:34 07/29/20 05:34 07/26/20 05:23 Blood Blood Culture - Final NO GROWTH IN 5 DAYS 07/26/20 01:55 Troponin I 0.012 Impressions: Brain MRI with MRA 07/26/20 00:00 IMPRESSION: No MR evidence of acute infarct. No MR findings worrisome for intracranial metastatic Left frontal and bilateral ethmoid sinusitis Unremarkable [place] MRA EVIDENCE OF ACUTE STROKE: NO. Cervical Spine CT 07/26/20 00:00 IMPRESSION: There are no findings to suggest an acute fracture or subluxation within the cervical spine. Chest CT 07/26/20 00:00 IMPRESSION: There are trace pleural effusions with overlying airspace opacities which may reflect edema or contusion. There are several sclerotic/lucent areas within the ribs and vertebral bodies. This can be seen with malignancy. There several bilateral remote and recent right-sided rib fractures present. Head CT 07/26/20 00:00 IMPRESSION: 1. No acute intracranial hemorrhage is seen. 2. Mild cerebral atrophy and periventricular white matter changes are seen. Head MRI 07/26/20 00:00 IMPRESSION: No MR evidence of acute infarct. No MR findings worrisome for intracranial metastatic Left frontal and bilateral ethmoid sinusitis Unremarkable [place] MRA EVIDENCE OF ACUTE STROKE: NO. Assessment & Plan - Diagnosis (1) Altered mental status Qualifiers: Altered mental status type: delirium Qualified Code(s): R41.0 - Disorientation, unspecified Is this a current diagnosis for this admission?: Yes Plan: Improved, seems at some baseline. (2) Malignant neoplasm of right breast Qualifiers: Breast location: upper outer quadrant of breast Estrogen receptor status: positive Patient sex: female Qualified Code(s): C50.411 - Malignant neoplasm of upper-outer quadrant of right female breast; Z17.0 - Estrogen receptor positive status [ER+] Is this a current diagnosis for this admission?: Yes Plan: No further cancer therapy at this point. She will be going to rehab once accepted. Will follow next as oupt - Time Time Spent with patient: 35 or more minutes - Inpatient Certification Based on my medical assessment, after consideration of the patient's comorb idities, presenting symptoms, or acuity I expect that the services needed warrant INPATIENT care.: Yes I certify that my determination is in accordance with my understanding of Medicare's requirements for reasonable and necessary INPATIENT services [42 CFR 412.3e].: Yes Medical Necessity: Risk of Complication if Not Cared For in Hospital
[2020-07-31] MEDS: INSULIN LISPRO 100 UNIT/ML 3 ML VIAL SUBCUT SCH ×4 (08:14→22:16)
[2020-07-31] MEDS: BENZTROPINE MESYLATE 1 MG TABLET PO SCH ×2 (09:52→22:14)
[2020-07-31] MEDS: DOCUSATE SODIUM 100 MG CAPSULE PO SCH (09:54)
[2020-07-31] MEDS: DIVALPROEX SODIUM 500 MG TAB.SR.24H PO SCH ×2 (09:54→17:31)
[2020-07-31] MEDS: DIVALPROEX SODIUM 250 MG TAB.SR.24H PO SCH ×2 (09:54→17:31)
[2020-07-31] MEDS: FAMOTIDINE INJ/PF 20 MG/2 ML SDV IV SCH ×2 (09:54→22:16)
[2020-07-31] MEDS: ACETAMINOPHEN 325 MG TABLET PO PRN ×2 (10:03→22:33)
--- NOTE | 2020-07-31 19:07 | PDOC PROGRESS REPORT ---
Subjective Progress Note for:: 07/31/20 Subjective:: Patient seen by the bedside, she is alert, [facility] Reason For Visit: HYPOGLYCEMIA Physical Exam Vital Signs: Temp Pulse Resp BP Pulse Ox 97.8 F 93 18 145/81 H 96 07/31/20 15:23 07/31/20 15:23 07/31/20 15:23 07/31/20 15:23 07/31/20 15:23 Intake & Output 07/30/20 07/31/20 08/01/20 06:59 06:59 06:59 Intake Total 1114 1777 1050 Output Total 0 2220 1000 Balance -186 443 50 Weight 67.3 kg 68.4 kg General appearance: PRESENT: no acute distress Eye exam: PRESENT: PERRLA Respiratory exam: PRESENT: clear to auscultation [place] Cardiovascular exam: PRESENT: +S1, +S2 GI/Abdominal exam: PRESENT: soft Neurological exam: PRESENT: alert Results Laboratory Results: 07/29/20 05:34 07/29/20 05:34 07/26/20 05:23 Blood Blood Culture - Final NO GROWTH IN 5 DAYS 07/26/20 01:55 Troponin I 0.012 Impressions: Brain MRI with MRA 07/26/20 00:00 IMPRESSION: No MR evidence of acute infarct. No MR findings worrisome for intracranial metastatic Left frontal and bilateral ethmoid sinusitis Unremarkable [place] MRA EVIDENCE OF ACUTE STROKE: NO. Cervical Spine CT 07/26/20 00:00 IMPRESSION: There are no findings to suggest an acute fracture or subluxation within the cervical spine. Chest CT 07/26/20 00:00 IMPRESSION: There are trace pleural effusions with overlying airspace opacities which may reflect edema or contusion. There are several sclerotic/lucent areas within the ribs and vertebral bodies. This can be seen with malignancy. There several bilateral remote and recent right-sided rib fractures present. Head CT 07/26/20 00:00 IMPRESSION: 1. No acute intracranial hemorrhage is seen. 2. Mild cerebral atrophy and periventricular white matter changes are seen. Head MRI 07/26/20 00:00 IMPRESSION: No MR evidence of acute infarct. No MR findings worrisome for intracranial metastatic Left frontal and bilateral ethmoid sinusitis Unremarkable [place] MRA EVIDENCE OF ACUTE STROKE: NO. Assessment & Plan - Diagnosis (1) Metabolic encephalopathy Is this a current diagnosis for this admission?: Yes Plan: Resolved (2) Hypoglycemic encephalopathy Is this a current diagnosis for this admission?: Yes (3) Malignant neoplasm of right breast Qualifiers: Breast location: upper outer quadrant of breast Estrogen receptor status: positive Patient sex: female Qualified Code(s): C50.411 - Malignant neoplasm of upper-outer quadrant of right female breast; Z17.0 - Estrogen receptor positive status [ER+] Is this a current diagnosis for this admission?: Yes (4) Schizophrenia Qualifiers: Schizophrenia type: unspecified Qualified Code(s): F20.9 - Schizophrenia, unspecified Is this a current diagnosis for this admission?: Yes - Time Time Spent with patient: 25-34 minutes Level of Care: IMCU Medications reviewed and adjusted accordingly: Yes Anticipated discharge: SNF Anticipated DC Timeframe: within 48 hours - Inpatient Certification Based on my medical assessment, after consideration of the patient's comorbidities, presenting symptoms, or acuity I expect that the services needed warrant INPATIENT care.: Yes I certify that my determination is in accordance with my understanding of Medicare's requirements for reasonable and necessary INPATIENT services [42 CFR 412.3e].: Yes
[2020-07-31] MEDS: ATORVASTATIN CALCIUM 80 MG TABLET PO SCH (22:14)
[2020-07-31] MEDS: ARIPIPRAZOLE 5 MG TABLET PO SCH (22:14)
[2020-08-01] MEDS: INSULIN LISPRO 100 UNIT/ML 3 ML VIAL SUBCUT SCH ×4 (08:56→21:35)
[2020-08-01] MEDS: DOCUSATE SODIUM 100 MG CAPSULE PO SCH (09:57)
[2020-08-01] MEDS: DIVALPROEX SODIUM 500 MG TAB.SR.24H PO SCH ×2 (09:57→17:31)
[2020-08-01] MEDS: DIVALPROEX SODIUM 250 MG TAB.SR.24H PO SCH ×2 (09:57→17:30)
[2020-08-01] MEDS: BENZTROPINE MESYLATE 1 MG TABLET PO SCH ×2 (09:58→21:30)
[2020-08-01] MEDS: FAMOTIDINE INJ/PF 20 MG/2 ML SDV IV SCH ×2 (11:50→21:30)
--- NOTE | 2020-08-01 19:57 | PDOC PROGRESS REPORT ---
Subjective Progress Note for:: 08/01/20 Subjective:: Patient seen by the bedside, there is no new complaints, [facility] Reason For Visit: HYPOGLYCEMIA Physical Exam Vital Signs: Temp Pulse Resp BP Pulse Ox 97.6 F 92 18 152/82 H 95 08/01/20 17:00 08/01/20 19:00 08/01/20 17:00 08/01/20 17:00 08/01/20 17:00 Intake & Output 07/31/20 08/01/20 08/02/20 06:59 06:59 06:59 Intake Total 1777 1050 924 Output Total 2220 1745 855 Balance -443 695 69 Weight 68.4 kg 70.1 kg 70.1 kg General appearance: PRESENT: no acute distress Eye exam: PRESENT: PERRLA Respiratory exam: PRESENT: clear to auscultation [place] Cardiovascular exam: PRESENT: +S1, +S2 GI/Abdominal exam: PRESENT: soft Neurological exam: PRESENT: alert Results Laboratory Results: 07/29/20 05:34 07/29/20 05:34 07/26/20 01:55 Troponin I 0.012 Impressions: Brain MRI with MRA 07/26/20 00:00 IMPRESSION: No MR evidence of acute infarct. No MR findings worrisome for intracranial metastatic Left frontal and bilateral ethmoid sinusitis Unremarkable [place] MRA EVIDENCE OF ACUTE STROKE: NO. Cervical Spine CT 07/26/20 00:00 IMPRESSION: There are no findings to suggest an acute fracture or subluxation within the cervical spine. Chest CT 07/26/20 00:00 IMPRESSION: There are trace pleural effusions with overlying airspace opacities which may reflect edema or contusion. There are several sclerotic/lucent areas within the ribs and vertebral bodies. This can be seen with malignancy. There several bilateral remote and recent right-sided rib fractures present. Head CT 07/26/20 00:00 IMPRESSION: 1. No acute intracranial hemorrhage is seen. 2. Mild cerebral atrophy and periventricular white matter changes are seen. Head MRI 07/26/20 00:00 IMPRESSION: No MR evidence of acute infarct. No MR findings worrisome for intracranial metastatic Left frontal and bilateral ethmoid sinusitis Unremarkable [place] MRA EVIDENCE OF ACUTE STROKE: NO. Assessment & Plan - Diagnosis (1) Metabolic encephalopathy Is this a current diagnosis for this admission?: Yes Plan: Resolved (2) Hypoglycemic encephalopathy Is this a current diagnosis for this admission?: Yes (3) Malignant neoplasm of right breast Qualifiers: Breast location: upper outer quadrant of breast Estrogen receptor status: positive Patient sex: female Qualified Code(s): C50.411 - Malignant neoplasm of upper-outer quadrant of right female breast; Z17.0 - Estrogen receptor positive status [ER+] Is this a current diagnosis for this admission?: Yes (4) Schizophrenia Qualifiers: Schizophrenia type: unspecified Qualified Code(s): F20.9 - Schizophrenia, unspecified Is this a current diagnosis for this admission?: Yes - Time Time Spent with patient: 15-24 minutes Level of Care: IMCU Medications reviewed and adjusted accordingly: Yes Anticipated discharge: SNF Anticipated DC Timeframe: when bed available
[2020-08-01] MEDS: ARIPIPRAZOLE 5 MG TABLET PO SCH (21:30)
[2020-08-01] MEDS: ATORVASTATIN CALCIUM 80 MG TABLET PO SCH (21:30)
[2020-08-02 06:02] LABS: HEMATOCRIT 25.6 % (36.0-47.0); HEMOGLOBIN 9.1 g/dL (12.0-15.5); MEAN CORPUSCULAR HEMOGLOBIN 36.2 pg (27.0-33.4); MEAN CORPUSCULAR HGB CONC 35.7 g/dL (32.0-36.0); MEAN CORPUSCULAR VOLUME 101 fl (80-97); PLATELET COUNT 131 10^3/uL (150-450); RED BLOOD COUNT 2.52 10^6/uL (3.72-5.28); RED CELL DISTRIBUTION WIDTH 16.9 % (11.5-14.0); WHITE BLOOD COUNT 5.1 10^3/uL (4.0-10.5)
[2020-08-02 06:18] LABS: ANION GAP 7 (5-19); BLOOD UREA NITROGEN 14 mg/dL (7-20); CALCIUM 7.7 mg/dL (8.4-10.2); CARBON DIOXIDE 29 mmol/L (22-30); CHLORIDE 103 mmol/L (98-107); GLUCOSE 162 mg/dL (75-110); POTASSIUM 3.4 mmol/L (3.6-5.0)
[2020-08-02] MEDS: FAMOTIDINE INJ/PF 20 MG/2 ML SDV IV SCH ×2 (11:19→22:07)
[2020-08-02] MEDS: DIVALPROEX SODIUM 500 MG TAB.SR.24H PO SCH ×2 (11:21→17:17)
[2020-08-02] MEDS: DOCUSATE SODIUM 100 MG CAPSULE PO SCH (11:21)
[2020-08-02] MEDS: BENZTROPINE MESYLATE 1 MG TABLET PO SCH ×2 (11:21→22:11)
[2020-08-02] MEDS: DIVALPROEX SODIUM 250 MG TAB.SR.24H PO SCH ×2 (11:24→17:17)
[2020-08-02] MEDS: INSULIN LISPRO 100 UNIT/ML 3 ML VIAL SUBCUT SCH ×4 (11:29→22:07)
[2020-08-02] MEDS: ACETAMINOPHEN 325 MG TABLET PO PRN (12:47)
[2020-08-02] MEDS: ARIPIPRAZOLE 5 MG TABLET PO SCH (22:07)
[2020-08-02] MEDS: ATORVASTATIN CALCIUM 80 MG TABLET PO SCH (22:07)
[2020-08-03] MEDS: INSULIN LISPRO 100 UNIT/ML 3 ML VIAL SUBCUT SCH ×4 (08:47→22:13)
[2020-08-03] MEDS: BENZTROPINE MESYLATE 1 MG TABLET PO SCH ×2 (10:35→22:13)
[2020-08-03] MEDS: DIVALPROEX SODIUM 500 MG TAB.SR.24H PO SCH ×2 (10:35→18:05)
[2020-08-03] MEDS: FAMOTIDINE INJ/PF 20 MG/2 ML SDV IV SCH ×2 (10:35→22:13)
[2020-08-03] MEDS: DOCUSATE SODIUM 100 MG CAPSULE PO SCH (10:35)
[2020-08-03] MEDS: DIVALPROEX SODIUM 250 MG TAB.SR.24H PO SCH ×2 (10:35→18:05)
--- NOTE | 2020-08-03 13:15 | PDOC PROGRESS REPORT ---
Subjective Progress Note for:: 08/02/20 Subjective:: She denied any chest pain or difficulty with breathing. No reported fever or chills. No nausea or vomiting. Tolerating oral feeding. Reason For Visit: HYPOGLYCEMIA Physical Exam Vital Signs: Temp Pulse Resp BP Pulse Ox 98.1 F 95 20 165/86 H 99 08/02/20 15:39 08/02/20 15:39 08/02/20 15:39 08/02/20 15:39 08/02/20 15:39 Intake & Output 08/01/20 08/02/20 08/03/20 06:59 06:59 06:59 Intake Total 1050 924 480 Output Total 1744 9980 500 Balance -635 -226 -20 Weight 70.1 kg 70.6 kg General appearance: PRESENT: no acute distress, obese Head exam: PRESENT: atraumatic, normocephalic Eye exam: PRESENT: conjunctiva pink. ABSENT: scleral icterus Mouth exam: PRESENT: moist Respiratory exam: PRESENT: clear to auscultation [place], decreased breath sounds - at lung bases Cardiovascular exam: PRESENT: RRR, +S1, +S2. ABSENT: diastolic murmur, rubs, systolic murmur Vascular exam: ABSENT: pallor GI/Abdominal exam: PRESENT: normal bowel sounds, soft. ABSENT: distended, guarding, mass, organolmegaly, rebound, tenderness Extremities exam: ABSENT: pedal edema Neurological exam: PRESENT: alert, altered, awake Psychiatric exam: ABSENT: agitated, anxious Skin exam: PRESENT: dry, warm Results Laboratory Results: 08/02/20 05:00 08/02/20 05:00 08/02/20 08/02/20 05:00 05:00 WBC 5.1 RBC 2.52 L Hgb 9.1 L Hct 25.6 L MCV 101 H MCH 36.2 H MCHC 35.7 RDW 16.9 H Plt Count 131 L Sodium 139.3 Potassium 3.4 L Chloride 103 Carbon Dioxide 29 Anion Gap 7 BUN 14 Creatinine 0.50 L Est GFR ( Amer) > 60 Glucose 162 H Calcium 7.7 L 07/26/20 01:55 Troponin I 0.012 Impressions: Brain MRI with MRA 07/26/20 00:00 IMPRESSION: No MR evidence of acute infarct. No MR findings worrisome for intracranial metastatic Left frontal and bilateral ethmoid sinusitis Unremarkable [place] MRA EVIDENCE OF ACUTE STROKE: NO. Cervical Spine CT 07/26/20 00:00 IMPRESSION: There are no findings to suggest an acute fracture or subluxation within the cervical spine. Chest CT 07/26/20 00:00 IMPRESSION: There are trace pleural effusions with overlying airspace opacities which may reflect edema or contusion. There are several sclerotic/lucent areas within the ribs and vertebral bodies. This can be seen with malignancy. There several bilateral remote and recent right-sided rib fractures present. Head CT 07/26/20 00:00 IMPRESSION: 1. No acute intracranial hemorrhage is seen. 2. Mild cerebral atrophy and periventricular white matter changes are seen. Head MRI 07/26/20 00:00 IMPRESSION: No MR evidence of acute infarct. No MR findings worrisome for intracranial metastatic Left frontal and bilateral ethmoid sinusitis Unremarkable [place] MRA EVIDENCE OF ACUTE STROKE: NO. Assessment & Plan - Diagnosis (1) Hypoglycemic encephalopathy Is this a current diagnosis for this admission?: Yes Plan: Improved with recovery of baseline mental status. 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 (3) Malignant neoplasm of right breast Qualifiers: Breast location: upper outer quadrant of breast Estrogen receptor status: positive Patient sex: female Qualified Code(s): C50.411 - Malignant neoplasm of upper-outer quadrant of right female breast; Z17.0 - Estrogen receptor positive status [ER+] Is this a current diagnosis for this admission?: Yes Plan: Currently off anti-neoplastic medication management. (4) Schizophrenia Qualifiers: Schizophrenia type: unspecified Qualified Code(s): F20.9 - Schizophrenia, unspecified Is this a current diagnosis for this admission?: Yes Plan: Maintain on all current medication management. - Time Time Spent with patient: 25-34 minutes Level of Care: IMCU Medications reviewed and adjusted accordingly: Yes Anticipated discharge: Home with Homehealth, SNF Anticipated DC Timeframe: within 72 hours - Inpatient Certification Based on my medical assessment, after consideration of the patient's comorbidities, presenting symptoms, or acuity I expect that the services needed warrant INPATIENT care.: Yes I certify that my determination is in accordance with my understanding of Medicare's requirements for reasonable and necessary INPATIENT services [42 CFR 412.3e].: Yes Medical Necessity: Significant Comorbidiites Make Outpatient Treatment Too Risky, Need Close Monitoring Due to Risk of Patient Decompensation, Need For Continuous Telemetry Monitoring, Need for IV Antibiotics, Risk of Complication if Not Cared For in Hospital, Risk of Diagnosis Which Will Require Inpatient Eval/Care/Monitoring 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
--- NOTE | 2020-08-03 13:27 | PDOC PROGRESS REPORT ---
Subjective Progress Note for:: 08/03/20 Subjective:: She denied any chest pain or difficulty with breathing. No reported fever or chills. No nausea or vomiting. Reason For Visit: HYPOGLYCEMIA Physical Exam Vital Signs: Temp Pulse Resp BP Pulse Ox 97.8 F 87 12 132/77 H 95 08/03/20 10:00 08/03/20 07:49 08/03/20 07:49 08/03/20 07:49 08/03/20 07:49 Intake & Output 08/02/20 08/03/20 08/04/20 06:59 06:59 06:59 Intake Total 924 980 Output Total 1880 1575 Balance -956 -595 Weight 70.6 kg 69.9 kg Physical Exam: General appearance: PRESENT: no acute distress, obese Head exam: PRESENT: atraumatic, normocephalic Eye exam: PRESENT: conjunctiva pink. ABSENT: pallor, sclera icterus Mouth exam: PRESENT: moist Respiratory exam: PRESENT: clear to auscultation [place], decreased breath sounds - at lung bases Cardiovascular exam: PRESENT: RRR, +S1, +S2. ABSENT: diastolic murmur, rubs, systolic murmur GI/Abdominal exam: PRESENT: normal bowel sounds, soft. ABSENT: distended, guarding, mass, organomegaly, rebound, tenderness Extremities exam: ABSENT: pedal edema Neurological exam: PRESENT: alert, altered, awake Psychiatric exam: ABSENT: agitated, anxious Skin exam: PRESENT: dry, warm Results Laboratory Results: 08/02/20 05:00 08/02/20 05:00 07/26/20 01:55 Troponin I 0.012 Impressions: Brain MRI with MRA 07/26/20 00:00 IMPRESSION: No MR evidence of acute infarct. No MR findings worrisome for intracranial metastatic Left frontal and bilateral ethmoid sinusitis Unremarkable [place] MRA EVIDENCE OF ACUTE STROKE: NO. Cervical Spine CT 07/26/20 00:00 IMPRESSION: There are no findings to suggest an acute fracture or subluxation within the cervical spine. Chest CT 07/26/20 00:00 IMPRESSION: There are trace pleural effusions with overlying airspace opacities which may reflect edema or contusion. There are several sclerotic/lucent areas within the ribs and vertebral bodies. This can be seen with malignancy. There several bilateral remote and recent right-sided rib fractures present. Head CT 07/26/20 00:00 IMPRESSION: 1. No acute intracranial hemorrhage is seen. 2. Mild cerebral atrophy and periventricular white matter changes are seen. Head MRI 07/26/20 00:00 IMPRESSION: No MR evidence of acute infarct. No MR findings worrisome for i ntracranial metastatic Left frontal and bilateral ethmoid sinusitis Unremarkable [place] MRA EVIDENCE OF ACUTE STROKE: NO. Assessment & Plan - Diagnosis (1) Hypoglycemic encephalopathy Is this a current diagnosis for this admission?: Yes Plan: Improved with recovery of baseline mental status. 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 Family are not very compliant with dietary restrictions due to supplying high sugar content food to the patient during their visit. (3) Malignant neoplasm of right breast Qualifiers: Breast location: upper outer quadrant of breast Estrogen receptor status: positive Patient sex: female Qualified Code(s): C50.411 - Malignant neoplasm of upper-outer quadrant of right female breast; Z17.0 - Estrogen receptor positive status [ER+] Is this a current diagnosis for this admission?: Yes Plan: Currently off anti-neoplastic medication management. (4) Schizophrenia Qualifiers: Schizophrenia type: unspecified Qualified Code(s): F20.9 - Schizophrenia, unspecified Is this a current diagnosis for this admission?: Yes Plan: Maintain on all current medication management. - Time Time Spent with patient: 25-34 minutes Level of Care: IMCU Medications reviewed and adjusted accordingly: Yes Anticipated discharge: SNF Anticipated DC Timeframe: within 72 hours - Inpatient Certification Based on my medical assessment, after consideration of the patient's comorbidities, presenting symptoms, or acuity I expect that the services needed warrant INPATIENT care.: Yes I certify that my determination is in accordance with my understanding of Medicare's requirements for reasonable and necessary INPATIENT services [42 CFR 412.3e].: Yes Medical Necessity: Significant Comorbidiites Make Outpatient Treatment Too Risky, Need Close Monitoring Due to Risk of Patient Decompensation, Need For Continuous Telemetry Monitoring, Risk of Complication if Not Cared For in Hospital, Risk of Diagnosis Which Will Require Inpatient Eval/Care/Monitoring Post Hospital Care: D/C or Transfer Summary - Plan Summary Plan Summary: Continue current medication management. Emphasized dietary compliance to patient .
[2020-08-03] MEDS ORDERED: COLLAGENASE CLOSTRIDIUM HIST. OINT 30 GM ONE (20:45)
[2020-08-03] MEDS: ATORVASTATIN CALCIUM 80 MG TABLET PO SCH (22:13)
[2020-08-03] MEDS: ARIPIPRAZOLE 5 MG TABLET PO SCH (22:13)
[2020-08-04 05:23] LABS: HEMATOCRIT 24.5 % (36.0-47.0); HEMOGLOBIN 8.6 g/dL (12.0-15.5); MEAN CORPUSCULAR HEMOGLOBIN 35.8 pg (27.0-33.4); MEAN CORPUSCULAR HGB CONC 35.1 g/dL (32.0-36.0); MEAN CORPUSCULAR VOLUME 102 fl (80-97); PLATELET COUNT 135 10^3/uL (150-450); RED CELL DISTRIBUTION WIDTH 17.1 % (11.5-14.0); WHITE BLOOD COUNT 4.9 10^3/uL (4.0-10.5)
[2020-08-04 05:49] LABS: ALBUMIN 3.3 g/dL (3.5-5.0); ALKALINE PHOSPHATASE 131 U/L (38-126); ANION GAP 7 (5-19); ASPARTATE AMINO TRANSFERASE 25 U/L (14-36); BILIRUBIN,DIRECT 0.3 mg/dL (0.0-0.4); BILIRUBIN,TOTAL 0.5 mg/dL (0.2-1.3); BLOOD UREA NITROGEN 14 mg/dL (7-20); CALCIUM 7.4 mg/dL (8.4-10.2); CARBON DIOXIDE 30 mmol/L (22-30); CHLORIDE 101 mmol/L (98-107); GLUCOSE 136 mg/dL (75-110); POTASSIUM 3.1 mmol/L (3.6-5.0); TOTAL PROTEIN 6.1 g/dL (6.3-8.2)
[2020-08-04] MEDS: INSULIN LISPRO 100 UNIT/ML 3 ML VIAL SUBCUT SCH ×4 (08:59→22:11)
[2020-08-04] MEDS: DIVALPROEX SODIUM 500 MG TAB.SR.24H PO SCH ×2 (09:16→17:32)
[2020-08-04] MEDS: DIVALPROEX SODIUM 250 MG TAB.SR.24H PO SCH ×2 (09:16→17:32)
[2020-08-04] MEDS: DOCUSATE SODIUM 100 MG CAPSULE PO SCH (09:16)
[2020-08-04] MEDS: FAMOTIDINE INJ/PF 20 MG/2 ML SDV IV SCH (09:16)
[2020-08-04] MEDS: BENZTROPINE MESYLATE 1 MG TABLET PO SCH ×2 (09:16→22:11)
--- NOTE | 2020-08-04 18:23 | PDOC PROGRESS REPORT ---
Subjective Progress Note for:: 08/04/20 Subjective:: Patient seen by the bedside, there is no new complaints, awaiting transfer to care home home Reason For Visit: HYPOGLYCEMIA Physical Exam Vital Signs: Temp Pulse Resp BP Pulse Ox 97.4 F 85 18 119/71 94 08/04/20 15:25 08/04/20 15:25 08/04/20 15:25 08/04/20 15:25 08/04/20 15:25 Intake & Output 08/03/20 08/04/20 08/05/20 06:59 06:59 06:59 Intake Total 980 980 716 Output Total 1575 1450 700 Balance -595 -470 16 Weight 69.9 kg 69.9 kg General appearance: PRESENT: no acute distress Eye exam: PRESENT: PERRLA Respiratory exam: PRESENT: clear to auscultation [place] Cardiovascular exam: PRESENT: +S1, +S2 GI/Abdominal exam: PRESENT: soft Neurological exam: PRESENT: alert Results Laboratory Results: 08/04/20 04:38 08/04/20 04:38 08/04/20 08/04/20 04:38 04:38 WBC 4.9 RBC 2.40 L Hgb 8.6 L Hct 24.5 L MCV 102 H MCH 35.8 H MCHC 35.1 RDW 17.1 H Plt Count 135 L Sodium 138.0 Potassium 3.1 L Chloride 101 Carbon Dioxide 30 Anion Gap 7 BUN 14 Creatinine 0.52 Est GFR ( Amer) > 60 Glucose 136 H Calcium 7.4 L Total Bilirubin 0.5 AST 25 Alkaline Phosphatase 131 H Total Protein 6.1 L Albumin 3.3 L 07/26/20 01:55 Troponin I 0.012 Impressions: Brain MRI with MRA 07/26/20 00:00 IMPRESSION: No MR evidence of acute infarct. No MR findings worrisome for intracranial metastatic Left frontal and bilateral ethmoid sinusitis Unremarkable [place] MRA EVIDENCE OF ACUTE STROKE: NO. Cervical Spine CT 07/26/20 00:00 IMPRESSION: There are no findings to suggest an acute fracture or subluxation within the cervical spine. Chest CT 07/26/20 00:00 IMPRESSION: There are trace pleural effusions with overlying airspace opacities which may reflect edema or contusion. There are several sclerotic/lucent areas within the ribs and vertebral bodies. This can be seen with malignancy. There several bilateral remote and recent right-sided rib fractures present. Head CT 07/26/20 00:00 IMPRESSION: 1. No acute intracranial hemorrhage is seen. 2. Mild cerebral atrophy and periventricular white matter changes are seen. Head MRI 07/26/20 00:00 IMPRESSION: No MR evidence of acute infarct. No MR findings worrisome for intracranial metastatic Left frontal and bilateral ethmoid sinusitis Unremarkable [place] MRA EVIDENCE OF ACUTE STROKE: NO. Assessment & Plan - Diagnosis (1) Metabolic encephalopathy Is this a current diagnosis for this admission?: Yes Plan: Resolved (2) Hypoglycemic encephalopathy Is this a current diagnosis for this admission?: Yes Plan: Improved with recovery of baseline mental status. (3) Malignant neoplasm of right breast Qualifiers: Breast location: upper outer quadrant of breast Estrogen receptor status: positive Patient sex: female Qualified Code(s): C50.411 - Malignant neoplasm of upper-outer quadrant of right female breast; Z17.0 - Estrogen receptor positive status [ER+] Is this a current diagnosis for this admission?: Yes Plan: Currently off anti-neoplastic medication management. (4) Schizophrenia Qualifiers: Schizophrenia type: unspecified Qualified Code(s): F20.9 - Schizophrenia, unspecified Is this a current diagnosis for this admission?: Yes Plan: Maintain on all current medication management. - Time Time Spent with patient: 35 or more minutes Level of Care: IMCU Medications reviewed and adjusted accordingly: Yes Anticipated discharge: SNF Anticipated DC Timeframe: when bed available
[2020-08-04] MEDS: FAMOTIDINE 20 MG TABLET PO SCH (22:12)
[2020-08-04] MEDS: ATORVASTATIN CALCIUM 80 MG TABLET PO SCH (22:12)
[2020-08-04] MEDS: ARIPIPRAZOLE 5 MG TABLET PO SCH (22:12)
[2020-08-05] MEDS: INSULIN LISPRO 100 UNIT/ML 3 ML VIAL SUBCUT SCH ×4 (07:45→21:31)
[2020-08-05] MEDS: DIVALPROEX SODIUM 250 MG TAB.SR.24H PO SCH ×2 (09:26→17:08)
[2020-08-05] MEDS: DOCUSATE SODIUM 100 MG CAPSULE PO SCH (09:26)
[2020-08-05] MEDS: DIVALPROEX SODIUM 500 MG TAB.SR.24H PO SCH ×2 (09:27→17:08)
[2020-08-05] MEDS: BENZTROPINE MESYLATE 1 MG TABLET PO SCH ×2 (09:27→21:30)
[2020-08-05] MEDS: FAMOTIDINE 20 MG TABLET PO SCH ×2 (09:27→21:30)
--- NOTE | 2020-08-05 20:11 | PDOC PROGRESS REPORT ---
Subjective Progress Note for:: 08/05/20 Subjective:: Patient seen by the bedside, there is no new complaints, awaiting transfer to alf home Reason For Visit: HYPOGLYCEMIA Physical Exam Vital Signs: Temp Pulse Resp BP Pulse Ox 97.6 F 89 19 147/79 H 99 08/05/20 16:23 08/05/20 16:23 08/05/20 16:23 08/05/20 16:23 08/05/20 16:23 Intake & Output 08/04/20 08/05/20 08/06/20 06:59 06:59 06:59 Intake Total 980 834 836 Output Total 1450 1100 520 Balance -470 -266 316 Weight 69.9 kg 69.3 kg 69.3 kg General appearance: PRESENT: no acute distress Eye exam: PRESENT: PERRLA Respiratory exam: PRESENT: clear to auscultation [place] Cardiovascular exam: PRESENT: +S1, +S2 GI/Abdominal exam: PRESENT: soft Neurological exam: PRESENT: alert, motor sensory deficit Results Laboratory Results: 08/04/20 04:38 08/04/20 04:38 07/26/20 01:55 Troponin I 0.012 Impressions: Brain MRI with MRA 07/26/20 00:00 IMPRESSION: No MR evidence of acute infarct. No MR findings worrisome for intracranial metastatic Left frontal and bilateral ethmoid sinusitis Unremarkable [place] MRA EVIDENCE OF ACUTE STROKE: NO. Cervical Spine CT 07/26/20 00:00 IMPRESSION: There are no findings to suggest an acute fracture or subluxation within the cervical spine. Chest CT 07/26/20 00:00 IMPRESSION: There are trace pleural effusions with overlying airspace opacities which may reflect edema or contusion. There are several sclerotic/lucent areas within the ribs and vertebral bodies. This can be seen with malignancy. There several bilateral remote and recent right-sided rib fractures present. Head CT 07/26/20 00:00 IMPRESSION: 1. No acute intracranial hemorrhage is seen. 2. Mild cerebral atrophy and periventricular white matter changes are seen. Head MRI 07/26/20 00:00 IMPRESSION: No MR evidence of acute infarct. No MR findings worrisome for in tracranial metastatic Left frontal and bilateral ethmoid sinusitis Unremarkable [place] MRA EVIDENCE OF ACUTE STROKE: NO. Assessment & Plan - Diagnosis (1) Metabolic encephalopathy Is this a current diagnosis for this admission?: Yes Plan: Resolved (2) Hypoglycemic encephalopathy Is this a current diagnosis for this admission?: Yes Plan: Improved with recovery of baseline mental status. (3) Malignant neoplasm of right breast Qualifiers: Breast location: upper outer quadrant of breast Estrogen receptor status: positive Patient sex: female Qualified Code(s): C50.411 - Malignant neoplasm of upper-outer quadrant of right female breast; Z17.0 - Estrogen receptor positive status [ER+] Is this a current diagnosis for this admission?: Yes Plan: Currently off anti-neoplastic medication management. (4) Schizophrenia Qualifiers: Schizophrenia type: unspecified Qualified Code(s): F20.9 - Schizophrenia, unspecified Is this a current diagnosis for this admission?: Yes Plan: Maintain on all current medication management. - Time Time Spent with patient: 15-24 minutes Level of Care: IMCU Medications reviewed and adjusted accordingly: Yes
[2020-08-05] MEDS: ARIPIPRAZOLE 5 MG TABLET PO SCH (21:30)
[2020-08-05] MEDS: ATORVASTATIN CALCIUM 80 MG TABLET PO SCH (21:30)
[2020-08-06] MEDS: DIVALPROEX SODIUM 500 MG TAB.SR.24H PO SCH ×2 (10:06→17:14)
[2020-08-06] MEDS: DOCUSATE SODIUM 100 MG CAPSULE PO SCH (10:06)
[2020-08-06] MEDS: BENZTROPINE MESYLATE 1 MG TABLET PO SCH ×2 (10:06→21:26)
[2020-08-06] MEDS: DIVALPROEX SODIUM 250 MG TAB.SR.24H PO SCH ×2 (10:06→17:14)
[2020-08-06] MEDS: FAMOTIDINE 20 MG TABLET PO SCH ×2 (10:06→21:26)
[2020-08-06] MEDS: ACETAMINOPHEN 325 MG TABLET PO PRN ×2 (10:08→20:30)
[2020-08-06] MEDS: INSULIN LISPRO 100 UNIT/ML 3 ML VIAL SUBCUT SCH ×4 (11:46→22:51)
--- NOTE | 2020-08-06 17:59 | PDOC PROGRESS REPORT ---
Subjective Progress Note for:: 08/06/20 Subjective:: Patient seen by the bedside, she is ready for discharge to nursing home home Reason For Visit: HYPOGLYCEMIA Physical Exam Vital Signs: Temp Pulse Resp BP Pulse Ox 97.6 F 101 H 20 146/74 H 97 08/06/20 15:33 08/06/20 15:33 08/06/20 15:33 08/06/20 15:33 08/06/20 15:33 Intake & Output 08/05/20 08/06/20 08/07/20 06:59 06:59 06:59 Intake Total 834 1356 260 Output Total 1100 2120 Balance -266 -764 260 Weight 69.3 kg 31.9 kg General appearance: PRESENT: no acute distress Eye exam: PRESENT: PERRLA Respiratory exam: PRESENT: clear to auscultation [place] Cardiovascular exam: PRESENT: +S1, +S2 GI/Abdominal exam: PRESENT: soft Neurological exam: PRESENT: alert Results Laboratory Results: 08/04/20 04:38 08/04/20 04:38 07/26/20 01:55 Troponin I 0.012 Impressions: Brain MRI with MRA 07/26/20 00:00 IMPRESSION: No MR evidence of acute infarct. No MR findings worrisome for intracranial metastatic Left frontal and bilateral ethmoid sinusitis Unremarkable [place] MRA EVIDENCE OF ACUTE STROKE: NO. Cervical Spine CT 07/26/20 00:00 IMPRESSION: There are no findings to suggest an acute fracture or subluxation within the cervical spine. Chest CT 07/26/20 00:00 IMPRESSION: There are trace pleural effusions with overlying airspace opacities which may reflect edema or contusion. There are several sclerotic/lucent areas within the ribs and vertebral bodies. This can be seen with malignancy. There several bilateral remote and recent right-sided rib fractures present. Head CT 07/26/20 00:00 IMPRESSION: 1. No acute intracranial hemorrhage is seen. 2. Mild cerebral atrophy and periventricular white matter changes are seen. Head MRI 07/26/20 00:00 IMPRESSION: No MR evidence of acute infarct. No MR findings worrisome for intracranial metastatic Left frontal and bilateral ethmoid sinusitis Unremarkable [place] MRA EVIDENCE OF ACUTE STROKE: NO. Assessment & Plan - Diagnosis (1) Metabolic encephalopathy Is this a current diagnosis for this admission?: Yes Plan: Resolved (2) Hypoglycemic encephalopathy Is this a current diagnosis for this admission?: Yes Plan: Improved with recovery of baseline mental status. (3) Malignant neoplasm of right breast Qualifiers: Breast location: upper outer quadrant of breast Estrogen receptor status: positive Patient sex: female Qualified Code(s): C50.411 - Malignant neoplasm of upper-outer quadrant of right female breast; Z17.0 - Estrogen receptor positive status [ER+] Is this a current diagnosis for this admission?: Yes Plan: Currently off anti-neoplastic medication management. (4) Schizophrenia Qualifiers: Schizophrenia type: unspecified Qualified Code(s): F20.9 - Schizophrenia, u nspecified Is this a current diagnosis for this admission?: Yes Plan: Maintain on all current medication management. - Time Time Spent with patient: 35 or more minutes Level of Care: IMCU Medications reviewed and adjusted accordingly: Yes Anticipated discharge: SNF Anticipated DC Timeframe: within 24 hours - Inpatient Certification Based on my medical assessment, after consideration of the patient's comorbidities, presenting symptoms, or acuity I expect that the services needed warrant INPATIENT care.: Yes I certify that my determination is in accordance with my understanding of Medicare's requirements for reasonable and necessary INPATIENT services [42 CFR 412.3e].: Yes
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
[2020-08-06] MEDS: ATORVASTATIN CALCIUM 80 MG TABLET PO SCH (21:26)
[2020-08-06] MEDS: ARIPIPRAZOLE 5 MG TABLET PO SCH (22:52)
[2020-08-07] MEDS: DIVALPROEX SODIUM 250 MG TAB.SR.24H PO SCH ×2 (09:16→17:31)
[2020-08-07] MEDS: INSULIN LISPRO 100 UNIT/ML 3 ML VIAL SUBCUT SCH ×4 (09:16→21:30)
[2020-08-07] MEDS: FAMOTIDINE 20 MG TABLET PO SCH ×2 (09:17→21:30)
[2020-08-07] MEDS: BENZTROPINE MESYLATE 1 MG TABLET PO SCH ×2 (09:17→21:30)
[2020-08-07] MEDS: DIVALPROEX SODIUM 500 MG TAB.SR.24H PO SCH ×2 (09:17→17:31)
[2020-08-07] MEDS: DOCUSATE SODIUM 100 MG CAPSULE PO SCH (09:17)
[2020-08-07] MEDS: ATORVASTATIN CALCIUM 80 MG TABLET PO SCH (21:30)
[2020-08-07] MEDS: ARIPIPRAZOLE 5 MG TABLET PO SCH (21:30)
[2020-08-08] MEDS: INSULIN LISPRO 100 UNIT/ML 3 ML VIAL SUBCUT SCH ×4 (08:11→21:40)
[2020-08-08] MEDS: ACETAMINOPHEN 325 MG TABLET PO PRN (08:11)
[2020-08-08] MEDS: DIVALPROEX SODIUM 500 MG TAB.SR.24H PO SCH ×2 (10:31→17:34)
[2020-08-08] MEDS: DOCUSATE SODIUM 100 MG CAPSULE PO SCH (10:31)
[2020-08-08] MEDS: DIVALPROEX SODIUM 250 MG TAB.SR.24H PO SCH ×2 (10:32→17:33)
[2020-08-08] MEDS: BENZTROPINE MESYLATE 1 MG TABLET PO SCH ×2 (10:32→21:41)
[2020-08-08] MEDS: FAMOTIDINE 20 MG TABLET PO SCH ×2 (10:33→21:41)
--- NOTE | 2020-08-08 21:13 | PDOC PROGRESS REPORT ---
Subjective Progress Note for:: 08/08/20 Subjective:: Patient seen by the bedside, she is ready for discharge to halfway home,he has no new complaints Reason For Visit: HYPOGLYCEMIA Physical Exam Vital Signs: Temp Pulse Resp BP Pulse Ox 98.1 F 100 16 148/76 H 98 08/08/20 08:28 08/08/20 19:00 08/08/20 15:27 08/08/20 15:27 08/08/20 15:27 Intake & Output 08/07/20 08/08/20 08/09/20 06:59 06:59 06:59 Intake Total 882 500 Output Total 925 900 Balance -43 -400 Weight 57.1 kg 56.3 kg General appearance: PRESENT: no acute distress Eye exam: PRESENT: PERRLA Respiratory exam: PRESENT: clear to auscultation [place] Cardiovascular exam: PRESENT: +S1, +S2 GI/Abdominal exam: PRESENT: soft Neurological exam: PRESENT: alert Results Laboratory Results: 08/04/20 04:38 08/04/20 04:38 07/26/20 01:55 Troponin I 0.012 Impressions: Brain MRI with MRA 07/26/20 00:00 IMPRESSION: No MR evidence of acute infarct. No MR findings worrisome for intracranial metastatic Left frontal and bilateral ethmoid sinusitis Unremarkable [place] MRA EVIDENCE OF ACUTE STROKE: NO. Cervical Spine CT 07/26/20 00:00 IMPRESSION: There are no findings to suggest an acute fracture or subluxation within the cervical spine. Chest CT 07/26/20 00:00 IMPRESSION: There are trace pleural effusions with overlying airspace opacities which may reflect edema or contusion. There are several sclerotic/lucent areas within the ribs and vertebral bodies. This can be seen with malignancy. There several bilateral remote and recent right-sided rib fractures present. Head CT 07/26/20 00:00 IMPRESSION: 1. No acute intracranial hemorrhage is seen. 2. Mild cerebral atrophy and periventricular white matter changes are seen. Head MRI 07/26/20 00:00 IMPRESSION: No MR evidence of acute infarct. No MR findings worrisome for intracranial metastatic Left frontal and bilateral ethmoid sinusitis Unremarkable [place] MRA EVIDENCE OF ACUTE STROKE: NO. Assessment & Plan - Diagnosis (1) Metabolic encephalopathy Is this a current diagnosis for this admission?: Yes (2) Hypoglycemic encephalopathy Is this a current diagnosis for this admission?: Yes (3) Malignant neoplasm of right breast Qualifiers: Breast location: upper outer quadrant of breast Estrogen receptor status: positive Patient sex: female Qualified Code(s): C50.411 - Malignant neoplasm of upper-outer quadrant of right female breast; Z17.0 - Estrogen receptor positive status [ER+] Is this a current diagnosis for this admission?: Yes (4) Schizophrenia Qualifiers: Schizophrenia type: unspecified Qualified Code(s): F20.9 - Schizophrenia, unspecified Is this a current diagnosis for this admission?: Yes (5) Type 2 diabetes mellitus Qualifiers: Diabetes mellitus senior care insulin use: without roasterman use Diabetes mellitus complication status: with neurologic complications Diabetes mellitus complication detail: with polyneuropathy Qualified Code(s): E11.42 - Type 2 diabetes mellitus with diabetic polyneuropathy Is this a current diagnosis for this admission?: Yes - Time Time Spent with patient: 15-24 minutes Level of Care: TELE Medications reviewed and adjusted accordingly: Yes Anticipated discharge: Home Anticipated DC Timeframe: within 36 hours
[2020-08-08] MEDS: ATORVASTATIN CALCIUM 80 MG TABLET PO SCH (21:41)
[2020-08-08] MEDS: ARIPIPRAZOLE 5 MG TABLET PO SCH (21:41)
[2020-08-09] MEDS: DOCUSATE SODIUM 100 MG CAPSULE PO SCH (09:22)
[2020-08-09] MEDS: FAMOTIDINE 20 MG TABLET PO SCH ×2 (09:22→22:05)
[2020-08-09] MEDS: BENZTROPINE MESYLATE 1 MG TABLET PO SCH ×2 (09:22→22:06)
[2020-08-09] MEDS: INSULIN LISPRO 100 UNIT/ML 3 ML VIAL SUBCUT SCH ×4 (09:22→22:06)
[2020-08-09] MEDS: DIVALPROEX SODIUM 500 MG TAB.SR.24H PO SCH ×2 (09:23→18:09)
[2020-08-09] MEDS: DIVALPROEX SODIUM 250 MG TAB.SR.24H PO SCH ×2 (09:32→18:09)
[2020-08-09] MEDS: ACETAMINOPHEN 325 MG TABLET PO PRN (16:52)
[2020-08-09] MEDS: COLLAGENASE CLOSTRIDIUM HIST. OINT 30 GM TOP SCH (18:09)
--- NOTE | 2020-08-09 19:36 | PDOC PROGRESS REPORT ---
Subjective Progress Note for:: 08/09/20 Subjective:: Patient seen by the bedside, she is ready for discharge to custodial home,she has no new complaints Reason For Visit: HYPOGLYCEMIA Physical Exam Vital Signs: Temp Pulse Resp BP Pulse Ox 97.3 F 90 18 168/84 H 100 08/09/20 15:33 08/09/20 15:33 08/09/20 15:33 08/09/20 15:33 08/09/20 15:33 Intake & Output 08/08/20 08/09/20 08/10/20 06:59 06:59 05:59 Intake Total 500 760 Output Total 900 575 775 Balance -400 -575 -15 Weight 56.3 kg 58.3 kg Results Laboratory Results: 08/04/20 04:38 08/04/20 04:38 07/26/20 01:55 Troponin I 0.012 Impressions: Brain MRI with MRA 07/26/20 00:00 IMPRESSION: No MR evidence of acute infarct. No MR findings worrisome for intracranial metastatic Left frontal and bilateral ethmoid sinusitis Unremarkable [place] MRA EVIDENCE OF ACUTE STROKE: NO. Cervical Spine CT 07/26/20 00:00 IMPRESSION: There are no findings to suggest an acute fracture or subluxation within the cervical spine. Chest CT 07/26/20 00:00 IMPRESSION: There are trace pleural effusions with overlying airspace opacities which may reflect edema or contusion. There are several sclerotic/lucent areas within the ribs and vertebral bodies. This can be seen with malignancy. There several bilateral remote and recent right-sided rib fractures present. Head CT 07/26/20 00:00 IMPRESSION: 1. No acute intracranial hemorrhage is seen. 2. Mild cerebral atrophy and periventricular white matter changes are seen. Head MRI 07/26/20 00:00 IMPRESSION: No MR evidence of acute infarct. No MR findings worrisome for intracranial metastatic Left frontal and bilateral ethmoid sinusitis Unremarkable [place] MRA EVIDENCE OF ACUTE STROKE: NO. Assessment & Plan - Diagnosis (1) Metabolic encephalopathy Is this a current diagnosis for this admission?: Yes (2) Hypoglycemic encephalopathy Is this a current diagnosis for this admission?: Yes (3) Malignant neoplasm of right breast Qualifiers: Breast location: upper outer quadrant of breast Estrogen receptor status: positive Patient sex: female Qualified Code(s): C50.411 - Malignant neoplasm of upper-outer quadrant of right female breast; Z17.0 - Estrogen receptor positive status [ER+] Is this a current diagnosis for this admission?: Yes (4) Schizophrenia Qualifiers: Schizophrenia type: unspecified Qualified Code(s): F20.9 - Schizophrenia, unspecified Is this a current diagnosis for this admission?: Yes (5) Type 2 diabetes mellitus Qualifiers: Diabetes mellitus manager long term care insulin use: without usp use Diabetes mellitus complication status: with neurologic complications Diabetes mellitus complication detail: with polyneuropathy Qualified Code(s): E11.42 - Type 2 diabetes mellitus with diabetic polyneuropathy Is this a current diagnosis for this admission?: Yes - Time Time Spent with patient: 15-24 minutes Level of Care: MEDICAL Medications reviewed and adjusted accordingly: Yes Anticipated discharge: Home
[2020-08-09] MEDS: ATORVASTATIN CALCIUM 80 MG TABLET PO SCH (22:05)
[2020-08-09] MEDS: ARIPIPRAZOLE 5 MG TABLET PO SCH (22:05)
[2020-08-10] MEDS: ACETAMINOPHEN 325 MG TABLET PO PRN ×2 (01:14→09:22)
[2020-08-10] MEDS: INSULIN LISPRO 100 UNIT/ML 3 ML VIAL SUBCUT SCH ×4 (08:29→21:28)
[2020-08-10] MEDS: DIVALPROEX SODIUM 500 MG TAB.SR.24H PO SCH ×2 (09:16→17:07)
[2020-08-10] MEDS: DIVALPROEX SODIUM 250 MG TAB.SR.24H PO SCH ×2 (09:16→17:06)
[2020-08-10] MEDS: FAMOTIDINE 20 MG TABLET PO SCH ×2 (09:16→21:28)
[2020-08-10] MEDS: BENZTROPINE MESYLATE 1 MG TABLET PO SCH ×2 (09:16→21:28)
[2020-08-10] MEDS: DOCUSATE SODIUM 100 MG CAPSULE PO SCH (09:16)
[2020-08-10] MEDS: COLLAGENASE CLOSTRIDIUM HIST. OINT 30 GM TOP SCH (09:17)
--- NOTE | 2020-08-10 14:39 | PDOC PROGRESS REPORT ---
Subjective Progress Note for:: 08/10/20 Subjective:: Patient seen by the bedside, she is [facility] for [facility] to [facility],she has no new complaints Reason For Visit: HYPOGLYCEMIA Physical Exam Vital Signs: Temp Pulse Resp BP Pulse Ox 97.7 F 93 15 129/64 H 98 08/10/20 10:56 08/10/20 14:00 08/10/20 10:56 08/10/20 10:56 08/10/20 10:56 Intake & Output 08/09/20 08/10/20 08/11/20 07:59 06:59 06:59 Intake Total Output Total Balance Weight General appearance: PRESENT: no acute distress Eye exam: PRESENT: PERRLA Respiratory exam: PRESENT: clear to auscultation [place] Cardiovascular exam: PRESENT: +S1, +S2 Neurological exam: PRESENT: alert Results Laboratory Results: 08/04/20 04:38 08/04/20 04:38 07/26/20 01:55 Troponin I 0.012 Impressions: Brain MRI with MRA 07/26/20 00:00 IMPRESSION: No MR evidence of acute infarct. No MR findings worrisome for intracranial metastatic Left frontal and bilateral ethmoid sinusitis Unremarkable [place] MRA EVIDENCE OF ACUTE STROKE: NO. Cervical Spine CT 07/26/20 00:00 IMPRESSION: There are no findings to suggest an acute fracture or subluxation within the cervical spine. Chest CT 07/26/20 00:00 IMPRESSION: There are trace pleural effusions with overlying airspace opacities which may reflect edema or contusion. There are several sclerotic/lucent areas within the ribs and vertebral bodies. This can be seen with malignancy. There several bilateral remote and recent right-sided rib fractures present. Head CT 07/26/20 00:00 IMPRESSION: 1. No acute intracranial hemorrhage is seen. 2. Mild cerebral atrophy and periventricular white matter changes are seen. Head MRI 07/26/20 00:00 IMPRESSION: No MR evidence of acute infarct. No MR findings worrisome for intracranial metastatic Left frontal and bilateral ethmoid sinusitis Unremarkable [place] MRA EVIDENCE OF ACUTE STROKE: NO. Assessment & Plan - Diagnosis (1) Metabolic encephalopathy Is this a current diagnosis for this admission?: Yes (2) Hypoglycemic encephalopathy Is this a current diagnosis for this admission?: Yes (3) Malignant neoplasm of right breast Qualifiers: Breast location: upper outer quadrant of breast Estrogen receptor status: positive Patient sex: female Qualified Code(s): C50.411 - Malignant neoplasm of upper-outer quadrant of right female breast; Z17.0 - Estrogen receptor positive status [ER+] Is this a current diagnosis for this admission?: Yes (4) Schizophrenia Qualifiers: Schizophrenia type: unspecified Qualified Code(s): F20.9 - Schizophrenia, unspecified Is this a current diagnosis for this admission?: Yes (5) Type 2 diabetes mellitus Qualifiers: Diabetes mellitus [facility] insulin use: without 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
[2020-08-10] MEDS: ATORVASTATIN CALCIUM 80 MG TABLET PO SCH (21:28)
[2020-08-10] MEDS: ARIPIPRAZOLE 5 MG TABLET PO SCH (21:30)
[2020-08-11] MEDS: INSULIN LISPRO 100 UNIT/ML 3 ML VIAL SUBCUT SCH ×4 (08:33→22:00)
[2020-08-11] MEDS: BENZTROPINE MESYLATE 1 MG TABLET PO SCH ×2 (09:04→21:52)
[2020-08-11] MEDS: DIVALPROEX SODIUM 500 MG TAB.SR.24H PO SCH ×2 (09:05→17:21)
[2020-08-11] MEDS: COLLAGENASE CLOSTRIDIUM HIST. OINT 30 GM TOP SCH (09:05)
[2020-08-11] MEDS: FAMOTIDINE 20 MG TABLET PO SCH ×2 (09:05→21:52)
[2020-08-11] MEDS: DOCUSATE SODIUM 100 MG CAPSULE PO SCH (09:05)
[2020-08-11] MEDS: DIVALPROEX SODIUM 250 MG TAB.SR.24H PO SCH ×2 (09:05→17:21)
--- NOTE | 2020-08-11 19:43 | PDOC PROGRESS REPORT ---
Subjective Progress Note for:: 08/11/20 Subjective:: Patient seen by the bedside, she is ready for discharge to longterm home,she has no new complaints Reason For Visit: HYPOGLYCEMIA Physical Exam Vital Signs: Temp Pulse Resp BP Pulse Ox 98.2 F 81 16 135/68 H 97 08/11/20 15:32 08/11/20 15:32 08/11/20 15:32 08/11/20 15:32 08/11/20 15:32 Intake & Output 08/10/20 08/11/20 08/12/20 06:59 06:59 06:59 Intake Total 1311 250 Output Total 2925 670 Balance -1614 -420 Weight 59.4 kg 59.4 kg General appearance: PRESENT: no acute distress Eye exam: PRESENT: PERRLA Respiratory exam: PRESENT: clear to auscultation [place] Cardiovascular exam: PRESENT: +S1, +S2 GI/Abdominal exam: PRESENT: soft Neurological exam: PRESENT: alert Results Laboratory Results: 08/04/20 04:38 08/04/20 04:38 07/26/20 01:55 Troponin I 0.012 Impressions: Brain MRI with MRA 07/26/20 00:00 IMPRESSION: No MR evidence of acute infarct. No MR findings worrisome for intracranial metastatic Left frontal and bilateral ethmoid sinusitis Unremarkable [place] MRA EVIDENCE OF ACUTE STROKE: NO. Cervical Spine CT 07/26/20 00:00 IMPRESSION: There are no findings to suggest an acute fracture or subluxation within the cervical spine. Chest CT 07/26/20 00:00 IMPRESSION: There are trace pleural effusions with overlying airspace opacities which may reflect edema or contusion. There are several sclerotic/lucent areas within the ribs and vertebral bodies. This can be seen with malignancy. There several bilateral remote and recent right-sided rib fractures present. Head CT 07/26/20 00:00 IMPRESSION: 1. No acute intracranial hemorrhage is seen. 2. Mild cerebral atrophy and periventricular white matter changes are seen. Head MRI 07/26/20 00:00 IMPRESSION: No MR evidence of acute infarct. No MR findings worrisome for intracranial metastatic Left frontal and bilateral ethmoid sinusitis Unremarkable [place] MRA EVIDENCE OF ACUTE STROKE: NO. Assessment & Plan - Diagnosis (1) Metabolic encephalopathy Is this a current diagnosis for this admission?: Yes (2) Hypoglycemic encephalopathy Is this a current diagnosis for this admission?: Yes (3) Malignant neoplasm of right breast Qualifiers: Breast location: upper outer quadrant of breast Estrogen receptor status: positive Patient sex: female Qualified Code(s): C50.411 - Malignant neoplasm of upper-outer quadrant of right female breast; Z17.0 - Estrogen receptor positive status [ER+] Is this a current diagnosis for this admission?: Yes (4) Schizophrenia Qualifiers: Schizophrenia type: unspecified Qualified Code(s): F20.9 - Schizophrenia, unspecified Is this a current diagnosis for this admission?: Yes (5) Type 2 diabetes mellitus Qualifiers: Diabetes mellitus skilled nursing insulin use: without oysterman use Diabetes mellitus complication status: with neurologic complications Diabetes mellitus complication detail: with polyneuropathy Qualified Code(s): E11.42 - Type 2 diabetes mellitus with diabetic polyneuropathy Is this a current diagnosis for this admission?: Yes - Time Time Spent with patient: 15-24 minutes Level of Care: MEDICAL Medications reviewed and adjusted accordingly: Yes Anticipated discharge: Home - Inpatient Certification Based on my medical assessment, after consideration of the patient's comorbidities, presenting symptoms, or acuity I expect that the services needed warrant INPATIENT care.: Yes I certify that my determination is in accordance with my understanding of Medicare's requirements for reasonable and necessary INPATIENT services [42 CFR 412.3e].: Yes
[2020-08-11] MEDS: ARIPIPRAZOLE 5 MG TABLET PO SCH (21:52)
[2020-08-11] MEDS: ATORVASTATIN CALCIUM 80 MG TABLET PO SCH (21:52)
[2020-08-12] MEDS: INSULIN LISPRO 100 UNIT/ML 3 ML VIAL SUBCUT SCH ×4 (08:58→21:49)
[2020-08-12] MEDS: FAMOTIDINE 20 MG TABLET PO SCH ×2 (10:52→21:48)
[2020-08-12] MEDS: BENZTROPINE MESYLATE 1 MG TABLET PO SCH ×2 (10:52→21:48)
[2020-08-12] MEDS: DOCUSATE SODIUM 100 MG CAPSULE PO SCH (10:52)
[2020-08-12] MEDS: COLLAGENASE CLOSTRIDIUM HIST. OINT 30 GM TOP SCH (10:53)
[2020-08-12] MEDS: DIVALPROEX SODIUM 250 MG TAB.SR.24H PO SCH ×2 (10:53→17:17)
[2020-08-12] MEDS: DIVALPROEX SODIUM 500 MG TAB.SR.24H PO SCH ×2 (10:53→17:06)
[2020-08-12] MEDS: ARIPIPRAZOLE 5 MG TABLET PO SCH (21:49)
[2020-08-12] MEDS: ATORVASTATIN CALCIUM 80 MG TABLET PO SCH (21:49)
[2020-08-13] MEDS: ACETAMINOPHEN 325 MG TABLET PO PRN (05:24)
[2020-08-13] MEDS: INSULIN LISPRO 100 UNIT/ML 3 ML VIAL SUBCUT SCH ×2 (08:21→12:29)
[2020-08-13] MEDS: DIVALPROEX SODIUM 500 MG TAB.SR.24H PO SCH (10:12)
[2020-08-13] MEDS: BENZTROPINE MESYLATE 1 MG TABLET PO SCH (10:13)
[2020-08-13] MEDS: DOCUSATE SODIUM 100 MG CAPSULE PO SCH (10:13)
[2020-08-13] MEDS: FAMOTIDINE 20 MG TABLET PO SCH (10:13)
[2020-08-13] MEDS: DIVALPROEX SODIUM 250 MG TAB.SR.24H PO SCH (10:13)
[2020-08-13] MEDS: COLLAGENASE CLOSTRIDIUM HIST. OINT 30 GM TOP SCH (10:14)
[2020-08-13 15:54] VITALS: BP 126/67
== END 2020-08-13 16:00 | DRG 637 ==
LOC: ER 01:44 → OBSVTOIN 05:10 → EH 05:10 → 5 06:20
PROVIDERS: ADMIT Internal Medicine; ATTEND Internal Medicine
DX: E11.649 Type 2 diabetes mellitus with hypoglycemia without coma (principal); G93.41 Metabolic encephalopathy; C79.51 Secondary malignant neoplasm of bone; E78.5 Hyperlipidemia, unspecified; D63.0 Anemia in neoplastic disease; E11.65 Type 2 diabetes mellitus with hyperglycemia; G92 Toxic encephalopathy; C50.411 Malignant neoplasm of upper-outer quadrant of right female breast; Z17.0 Estrogen receptor positive status [ER+]; T38.3X5A Adverse effect of insulin and oral hypoglycemic [antidiabetic] drugs, initial encounter; Y92.9 Unspecified place or not applicable; F25.9 Schizoaffective disorder, unspecified; E11.42 Type 2 diabetes mellitus with diabetic polyneuropathy; Z20.828 Contact with and (suspected) exposure to other viral communicable diseases; Z79.899 Other long term (current) drug therapy; Z79.84 Long term (current) use of oral hypoglycemic drugs; Z92.21 Personal history of antineoplastic chemotherapy; Z79.82 Long term (current) use of aspirin
CPT/HCPCS: 36415; 36600; 70450; 70544; 70553; 71045; 71250; 72125; 80048; 80053; 80164; 80307; 81001; 82140; 82803; 82962; 83605; 84484; 85025; 85027; 85610; 87040; 87077; 87086; 87150; 87186; 87635; 90471; 90686; 93005; 93010; 96361; 96374; 96375; 96376; 99291; 99292; A9576; C9803; G0008; J0692; J1642; J1815; J2310; J2405; J3490; S0028

== ENCOUNTER 2020-08-14 07:48 | Inpatient (IN) | payer MEDICARE, MEDICAID ==
[2020-08-14] MEDS ORDERED: NORMAL SALINE 1000 ML 1,000 ML IV ONE ×2 (07:58→09:30)
[2020-08-14 08:27] LABS: ABSOLUTE EOSINOPHILS # (AUTO) 0.1 10^3/uL (0.0-0.6); ABSOLUTE LYMPHOCYTES (AUTO) 1.1 10^3/uL (0.5-4.7); ABSOLUTE MONOCYTES (AUTO) 1.1 10^3/uL (0.1-1.4); ABSOLUTE NEUT (AUTO) 3.8 10^3/uL (1.7-8.2); BASOPHILS % (AUTO) 0.7 % (0-2); EOSINOPHILS % (AUTO) 1.5 % (0-6); HEMATOCRIT 27.1 % (36.0-47.0); HEMOGLOBIN 9.3 g/dL (12.0-15.5); LYMPHOCYTES % (AUTO) 18.5 % (13-45); MEAN CORPUSCULAR HEMOGLOBIN 35.4 pg (27.0-33.4); MEAN CORPUSCULAR HGB CONC 34.5 g/dL (32.0-36.0); MEAN CORPUSCULAR VOLUME 103 fl (80-97); MONOCYTES % (AUTO) 17.9 % (3-13); PLATELET COUNT 256 10^3/uL (150-450); RED BLOOD COUNT 2.64 10^6/uL (3.72-5.28); RED CELL DISTRIBUTION WIDTH 16.6 % (11.5-14.0); SEGMENTED NEUTROPHILS % (AUTO) 61.4 % (42-78); TOTAL CELLS COUNTED % (AUTO) 100 %; WHITE BLOOD COUNT 6.2 10^3/uL (4.0-10.5)
[2020-08-14 08:30] LABS: VENOUS BLOOD BASE EXCESS -3.2 mmol/L; VENOUS BLOOD HCO3 21.2 mmol/L (20-32); VENOUS BLOOD PCO2 35.8 mmHg (35-63); VENOUS BLOOD PH 7.39 (7.30-7.42)
[2020-08-14 08:51] LABS: ALKALINE PHOSPHATASE 106 U/L (38-126); ANION GAP 9 (5-19); ASPARTATE AMINO TRANSFERASE 16 U/L (14-36); BILIRUBIN,DIRECT 0.1 mg/dL (0.0-0.4); BILIRUBIN,TOTAL 0.3 mg/dL (0.2-1.3); BLOOD UREA NITROGEN 25 mg/dL (7-20); CALCIUM 8.5 mg/dL (8.4-10.2); CARBON DIOXIDE 26 mmol/L (22-30); CHLORIDE 103 mmol/L (98-107); GLUCOSE 166 mg/dL (75-110); POTASSIUM 4.3 mmol/L (3.6-5.0); TOTAL PROTEIN 5.9 g/dL (6.3-8.2)
[2020-08-14 08:54] LABS: INTERNATIONAL RATION (INR) 1.12; PROTHROMBIN TIME 14.6 SEC (11.4-15.4)
--- NOTE | 2020-08-14 09:36 | RADIOLOGY REPORT (SQ) ---
EXAM DESCRIPTION: CT HEAD WITHOUT IMAGES COMPLETED DATE/TIME: 08/14/2020 8:52 am REASON FOR STUDY: ams COMPARISON: 07/26/2020 TECHNIQUE: Axial images acquired through the brain without intravenous contrast. Images reviewed wi th bone, brain and subdural windows. Additional sagittal and coronal reconstructions were generated. Images stored on PACS. All CT scanners at this facility use dose modulation, iterative reconstruction, and/or weight based d osing when appropriate to reduce radiation dose to as low as reasonably achievable (ALARA). [facility]: Dose Right [facility]: CareDose [facility]: Dose Right [facility]: Teradose 4D [facility]: Smart [employer] RADIATION DOSE: CT Rad equipment meets quality standard of care and radiation dose reduction techniq ues were employed. CTDIvol: 53.2 mGy. DLP: 1044 mGy-cm. mGy. LIMITATIONS: None. FINDINGS: VENTRICLES: Prominent. CEREBRUM: No masses. No hemorrhage. No midline shift. Areas of low density in the white matter mos t likely due to chronic micro-vascular ischemic change. No evidence for acute infarction. CEREBELLUM: No masses. No hemorrhage. No alteration of density. No evidence for acute infarction. EXTRAAXIAL SPACES: Mild age-related involutional change. No fluid collections. No masses. ORBITS AND GLOBE: No intra- or extraconal masses. Normal contour of globe without masses. CALVARIUM: No fracture. PARANASAL SINUSES: Grossly stable ethmoid air cell disease. SOFT TISSUES: No mass or hematoma. OTHER: No other significant finding. IMPRESSION: MILD CHRONIC CHANGES OF ATROPHY AND MICROVASCULAR ISCHEMIA. NO ACUTE PROCESS. EVIDENCE OF ACUTE STROKE: NO. TECHNICAL DOCUMENTATION: JOB ID: [id number] Quality ID # [id number]: Final reports with documentation of one or more dose reduction techniques (e.g., Au tomated exposure control, adjustment of the mA and/or kV according to patient size, use of iterative reconstruction technique) 2010 [employer]- All Rights Reserved Reading location - IP/workstation name: [email or web address]
--- NOTE | 2020-08-14 09:37 | RADIOLOGY REPORT (SQ) ---
EXAM DESCRIPTION: CHEST SINGLE VIEW IMAGES COMPLETED DATE/TIME: 08/14/2020 8:56 am REASON FOR STUDY: AMS COMPARISON: 07/26/2020 EXAM PARAMETERS: NUMBER OF VIEWS: One view. TECHNIQUE: Single frontal radiographic view of the chest acquired. RADIATION DOSE: NA LIMITATIONS: None. FINDINGS: LUNGS AND PLEURA: No consolidation. No definite effusions or pneumothorax. MEDIASTINUM AND HILAR STRUCTURES: No masses. Contour normal. HEART AND VASCULAR STRUCTURES: Heart normal in size. Normal vasculature. BONES: Healed left-sided rib fractures. HARDWARE: Irqnrd-G-Hibo is in place. OTHER: No other significant finding. IMPRESSION: Stable chest. No acute findings. TECHNICAL DOCUMENTATION: JOB ID: [id number] 2010 [employer]- All Rights Reserved Reading location - IP/workstation name: [email or web address]
[2020-08-14 09:49] LABS: APPEARANCE,URINE CLEAR; BILIRUBIN,URINE NEGATIVE (NEGATIVE); COLOR,URINE YELLOW; GLUCOSE, URINE >=500 mg/dL (NEGATIVE); KETONES,URINE NEGATIVE (NEGATIVE); PROTEIN,URINE NEGATIVE (NEGATIVE); URINE SPECIFIC GRAVITY 1.016; UROBILINOGEN,URINE NEGATIVE mg/dL (<2.0)
--- NOTE | 2020-08-14 10:09 | ER Document Report ---
ED Dizziness/Weakness - General Chief Complaint: Altered Mental Status Stated Complaint: ALTERED MENTAL STATUS Time Seen by Provider: 08/14/20 07:54 Primary Care Provider: MORIAH MADISON PA-C [Primary Care Provider] - Follow up as needed Mode of Arrival: Medic Information source: Patient, Relative, Emergency Med Personnel TRAVEL OUTSIDE OF THE [place] IN LAST 30 DAYS: No - HPI Notes: Patient presents with altered mental status from prison. Patient was apparently discharged in this hospital yesterday. [facility] states that they were unable to arouse patient this morning. Patient here is very somnolent but I am able to arouse her to get a brief history. She denies any pain. No shortness of breath. She has no significant complaints at this time. Patient's altered mental status appears at this time to be fairly constant. She does arouse with painful stimuli she goes back to sleep without any painful stimuli. No known trauma no known vomiting diarrhea or fevers. - Related Data Allergies/Adverse Reactions: No Known Allergies Allergy (Verified 07/19/17 00:41) Past Medical History - General Information source: Patient, Emergency Med Personnel - Social History Smoking Status: Former Smoker Frequency of alcohol use: None Drug Abuse: None Family History: Reviewed & Not Pertinent, Arthritis, CAD, DM, Hyperlipidemia, Hypertension, Thyroid Disfunction - Past Medical History Cardiac Medical History: Reports: Hx Hypercholesterolemia, Hx Hypertension - CONTROLLED/MEDICATED Denies: Hx Coronary Artery Disease, Hx Heart Attack Pulmonary Medical History: Reports: Hx Pneumonia - as child Denies: Hx Asthma, Hx Bronchitis, Hx COPD Neurological Medical History: Denies: Hx Cerebrovascular Accident, Hx Seizures Endocrine Medical History: Reports: Hx Diabetes Mellitus Type 2 Renal/ Medical History: Denies: Hx Peritoneal Dialysis Malignancy Medical History: Reports: Hx Breast Cancer - With bone metastases GI Medical History: Denies: Hx Hepatitis, Hx Hiatal Hernia, Hx Ulcer Musculoskeletal Medical History: Reports Hx Arthritis Psychiatric Medical History: Reports: Hx Anxiety, Hx Bipolar Disorder, Hx Depression, Hx Schizoaffective Disorder, Hx Schizophrenia Infectious Medical History: Denies: Hx Hepatitis Past Surgical History: Reports: Hx Appendectomy, Hx Dilation and Curettage, Hx Gynecologic Surgery - D&C. Denies: Hx Mastectomy, Hx Open Heart Surgery, Hx Pacemaker - Immunizations Immunizations up to date: Yes Hx Diphtheria, Pertussis, Tetanus Vaccination: Yes Review of Systems - Review of Systems -: Yes ROS unobtainable due to patient's medical condition - Cannot give review of symptoms due to patient's altered mental status Physical Exam - Vital signs Vitals: Resp Pulse Ox 19 96 08/14/20 07:55 08/14/20 07:55 Interpretation: Normal - General General appearance: Lethargic In distress: None - HEENT Head: Normocephalic, Atraumatic Eyes: Normal Pupils: PERRL Mucous membranes: Dry Pharynx: Normal Neck: Normal - Respiratory Respiratory status: No respiratory distress Chest status: Nontender Breath sounds: Normal Chest palpation: Normal - Cardiovascular Rhythm: Regular Heart sounds: Normal auscultation Murmur: No - Abdominal Inspection: Normal Distension: No distension Bowel sounds: Normal Tenderness: Nontender Organomegaly: No organomegaly - Back Back: Nontender, Other - Patient has a healing ulceration in the left upper back that does not appear acutely infected - Extremities General upper extremity: Normal inspection, Nontender, Normal color, Normal ROM, Normal temperature General lower extremity: Normal inspection, Nontender, Normal color, Normal temperature - Neurological Cognition: Confused Orientation: Disoriented to time [place] Coma Scale Eye Opening: Spontaneous [place] Coma Scale Verbal: Confused [place] Coma Scale Motor: Obeys Commands [place] Coma Scale Total: 14 Speech: Normal - Psychological Associated symptoms: Flat affect, Psychomotor depression - Skin Skin Temperature: Warm Skin Moisture: Dry Skin Color: Other - Unremarkable other than the ulceration on the back as noted above Course - Re-evaluation Re-evalutation: 08/14/20 10:08 Patient presents from prison with altered mental status. Patient is arousable to painful stimuli but then falls back asleep. Vital signs have been stable other than a borderline low blood pressure of approximately 90-100. Patient does appear dry on exam. I am going to push fluids. Lactate is borderline at 2.0. There is no obvious infection. Urine is clear chest x-ray is clear and head CT is unremarkable. Abdomen is soft nontender nondistended. There is no obvious wounds. Patient is not tachycardic. I do not believe patient is septic I believe patient may be a combination of dehydrated and possibly overmedicated with psychoactive medications. 08/14/20 10:12 Patient reexamined just now patient is considerably more awake. Patient's blood pressure is now 140 systolic. Patient is smiling and talkative. I am unsure what caused the patient to have altered mental status and low blood pressure on arrival possibly it was just significant dehydration and now that she has received 2 L of fluid she is better at this time though it still seems prudent to have the patient placed under observation status given the patient's presentation until further delineation of the cause of her presenting altered mental status and hypotension can be derived. - Vital Signs Vital signs: Temp Pulse Resp BP Pulse Ox 97.1 F 19 91/65 L 96 08/14/20 07:59 08/14/20 09:01 08/14/20 09:01 08/14/20 09:01 - Laboratory Result Diagrams: 08/14/20 08:10 08/14/20 08:10 Laboratory results interpreted by me: 08/14/20 08/14/20 08/14/20 08:10 08:10 08:15 RBC 2.64 L Hgb 9.3 L Hct 27.1 L MCV 103 H MCH 35.4 H RDW 16.6 H [place] % (Auto) 17.9 H BUN 25 H Glucose 166 H Total Protein 5.9 L Albumin 3.0 L Urine Glucose (UA) >=500 H - Diagnostic Test Radiology reviewed: Image reviewed, Reports reviewed - EKG Interpretation by Me EKG shows normal: Sinus rhythm Rate: Normal - 90 Rhythm: NSR Voltage: Consistent with LVH Discharge - Discharge Clinical Impression: Altered mental status Qualifiers: Altered mental status type: somnolence Qualified Code(s): R40.0 - Somnolence Schizophrenia Qualifiers: Schizophrenia type: other Qualified Code(s): F20.89 - Other schizophrenia; F20.8 - Other schizophrenia Condition: Serious Disposition: ADMITTED INPATIENT Admitting Provider: No[facility] Unit Admitted: [facility] Referrals: MORIAH MADISON PA-C [Primary Care Provider] - Follow up as needed
[2020-08-14] MEDS: NORMAL SALINE 1000 ML 1,000 ML IV PRN (14:15)
[2020-08-14 14:52] LABS: PHOSPHORUS 3.4 mg/dL (2.5-4.5)
[2020-08-14 15:10] LABS: FREE T4 (FREE THYROXINE) 1.15 ng/dL (0.78-2.19)
[2020-08-14] MEDS: ENOXAPARIN SODIUM INJ 40 MG/0.4 ML DISP.SYRIN SUBCUT SCH (15:19)
[2020-08-14 15:24] LABS: THYROID STIMULATING HORMONE 2.66 uIU/mL (0.47-4.68)
[2020-08-14 15:51] LABS: INTERNATIONAL RATION (INR) 1.09; PROTHROMBIN TIME 14.3 SEC (11.4-15.4)
[2020-08-14 15:52] LABS: PARTIAL THROMBOPLASTIN TIME 32.7 SEC (23.5-35.8)
[2020-08-14 16:16] LABS: CREATINE KINASE MB 0.32 ng/mL (<4.55)
[2020-08-14 16:22] LABS: TROPONIN I < 0.012 ng/mL
--- NOTE | 2020-08-14 18:10 | EKG REPORT ---
SEVERITY:- ABNORMAL ECG - SINUS RHYTHM NONSPECIFIC IVCD WITH LAD LEFT VENTRICULAR HYPERTROPHY : Confirmed by: Sunday Jacob MD 14-Aug-2020 18:09:43
[2020-08-14 18:29] LABS: ARTERIAL BLOOD BASE EXCESS 0.7 mmol/L; ARTERIAL BLOOD H2CO3 1.18 mmol/L (1.05-1.35); ARTERIAL BLOOD HCO3 25.1 mmol/L (20-24); ARTERIAL BLOOD O2 SATURATION 95.5 % (94-98); ARTERIAL BLOOD PCO2 39.3 mmHg (35-45); ARTERIAL BLOOD PH 7.42 (7.35-7.45); ARTERIAL BLOOD PO2 76.1 mmHg (80-100); ARTERIAL BLOOD TOTAL CO2 26.3 mmol/L (21-25)
[2020-08-14 18:32] LABS: ARTERIAL BLOOD FIO2 ROOM AIR
--- NOTE | 2020-08-14 20:57 | PDOC H&P ---
History of Present Illness Admission Date/PCP: 08/14/20 10:18 MORIAH BYRNE PA-C History of Present Illness: RANDELL COURTNEY is a 64 year old female, She was [facility], she was transferred from the [facility] but emergency room for evaluation of altered mental status.CAT scan of the head was done, it was negative for any acute Pathology.The exact cause of the excessive somnolence is not clear, this could be related to medication that she uses for her psychosis, Past Medical History Cardiac Medical History: Reports: Hyperlipidema, Hypertension - CONTROLLED/MEDICATED Pulmonary Medical History: Reports: Pneumonia - as child Endocrine Medical History: Reports: Diabetes Mellitus Type 2 Malignancy Medical History: Reports: Breast Cancer - With bone metastases GI Medical History: Reports: Cirrhosis Musculoskeltal Medical History: Reports: Arthritis Psychiatric Medical History: Reports: Bipolar Disorder, Depression, Schizoaffective Disorder Hematology: Reports: Anemia Past Surgical History Past Surgical History: Reports: Appendectomy Social History Smoking Status: Former Smoker Electronic Cigarette use?: No Frequency of Alcohol Use: None Hx Recreational Drug Use: No Drugs: None Hx Prescription Drug Abuse: No Family History Family History: Reviewed & Not Pertinent, Arthritis, CAD, DM, Hyperlipidemia, Hypertension, Thyroid Disfunction Parental Family History Reviewed: Yes Children Family History Reviewed: Yes Sibling(s) Family History Reviewed.: Yes Medication/Allergy Home Medications: Benztropine Mesylate [Cogentin 1 mg Tablet] 0.5 mg PO Q12 07/26/20 Calcium Carbonate [Calcium] 600 mg PO DAILY 07/26/20 Dapagliflozin Propanediol [Farxiga] 10 mg PO DAILY 07/26/20 Divalproex Sodium [Depakote ER 250 mg Tablet] 250 mg PO Q12 07/26/20 Divalproex Sodium [Depakote ER 500 mg Tab.sr] 500 mg PO Q12 07/26/20 Doxepin HCl [Silenor] 3 mg PO QHS 07/26/20 Lisinopril [Prinivil 10 mg Tablet] 10 mg PO DAILY 07/26/20 Metformin HCl [Glucophage 500 mg Tablet] 1,000 mg PO BIDBS 07/26/20 Quetiapine Fumarate [Quetiapine Fumarate ER] 600 mg PO QHS 07/26/20 Aripiprazole [Abilify 5 mg Tablet] 5 mg PO QHS tablet 08/06/20 Atorvastatin Calcium [Lipitor 80 mg Tablet] 40 mg PO QHS #0 08/06/20 Docusate Sodium [Colace 100 mg Capsule] 100 mg PO DAILY capsule 08/06/20 Famotidine [Pepcid 20 mg Tablet] 20 mg PO Q12 tablet 08/06/20 Allergies/Adverse Reactions: No Known Allergies Allergy (Verified 08/14/20 10:31) Review of Systems Constitutional: ABSENT: chills, fever(s), headache(s), weight gain, weight loss Eyes: ABSENT: visual disturbances Ears: ABSENT: hearing changes Cardiovascular: ABSENT: chest pain, dyspnea on exertion, edema, orthropnea, palpitations Respiratory: ABSENT: cough, hemoptysis Gastrointestinal: ABSENT: abdominal pain, constipation, diarrhea, hematemesis, hematochezia, nausea, vomiting Genitourinary: ABSENT: dysuria, hematuria Musculoskeletal: ABSENT: joint swelling Integumentary: ABSENT: rash, wounds Neurological: ABSENT: abnormal gait, abnormal speech, confusion, dizziness, focal weakness, syncope Psychiatric: ABSENT: anxiety, depression, homidical ideation, suicidal ideation Endocrine: ABSENT: cold intolerance, heat intolerance, menstrual abnormalities, polydipsia, polyuria Hematologic/Lymphatic: ABSENT: easy bleeding, easy bruising, lymphadenopathy Physical Exam Vital Signs: Temp Pulse Resp BP Pulse Ox 98.0 F 90 18 141/64 H 99 08/14/20 14:07 08/14/20 14:42 08/14/20 14:07 08/14/20 14:07 08/14/20 14:07 Intake & Output 08/13/20 08/14/20 08/15/20 06:59 06:59 06:59 Intake Total 2477 Balance 2477 Weight 69 kg General appearance: PRESENT: no acute distress Eye exam: PRESENT: PERRLA Respiratory exam: PRESENT: clear to auscultation [place] Cardiovascular exam: PRESENT: +S1, +S2 GI/Abdominal exam: PRESENT: soft Neurological exam: PRESENT: altered Results Laboratory Results: 08/14/20 08:10 08/14/20 08:10 08/14/20 08/14/20 08/14/20 08:10 08:10 08:10 WBC 6.2 RBC 2.64 L Hgb 9.3 L Hct 27.1 L MCV 103 H MCH 35.4 H MCHC 34.5 RDW 16.6 H Plt Count 256 Seg Neutrophils % 61.4 Carbonic Acid HCO3/H2CO3 Ratio ABG pH ABG pCO2 ABG pO2 ABG HCO3 ABG O2 Saturation ABG Base Excess VBG pH 7.39 VBG pCO2 35.8 VBG HCO3 21.2 VBG Base Excess -3.2 FiO2 Sodium 137.8 Potassium 4.3 Chloride 103 Carbon Dioxide 26 Anion Gap 9 BUN 25 H Creatinine 0.60 Est GFR ( Amer) > 60 Glucose 166 H Lactic Acid Calcium 8.5 Phosphorus Magnesium Total Bilirubin 0.3 AST 16 Alkaline Phosphatase 106 Ammonia Total Protein 5.9 L Albumin 3.0 L Amylase Lipase TSH Free T4 Urine Color Urine Appearance Urine pH Ur Specific [place] Urine Protein Urine Glucose (UA) Urine Ketones Urine Blood Urine RBC (Auto) 08/14/20 08/14/20 08/14/20 08:10 08:10 08:10 WBC RBC Hgb Hct MCV MCH MCHC RDW Plt Count Seg Neutrophils % Carbonic Acid HCO3/H2CO3 Ratio ABG pH ABG pCO2 ABG pO2 ABG HCO3 ABG O2 Saturation ABG Base Excess VBG pH VBG pCO2 VBG HCO3 VBG Base Excess FiO2 Sodium Potassium Chloride Carbon Dioxide Anion Gap BUN Creatinine Est GFR ( Amer) Glucose Lactic Acid 2.0 Calcium Phosphorus 3.4 Magnesium 1.7 Total Bilirubin AST Alkaline Phosphatase Ammonia Total Protein Albumin Amylase 50 Lipase 84.4 TSH 2.66 Free T4 1.15 Urine Color Urine Appearance Urine pH Ur Specific [place] Urine Protein Urine Glucose (UA) Urine Ketones Urine Blood Urine RBC (Auto) 08/14/20 08/14/20 08/14/20 08:15 11:22 15:30 WBC RBC Hgb Hct MCV MCH MCHC RDW Plt Count Seg Neutrophils % Carbonic Acid HCO3/H2CO3 Ratio ABG pH ABG pCO2 ABG pO2 ABG HCO3 ABG O2 Saturation ABG Base Excess VBG pH VBG pCO2 VBG HCO3 VBG Base Excess FiO2 Sodium Potassium Chloride Carbon Dioxide Anion Gap BUN Creatinine Est GFR ( Amer) Glucose Lactic Acid 2.4 H 1.3 Calcium Phosphorus Magnesium Total Bilirubin AST Alkaline Phosphatase Ammonia Total Protein Albumin Amylase Lipase TSH Free T4 Urine Color YELLOW Urine Appearance CLEAR Urine pH 5.0 Ur Specific [place] 1.016 Urine Protein NEGATIVE Urine Glucose (UA) >=500 H Urine Ketones NEGATIVE Urine Blood NEGATIVE Urine RBC (Auto) 1 08/14/20 08/14/20 15:30 17:50 WBC RBC Hgb Hct MCV MCH MCHC RDW Plt Count Seg Neutrophils % Carbonic Acid 1.18 HCO3/H2CO3 Ratio 21:1 ABG pH 7.42 ABG pCO2 39.3 ABG pO2 76.1 L ABG HCO3 25.1 H ABG O2 Saturation 95.5 ABG Base Excess 0.7 VBG pH VBG pCO2 VBG HCO3 VBG Base Excess FiO2 ROOM AIR Sodium Potassium Chloride Carbon Dioxide Anion Gap BUN Creatinine Est GFR ( Amer) Glucose Lactic Acid Calcium Phosphorus Magnesium Total Bilirubin AST Alkaline Phosphatase Ammonia < 8.7 L Total Protein Albumin Amylase Lipase TSH Free T4 Urine Color Urine Appearance Urine pH Ur Specific [place] Urine Protein Urine Glucose (UA) Urine Ketones Urine Blood Urine RBC (Auto) 08/14/20 08/14/20 08/14/20 08:10 15:30 15:30 Creatine Kinase 38 CK-MB (CK-2) 0.32 Troponin I < 0.012 < 0.012 Impressions: Chest X-Ray 08/14/20 00:00 IMPRESSION: Stable chest. No acute findings. Head CT 08/14/20 07:54 IMPRESSION: MILD CHRONIC CHANGES OF ATROPHY AND MICROVASCULAR ISCHEMIA. NO ACUTE PROCESS. EVIDENCE OF ACUTE STROKE: NO. Assessment & Plan - Diagnosis (1) Acute anoxic encephalopathy Is this a current diagnosis for this admission?: Yes Plan: This is probably from medication - Time Time Spent: 50 to 70 Minutes Medications reviewed and adjusted accordingly: Yes Anticipated Discharge Disposition: [facility] Facility Anticipated Discharge Timeframe: within 36 hours - Inpatient Certification Based on my medical assessment, after consideration of the patient's comorbidities, presenting symptoms, or acuity I expect that the services needed warrant INPATIENT care.: No I certify that my determination is in accordance with my understanding of Medicare's requirements for reasonable and necessary INPATIENT services [42 CFR 412.3e].: No
[2020-08-14 23:30] LABS: CREATINE KINASE MB 0.41 ng/mL (<4.55)
[2020-08-14 23:35] LABS: TROPONIN I < 0.012 ng/mL
[2020-08-15] MEDS: NORMAL SALINE 1000 ML 1,000 ML IV PRN ×2 (02:17→23:39)
[2020-08-15 06:00] LABS: ABSOLUTE EOSINOPHILS # (AUTO) 0.1 10^3/uL (0.0-0.6); ABSOLUTE LYMPHOCYTES (AUTO) 0.8 10^3/uL (0.5-4.7); ABSOLUTE MONOCYTES (AUTO) 0.8 10^3/uL (0.1-1.4); ABSOLUTE NEUT (AUTO) 2.9 10^3/uL (1.7-8.2); BASOPHILS % (AUTO) 0.6 % (0-2); EOSINOPHILS % (AUTO) 2.5 % (0-6); HEMATOCRIT 22.6 % (36.0-47.0); LYMPHOCYTES % (AUTO) 16.4 % (13-45); MEAN CORPUSCULAR HEMOGLOBIN 35.3 pg (27.0-33.4); MEAN CORPUSCULAR HGB CONC 34.5 g/dL (32.0-36.0); MEAN CORPUSCULAR VOLUME 102 fl (80-97); MONOCYTES % (AUTO) 17.6 % (3-13); PLATELET COUNT 228 10^3/uL (150-450); RED BLOOD COUNT 2.21 10^6/uL (3.72-5.28); RED CELL DISTRIBUTION WIDTH 16.6 % (11.5-14.0); SEGMENTED NEUTROPHILS % (AUTO) 62.9 % (42-78); TOTAL CELLS COUNTED % (AUTO) 100 %; WHITE BLOOD COUNT 4.7 10^3/uL (4.0-10.5)
[2020-08-15 06:17] LABS: ALBUMIN 2.8 g/dL (3.5-5.0); ALKALINE PHOSPHATASE 95 U/L (38-126); ANION GAP 6 (5-19); ASPARTATE AMINO TRANSFERASE 20 U/L (14-36); BILIRUBIN,DIRECT 0.2 mg/dL (0.0-0.4); BILIRUBIN,TOTAL 0.4 mg/dL (0.2-1.3); BLOOD UREA NITROGEN 18 mg/dL (7-20); CALCIUM 7.6 mg/dL (8.4-10.2); CARBON DIOXIDE 25 mmol/L (22-30); CHLORIDE 106 mmol/L (98-107); GLUCOSE 150 mg/dL (75-110); TOTAL PROTEIN 5.4 g/dL (6.3-8.2); TRIGLYCERIDES 90 mg/dL (<150)
[2020-08-15 06:18] LABS: CHOLESTEROL 90.96 mg/dL (0-200)
[2020-08-15 06:28] LABS: DIRECT LDL 41 mg/dL (<100)
[2020-08-15 06:29] LABS: CREATINE KINASE MB 0.41 ng/mL (<4.55)
[2020-08-15 06:33] LABS: HEMOGLOBIN 7.8 g/dL (12.0-15.5)
[2020-08-15 06:34] LABS: TROPONIN I < 0.012 ng/mL
[2020-08-15] MEDS: ENOXAPARIN SODIUM INJ 40 MG/0.4 ML DISP.SYRIN SUBCUT SCH (10:18)
--- NOTE | 2020-08-15 14:35 | RADIOLOGY REPORT (SQ) ---
EXAM DESCRIPTION: CTA CHEST IMAGES COMPLETED DATE/TIME: 08/15/2020 1:13 pm REASON FOR STUDY: suspect PE COMPARISON: 07/26/2020 TECHNIQUE: CT scan of the chest performed using helical scanning technique with dynamic intravenous contrast injection. Images reviewed with lung, soft tissue and bone windows. Reconstructed coronal and sagittal MPR images reviewed. Additional 3 dimensional post-processing performed to develop Maximal Intensity Projection images (SC P). All images stored on PACS. All CT scanners at this facility use dose modulation, iterative reconstruction, and/or weight based d osing when appropriate to reduce radiation dose to as low as reasonably achievable (ALARA). [facility]: Dose Right [facility]: CareDose [facility]: Dose Right [facility]: Teradose 4D [facility]: [employer] CONTRAST TYPE AND DOSE: contrast/concentration: Isovue 350.00 mmol/ml; Total Contrast Delivered: 54. 0 ml; Total Saline Delivered: 70.0 ml Contrast bolus adequate for pulmonary arteries and aorta. RENAL FUNCTION: BUN 18 creatinine 0.46 RADIATION DOSE: CT Rad equipment meets quality standard of care and radiation dose reduction techniq ues were employed. CTDIvol: 6.6 - 21.0 mGy. DLP: 691 mGy-cm. . LIMITATIONS: None. FINDINGS: LUNGS AND PLEURA: Very small pleural effusions. Dependent atelectasis in the lower lobes. AORTA AND GREAT VESSELS: No aneurysm. No dissection. HEART: No pericardial effusion. No significant coronary artery calcifications. PULMONARY ARTERIES: No emboli visualized in the main pulmonary arteries or the segmental branches. HILAR AND MEDIASTINAL STRUCTURES: No identified masses or abnormal nodes. HARDWARE: None in the chest. UPPER ABDOMEN: No significant findings. Limited exam. THYROID AND OTHER SOFT TISSUES: No masses. No adenopathy. BONES: Old rib fractures. There are some small osseous lesions generally sclerotic that may suggest metastases. 3D MIPS: Confirm above findings. OTHER: No other significant finding. IMPRESSION: 1. There is no pulmonary embolus. There is no aortic aneurysm or dissection. 2. Small pleural effusions with dependent atelectasis in the lower lobes. 3. Old right rib fractures. 4. Possible osseous metastases. Consider nuclear medicine bone scan. COMMENT: Quality ID # [id number]: Final reports with documentation of one or more dose reduction techniques (e.g., Automated exposure control, adjustment of the mA and/or kV according to patient size, use of iterative reconstruction technique) TECHNICAL DOCUMENTATION: JOB ID: [id number] 2010 [employer]- All Rights Reserved Reading location - IP/workstation name: [email or web address]
--- NOTE | 2020-08-15 19:06 | NEURO WORKBENCH EEG REPORT ---
EEG Report Patient: Kisha Hoff ID: [id number] Referring Doctor: Noé Avila MD DOS: 08/25/2020 Medications: Lovenox History This is a 64 year old left handed female with a history of headaches, cardiac disorders, hypercholesterolemia, hypertension, pneumonia, appendectomy, metastatic breast cancer, arthritis, type 2 diabetes, schizophrenia, bipolar disorder, depression, anxiety, anemia, admitted with sepsis, acute knee injury, and SOB. This EEG was requested for AMS. EEG Interpretation This EEG was recorded in the awake and minimal drowsy states. The awake EEG is characterized by a moderately-organized background with a moderately well- developed and reactive posterior dominant rhythm of 6-7 Hz. The remainder of the background was characterized by a combination of primarily theta with some alpha and beta frequencies. Drowsiness was characterized by slowing of the background rhythms. Photic stimulation resulted in no significant changes. There were occasional sharply contoured waveforms, independently, in the left and right temporal regions but no definitive epileptiform abnormalities. The EKG showed a regular rhythm. EEG Classification * Generalized background slowing EEG Impression This EEG is abnormal. It is consistent with nonspecific diffuse cerebral dysfunction. There were no definitive epileptiform abnormalities. INTERPRETING NEUROLOGIST: Diamond Sanon MD, [facility] Board Certified in Neurology, with special qualification in Child Neurology, and in Clinical Neurophysiology [facility]
[2020-08-15 21:58] LABS: ABSOLUTE EOSINOPHILS # (AUTO) 0.1 10^3/uL (0.0-0.6); ABSOLUTE LYMPHOCYTES (AUTO) 0.8 10^3/uL (0.5-4.7); ABSOLUTE MONOCYTES (AUTO) 0.9 10^3/uL (0.1-1.4); ABSOLUTE NEUT (AUTO) 3.6 10^3/uL (1.7-8.2); BASOPHILS % (AUTO) 0.7 % (0-2); HEMATOCRIT 23.9 % (36.0-47.0); HEMOGLOBIN 8.4 g/dL (12.0-15.5); LYMPHOCYTES % (AUTO) 14.6 % (13-45); MEAN CORPUSCULAR HEMOGLOBIN 35.5 pg (27.0-33.4); MEAN CORPUSCULAR VOLUME 102 fl (80-97); MONOCYTES % (AUTO) 16.1 % (3-13); PLATELET COUNT 255 10^3/uL (150-450); RED BLOOD COUNT 2.36 10^6/uL (3.72-5.28); RED CELL DISTRIBUTION WIDTH 16.3 % (11.5-14.0); SEGMENTED NEUTROPHILS % (AUTO) 66.6 % (42-78); TOTAL CELLS COUNTED % (AUTO) 100 %; WHITE BLOOD COUNT 5.4 10^3/uL (4.0-10.5)
[2020-08-15 22:28] LABS: CREATINE KINASE MB 0.37 ng/mL (<4.55)
[2020-08-15 22:31] LABS: TROPONIN I < 0.012 ng/mL
[2020-08-15] MEDS: LISINOPRIL 10 MG TABLET PO SCH (22:49)
[2020-08-15] MEDS: PANTOPRAZOLE SODIUM 40 MG VIAL IV SCH (22:50)
[2020-08-16 06:39] LABS: ABSOLUTE EOSINOPHILS # (AUTO) 0.1 10^3/uL (0.0-0.6); ABSOLUTE LYMPHOCYTES (AUTO) 0.9 10^3/uL (0.5-4.7); ABSOLUTE MONOCYTES (AUTO) 0.9 10^3/uL (0.1-1.4); ABSOLUTE NEUT (AUTO) 3.5 10^3/uL (1.7-8.2); BASOPHILS % (AUTO) 0.8 % (0-2); EOSINOPHILS % (AUTO) 2.6 % (0-6); HEMATOCRIT 24.5 % (36.0-47.0); HEMOGLOBIN 8.6 g/dL (12.0-15.5); LYMPHOCYTES % (AUTO) 16.9 % (13-45); MEAN CORPUSCULAR HEMOGLOBIN 35.4 pg (27.0-33.4); MEAN CORPUSCULAR HGB CONC 35.1 g/dL (32.0-36.0); MEAN CORPUSCULAR VOLUME 101 fl (80-97); MONOCYTES % (AUTO) 16.7 % (3-13); PLATELET COUNT 268 10^3/uL (150-450); RED BLOOD COUNT 2.44 10^6/uL (3.72-5.28); RED CELL DISTRIBUTION WIDTH 15.7 % (11.5-14.0); TOTAL CELLS COUNTED % (AUTO) 100 %; WHITE BLOOD COUNT 5.6 10^3/uL (4.0-10.5)
--- NOTE | 2020-08-16 06:56 | EKG REPORT ---
SEVERITY:- ABNORMAL ECG - SINUS RHYTHM NONSPECIFIC IVCD WITH LAD LEFT VENTRICULAR HYPERTROPHY ANTERIOR Q WAVES, POSSIBLY DUE TO LVH : Confirmed by: Sunday Jacob MD 16-Aug-2020 06:55:14
[2020-08-16] MEDS ORDERED: DEXTROSE 40% GEL 15 GM TUBE PO PRN (09:30)
[2020-08-16] MEDS ORDERED: DEXTROSE 40% GEL 15 GM TUBE X 2 PO PRN (09:30)
[2020-08-16] MEDS ORDERED: DEXTROSE 50%-WATER SYRINGE 25 GM/50 ML DOSE IV PRN (09:30)
[2020-08-16] MEDS ORDERED: GLUCAGON,HUMAN RECOMB 1 MG INJ IM PRN (09:30)
[2020-08-16] MEDS ORDERED: DEXTROSE 50%-WATER SYRINGE 12.5 GM/25 ML DOSE IV PRN (09:30)
--- NOTE | 2020-08-16 10:01 | PDOC PROGRESS REPORT ---
Subjective Progress Note for:: 08/16/20 Subjective:: This 64-year-old female was admitted because of the altered mental status as usual with a stage IV breast cancer with metastatic disease complaint with chest pain yesterday CT angiogram was negative for any PE EKG cardiac enzyme is all stable As per discussed with the oncology patient spray much appropriate for the hospice care with the stage IV cancers Discussed with the cardiology at this point as patient have advanced stage IV cancer abdomen thinks a candidate for any cardiac interventions continues the medical management Patient is currently alert awake is denied any chest pain today Reason For Visit: ENCEPHALOPATHY ? CAUSE Physical Exam Vital Signs: Temp Pulse Resp BP Pulse Ox 97.8 F 86 16 138/91 H 94 08/16/20 07:32 08/16/20 07:32 08/16/20 07:32 08/16/20 07:32 08/16/20 07:32 Intake & Output 08/15/20 08/16/20 08/17/20 06:59 06:59 06:59 Intake Total 3957 1355 Output Total 0 600 Balance 3957 755 Weight 69.1 kg 70.9 kg General appearance: PRESENT: no acute distress Head exam: PRESENT: atraumatic, normocephalic Eye exam: PRESENT: conjunctiva pink, EOMI, PERRLA. ABSENT: scleral icterus Ear exam: PRESENT: normal external ear exam Mouth exam: PRESENT: moist, tongue midline Neck exam: PRESENT: full ROM. ABSENT: carotid bruit, JVD, lymphadenopathy, thyromegaly Respiratory exam: PRESENT: clear to auscultation [place] Cardiovascular exam: PRESENT: RRR. ABSENT: diastolic murmur, rubs, systolic murmur Vascular exam: PRESENT: normal capillary refill GI/Abdominal exam: PRESENT: normal bowel sounds, soft. ABSENT: distended, guarding, mass, organolmegaly, rebound, tenderness Rectal exam: PRESENT: deferred Neurological exam: PRESENT: alert, awake. ABSENT: motor sensory deficit Psychiatric exam: PRESENT: appropriate affect, normal mood. ABSENT: homicidal ideation, suicidal ideation Skin exam: PRESENT: dry, intact, warm. ABSENT: cyanosis, rash Results Laboratory Results: 08/16/20 05:57 08/15/20 05:23 08/15/20 08/16/20 21:26 05:57 WBC 5.4 5.6 RBC 2.36 L 2.44 L Hgb 8.4 L 8.6 L Hct 23.9 L 24.5 L MCV 102 H 101 H MCH 35.5 H 35.4 H MCHC 35.0 35.1 RDW 16.3 H 15.7 H Plt Count 255 268 Seg Neutrophils % 66.6 63.0 08/14/20 08/14/20 08/14/20 08:10 15:30 15:30 Creatine Kinase 38 CK-MB (CK-2) 0.32 Troponin I < 0.012 < 0.012 08/14/20 08/14/20 08/15/20 22:53 22:53 05:23 Creatine Kinase 42 47 CK-MB (CK-2) 0.41 Troponin I < 0.012 08/15/20 08/15/20 08/15/20 05:23 21:26 21:26 Creatine Kinase 42 CK-MB (CK-2) 0.41 0.37 Troponin I < 0.012 < 0.012 Impressions: Chest X-Ray 08/14/20 00:00 IMPRESSION: Stable chest. No acute findings. Head CT 08/14/20 07:54 IMPRESSION: MILD CHRONIC CHANGES OF ATROPHY AND MICROVASCULAR ISCHEMIA. NO ACUTE PROCESS. EVIDENCE OF ACUTE STROKE: NO. Chest/Abdomen CTA 08/15/20 00:00 IMPRESSION: 1. There is no pulmonary embolus. There is no aortic aneurysm or dissection. 2. Small pleural effusions with dependent atelectasis in the lower lobes. 3. Old right rib fractures. 4. Possible osseous metastases. Consider nuclear medicine bone scan. Assessment & Plan - Diagnosis (1) Acute anoxic encephalopathy Is this a current diagnosis for this admission?: Yes (2) Altered mental status Qualifiers: Altered mental status type: somnolence Qualified Code(s): R40.0 - Somnolence Is this a current diagnosis for this admission?: Yes (3) Bone metastasis Is this a current diagnosis for this admission?: Yes (4) Schizophrenia Qualifiers: Schizophrenia type: other Qualified Code(s): F20.89 - Other schizophrenia; F20.8 - Other schizophrenia Is this a current diagnosis for this admission?: Yes (5) Chest pain Qualifiers: Chest pain type: unspecified Qualified Code(s): R07.9 - Chest pain, unspecified Is this a current diagnosis for this admission?: Yes (6) Type 2 diabetes mellitus Qualifiers: Diabetes mellitus assisted insulin use: without 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 helper use Diabetes mellitus complication status: with neurologic complications Diabetes mellitus complication detail: with polyneuropathy Qualified Code(s): E11.42 - Type 2 diabetes mellitus with diabetic polyneuropathy Is this a current diagnosis for this admission?: Yes - Time Time Spent with patient: 15-24 minutes Level of Care: IMCU Medications reviewed and adjusted accordingly: Yes Anticipated discharge: Other Anticipated DC Timeframe: Other - Plan Summary Plan Summary: Continues to current medications I think patients probably appropriate for the hospice care as per discussed with the oncology
--- NOTE | 2020-08-16 10:01 | PDOC CONSULTATION ---
Consultation Consult Date: 08/16/20 Provider Consulted: SORAYA HUNT Consult reason:: Hematology/Oncology consultation was requested for patient on active treatment for breast cancer, admitted with mental status changes. History of Present Illness Admission Date/PCP: 08/14/20 10:18 MORIAH BYRNE PA-C History of Present Illness: RANDELL COURTNEY is a 64 year old female who was diagnosed with breast cancer metastatic to the bones several years ago. Most recently, she has been on Xgeva, ibrance, and Faslodex, but no treatment recently, as she was admitted to the hospital 07/26/20. No significant pathology was found for the mental status changes and it was thought to be due to her medications for psychosis. Although she was transferred to SNF, she was sent back to the hospital within 24 hours for continued mental status changes. Today, she is able to open her eyes only briefly and tell me that she is feeling fine, has no pain, and no complaints. Past Medical History Medical History: Other - All of her medical, surgical, social, and family history is per past records only. Cardiac Medical History: Reports: Hyperlipidema, Hypertension - CONTROLLED/MEDICATED Denies: Coronary Artery Disease, Myocardial Infarction Pulmonary Medical History: Reports: Pneumonia - as child Denies: Asthma, Bronchitis, Chronic Obstructive Pulmonary Disease (COPD) Neurological Medical History: Denies: Seizures Endocrine Medical History: Reports: Diabetes Mellitus Type 2 Malignancy Medical History: Reports: Breast Cancer - With bone metastases GI Medical History: Reports: Cirrhosis Denies: Hepatitis, Hiatal Hernia Musculoskeltal Medical History: Reports: Arthritis Psychiatric Medical History: Reports: Bipolar Disorder, Depression, Schizoaffe ctive Disorder Hematology: Reports: Anemia Past Surgical History Past Surgical History: Reports: Appendectomy Denies: Mastectomy, Pacemaker Social History Smoking Status: Former Smoker Electronic Cigarette use?: No Frequency of Alcohol Use: None Hx Recreational Drug Use: No Drugs: None Hx Prescription Drug Abuse: No Family History Family History: Reviewed & Not Pertinent, Arthritis, CAD, DM, Hyperlipidemia, Hypertension, Thyroid Disfunction Family History: As per medical records rere Parental Family History Reviewed: No Children Family History Reviewed: No Sibling(s) Family History Reviewed.: No Medication/Allergy Home Medications: Benztropine Mesylate [Cogentin 1 mg Tablet] 0.5 mg PO Q12 07/26/20 Calcium Carbonate [Calcium] 600 mg PO DAILY 07/26/20 Dapagliflozin Propanediol [Farxiga] 10 mg PO DAILY 07/26/20 Divalproex Sodium [Depakote ER 250 mg Tablet] 250 mg PO Q12 07/26/20 Divalproex Sodium [Depakote ER 500 mg Tab.sr] 500 mg PO Q12 07/26/20 Doxepin HCl [Silenor] 3 mg PO QHS 07/26/20 Lisinopril [Prinivil 10 mg Tablet] 10 mg PO DAILY 07/26/20 Metformin HCl [Glucophage 500 mg Tablet] 1,000 mg PO BIDBS 07/26/20 Quetiapine Fumarate [Quetiapine Fumarate ER] 600 mg PO QHS 07/26/20 Aripiprazole [Abilify 5 mg Tablet] 5 mg PO QHS tablet 08/06/20 Atorvastatin Calcium [Lipitor 80 mg Tablet] 40 mg PO QHS #0 08/06/20 Docusate Sodium [Colace 100 mg Capsule] 100 mg PO DAILY capsule 08/06/20 Famotidine [Pepcid 20 mg Tablet] 20 mg PO Q12 tablet 08/06/20 Allergies/Adverse Reactions: No Known Allergies Allergy (Verified 08/14/20 10:31) Review of Systems ROS unobtainable: Due to mental status Physical Exam Vital Signs: Temp Pulse Resp BP Pulse Ox 97.8 F 86 16 138/91 H 94 08/16/20 07:32 08/16/20 07:32 08/16/20 07:32 08/16/20 07:32 08/16/20 07:32 Intake & Output 08/15/20 08/16/20 08/17/20 06:59 06:59 06:59 Intake Total 3957 1355 Output Total 0 600 Balance 3957 755 Weight 69.1 kg 70.9 kg General appearance: PRESENT: no acute distress, well-developed, well-nourished Exam: 64 year old female. Eye exam: PRESENT: EOMI Mouth exam: PRESENT: dry mucosa Neck exam: ABSENT: lymphadenopathy, tenderness Respiratory exam: PRESENT: clear to auscultation [place], unlabored Cardiovascular exam: PRESENT: RRR GI/Abdominal exam: PRESENT: normal bowel sounds, soft. ABSENT: tenderness Extremities exam: PRESENT: other - 1+ edema in the left hand and arm.. ABSENT: pedal edema Musculoskeletal exam: PRESENT: normal inspection Neurological exam: PRESENT: altered. ABSENT: oriented to person, oriented to place, oriented to time, oriented to situation Psychiatric exam: PRESENT: flat affect Skin exam: PRESENT: pallor Results Laboratory Results: 08/16/20 05:57 08/15/20 05:23 08/15/20 08/16/20 21:26 05:57 WBC 5.4 5.6 RBC 2.36 L 2.44 L Hgb 8.4 L 8.6 L Hct 23.9 L 24.5 L MCV 102 H 101 H MCH 35.5 H 35.4 H MCHC 35.0 35.1 RDW 16.3 H 15.7 H Plt Count 255 268 Seg Neutrophils % 66.6 63.0 08/14/20 08/14/20 08/14/20 08:10 15:30 15:30 Creatine Kinase 38 CK-MB (CK-2) 0.32 Troponin I < 0.012 < 0.012 08/14/20 08/14/20 08/15/20 22:53 22:53 05:23 Creatine Kinase 42 47 CK-MB (CK-2) 0.41 Troponin I < 0.012 08/15/20 08/15/20 08/15/20 05:23 21:26 21:26 Creatine Kinase 42 CK-MB (CK-2) 0.41 0.37 Troponin I < 0.012 < 0.012 Impressions: Chest X-Ray 08/14/20 00:00 IMPRESSION: Stable chest. No acute findings. Head CT 08/14/20 07:54 IMPRESSION: MILD CHRONIC CHANGES OF ATROPHY AND MICROVASCULAR ISCHEMIA. NO ACUTE PROCESS. EVIDENCE OF ACUTE STROKE: NO. Chest/Abdomen CTA 08/15/20 00:00 IMPRESSION: 1. There is no pulmonary embolus. There is no aortic aneurysm or dissection. 2. Small pleural effusions with dependent atelectasis in the lower lobes. 3. Old right rib fractures. 4. Possible osseous metastases. Consider nuclear medicine bone scan. Status: Image reviewed by me Assessment & Plan - Diagnosis (1) Bone metastasis Is this a current diagnosis for this admission?: Yes Plan: All treatment is on hold. (2) Malignant neoplasm of right breast Qualifiers: Breast location: upper outer quadrant of breast Estrogen receptor status: positive Patient sex: female Qualified Code(s): C50.411 - Malignant neoplasm of upper-outer quadrant of right female breast; Z17.0 - Estrogen receptor positive status [ER+] Is this a current diagnosis for this admission?: Yes Plan: Most recent scans have shown stable disease. No evidence of brain mets on recent MRI with contrast. However, all treatment on hold and most likely will not be restarted while she is in a SNF. I will discuss Hospice services with family, as I believe she is a good candidate for this and may help prevent further hospitalizations. I will also discuss code status. She is currently FULL code. - Plan Summary Plan Summary: Patient was discussed with Dr. Benavides.
[2020-08-16] MEDS: ENOXAPARIN SODIUM INJ 40 MG/0.4 ML DISP.SYRIN SUBCUT SCH (10:18)
[2020-08-16] MEDS: LISINOPRIL 10 MG TABLET PO SCH (10:18)
[2020-08-16] MEDS: LIDOCAINE 5% (700 MG) TRANSDERMAL ADH..PATCH TP SCH (10:18)
[2020-08-16] MEDS: PANTOPRAZOLE SODIUM 40 MG VIAL IV SCH ×2 (10:18→22:17)
--- NOTE | 2020-08-16 10:25 | PDOC CONSULTATION ---
Consultation Consult Date: 08/16/20 Attending physician:: OKSANA LEE Provider Consulted: RE CASTILLO Consult reason:: Chest pain History of Present Illness Admission Date/PCP: 08/14/20 10:18 MORIAH BYRNE PA-C History of Present Illness: RANDELL COURTNEY is a 64 year old female with a history of the stage IV breast cancer with bone mets, schizophrenia, chronic pain and type 2 diabetes who is consulted to our service for evaluation of chest pain. The patient was recently admitted to this facility for several weeks for MS changes. She was discharged to SNF a few days ago just to be readmitted for MS changes. She had been at her baseline until yesterday when she had a single episode of chest pain that she described as a pressure, localized to the substernal area, lasting for at least 30 minutes, associated with some shortness of breath and diaphoresis but no palpitations, syncope or presyncope. Her chest pain has not recurred. Of note, her oncologist has recommended hospice due to her metastatic cancer. her telemetry shows NSR without sustained dysrhythmias. Physical exam on 08/16/2020: GENERAL: Pleasant and conversational. Oriented x3 with normal mood. Not in acute distress. Well groomed and well developed. HEENT: Normocephalic, atraumatic. Pupils equal. Sclerae anicteric. Oropharynx moist. NECK: No JVD. No carotid bruits. LUNGS: Clear to auscultation bilaterally. Normal respiratory effort without the use of accessory muscles or intercostal retractions. CARDIOVASCULAR: Regular rate and rhythm, normal S1 and S2 without murmurs, rubs, or gallops. PMI not displaced. ABDOMEN: No masses or tenderness to palpation. No bruit. No splenomegaly or hepatomegaly. No abdominal aorta bruit noted. EXTREMITIES: No edema, no cyanosis, no clubbing. +2 pulses femoral and pedal pulses bilaterally. SKIN: No lesions or rashes. MUSCULOSKELETAL: No chest tenderness to palpation. NEUROLOGIC: Nonfocal. No gross sensory or motor deficits bilateral upper or lower extremities. Past Medical History Cardiac Medical History: Reports: Hyperlipidema, Hypertension - CONTROLLED/MEDICATED Denies: Coronary Artery Disease, Myocardial Infarction Pulmonary Medical History: Reports: Pneumonia - as child Denies: Asthma, Bronchitis, Chronic Obstructive Pulmonary Disease (COPD) Neurological Medical History: Denies: Seizures Endocrine Medical History: Reports: Diabetes Mellitus Type 2 Malignancy Medical History: Reports: Breast Cancer - With bone metastases GI Medical History: Reports: Cirrhosis Denies: Hepatitis, Hiatal Hernia Musculoskeltal Medical History: Reports: Arthritis Psychiatric Medical History: Reports: Bipolar Disorder, Depression, Schizoaffective Disorder Hematology: Reports: Anemia Past Surgical History Past Surgical History: Reports: Appendectomy Denies: Mastectomy, Pacemaker Social History Smoking Status: Former Smoker Electronic Cigarette use?: No Frequency of Alcohol Use: None Hx Recreational Drug Use: No Drugs: None Hx Prescription Drug Abuse: No Family History Family History: Reviewed & Not Pertinent, Arthritis, CAD, DM, Hyperlipidemia, Hypertension, Thyroid Disfunction Parental Family History Reviewed: Yes Children Family History Reviewed: Yes Sibling(s) Family History Reviewed.: Yes Medication/Allergy Home Medications: Benztropine Mesylate [Cogentin 1 mg Tablet] 0.5 mg PO Q12 07/26/20 Calcium Carbonate [Calcium] 600 mg PO DAILY 07/26/20 Dapagliflozin Propanediol [Farxiga] 10 mg PO DAILY 07/26/20 Divalproex Sodium [Depakote ER 250 mg Tablet] 250 mg PO Q12 07/26/20 Divalproex Sodium [Depakote ER 500 mg Tab.sr] 500 mg PO Q12 07/26/20 Doxepin HCl [Silenor] 3 mg PO QHS 07/26/20 Lisinopril [Prinivil 10 mg Tablet] 10 mg PO DAILY 07/26/20 Metformin HCl [Glucophage 500 mg Tablet] 1,000 mg PO BIDBS 07/26/20 Quetiapine Fumarate [Quetiapine Fumarate ER] 600 mg PO QHS 07/26/20 Aripiprazole [Abilify 5 mg Tablet] 5 mg PO QHS tablet 08/06/20 Atorvastatin Calcium [Lipitor 80 mg Tablet] 40 mg PO QHS #0 08/06/20 Docusate Sodium [Colace 100 mg Capsule] 100 mg PO DAILY capsule 08/06/20 Famotidine [Pepcid 20 mg Tablet] 20 mg PO Q12 tablet 08/06/20 Allergies/Adverse Reactions: No Known Allergies Allergy (Verified 08/14/20 10:31) Physical Exam Vital Signs: Temp Pulse Resp BP Pulse Ox 97.8 F 89 18 179/82 H 99 08/15/20 23:09 08/16/20 02:00 08/15/20 23:09 08/15/20 23:09 08/15/20 23:09 Intake & Output 08/15/20 08/16/20 08/17/20 06:59 06:59 06:59 Intake Total 3957 1355 Output Total 0 600 Balance 3957 755 Weight 69.1 kg 70.9 kg Results Laboratory Results: 08/16/20 05:57 08/15/20 05:23 08/15/20 08/16/20 21:26 05:57 WBC 5.4 5.6 RBC 2.36 L 2.44 L Hgb 8.4 L 8.6 L Hct 23.9 L 24.5 L MCV 102 H 101 H MCH 35.5 H 35.4 H MCHC 35.0 35.1 RDW 16.3 H 15.7 H Plt Count 255 268 Seg Neutrophils % 66.6 63.0 08/14/20 08/14/20 08/14/20 08:10 15:30 15:30 Creatine Kinase 38 CK-MB (CK-2) 0.32 Troponin I < 0.012 < 0.012 08/14/20 08/14/20 08/15/20 22:53 22:53 05:23 Creatine Kinase 42 47 CK-MB (CK-2) 0.41 Troponin I < 0.012 08/15/20 08/15/20 08/15/20 05:23 21:26 21:26 Creatine Kinase 42 CK-MB (CK-2) 0.41 0.37 Troponin I < 0.012 < 0.012 Impressions: Chest X-Ray 08/14/20 00:00 IMPRESSION: Stable chest. No acute findings. Head CT 08/14/20 07:54 IMPRESSION: MILD CHRONIC CHANGES OF ATROPHY AND MICROVASCULAR ISCHEMIA. NO ACUTE PROCESS. EVIDENCE OF ACUTE STROKE: NO. Chest/Abdomen CTA 08/15/20 00:00 IMPRESSION: 1. There is no pulmonary embolus. There is no aortic aneurysm or dissection. 2. Small pleural effusions with dependent atelectasis in the lower lobes. 3. Old right rib fractures. 4. Possible osseous metastases. Consider nuclear medicine bone scan. 08/16/20 05:57 08/15/20 05:23 MCV 101 fl (80-97) H 08/16/20 05:57 MCH 35.4 pg (27.0-33.4) H 08/16/20 05:57 MCHC 35.1 g/dL (32.0-36.0) 08/16/20 05:57 RDW 15.7 % (11.5-14.0) H 08/16/20 05:57 Seg Neutrophils % 63.0 % (42-78) 08/16/20 05:57 Carbonic Acid 1.18 mmol/L (1.05-1.35) 08/14/20 17:50 HCO3/H2CO3 Ratio 21:1 08/14/20 17:50 ABG pH 7.42 (7.35-7.45) 08/14/20 17:50 ABG pCO2 39.3 mmHg (35-45) 08/14/20 17:50 ABG pO2 76.1 mmHg (80-100) L 08/14/20 17:50 ABG HCO3 25.1 mmol/L (20-24) H 08/14/20 17:50 ABG O2 Saturation 95.5 % (94-98) 08/14/20 17:50 ABG Base Excess 0.7 mmol/L 08/14/20 17:50 VBG pH 7.39 (7.30-7.42) 08/14/20 08:10 VBG pCO2 35.8 mmHg (35-63) 08/14/20 08:10 VBG HCO3 21.2 mmol/L (20-32) 08/14/20 08:10 VBG Base Excess -3.2 mmol/L 08/14/20 08:10 FiO2 ROOM AIR 08/14/20 17:50 Chloride 106 mmol/L (98-107) 08/15/20 05:23 Carbon Dioxide 25 mmol/L (22-30) 08/15/20 05:23 Anion Gap 6 (5-19) 08/15/20 05:23 Est GFR ( Amer) > 60 (>60) 08/15/20 05:23 Glucose 150 mg/dL (75-110) H 08/15/20 05:23 Lactic Acid 1.3 mmol/L (0.7-2.1) 08/14/20 15:30 Calcium 7.6 mg/dL (8.4-10.2) L 08/15/20 05:23 Phosphorus 3.4 mg/dL (2.5-4.5) 08/14/20 08:10 Magnesium 1.7 mg/dL (1.6-2.3) 08/14/20 08:10 Total Bilirubin 0.4 mg/dL (0.2-1.3) 08/15/20 05:23 AST 20 U/L (14-36) 08/15/20 05:23 Alkaline Phosphatase 95 U/L (38-126) 08/15/20 05:23 Ammonia < 8.7 umol/L (9-33) L 08/14/20 15:30 Total Protein 5.4 g/dL (6.3-8.2) L 08/15/20 05:23 Albumin 2.8 g/dL (3.5-5.0) L 08/15/20 05:23 Triglycerides 90 mg/dL (<150) 08/15/20 05:23 Cholesterol 90.96 mg/dL (0-200) 08/15/20 05:23 LDL Cholesterol Direct 41 mg/dL (<100) 08/15/20 05:23 VLDL Cholesterol 18.0 mg/dL (10-31) 08/15/20 05:23 HDL Cholesterol 27 mg/dL (>40) L 08/15/20 05:23 Amylase 50 U/L (30-110) 08/14/20 08:10 Lipase 84.4 U/L (23-300) 08/14/20 08:10 TSH 2.66 uIU/mL (0.47-4.68) 08/14/20 08:10 Free T4 1.15 ng/dL (0.78-2.19) 08/14/20 08:10 Urine Color YELLOW 08/14/20 08:15 Urine Appearance CLEAR 08/14/20 08:15 Urine pH 5.0 (5.0-9.0) 08/14/20 08:15 Ur Specific [place] 1.016 08/14/20 08:15 Urine Protein NEGATIVE mg/dL (NEGATIVE) 08/14/20 08:15 Urine Glucose (UA) >=500 mg/dL (NEGATIVE) H 08/14/20 08:15 Urine Ketones NEGATIVE mg/dL (NEGATIVE) 08/14/20 08:15 Urine Blood NEGATIVE (NEGATIVE) 08/14/20 08:15 Urine RBC (Auto) 1 /HPF 08/14/20 08:15 08/14/20 08/14/20 08/14/20 08:10 15:30 15:30 Creatine Kinase 38 CK-MB (CK-2) 0.32 Troponin I < 0.012 < 0.012 08/14/20 08/14/20 08/15/20 22:53 22:53 05:23 Creatine Kinase 42 47 CK-MB (CK-2) 0.41 Troponin I < 0.012 08/15/20 08/15/20 08/15/20 05:23 21:26 21:26 Creatine Kinase 42 CK-MB (CK-2) 0.41 0.37 Troponin I < 0.012 < 0.012 Current Medication List Generic Name Dose Route Start Last Admin Trade Name Louie PRN Reason Stop Dose Admin Acetaminophen 650 mg 08/15/20 20:41 Tylenol 325 Mg Tablet PO 09/14/20 20:40 Q4HP PRN PAIN/FEVER Enoxaparin Sodium 40 mg 08/14/20 15:00 08/15/20 10:18 Lovenox Inj 40 Mg/0.4 Ml Disp.Syrin SUBCUT 09/13/20 14:59 40 mg DAILY CLEM Administration Sodium Chloride 1,000 mls @ 100 mls/hr 08/14/20 13:24 08/15/20 23:39 Nacl 0.9% 1000 Ml Iv Soln IV 09/13/20 13:23 100 mls/hr CONTINUOUS PRN Administration THIS MED IS NOT "PRN" Lidocaine 1 patch 08/16/20 10:00 Lidoderm 5% (700 Mg) Transdermal Patch TP 09/15/20 09:59 DAILY CLEM Lisinopril 10 mg 08/15/20 21:00 08/15/20 22:49 Prinivil 10 Mg Tablet PO 09/14/20 20:59 10 mg DAILY CLEM Administration Pantoprazole Sodium 40 mg 08/15/20 22:00 08/15/20 22:50 Protonix Iv Inj 40 Mg Vial IV 08/22/20 21:59 40 mg Q12 CLEM Administration Discontinued Medications Generic Name Dose Route Start Last Admin Trade Name Louie PRN Reason Stop Dose Admin Sodium Chloride 1,000 mls @ 0 mls/hr 08/14/20 07:58 08/14/20 11:36 Nacl 0.9% 1000 Ml Iv Soln IV 08/14/20 07:59 Infused BOLUS ONE Infusion Wide Open Sodium Chloride 1,000 mls @ 0 mls/hr 08/14/20 09:30 08/14/20 13:50 Nacl 0.9% 1000 Ml Iv Soln IV 08/14/20 09:31 Infused BOLUS ONE Infusion Wide Open Status: Image reviewed by me Assessment & Plan - Diagnosis (1) Chest pain Qualifiers: Chest pain type: unspecified Qualified Code(s): R07.9 - Chest pain, unspecified Is this a current diagnosis for this admission?: Yes Plan: The patient had one single episode of chest pain yesterday without recurrence. Her cardiac troponin is negative. Unfortunately she has stage IV breast cancer with metastasis to bone. Her oncologist has recommended hospice care at this poi nt. She has remained hemodynamically and electrically stable. Given her advanced cancer, the patient is not a candidate for invasive cardiac work up and will recommend medical management. Cardiology will sign off the case for now, please reconsult if clinically indicated.
[2020-08-16] MEDS: INSULIN LISPRO 100 UNIT/ML 3 ML VIAL SUBCUT SCH ×3 (12:33→22:17)
[2020-08-16] MEDS: NORMAL SALINE 1000 ML 1,000 ML IV PRN (13:45)
[2020-08-16] MEDS: ACETAMINOPHEN 325 MG TABLET PO PRN (17:01)
[2020-08-16] MEDS ORDERED: ATORVASTATIN CALCIUM 80 MG TABLET PO SCH (22:00)
[2020-08-16] MEDS: ATORVASTATIN CALCIUM 40 MG TABLET PO SCH (22:17)
[2020-08-16] MEDS: DIVALPROEX SODIUM 250 MG TAB.SR.24H PO SCH (22:17)
[2020-08-17] MEDS: NORMAL SALINE 1000 ML 1,000 ML IV PRN ×2 (02:32→17:45)
[2020-08-17 04:51] LABS: ABSOLUTE EOSINOPHILS # (AUTO) 0.1 10^3/uL (0.0-0.6); ABSOLUTE LYMPHOCYTES (AUTO) 0.8 10^3/uL (0.5-4.7); ABSOLUTE MONOCYTES (AUTO) 0.9 10^3/uL (0.1-1.4); ABSOLUTE NEUT (AUTO) 3.7 10^3/uL (1.7-8.2); BASOPHILS % (AUTO) 0.6 % (0-2); HEMATOCRIT 26.5 % (36.0-47.0); HEMOGLOBIN 9.2 g/dL (12.0-15.5); LYMPHOCYTES % (AUTO) 15.1 % (13-45); MEAN CORPUSCULAR HEMOGLOBIN 34.8 pg (27.0-33.4); MEAN CORPUSCULAR HGB CONC 34.8 g/dL (32.0-36.0); MEAN CORPUSCULAR VOLUME 100 fl (80-97); MONOCYTES % (AUTO) 15.4 % (3-13); PLATELET COUNT 275 10^3/uL (150-450); RED BLOOD COUNT 2.65 10^6/uL (3.72-5.28); SEGMENTED NEUTROPHILS % (AUTO) 66.9 % (42-78); TOTAL CELLS COUNTED % (AUTO) 100 %; WHITE BLOOD COUNT 5.6 10^3/uL (4.0-10.5)
[2020-08-17 05:11] LABS: ANION GAP 8 (5-19); BLOOD UREA NITROGEN 8 mg/dL (7-20); CALCIUM 8.4 mg/dL (8.4-10.2); CARBON DIOXIDE 25 mmol/L (22-30); CHLORIDE 106 mmol/L (98-107); GLUCOSE 169 mg/dL (75-110); POTASSIUM 3.4 mmol/L (3.6-5.0)
[2020-08-17] MEDS: INSULIN LISPRO 100 UNIT/ML 3 ML VIAL SUBCUT SCH ×4 (08:34→21:36)
--- NOTE | 2020-08-17 09:50 | PDOC PROGRESS REPORT ---
Subjective Progress Note for:: 08/17/20 Subjective:: Patient is currently doing fair No other events happens No chest pain no short of breath Reason For Visit: ENCEPHALOPATHY ? CAUSE Physical Exam Vital Signs: Temp Pulse Resp BP Pulse Ox 98.5 F 76 14 147/78 H 95 08/17/20 08:53 08/17/20 08:13 08/17/20 08:13 08/17/20 08:13 08/17/20 08:13 Intake & Output 08/16/20 08/17/20 08/18/20 06:59 06:59 06:59 Intake Total 1355 2340 Output Total 600 300 Balance 755 2040 Weight 70.9 kg 67.5 kg General appearance: PRESENT: no acute distress, well-developed, well-nourished Head exam: PRESENT: atraumatic, normocephalic Eye exam: PRESENT: conjunctiva pink, EOMI, PERRLA. ABSENT: scleral icterus Ear exam: PRESENT: normal external ear exam Mouth exam: PRESENT: moist, tongue midline Neck exam: PRESENT: full ROM. ABSENT: carotid bruit, JVD, lymphadenopathy, thyromegaly Respiratory exam: PRESENT: clear to auscultation [place] Cardiovascular exam: PRESENT: RRR. ABSENT: diastolic murmur, rubs, systolic murmur Vascular exam: PRESENT: normal capillary refill GI/Abdominal exam: PRESENT: normal bowel sounds, soft. ABSENT: distended, guarding, mass, organolmegaly, rebound, tenderness Rectal exam: PRESENT: deferred Neurological exam: PRESENT: alert, awake. ABSENT: motor sensory deficit Psychiatric exam: PRESENT: appropriate affect, normal mood. ABSENT: homicidal i deation, suicidal ideation Skin exam: PRESENT: dry, intact, warm. ABSENT: cyanosis, rash Results Laboratory Results: 08/17/20 04:36 08/17/20 04:36 08/17/20 08/17/20 04:36 04:36 WBC 5.6 RBC 2.65 L Hgb 9.2 L Hct 26.5 L MCV 100 H MCH 34.8 H MCHC 34.8 RDW 16.0 H Plt Count 275 Seg Neutrophils % 66.9 Sodium 138.5 Potassium 3.4 L Chloride 106 Carbon Dioxide 25 Anion Gap 8 BUN 8 Creatinine 0.37 L Est GFR ( Amer) > 60 Glucose 169 H Calcium 8.4 08/14/20 08/14/20 08/14/20 08:10 15:30 15:30 Creatine Kinase 38 CK-MB (CK-2) 0.32 Troponin I < 0.012 < 0.012 08/14/20 08/14/20 08/15/20 22:53 22:53 05:23 Creatine Kinase 42 47 CK-MB (CK-2) 0.41 Troponin I < 0.012 08/15/20 08/15/20 08/15/20 05:23 21:26 21:26 Creatine Kinase 42 CK-MB (CK-2) 0.41 0.37 Troponin I < 0.012 < 0.012 Impressions: Chest X-Ray 08/14/20 00:00 IMPRESSION: Stable chest. No acute findings. Head CT 08/14/20 07:54 IMPRESSION: MILD CHRONIC CHANGES OF ATROPHY AND MICROVASCULAR ISCHEMIA. NO ACUTE PROCESS. EVIDENCE OF ACUTE STROKE: NO. Chest/Abdomen CTA 08/15/20 00:00 IMPRESSION: 1. There is no pulmonary embolus. There is no aortic aneurysm or dissection. 2. Small pleural effusions with dependent atelectasis in the lower lobes. 3. Old right rib fractures. 4. Possible osseous metastases. Consider nuclear medicine bone scan. Assessment & Plan - Diagnosis (1) Acute anoxic encephalopathy Is this a current diagnosis for this admission?: Yes (2) Altered mental status Qualifiers: Altered mental status type: somnolence Qualified Code(s): R40.0 - Somnolence Is this a current diagnosis for this admission?: Yes (3) Bone metastasis Is this a current diagnosis for this admission?: Yes (4) Schizophrenia Qualifiers: Schizophrenia type: other Qualified Code(s): F20.89 - Other schizophrenia; F20.8 - Other schizophrenia Is this a current diagnosis for this admission?: Yes (5) Chest pain Qualifiers: Chest pain type: unspecified Qualified Code(s): R07.9 - Chest pain, unspecified Is this a current diagnosis for this admission?: Yes (6) Type 2 diabetes mellitus Qualifiers: Diabetes mellitus chcf insulin use: without service correspondent use Diabetes mellitus complication status: with neurologic complications Diabetes mellitus complication detail: with polyneuropathy Qualified Code(s): E11.42 - Type 2 diabetes mellitus with diabetic polyneuropathy Is this a current diagnosis for this admission?: Yes - Time Time Spent with patient: 15-24 minutes Level of Care: IMCU Medications reviewed and adjusted accordingly: Yes Anticipated discharge: SNF Anticipated DC Timeframe: Other - Plan Summary Plan Summary: current medications
[2020-08-17] MEDS: ACETAMINOPHEN 325 MG TABLET PO PRN (10:45)
[2020-08-17] MEDS: CALCIUM CARBONATE 600 MG TABLET PO SCH (10:45)
[2020-08-17] MEDS: DOCUSATE SODIUM 100 MG CAPSULE PO SCH (10:45)
[2020-08-17] MEDS: LISINOPRIL 10 MG TABLET PO SCH (10:45)
[2020-08-17] MEDS: DIVALPROEX SODIUM 250 MG TAB.SR.24H PO SCH ×2 (10:46→21:35)
[2020-08-17] MEDS: ENOXAPARIN SODIUM INJ 40 MG/0.4 ML DISP.SYRIN SUBCUT SCH (10:46)
[2020-08-17] MEDS: PANTOPRAZOLE SODIUM 40 MG VIAL IV SCH ×2 (10:46→21:36)
[2020-08-17] MEDS: LIDOCAINE 5% (700 MG) TRANSDERMAL ADH..PATCH TP SCH (10:46)
[2020-08-17] MEDS: ATORVASTATIN CALCIUM 40 MG TABLET PO SCH (21:35)
[2020-08-18 06:58] LABS: ANION GAP 11 (5-19); BLOOD UREA NITROGEN 9 mg/dL (7-20); CALCIUM 8.1 mg/dL (8.4-10.2); CARBON DIOXIDE 22 mmol/L (22-30); CHLORIDE 106 mmol/L (98-107); GLUCOSE 176 mg/dL (75-110); POTASSIUM 3.8 mmol/L (3.6-5.0)
[2020-08-18] MEDS: INSULIN LISPRO 100 UNIT/ML 3 ML VIAL SUBCUT SCH ×4 (08:13→22:23)
[2020-08-18] MEDS: PANTOPRAZOLE SODIUM 40 MG VIAL IV SCH (09:59)
[2020-08-18] MEDS: NORMAL SALINE 1000 ML 1,000 ML IV PRN ×2 (09:59→20:49)
[2020-08-18] MEDS: DOCUSATE SODIUM 100 MG CAPSULE PO SCH (10:00)
[2020-08-18] MEDS: LISINOPRIL 10 MG TABLET PO SCH (10:00)
[2020-08-18] MEDS: ENOXAPARIN SODIUM INJ 40 MG/0.4 ML DISP.SYRIN SUBCUT SCH (10:00)
[2020-08-18] MEDS: CALCIUM CARBONATE 600 MG TABLET PO SCH (10:00)
[2020-08-18] MEDS: LIDOCAINE 5% (700 MG) TRANSDERMAL ADH..PATCH TP SCH (10:00)
[2020-08-18] MEDS: DIVALPROEX SODIUM 250 MG TAB.SR.24H PO SCH ×2 (10:00→21:51)
--- NOTE | 2020-08-18 19:17 | PDOC TRANSFER SUMMARY ---
Impression - Admit/DC Date/PCP Admission Date/Primary Care Provider: 08/14/20 10:18 MORIAH BYRNE PA-C Discharge Date: 08/19/20 - Discharge Diagnosis (2) Breast cancer, stage 4 Is this a current diagnosis for this admission?: Yes (3) Physical deconditioning Is this a current diagnosis for this admission?: Yes (4) Type 2 diabetes mellitus Is this a current diagnosis for this admission?: Yes - Additional Information Referrals: MORIAH MADISON PA-C [Primary Care Provider] - Follow up as needed Home Medications: Calcium Carbonate [Calcium] 600 mg PO DAILY 07/26/20 Dapagliflozin Propanediol [Farxiga] 10 mg PO DAILY 07/26/20 Divalproex Sodium [Depakote ER 250 mg Tablet] 250 mg PO Q12 07/26/20 Divalproex Sodium [Depakote ER 500 mg Tab.sr] 500 mg PO Q12 07/26/20 Doxepin HCl [Silenor] 3 mg PO QHS 07/26/20 Lisinopril [Prinivil 10 mg Tablet] 10 mg PO DAILY 07/26/20 Metformin HCl [Glucophage 500 mg Tablet] 1,000 mg PO BIDBS 07/26/20 Quetiapine Fumarate [Quetiapine Fumarate ER] 600 mg PO QHS 07/26/20 Docusate Sodium [Colace 100 mg Capsule] 100 mg PO DAILY capsule 08/06/20 Famotidine [Pepcid 20 mg Tablet] 20 mg PO Q12 tablet 08/06/20 Acetaminophen [Tylenol 325 mg Tablet] 650 mg PO Q4HP PRN tablet 08/18/20 Atorvastatin Calcium [Lipitor 40 mg Tablet] 40 mg PO QHS tablet 08/18/20 Glucagon,Human Recombinant [Glucagen Inj 1 mg Vial] 1 mg IM PRN PRN vial 08/18/20 Insulin Lispro [Humalog Insulin (Lispro) 100 unit/mL] 0 - 12 unit SUBCUT ACHS unit 08/18/20 Lidocaine [Lidoderm 5% (700 mg) Transdermal Patch] 1 patch TP DAILY adh..patch 08/18/20 Lisinopril [Prinivil 10 mg Tablet] 10 mg PO DAILY tablet 08/18/20 History of Present Illiness History of Present Illness: RANDELL COURTNEY is a 64 year old female, She was discharged yesterday to the group home, she was transferred from the group home but emergency room for evaluation of altered mental status.CAT scan of the head was done, it was negative for any acute Pathology.The exact cause of the excessive somnolence is not clear, this could be related to medication that she uses for her psychosis, Hospital Course Hospital Course: Patient was admitted for the management of altered mental status, she was very stuporous on admission. EEG was done, the EEG is characterized by a moderately organized background with a moderately well-developed and reactive posterior dominant the EEG is abnormal, it is consistent with nonspecific diffuse cerebral dysfunction. There are no definitive epileptiform abnormalities.It was felt that the encephalopathy is related to medication. The medications were held on this admission.Patient was more alert and responsive ,CTA chest was done and was negative for pulmonary embolism.She is Physical deconditioning,she is not able to ambulate ,she needs Rehabilitation.She has stage IV breast cancer with bone metastasis.The medication was reviewed, she was taken off Abilify Physical Exam Vital Signs: Temp Pulse Resp BP Pulse Ox 98.5 F 88 19 145/71 H 99 08/18/20 10:00 08/18/20 14:00 08/18/20 07:14 08/18/20 07:14 08/18/20 07:14 Intake & Output 08/17/20 08/18/20 08/19/20 06:59 06:59 06:59 Intake Total 2340 2495 480 Output Total 300 2825 650 Balance 2040 -330 -170 Weight 67.5 kg 65.7 kg General appearance: PRESENT: no acute distress Eye exam: PRESENT: PERRLA Respiratory exam: PRESENT: clear to auscultation [place] Cardiovascular exam: PRESENT: +S1, +S2 GI/Abdominal exam: PRESENT: soft Neurological exam: PRESENT: alert Results Laboratory Results: WBC 5.6 10^3/uL (4.0-10.5) 08/17/20 04:36 RBC 2.65 10^6/uL (3.72-5.28) L 08/17/20 04:36 Hgb 9.2 g/dL (12.0-15.5) L 08/17/20 04:36 Hct 26.5 % (36.0-47.0) L 08/17/20 04:36 MCV 100 fl (80-97) H 08/17/20 04:36 MCH 34.8 pg (27.0-33.4) H 08/17/20 04:36 MCHC 34.8 g/dL (32.0-36.0) 08/17/20 04:36 RDW 16.0 % (11.5-14.0) H 08/17/20 04:36 Plt Count 275 10^3/uL (150-450) 08/17/20 04:36 Lymph % (Auto) 15.1 % (13-45) 08/17/20 04:36 [place] % (Auto) 15.4 % (3-13) H 08/17/20 04:36 Eos % (Auto) 2.0 % (0-6) 08/17/20 04:36 Baso % (Auto) 0.6 % (0-2) 08/17/20 04:36 Absolute Neuts (auto) 3.7 10^3/uL (1.7-8.2) 08/17/20 04:36 Absolute Lymphs (auto) 0.8 10^3/uL (0.5-4.7) 08/17/20 04:36 Absolute Monos (auto) 0.9 10^3/uL (0.1-1.4) 08/17/20 04:36 Absolute Eos (auto) 0.1 10^3/uL (0.0-0.6) 08/17/20 04:36 Absolute Basos (auto) 0.0 10^3/uL (0.0-0.2) 08/17/20 04:36 Seg Neutrophils % 66.9 % (42-78) 08/17/20 04:36 PT 14.3 SEC (11.4-15.4) 08/14/20 15:30 INR 1.09 08/14/20 15:30 APTT 32.7 SEC (23.5-35.8) 08/14/20 15:30 Carbonic Acid 1.18 mmol/L (1.05-1.35) 08/14/20 17:50 HCO3/H2CO3 Ratio 21:1 08/14/20 17:50 ABG pH 7.42 (7.35-7.45) 08/14/20 17:50 ABG pCO2 39.3 mmHg (35-45) 08/14/20 17:50 ABG pO2 76.1 mmHg (80-100) L 08/14/20 17:50 ABG HCO3 25.1 mmol/L (20-24) H 08/14/20 17:50 ABG Total CO2 26.3 mmol/L (21-25) H 08/14/20 17:50 ABG O2 Saturation 95.5 % (94-98) 08/14/20 17:50 ABG Base Excess 0.7 mmol/L 08/14/20 17:50 VBG pH 7.39 (7.30-7.42) 08/14/20 08:10 VBG pCO2 35.8 mmHg (35-63) 08/14/20 08:10 VBG HCO3 21.2 mmol/L (20-32) 08/14/20 08:10 VBG Base Excess -3.2 mmol/L 08/14/20 08:10 FiO2 ROOM AIR 08/14/20 17:50 Sodium 138.5 mmol/L (137-145) 08/18/20 05:28 Potassium 3.8 mmol/L (3.6-5.0) 08/18/20 05:28 Chloride 106 mmol/L (98-107) 08/18/20 05:28 Carbon Dioxide 22 mmol/L (22-30) 08/18/20 05:28 Anion Gap 11 (5-19) 08/18/20 05:28 BUN 9 mg/dL (7-20) 08/18/20 05:28 Creatinine 0.38 mg/dL (0.52-1.25) L 08/18/20 05:28 Est GFR ( Amer) > 60 (>60) 08/18/20 05:28 Est GFR (MDRD) Non-Af > 60 (>60) 08/18/20 05:28 Glucose 176 mg/dL (75-110) H 08/18/20 05:28 POC Glucose 174 mg/dL (70-110) H 08/18/20 15:52 Hemoglobin A1c % 4.6 % (4.7-6.0) L 08/15/20 05:23 Lactic Acid 1.3 mmol/L (0.7-2.1) 08/14/20 15:30 Calcium 8.1 mg/dL (8.4-10.2) L 08/18/20 05:28 Phosphorus 3.4 mg/dL (2.5-4.5) 08/14/20 08:10 Magnesium 1.7 mg/dL (1.6-2.3) 08/14/20 08:10 Total Bilirubin 0.4 mg/dL (0.2-1.3) 08/15/20 05:23 Direct Bilirubin 0.2 mg/dL (0.0-0.4) 08/15/20 05:23 Neonat Total Bilirubin Not Reportable 08/15/20 05:23 Neonat Direct Bilirubin Not Reportable 08/15/20 05:23 Neonat Indirect Bili Not Reportable 08/15/20 05:23 AST 20 U/L (14-36) 08/15/20 05:23 ALT 11 U/L (<35) 08/15/20 05:23 Alkaline Phosphatase 95 U/L (38-126) 08/15/20 05:23 Ammonia < 8.7 umol/L (9-33) L 08/14/20 15:30 Creatine Kinase 42 U/L (30-135) 08/15/20 21:26 CK-MB (CK-2) 0.37 ng/mL (<4.55) 08/15/20 21:26 Troponin I < 0.012 ng/mL 08/15/20 21:26 Total Protein 5.4 g/dL (6.3-8.2) L 08/15/20 05:23 Albumin 2.8 g/dL (3.5-5.0) L 08/15/20 05:23 Triglycerides 90 mg/dL (<150) 08/15/20 05:23 Cholesterol 90.96 mg/dL (0-200) 08/15/20 05:23 LDL Cholesterol Direct 41 mg/dL (<100) 08/15/20 05:23 VLDL Cholesterol 18.0 mg/dL (10-31) 08/15/20 05:23 HDL Cholesterol 27 mg/dL (>40) L 08/15/20 05:23 Amylase 50 U/L (30-110) 08/14/20 08:10 Lipase 84.4 U/L (23-300) 08/14/20 08:10 TSH 2.66 uIU/mL (0.47-4.68) 08/14/20 08:10 Free T4 1.15 ng/dL (0.78-2.19) 08/14/20 08:10 Urine Color YELLOW 08/14/20 08:15 Urine Appearance CLEAR 08/14/20 08:15 Urine pH 5.0 (5.0-9.0) 08/14/20 08:15 Ur Specific [place] 1.016 08/14/20 08:15 Urine Protein NEGATIVE mg/dL (NEGATIVE) 08/14/20 08:15 Urine Glucose (UA) >=500 mg/dL (NEGATIVE) H 08/14/20 08:15 Urine Ketones NEGATIVE mg/dL (NEGATIVE) 08/14/20 08:15 Urine Blood NEGATIVE (NEGATIVE) 08/14/20 08:15 Urine Nitrite (Reflex) NEGATIVE (NEGATIVE) 08/14/20 08:15 Urine Bilirubin NEGATIVE (NEGATIVE) 08/14/20 08:15 Urine Urobilinogen NEGATIVE mg/dL (<2.0) 08/14/20 08:15 Leukocyte Esterase Rfl NEGATIVE (NEGATIVE) 08/14/20 08:15 Urine RBC (Auto) 1 /HPF 08/14/20 08:15 Urine Bacteria (Auto) 1+ /HPF 08/14/20 08:15 Urine WBC (Reflex) 6 /HPF 08/14/20 08:15 Urine Mucus (Auto) RARE /LPF 08/14/20 08:15 Urine Ascorbic Acid NEGATIVE (NEGATIVE) 08/14/20 08:15 Valproic Acid 71.1 ug/mL (50.0-120.0) 08/14/20 08:10 08/14/20 08/14/20 08/14/20 08:10 15:30 22:53 CK-MB (CK-2) 0.32 0.41 Troponin I < 0.012 < 0.012 < 0.012 08/15/20 08/15/20 05:23 21:26 CK-MB (CK-2) 0.41 0.37 Troponin I < 0.012 < 0.012 Impressions: Chest X-Ray 08/14/20 00:00 IMPRESSION: Stable chest. No acute findings. Head CT 08/14/20 07:54 IMPRESSION: MILD CHRONIC CHANGES OF ATROPHY AND MICROVASCULAR ISCHEMIA. NO ACUTE PROCESS. EVIDENCE OF ACUTE STROKE: NO. Chest/Abdomen CTA 08/15/20 00:00 IMPRESSION: 1. There is no pulmonary embolus. There is no aortic aneurysm or dissection. 2. Small pleural effusions with dependent atelectasis in the lower lobes. 3. Old right rib fractures. 4. Possible osseous metastases. Consider nuclear medicine bone scan. Stroke Is this a Stroke Patient?: No Acute Heart Failure Is this a Heart Failure Patient?: No
[2020-08-18] MEDS: PANTOPRAZOLE SODIUM 40 MG TABLET.DR PO SCH (21:51)
[2020-08-18] MEDS: ATORVASTATIN CALCIUM 40 MG TABLET PO SCH (21:51)
[2020-08-19 07:09] LABS: ANION GAP 9 (5-19); BLOOD UREA NITROGEN 9 mg/dL (7-20); CALCIUM 8.6 mg/dL (8.4-10.2); CARBON DIOXIDE 23 mmol/L (22-30); CHLORIDE 106 mmol/L (98-107); GLUCOSE 215 mg/dL (75-110); POTASSIUM 3.5 mmol/L (3.6-5.0)
[2020-08-19] MEDS: INSULIN LISPRO 100 UNIT/ML 3 ML VIAL SUBCUT SCH ×3 (08:18→16:20)
[2020-08-19] MEDS: CALCIUM CARBONATE 600 MG TABLET PO SCH (09:51)
[2020-08-19] MEDS: DIVALPROEX SODIUM 250 MG TAB.SR.24H PO SCH (09:51)
[2020-08-19] MEDS: DOCUSATE SODIUM 100 MG CAPSULE PO SCH (09:52)
[2020-08-19] MEDS: PANTOPRAZOLE SODIUM 40 MG TABLET.DR PO SCH (09:52)
[2020-08-19] MEDS: ENOXAPARIN SODIUM INJ 40 MG/0.4 ML DISP.SYRIN SUBCUT SCH (09:52)
[2020-08-19] MEDS: LISINOPRIL 10 MG TABLET PO SCH (09:52)
[2020-08-19] MEDS: LIDOCAINE 5% (700 MG) TRANSDERMAL ADH..PATCH TP SCH (09:52)
[2020-08-19] MEDS: NORMAL SALINE 1000 ML 1,000 ML IV PRN (09:56)
[2020-08-19 16:45] VITALS: BP 160/82
== END 2020-08-19 18:41 | DRG 52 ==
LOC: ER 07:48 → EH 10:18 → 3W 14:16
PROVIDERS: ADMIT Internal Medicine; ATTEND Internal Medicine
DX: G92 Toxic encephalopathy (principal); C50.411 Malignant neoplasm of upper-outer quadrant of right female breast; T50.905A Adverse effect of unspecified drugs, medicaments and biological substances, initial encounter; C79.51 Secondary malignant neoplasm of bone; G89.29 Other chronic pain; E78.5 Hyperlipidemia, unspecified; I10 Essential (primary) hypertension; D63.0 Anemia in neoplastic disease; F31.9 Bipolar disorder, unspecified; E11.42 Type 2 diabetes mellitus with diabetic polyneuropathy; E86.0 Dehydration; E78.00 Pure hypercholesterolemia, unspecified; F41.9 Anxiety disorder, unspecified; F25.9 Schizoaffective disorder, unspecified; Z17.0 Estrogen receptor positive status [ER+]; Z79.899 Other long term (current) drug therapy; Z79.4 Long term (current) use of insulin; Z87.891 Personal history of nicotine dependence
CPT/HCPCS: 36415; 36600; 70450; 71045; 71275; 80048; 80053; 80061; 80164; 81001; 82140; 82150; 82550; 82553; 82803; 82962; 83036; 83605; 83690; 83735; 84100; 84439; 84443; 84484; 85025; 85610; 85730; 87040; 93005; 93010; 95819; 99285; C9113; J1650; J1815; J3490; J7030